=== PATIENT | female | born 1960 | race Caucasian/White ===

== ENCOUNTER 2020-10-20 11:16 | Inpatient (IN) | payer MEDICARE, MEDICAID ==
[~2020-10-20] VITALS: Ht 165.1 cm; Wt 61.2 kg
[2020-10-20 21:58] VITALS: BP 154/97
[2020-10-20 23:00] LABS: ALBUMIN 3.1 g/dL (3.4-5.0); ALBUMIN/GLOBULIN RATIO 0.9 (1.0-1.7); CALCIUM 8.8 mg/dL (8.5-10.1); CREATININE 0.7 mg/dL (0.6-1.0); GFR 85.6; POTASSIUM 3.6 mmol/L (3.5-5.1); TOTAL BILIRUBIN 0.2 mg/dL (0.2-1.0); TOTAL PROTEIN 6.4 g/dL (6.4-8.2)
[2020-10-20 23:03] LABS: BASO % 0 % (0-3); EOS # 0.1 x10^3/uL (0.0-0.7); EOS % 1 % (0-3); HEMATOCRIT 36.9 % (36.0-47.0); LYMPH # 1.3 x10^3/uL (1.0-4.8); LYMPH % 23 % (24-48); MEAN CORPUSCULAR HEMOGLOBIN 30 pg (25-35); MEAN CORPUSCULAR HGB CONC 33 g/dL (31-37); MEAN CORPUSCULAR VOLUME 91 fL (79-100); MONO # 0.4 x10^3/uL (0.0-1.1); MONO % 7 % (0-9); NEUT % 69 % (31-73); PLATELET COUNT 185 x10^3/uL (140-400); RED BLOOD COUNT 4.07 x10^6/uL (3.50-5.40); RED CELL DISTRIBUTION WIDTH 13.4 % (11.5-14.5); WHITE BLOOD COUNT 5.9 x10^3/uL (4.0-11.0)
[2020-10-20] MEDS ORDERED: BUDE180A IH (23:23)
[2020-10-20] MEDS ORDERED: PSYL1PAC7 PO (23:23)
[2020-10-20] MEDS ORDERED: LACT1CAP48 PO (23:23)
[2020-10-20] MEDS ORDERED: ZOLP5TAB PO (23:23)
[2020-10-20] MEDS ORDERED: BISA5TAB4 PO (23:23)
[2020-10-20] MEDS ORDERED: NORT25CA PO (23:23)
[2020-10-20] MEDS ORDERED: LEVO75TA5 PO (23:23)
[2020-10-20] MEDS ORDERED: TROL35.4 TP ×2 (23:23)
[2020-10-20] MEDS ORDERED: POLY17PO5 PO (23:23)
[2020-10-20] MEDS ORDERED: IBUP400T18 PO (23:23)
[2020-10-20] MEDS ORDERED: MULT-301 PO (23:23)
[2020-10-20] MEDS ORDERED: MIRT-37 PO (23:23)
[2020-10-20] MEDS ORDERED: GUAI-519 PO (23:23)
[2020-10-20] MEDS ORDERED: SIME80TA14 PO (23:23)
[2020-10-20] MEDS ORDERED: OMEP40CA45 PO (23:23)
[2020-10-20] MEDS ORDERED: DOXY100T PO (23:23)
[2020-10-20] MEDS ORDERED: FLUO20CA16 PO (23:23)
[2020-10-20] MEDS ORDERED: CLON0.5T4 PO (23:23)
[2020-10-20] MEDS ORDERED: ARIP5TAB13 PO (23:23)
[2020-10-20 23:37] VITALS: BP 126/80
[2020-10-21] MEDS ORDERED: ACET325T21 PO (00:13)
--- NOTE | 2020-10-21 02:33 | NUR ---
The patient, JENIFER BAKER, 59 y/o, F admitted by NEVA ROGERS MD, was given written information regarding hospital policies, unit procedures and contact persons. Valuables were checked and noted. PMH, medication review obtained from paperwork received. PT stated she was going to kill herself by hanging with a cord. PT states she was "just pretending" and currently denies SI/HI. PT currently on 1:1 for facility statement.
[2020-10-21 05:40] VITALS: BP 136/78
--- NOTE | 2020-10-21 06:32 | EKG ---
[address] [address] Test Date: 2020-10-21 Test Time: 05:21:12 Pat Name: JENIFER BAKER Department: Room: 105 A Gender: F Director Packaging: : 1960 Requested By: NEVA ROGERS Order Number: [id number] Reading MD: Measurements Intervals [place] Rate: 88 P: 60 CT: 162 QRS: 2 QRSD: 86 T: 43 QT: 374 QTc: 456 Interpretive Statements SINUS RHYTHM NORMAL ECG RI6.01 No previous ECG available for comparison
[2020-10-21 07:34] LABS: BILIRUBIN,URINE NEG (NEG); CLARITY,URINE CLOUDY; COLOR,URINE YELLOW; GLUCOSE,URINE NEG (NEG); NITRITE,URINE NEG (NEG); RBC,URINE 0 /HPF (0-2); UROBILINOGEN,URINE 0.2 mg/dL (0.2 mg/dL)
[2020-10-21 07:35] LABS: AMORPHOUS SEDIMENT,UR PRESENT /HPF; BACTERIA,URINE FEW /HPF (0-FEW); SQUAMOUS EPITHELIAL CELL,UR OCC /LPF; WBC,URINE OCC /HPF (0-4)
[2020-10-21] MEDS ORDERED: ACETAMINOPHEN 325 MG TABLET PO PRN (07:45)
[2020-10-21] MEDS ORDERED: PSYLLIUM SEED (WITH SUGAR) PACKET. PO PRN (07:45)
[2020-10-21] MEDS ORDERED: BISACODYL TAB 5 MG TABLET.DR. PO PRN (07:45)
[2020-10-21] MEDS ORDERED: guaiFENesin 300 MG/15 ML LIQUID PO PRN (07:45)
[2020-10-21] MEDS ORDERED: SIMETHICONE 80 MG TAB.CHEW PO PRN (07:45)
[2020-10-21] MEDS ORDERED: POLYETHYLENE GLYCOL 3350 17 GM PACKET. PO PRN (07:45)
[2020-10-21] MEDS ORDERED: LEVOTHYROXINE 75 MCG TABLET PO SCH (08:00)
[2020-10-21] MEDS ORDERED: PANTOPRAZOLE 40 MG TABLET. PO SCH (08:00)
[2020-10-21] MEDS ORDERED: ZOLPIDEM 5 MG TABLET. PO PRN (08:15)
[2020-10-21] MEDS ORDERED: TROLAMINE SALICYLATE 10% TOPICAL CREAM 85GM JAR. TP PRN (08:15)
[2020-10-21] MEDS ORDERED: FLUoxetine HCL 20 MG CAPSULE PO SCH (09:00)
[2020-10-21] MEDS ORDERED: DOXYCYCLINE HYCLATE 100 MG TABLET PO SCH (09:00)
[2020-10-21] MEDS ORDERED: MULTIVITAMIN with MINERAL TABLET. PO SCH (09:00)
[2020-10-21] MEDS ORDERED: ARIPiprazole 5 MG TABLET PO SCH (09:00)
[2020-10-21] MEDS: clonazePAM 0.5 MG TABLET PO SCH ×3 (09:30→20:45)
[2020-10-21] MEDS: LACTOBACILLUS RHAMNOSUS GG 1 CAPSULE. PO SCH ×3 (09:32→20:44)
[2020-10-21 10:41] VITALS: BP 120/77
[2020-10-21] MEDS: FLUTICASONE FUROATE 100mcg/INH ELLIPTA INHALER. INH SCH ×2 (13:45→20:46)
[2020-10-21 15:07] LABS: THYROID STIM HORMONE (TSH) 0.668 uIU/mL (0.358-3.740)
[2020-10-21 15:09] VITALS: BP 127/82
--- NOTE | 2020-10-21 16:36 | HP ---
ADMIT DATE: 10/20/2020 HISTORY OF PRESENT ILLNESS: The patient is a 59-year-old female patient, a resident at [facility] in [place], who was admitted to [facility] for screening for COVID-19 prior to transferring here upstairs to [facility] as she apparently has suicidal ideation with a plan to strangle herself with a cord. She has also had anorexia, not eating for the past week. She was seen by the tele-psych on 10/15/2020 without much improvement. She has had a UA and labs that are all within normal range and therefore, she will be eventually admitted to [facility] for inpatient psychiatric stabilization. PAST MEDICAL HISTORY: She apparently had tested positive for COVID about 21 days out as of 10/18/2020 and she is off quarantine. She has an extensive list of medical problems including anorexia nervosa, restricting type. She has bipolar disorder, somatoform disorder, Parkinson disease, overactive bladder, urge incontinence, hypomagnesemia, cachexia, muscle wasting and atrophy, difficulty walking, age-related physical debility, repeated falls, constipation. 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 PAST SURGICAL HISTORY: Significant for gastrostomy tube placement. FAMILY HISTORY: Noncontributory. SOCIAL HISTORY: She is single, has been living in [facility] over the last 3 years. 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 She does not smoke, drink alcohol or use any recreational drugs. ALLERGIES: SHE IS ALLERGIC TO PENICILLIN, AZITHROMYCIN, WELLBUTRIN, CEFDINIR, ERYTHROMYCIN AND SULFADIAZINE. MEDICATIONS: She is currently on following medications: She is on doxycycline 100 mg daily, ibuprofen 400 mg one and a half tablet every 8 hours, acetaminophen 650 mg every 4 hours, clonazepam 0.5 mg 3 times a day, fluoxetine for Prozac 20 mg daily, mirtazapine 15 mg take half a tablet at bedtime, nortriptyline 75 mg at bedtime, aripiprazole 5 mg daily, Ambien 2.5 mg at bedtime, Pulmicort 2 puffs twice a day. She is on ____ 10 mL every 4 hours, lactobacillus acidophilus 1 capsule 3 times a day, simethicone 80 mg chewable tablet twice a day, bisacodyl 5 mg daily, polyethylene glycol 17 g daily, psyllium for Metamucil packet ____ daily, omeprazole 40 mg once a day, levothyroxine 75 mcg once a day. She is on Aspercreme 10% cream applied topically daily. She is on multivitamin with mineral 1 tablet once a day. REVIEW OF SYSTEMS: As per history of present illness. PHYSICAL EXAMINATION: GENERAL: On arrival to the hospital, she looked well and was clearly in no apparent respiratory distress. No pallor, jaundice, cyanosis or thyromegaly. No jugular venous distention or limb edema. VITAL SIGNS: Her heart rate was 83, blood pressure was 126/80, temperature 97.4, respiratory rate was 18 and oxygen saturation was 98%. HEAD, EYES, EARS, NOSE AND THROAT: Normocephalic and atraumatic. NECK: Supple. HEART: Showed normal first and second heart sounds. No gallop, rub or murmur. CHEST: Clear to auscultation. No crepitation or rhonchi. ABDOMEN: Scaphoid, soft, nontender. NEUROLOGIC: She is awake, alert, responding appropriately. All cranial nerves intact. EXTREMITIES: She moves extremities without difficulty. She ambulates with a walker. LABORATORY DATA: Showed a white cell count 5900, hemoglobin 12, hematocrit 36, MCV 91, and platelet count 185,000 with normal manual differential. Serum sodium was 142, potassium 3.6, chloride 107, bicarbonate 29, anion gap of 6, BUN 22, creatinine 0.7, estimated GFR was 85 mL per minute. Her glucose 106, calcium was 8.8, magnesium 2. Total bilirubin, AST, ALT, alkaline phosphatase were normal. Total protein 6.4, albumin 3.1. Her serum triglycerides were 82, total cholesterol 173, LDL was 103, VLDL was 16, HDL was 64 and ratio was 3. Her vitamin B12 was 591 pg. Her 25-hydroxy vitamin D was normal at 33.6 ng/mL and her TSH was 0.668. Her D-dimer was low at 0.31. Urinalysis essentially unremarkable and her Treponema pallidum antibody was nonreactive. IMPRESSION: In summary, this is a 59-year-old female patient who was admitted to [facility] for screening for COVID-19. Once it is negative, she will be admitted to [facility] into account of suicidal ideation with a plan to strangulate herself with the cord. She has also a multitude of other psychiatric and medical problems including anorexia nervosa, Parkinson's disease, hypothyroidism. NEVA ROGERS MD DR: MADAN/wil JOB#: [id number] / [id number]
[2020-10-21 19:10] VITALS: BP 125/79
[2020-10-21] MEDS ORDERED: MIRTAZAPINE 7.5 MG TABLET. PO SCH (21:00)
[2020-10-21] MEDS ORDERED: NORTRIPTYLINE 25 MG CAPSULE PO SCH (21:00)
[2020-10-22 00:08] LABS: HEMOGLOBIN A1C 5.5 % (4.8-5.6)
--- NOTE | 2020-10-22 04:05 | NUR ---
COVID screen returned negative, report called and PT transferred to [facility].
--- NOTE | 2020-10-22 08:05 | PDOC ---
Exam Note: Avel Note: This is a late entry for 10/20/2020. Please also refer to the separate dictated note~for this date of service dictated separately. Discussed the patient with Nursing staff reviewed the chart.~Reviewed interim history and current functioning. Reviewed vital signs,~Labs/ Radiology~and current medications noted below. Continue current treatment with the changes noted in the dictated addendum note. Reviewed information with Genie Bragg, [employer], including referral information and criteria for admission. Reviewed the patients medication administration records, current and past history. Assessment: Vital Signs/I&O: Vital Signs Date Time Temp Pulse Resp B/P (MAP) Pulse Ox O2 Delivery O2 Flow Rate FiO2 10/21/20 23:44 71 16 94 Room Air 10/21/20 19:10 98.6 125/79 (94) I & O 10/21/20 10/21/20 10/22/20 15:00 23:00 07:00 Intake Total 960 ml 360 ml 0 ml Balance 960 ml 360 ml 0 ml Current Medications: Meds: Current Medications Medications (Trade) Dose Ordered Sig/Aline Route PRN Reason Start Time Stop Time Status Last Admin Dose Admin Aripiprazole (Abilify) 5 mg DAILY PO 10/21/20 09:00 10/22/20 04:09 DC 10/21/20 09:31 Clonazepam (KlonoPIN) 0.75 mg TID PO 10/21/20 09:00 10/22/20 04:09 DC 10/21/20 20:45 Doxycycline Hyclate (Vibra-Tab) 100 mg DAILY PO 10/21/20 09:00 10/22/20 04:09 DC 10/21/20 09:31 Fluoxetine HCl (PROzac) 20 mg DAILY PO 10/21/20 09:00 10/22/20 04:09 DC 10/21/20 09:31 Mirtazapine (Remeron) 7.5 mg QHS PO 10/21/20 21:00 10/22/20 04:09 DC 10/21/20 20:44 Multivitamins/ Calcium (Thera-M Plus) 1 tab DAILY PO 10/21/20 09:00 10/22/20 04:09 DC 10/21/20 09:31 Nortriptyline HCl (Pamelor) 75 mg QHS PO 10/21/20 21:00 10/22/20 04:09 DC 10/21/20 20:45 Fluticasone Furoate (ARNUITY 100mcg ELLIPTA) 2 puff BID INH 10/21/20 09:00 10/22/20 04:09 DC 10/21/20 13:45 Lactobacillus Rhamnosus (Culturelle) 1 cap TID PO 10/21/20 09:00 10/22/20 04:09 DC 10/21/20 20:44 I have reviewed the current psychotropics carefully including drug interactions. Risk benefit ratio favors no change other than as noted in my dictated progress note. Diagnosis: Problems: (1) Major depressive disorder, recurrent episode (2) Parkinson's disease DEL GO MD Oct 22, 2020 08:05
--- NOTE | 2020-10-22 19:10 | DS ---
DATE OF DISCHARGE: 10/22/2020 HOSPITAL COURSE: The patient is a 59-year-old female patient, who is residing at [facility] in [place], who was admitted to [address] [place] [address] to be screened for COVID-19 and in fact her coronavirus by PCR was not detectable and therefore, the patient was transferred to [facility] as she has suicidal ideation and had a plan to strangle herself with a cord. She apparently has also had anorexia, not eating for the past week. She was seen by telepsych on 10/15/2020 without much improvement. Had a UA and labs that are all within normal range and therefore, she was transferred to [facility] for inpatient psychiatric stabilization. PHYSICAL EXAMINATION: GENERAL: On examining her on the day of discharge, she looked well and was clearly in no apparent respiratory distress. No pallor, jaundice, cyanosis, or thyromegaly. No jugular venous distension. No lower limb edema. VITAL SIGNS: Her heart rate was 71, blood pressure was 125/79, temperature was 98.6, respiratory rate was 18 and oxygen saturation was 96%. HEAD, EYES, EARS, NOSE AND THROAT: Showed normocephalic, atraumatic. NECK: Supple. HEART: Showed normal first and second heart sounds. No gallop or murmur. CHEST: Clear to auscultation. No crepitation or rhonchi. ABDOMEN: Distended, soft, nontender. NEUROLOGIC: She has parkinsonian features which she is able to ambulate with a walker, although she claimed that she cannot eat, although she has eaten 75% of her meals and stated that she in unable to walk, but she was clearly able to walk with a walker when she was here in [address] [place] [address]. LABORATORY DATA: Her lab work showed a white cell count 5900, hemoglobin 12, hematocrit 36, MCV 91, and platelet count of 185,000. Her chemistry showed a serum sodium 142, potassium 3.6, chloride 107, bicarbonate 29, anion gap of 6, BUN 22, creatinine 0.7. Her vitamin B12 591 pg/mL and 25-hydroxy vitamin D was 33.6. Her TSH was normal at 0.668. Her hemoglobin A1c was 5.5. D-dimer was 0.31. Urinalysis was essentially unremarkable and her treponema pallidum antibodies were nonreactive and coronavirus-2 PCR was not detectable. FINAL DISCHARGE DIAGNOSES: Suicidal ideation with a plan to strangulate herself with a cord. The patient has multiple medical problems including anorexia nervosa. She has bipolar disorder, Parkinson disease, urinary incontinence, chronic constipation, hypothyroidism, hypertension, generalized anxiety, major depressive disorder. NEVA ROGERS MD DR: MADAN/wil JOB#: [id number] / [id number]
--- NOTE | 2020-10-24 07:48 | CONS ---
DATE OF CONSULTATION: ADDENDUM HISTORY OF PRESENT ILLNESS: The patient is a 59-year-old female patient who currently resides at [facility] in [place], who was originally admitted to [address] [place] [address] and was cleared for COVID-19, was transferred to [facility] as she apparently has suicidal ideation with a plan to strangle herself with a cord. She has also had anorexia, not eating for the past week. She was seen by the Tele psych on 10/15/2020 without much improvement. She did have a UA and labs that are all within normal range and therefore, she was eventually admitted to [facility] for inpatient psychiatric stabilization. The patient has multiple medical problems and her lab work was mostly unrevealing. Her vital signs are stable. Her lab works are all unremarkable. The medical problems include anorexia nervosa, bipolar disorder, Parkinson's disease, overactive bladder, urge incontinence, hypomagnesemia, cachexia, chronic constipation, hypothyroidism, hypertension, generalized anxiety, major depressive disorder. She is also known to have gastroesophageal reflux disease and peripheral vascular disease. All-in-all, the patient seems to be medically stable. Her vital signs are within normal range. Her lab works are all within acceptable range. My plan is to obviously continue with all her current medications and await evaluation by the psychiatrist. NEVA ROGERS MD DR: MADAN/wil JOB#: [id number] / [id number]
== END 2020-10-22 04:00 | DRG 57 ==
LOC: 1 SOUTH 20:30
PROVIDERS: ADMIT Internal Medicine; ATTEND Internal Medicine
DX: G20 Parkinson's disease (principal); R45.851 Suicidal ideations; F50.00 Anorexia nervosa, unspecified; E03.9 Hypothyroidism, unspecified; F31.9 Bipolar disorder, unspecified; F41.1 Generalized anxiety disorder; I10 Essential (primary) hypertension; K59.09 Other constipation; Z20.828 Contact with and (suspected) exposure to other viral communicable diseases; E83.42 Hypomagnesemia; G47.00 Insomnia, unspecified; K21.9 Gastro-esophageal reflux disease without esophagitis; I73.9 Peripheral vascular disease, unspecified; Z86.59 Personal history of other mental and behavioral disorders; Z88.1 Allergy status to other antibiotic agents; Z93.1 Gastrostomy status; Z88.0 Allergy status to penicillin; Z88.8 Allergy status to other drugs, medicaments and biological substances
CPT/HCPCS: 36415; 80053; 80061; 81001; 82306; 82607; 83036; 83735; 84443; 85025; 85379; 86592; 87086; 93005; U0003

== ENCOUNTER 2020-10-22 02:55 | Inpatient (IN) | payer MEDICARE, MEDICAID ==
[~2020-10-22] VITALS: Ht 165.1 cm; Wt 59.5 kg
[~2020-10-22 02:55] MED LIST: ACET325T21 PO; ARIP5TAB13 PO; BISA5TAB4 PO; BUDE180A IH; CLON0.5T4 PO; DOXY100T PO; FLUO20CA16 PO; GUAI-519 PO; IBUP400T18 PO; LACT1CAP48 PO; LEVO75TA5 PO; MIRT-37 PO; MULT-301 PO; NORT25CA PO; OMEP40CA45 PO; POLY17PO5 PO; PSYL1PAC7 PO; SIME80TA14 PO; TROL35.4 TP; ZOLP5TAB PO
[2020-10-22] MEDS ORDERED: ACETAMINOPHEN 325 MG TABLET PO PRN (04:00)
[2020-10-22] MEDS ORDERED: MAGNESIUM HYDROXIDE 2,400 MG/30 ML ORAL.SUSP. PO PRN (04:00)
[2020-10-22] MEDS ORDERED: MAG HYDROX/AL HYDROX/SIMETH 30 ML ORAL.SUSP PO PRN (04:00)
[2020-10-22 04:15] VITALS: BP 130/82
[2020-10-22] MEDS ORDERED: SIMETHICONE 80 MG TAB.CHEW PO PRN (04:30)
[2020-10-22] MEDS ORDERED: BISACODYL TAB 5 MG TABLET.DR. PO PRN (04:30)
[2020-10-22] MEDS ORDERED: guaiFENesin 300 MG/15 ML LIQUID PO PRN (04:30)
[2020-10-22] MEDS ORDERED: METHYL SALICYLATE/MENTHOL TOPICAL OINTMENT 57GM TUBE. TP PRN (04:45)
[2020-10-22 05:05] VITALS: BP 130/84
--- NOTE | 2020-10-22 05:50 | NUR ---
Admission Note with Justification for Admission to [facility] Patient admitted to [facility] for protective oversight for emergency stabilization of acute psychiatric crisis. Pt admitted from: SNF Mode of arrival: EMS Accompanied By: [facility] Staff Precipitating behaviors that initiated intake and admission: The patient made statements that she would attempt to strangle self. Patient had stopped eating prior to arrival to hospital Description of failure of out patient attempts at stabilization in previous setting list behavior and medication trials: Seen by telepsych Behaviors and assessment findings upon admission: Patient is alert and oriented to self, date, location and situation. The patient is withdrawn and hesitant to answer assessment questions. The patient appears to be anxious during interactions. The patient reports generalized pain throughout her body. The patient denies SI thoughts at this time but acknowledges that she made SI statements prior to arrival. The patients lungs are clear, bowel are active. The patient has 1+ edema bilaterally lower extremities. Some bruising located on right forearm but no wounds or rashes noted. Plan: Admit for protective oversight for adjustment and stabilization of medications, behaviors and mood. Intense treatment regimen including groups, medication adjustments, therapy, consistent regimen for ADL's, self care, and sleep hygiene. Daily monitoring by Inpatient staff, Psychiatry, and Medical Physician.
[2020-10-22] MEDS: LEVOTHYROXINE 75 MCG TABLET PO SCH (06:00)
[2020-10-22] MEDS ORDERED: BUDESONIDE 0.5 MG/2 ML NEBU NEB SCH (08:00)
[2020-10-22] MEDS: FLUoxetine HCL 20 MG CAPSULE PO SCH (08:59)
[2020-10-22] MEDS: MULTIVITAMIN with MINERAL TABLET. PO SCH (08:59)
[2020-10-22] MEDS: ARIPiprazole 5 MG TABLET PO SCH (08:59)
[2020-10-22] MEDS: LACTOBACILLUS RHAMNOSUS GG 1 CAPSULE. PO SCH ×3 (08:59→20:08)
[2020-10-22] MEDS: DOXYCYCLINE HYCLATE 100 MG TABLET PO SCH (08:59)
[2020-10-22] MEDS: clonazePAM 0.5 MG TABLET PO SCH ×3 (08:59→20:07)
[2020-10-22] MEDS: PANTOPRAZOLE 40 MG TABLET. PO SCH (08:59)
[2020-10-22] MEDS: PSYLLIUM SEED (WITH SUGAR) PACKET. PO SCH (09:00)
[2020-10-22] MEDS: METHYL SALICYLATE/MENTHOL TOPICAL OINTMENT 57GM TUBE. TP SCH (09:00)
[2020-10-22] MEDS ORDERED: NON FORMULARY ITEM (Budesonide (Pulmicort Flexhaler) 2 PUFF) IH SCH (09:00)
--- NOTE | 2020-10-22 14:22 | NUR ---
PSYCHOSOCIAL ASSESSMENT ADMISSION DATE: 10/22/20 CONTACT INFORMATION: DPOA/Guardian Contact Name: Julisa Bernal-sister/guardian Contact Phone #: [phone] ETHNIC ORIGIN: REASONS FOR ADMISSION: Anxiety/Panic Depressed Sig. Change Appetite Suicidal ideation ADDITIONAL ADMISSION COMMENTS: Per intake record, SI with plan to strangle self with cord, not eating for the past week with history of anorexia. REASON FOR ADMISSION IN PATIENT/FAMILY'S OWN WORDS: Per Kallie, "I'm not doing good, I'm not eating." PATIENT/FAMILY EXPECTATIONS FOR ADMISSION: Per Kallie, "I want to try and get better." when asked what would that look like, Kallie expressed the desire to stand and walk on her own again and to one day be able to live independently and work again. LIVING SITUATION: Patient lives with: [facility] Other living arrangements: [facility] Contact Name: Sadia Contact [address]: [address] [place] [address] Contact Phone #: [phone] Contact Fax #: [phone] FAMILY RELATIONS: Marital Status: Single # of Marriages: 0 # of Children: 0 SB Family Support: Cooperative Involved in DC Planning Additional Comments r/t Family: Kallie is single with no children. She reports having enjoyed dating and having social relationships. She denies being abused in any of her relationships. SIGNIFICANT PSYCHIATRIC/MEDICAL HISTORY: Psychiatric/Treatment History: Kallie believes she has had around seven in patient psychiatric treatment stays starting when she was in her 30's. She has also utilized the supports of out patient counselors and psychiatrists. The intake record notes that Kallie has had ECT treatments in the past for anorexia. Pertinent Family History: Kallie believes that her mother, father, and maternal grandmother all had some level of depression that went undiagnosed. Kallie's father was an alcoholic. HISTORICAL DATA: Childhood Environment: Stressful Childhood Environment Additional Comments: Kallie was born in [facility] to Zachary and Kierra Pitt. She was the oldest of two children and has one sister named Julisa. Kallie recalled her childhood as "bad" because her father was unfaithful leading her parents to divorce. She and her sister were raised by their mother who moved them back to [facility] to have support from family. Kallie recalled seeing her father rarely and that his wages were garnished for child support. Trauma History: None reported Kallie denies childhood abuse or neglect. Drug Abuse History last 12 months: No Comment: Kallie denies using alcohol, recreational drugs, or smoking. 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 service: None Rastafarian background: Kallie is of the Religion luís and is not currently practicing. Sexual orientation: Heterosexual Educational Level: Kallie graduated high school from [employer]. She went on to obtain her masters degree in business education from [employer]. Past/Present Interests/Hobbies: Kallie has enjoyed exercising, playing with dogs, and dating. Financial support/resources: Assisted/Pension SS Disability Monthly income: unknown, adequate Person handling finances: Julisa Bernal-sister Do you have a history of legal problems: Kallie got a DUI when she was 18. Cultural considerations: None reported SOCIAL RELATIONSHIPS-CURRENT/PAST: Psychiatrist: Telepsych visits at [facility] PCP: Dr. Cerna Counselor/Therapist: Not available now due to pandemic [facility] [facility]: n/a Support Group: n/a Desk Clerk/Product Demonstrator: Sadia LOWE Other relationships: Phone contact with sister STRENGTHS & WEAKNESSES: Patient's strengths: Stable living arrange Ambulatory Approachable Patient's weaknesses: Health problems Other patient weaknesses: limited support system, chronic mental illness PRELIMINARY PLAN OF TREATMENT: Preliminary plan: Dec. Anxiety/Panic Dec. Symp. Depression Decrease Isolation Promote Coping Skill No Suicidal/Liv. ideation Improved Social Skills Medication Stabilization Monitor Med Effects Prevent Deterioration Other preliminary treatment comments: Kallie will be encouraged to attend SW and recreational therapy groups while hospitalized. DISCHARGE PLANNING: Discharge planning/disposition: Group Home Additional discharge needs identified: F/U with PCP, psychiatrist, and counselor. Have [facility] recreational therapist follow up with Kallie to develop past time interests within the facility. ADDITIONAL INFORMATION: Other Pertinent Data: Met with Kallie to support related to recent admit and to complete psychosocial assessment. Kallie was curled up in her bed, awake and alert. She was slow to respond and quiet in nature, not offering information readily. Kallie appeared to recall most recent and remote events. She had a flat affect and expressed she was not well. izzy Egan, will be involved in team meeting via phone on 10/25/20.
[2020-10-22 15:57] VITALS: BP 132/79
--- NOTE | 2020-10-22 18:26 | NUR ---
Patient lying in bed at time of assessment. Patient is alert and oriented with no complaints. Patient is feeling helpless and like she can not do anything. She says she cant walk although she walks just fine with her walker. She stated to me that she is not eating and this makes her weak. She has no SI tenancies at this time. She denies any feelings of self harm. She is withdrawn and doesn't like to discuss why she is here. Will monitor patient closely to make sure she is adjusting to the environment okay. There are no further concerns at this time.
[2020-10-22] MEDS: MIRTAZAPINE 7.5 MG TABLET. PO SCH (20:07)
[2020-10-22] MEDS: ZOLPIDEM 5 MG TABLET. PO SCH (20:07)
[2020-10-22] MEDS: NORTRIPTYLINE 25 MG CAPSULE PO SCH (20:08)
[2020-10-22] MEDS: FLUTICASONE FUROATE 100mcg/INH ELLIPTA INHALER. INH SCH (20:54)
--- NOTE | 2020-10-23 00:21 | NUR ---
Nursing Note Pt has significant psychomotor slowing, very flat affect with monosyllabic speech. Has to be told to stand, sit, straighten up is very slow to respond to verbal stimuli. Answers with one word answers. Difficult to engage, minimal eye contact.
[2020-10-23] MEDS: LEVOTHYROXINE 75 MCG TABLET PO SCH (04:32)
[2020-10-23 06:20] VITALS: BP 152/90
[2020-10-23] MEDS: PSYLLIUM SEED (WITH SUGAR) PACKET. PO SCH (07:58)
[2020-10-23] MEDS: FLUoxetine HCL 20 MG CAPSULE PO SCH (07:58)
[2020-10-23] MEDS: LACTOBACILLUS RHAMNOSUS GG 1 CAPSULE. PO SCH ×3 (07:58→19:27)
[2020-10-23] MEDS: DOXYCYCLINE HYCLATE 100 MG TABLET PO SCH (07:59)
[2020-10-23] MEDS: ARIPiprazole 5 MG TABLET PO SCH (07:59)
[2020-10-23] MEDS: PANTOPRAZOLE 40 MG TABLET. PO SCH (07:59)
[2020-10-23] MEDS: MULTIVITAMIN with MINERAL TABLET. PO SCH (07:59)
[2020-10-23] MEDS: FLUTICASONE FUROATE 100mcg/INH ELLIPTA INHALER. INH SCH ×2 (08:08→19:26)
[2020-10-23] MEDS: METHYL SALICYLATE/MENTHOL TOPICAL OINTMENT 57GM TUBE. TP SCH (08:10)
[2020-10-23] MEDS: clonazePAM 0.5 MG TABLET PO SCH ×3 (08:10→19:28)
--- NOTE | 2020-10-23 14:02 | PSYEV ---
DATE OF SERVICE: 10/23/2020 REASON FOR ADMISSION: This 59-year-old single female who was seen today by telehealth, was transferred from medical floor where she kept for observation prior to transfer to the Psych Unit. The patient apparently a resident at [facility] and apparently she made a suicidal attempt, trying to strangle herself with a cord. The patient admits she has been depressed, not happy with living arrangement and feeling hopeless and helpless. HISTORY OF PRESENT ILLNESS: The patient has a long history of psychiatric problems. She had multiple hospitalizations in the past at least twice to [facility] and twice to [facility] in the past and at least attempted suicide before twice, once by overdosing on pills, the other time trying to strangle herself. The patient admits she has been depressed most of her life and her problems really started when she was 36 years that was the first time she had psychiatric treatment. The patient saw a psychiatrist for a period of time, then went to a different psychiatrist. She has been tried on almost every antidepressant, mood stabilizers and also ECT treatments up to 10. When she claims, she never responded to the treatments. She did show some improvement with the Abilify. The patient states she also having difficulty accepting her physical problems. 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 PAST MEDICAL HISTORY: The patient apparently had multiple physical problems, gait impairment, hypertension, anorexia, chronic insomnia, GERD, recurrent UTIs and Parkinson's. ALLERGIES: The patient also has multiple allergies to medications including AZITHROMYCIN, ERYTHROMYCIN, SULFADIAZINE, OMNICEF, PENICILLIN, AND WELLBUTRIN. PAST PSYCHIATRIC HISTORY: As stated above, she has been in psychiatric treatments since she was 36 years old, has seen different psychiatrists, multiple hospitalizations, at least 3 suicidal attempts in the past. The patient claims she did not respond to any treatment to most of the antidepressants and other psychotropic drugs. The patient was hospitalized twice to [facility] and twice to [facility]. The patient is currently taking nortriptyline 75 mg at night, Prozac 20 mg daily, Remeron 7.5 mg at night. She is also on Abilify 5 mg daily, clonazepam 0.75 mg 3 times a day and Ambien 2.5 mg at night. PSYCHOSOCIAL HISTORY: The patient grew up in a family with no major problems with addiction or depression, but mother's side of the family had depression and no suicide in the family. SOCIAL HISTORY: The patient stayed single. She has a master's in education. 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 Her main support system is her sister. The patient sees herself as a failure because of long term from her job because she could not stand very long period of time and also not able to change her lifestyle having lot of free time and try to find a job, could not succeed. The patient lived alone prior to moving to the residential facility. 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 The patient states she had a very active lifestyle. She enjoyed exercising, had friends and had several hobbies. The patient denies of any drug addiction. No legal problems, but she did get a DUI when she was 18. The patient denies of any history of physical, emotional, or sexual abuse and no drug addiction. MENTAL STATUS EXAMINATION: The patient appeared to be of her stated age, casually dressed, slow to respond to questions, probably secondary to her Parkinson's disease. Her speech was clear, monotone, hesitant, delayed response. The patient also had marked psychomotor retardation, but no evidence of any tremors. Her affect and mood showed she is depressed, withdrawn, feeling hopeless and helpless, admits to having suicidal thoughts with plan prior to coming here. The patient states she is not sleeping well. Her appetite decreased. The patient currently not exhibiting any psychotic symptoms. The patient does have significant problems with concentration and thinking, slow mentation. The patient denies of any psychotic symptoms. She is oriented to time, place and person. Her memory is intact for both past and present. Judgment intact. Insight Limited. STRENGTHS: Fairly in good health, supportive sister, has a master's degree, she was employed until she was 50 years old and retired. WEAKNESSES: The patient is chronically depressed, low self-esteem, poor self-concept, having difficulty adapting to her long term, chronically depressed and also nonresponder to most of the antidepressants. PSYCHIATRIC DIAGNOSES: AXIS I: 1. Major depression, recurrent. 2. History of bipolar disorder. 3. Generalized anxiety disorder. AXIS II: None. AXIS III: Hypertension, hypothyroidism, gastroesophageal reflux disease, Parkinson's disease, chronic insomnia, recurrent urinary tract infections. INITIAL TREATMENT AND PLAN: The patient will continue on her current medication listed above. She will be encouraged to attend all the activities including individual therapy, group therapy, activity therapy. The patient will be seen by the psychiatrist daily. DISCHARGE PLAN: The patient will be able to stay on her current medications. If no improvement, the changes will be made and she will be discharged back to the facility that she came from after she shows 3 consecutive days of improvement without any suicidal thoughts or plans. LORENA BETANCOURT MD DR: NATI/wil JOB#: [id number] / [id number]
[2020-10-23 15:49] VITALS: BP 114/72
--- NOTE | 2020-10-23 18:19 | NUR ---
Pt up in room. Withdrawn and quiet. Flat affect. Has trouble with starting thoughts. Pt spoke with Dr Huggins and was able to give a fair account of previous history. Has been compliant with meds and cares.
[2020-10-23] MEDS: ZOLPIDEM 5 MG TABLET. PO SCH (19:27)
[2020-10-23] MEDS: NORTRIPTYLINE 25 MG CAPSULE PO SCH (19:29)
[2020-10-23] MEDS: MIRTAZAPINE 7.5 MG TABLET. PO SCH (19:29)
--- NOTE | 2020-10-23 23:19 | NUR ---
Patient is in her room on assumption of care, sitting in her chair. Very slow to answer assessment questions. Compliant with medications whole. When this nurse offered patient a shower, she replied "But, I can't walk." Did ambulate using her walker to the shower after encouragement. She denies any SI feelings at present time. Denies any pain or discomfort. After showering, patient requested to go to bed. She appears to be sleeping comfortably at present time. Will continue to monitor.
[2020-10-24 05:30] VITALS: BP 127/77
[2020-10-24] MEDS: LEVOTHYROXINE 75 MCG TABLET PO SCH (05:32)
[2020-10-24] MEDS: PSYLLIUM SEED (WITH SUGAR) PACKET. PO SCH (08:26)
[2020-10-24] MEDS: PANTOPRAZOLE 40 MG TABLET. PO SCH (08:26)
[2020-10-24] MEDS: MULTIVITAMIN with MINERAL TABLET. PO SCH (08:26)
[2020-10-24] MEDS: FLUoxetine HCL 20 MG CAPSULE PO SCH (08:26)
[2020-10-24] MEDS: LACTOBACILLUS RHAMNOSUS GG 1 CAPSULE. PO SCH ×3 (08:26→19:43)
[2020-10-24] MEDS: DOXYCYCLINE HYCLATE 100 MG TABLET PO SCH (08:26)
[2020-10-24] MEDS: ARIPiprazole 5 MG TABLET PO SCH (08:27)
[2020-10-24] MEDS: FLUTICASONE FUROATE 100mcg/INH ELLIPTA INHALER. INH SCH (08:27)
[2020-10-24] MEDS: clonazePAM 0.5 MG TABLET PO SCH ×3 (08:29→19:46)
[2020-10-24] MEDS: METHYL SALICYLATE/MENTHOL TOPICAL OINTMENT 57GM TUBE. TP SCH (08:32)
[2020-10-24 14:23] VITALS: BP 126/85
[2020-10-24 15:00] VITALS: BP 126/85
--- NOTE | 2020-10-24 16:02 | PN ---
DATE: 10/24/2020 SUBJECTIVE: The patient was seen today by telehealth, met with the staff, chart reviewed. The patient continues to be anxious, having difficulty with her speech, slow to respond to questions, highly nervous, involuntary movements, rocking and also hand tremors. Staff reports that the patient is mostly calmer most of the time, but when she is interacting with someone, then she tend to get stressed, having high level of anxiety. OBSERVATION: VITAL SIGNS: Temperature 97.3, blood pressure 135/56, pulse 58, respirations 20, O2 sat 94%. GENERAL: Slept about 5 hours last night. The patient's appetite is fair. The patient's lab reviewed and also medications reviewed. Currently, not having any major side effects. The patient is currently taking Klonopin 1.5 mg 3 times a day. The patient apparently has been on Klonopin for several years, seems to be dependent on it. Her current mental status, she is alert, oriented, indifferent, takes time to respond to questions. The patient is highly anxious, periods of agitation, rocking movements, also involuntary movements. The patient is also having difficulty with speech, mostly monosyllabic and the patient also has difficulty with thinking and concentration. The patient is currently not exhibiting any psychotic symptoms. The patient is still depressed, anxious, feeling helpless. Also, resentment, patient is upset because she is not getting help from the medications. She is oriented to time, place and person. Her memory is intact for both past and present. The patient is currently not expressing any suicidal thoughts or plans. ASSESSMENT: 1. Major depression, recurrent, chronic. 2. Bipolar disorder, mixed. PLAN: Continue with the current treatment plan. LORENA BETANCOURT MD DR: NATI/wil JOB#: [id number] / [id number]
--- NOTE | 2020-10-24 17:13 | NUR ---
Pt up in room and meals with much encouragement. Pt display bouts of helplessness. Has been c/o med and cares. Appetite today was poor. Pt sternly encouraged to drink by staff. Pt noted to be on doxycycline and inhaler for COVID, verified by [facility]. Pt no longer needs. Order received from Dr Schneider to [place].
[2020-10-24] MEDS: NORTRIPTYLINE 25 MG CAPSULE PO SCH (19:44)
[2020-10-24] MEDS: MIRTAZAPINE 7.5 MG TABLET. PO SCH (19:45)
[2020-10-24] MEDS: ZOLPIDEM 5 MG TABLET. PO SCH (19:45)
[2020-10-24] MEDS: DOCUSATE SODIUM 100 MG CAPSULE PO SCH (19:48)
--- NOTE | 2020-10-24 23:59 | NUR ---
Patient is in her room on assumption of care, sitting in her chair. Very slow to answer assessment questions. Compliant with medications whole. She denies any SI feelings at present time. Denies any pain or discomfort. She appears to be sleeping comfortably at present time. Will continue to monitor.
[2020-10-25] MEDS: LEVOTHYROXINE 75 MCG TABLET PO SCH (05:28)
[2020-10-25 05:43] VITALS: BP 118/77
[2020-10-25] MEDS: MULTIVITAMIN with MINERAL TABLET. PO SCH (08:04)
[2020-10-25] MEDS: LACTOBACILLUS RHAMNOSUS GG 1 CAPSULE. PO SCH ×3 (08:04→20:20)
[2020-10-25] MEDS: DOCUSATE SODIUM 100 MG CAPSULE PO SCH ×2 (08:04→20:19)
[2020-10-25] MEDS: ARIPiprazole 5 MG TABLET PO SCH (08:04)
[2020-10-25] MEDS: PANTOPRAZOLE 40 MG TABLET. PO SCH (08:04)
[2020-10-25] MEDS: PSYLLIUM SEED (WITH SUGAR) PACKET. PO SCH (08:04)
[2020-10-25] MEDS: FLUoxetine HCL 20 MG CAPSULE PO SCH (08:04)
[2020-10-25] MEDS: METHYL SALICYLATE/MENTHOL TOPICAL OINTMENT 57GM TUBE. TP SCH (08:07)
[2020-10-25] MEDS: clonazePAM 0.5 MG TABLET PO SCH ×3 (08:07→20:22)
--- NOTE | 2020-10-25 09:15 | NUR ---
ACTIVITY THERAPY ASSESSMENT completed based on notes, observation and interview. Pt was sitting in her chair with her breakfast sitting in front of her. Pt was anxious throughout interview. Pt said that she was not doing well and that she was not eating. All the food on pt's tray remained untouched throughout interview. Pt said that she came from [facility] and they sent her here because she said that she would like to . Pt was aware of her location and reason for admission. Pt reports that she has never been and has no children. Pt reports that she gets to see her sister from time to time. Pt was able to list leisure interests. Pt likes to go to the movies, exercise, coloring and crosswords. When asked what she likes to do with her family pt said that she didn't have any family. AT asked about her sister and she said that they do crosswords together. Pt said that she likes to go shopping with friends. Pt reports stress and says that she has always dealt with anxiety. Pt was reserved and quiet throughout interview and required frequent prompting. Initial goal aimed to increase socialization and motivation skills. Pt will participate in at least three Activity Therapy group or individual sessions before discharge. Addendum: 11/01/20 at 1313 by BRANDEE BOWEN ACT Goal changed 11/01/20: Pt. will participate in at least three Activity Therapy groups or individual sessions per week Addendum: 11/23/20 at 1227 by BRANDEE BOWEN ACT Goal changed 11/22: Pt. will participate in at least one Activity Therapy group per day
--- NOTE | 2020-10-25 12:32 | TX PLAN ---
Interdisciplinary Tx Plan Admission Information Oct 22, 2020 at 02:55 Legal Status (on Admission): Voluntary, Court Appointed Guardian, Court Appointed Conservat DPOA/Guardian Name: Julisa Bernal-sister/guardian Contact Other Contact Name: Duane Other Contact Verified Code Status: Full Code Allergies: Coded Allergies: Penicillins (Verified Allergy, Intermediate, 10/20/20) azithromycin (Verified Allergy, Intermediate, 10/21/20) bupropion (Verified Allergy, Intermediate, 10/21/20) cefdinir (Verified Allergy, Intermediate, 10/21/20) erythromycin base (Verified Allergy, Intermediate, 10/21/20) sulfadiazine (Verified Allergy, Intermediate, 10/21/20) Estimated Length of Stay: 14 Diagnoses Primary Diagnosis: Bipolar depressed Reasons for Admission: Depressed, Sig. Change Appetite, Anxiety/Panic, Suicidal ideation Problem in Patient's Words: Per Kallie, "I'm not doing good, I'm not eating." Additional Admission Comments: Per intake record, SI with plan to strangle self with cord, not eating for the past week with history of anorexia. Problems Active Problems: Flat affect Slow to respond Anxious Depressed Poor intake of meals Increased incontinence Inactive Problems: Medication compliant Slept 7.5 hours night of 10/24/20 Pt Strengths/Limitations Ability for [place]: Fair Cognitive Functioning/Ability: Fair Communication Skills/Ability: Fair Financial Resources: Fair Insight/Judgement: Fair Intellectual Ability: Good Physical Health: Fair Social Skills: Fair Stability in Family: Good Verbal Skills: Fair Discharge Criteria Discharge Criteria: No need for close observ., Adequate arrangements @DC, Adequate self-care, Improved mood/thought Other Discharge Comments: Adequate meal intakes Preliminary Discharge Plan Preliminary DC Plan: Retirement Other Arrangements: [facility]- Level II facility Special Precautions Special Precautions: Suicide Risk Fall Risk: High Initial D/C Plan Return to [facility] once stable. Identified Discharge Needs: F/U with PCP, psychiatrist, and counselor. Have [facility] recreational therapist follow up with Kallie to develop past time intersts within the facility. Currently Utilized Resources Currently Utilized Resources/P: PCP Telepsychiatrist Referrals Community Resources: Counseling services if available Identified Problems/Hx/Goals Objectives/Short-Term Goals Short Term Goals: Anxiety/Panic, Decrease Isolation, Dec. Symp. Depression, Improved Social Skills, Medication Stabilization, Monitor Med Effects, No Suicidal/Liv. ideation, Prevent Deterioration, Promote Coping Skill Short Term Goals in Patient's: Kallie expressed the desire to walk again and to evntually be able to live independently and return to work. Interventions/Frequency Staff Interventions/Frequency&: Nursing to provide routine safety checks, medications, and adl support. Psychiatry visit threes times weekly. SW visits twice weekly. PT/OT as ordered. Recreational therapy and SW group involvement as Kallie is willing. 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 Social: Kallie enjoyed exercising, playing with dogs, and dating. Education: Kallie graduated high school from [employer]. She went on to obtain her masters degree in business education from [employer]. Community Follow-up PCP Psychiatry [place] if available F/U from [facility] director supply chain to identify activites of interest. Community Provider/Family Inpu: Kallie's sister/guardian, Julisa, participated in team meeting via phone. Dr. Bryon Ortiz, psychiatrist out of [facility], followed Kallie in the past. Nursing to obtain medical records from him. Treatment Plan Explained Patient/Front Line Supervisor had this treatment plan explained to him/her as indicated by the signature below and has been given the opportunity to ask questions and make suggestions: Date: Patient/Front Line Supervisor Signature: JUVE RAINES Oct 25, 2020 12:32
--- NOTE | 2020-10-25 12:35 | NUR ---
WEEKLY ACTIVITY THERAPY NOTE Date of Admission: 10/22 Date of AT Assessment: 10/25 Precipitating behaviors that initiated intake and admission: The patient made statements that she would attempt to strangle self. Patient had stopped eating prior to arrival to hospital Goal aimed: to increase socialization and motivation Initial Goal: Pt. will participate in at least three Activity Therapy groups or individual sessions before discharge. Weekly progress towards goal: goal evaluation begins next week, goal set this morning Group participation level: zero Weekly highlights: arrived to unit on Sunday, sat in groups before it began but left before it started Behaviors observed: poor eye contact, difficult to engage in conversations, able to list leisure interest/ hobbies in assessment, tends to isolate self, has some insight to her current behaviors Plan: no change to goal Beneficial adaptations: reported liking going to the movies, exercising, coloring and crosswords
[2020-10-25 16:05] VITALS: BP 138/90
--- NOTE | 2020-10-25 17:45 | NUR ---
Nursing note: Pt has remained withdrawn to her room this shift. Pt is slow to respond to questions, but answers them appropriately when asked. She is med compliant and cooperative. Pt has been very anxious this shift, especially regarding mealtimes and having to go to the bathroom. Concerns were discussed with pt and she felt more comfortable regarding her concerns afterward. Will continue to monitor and report to oncoming shift.
[2020-10-25] MEDS: MIRTAZAPINE 7.5 MG TABLET. PO SCH (20:19)
[2020-10-25] MEDS: NORTRIPTYLINE 25 MG CAPSULE PO SCH (20:20)
[2020-10-25] MEDS: ZOLPIDEM 5 MG TABLET. PO SCH (20:23)
--- NOTE | 2020-10-25 21:02 | PDOC ---
Exam Note: Avel Note: Please also refer to the separate dictated note~for this date of service dictated separately.~Patient seen individually. Discussed the patient with Nursing staff reviewed the chart.~Reviewed interim history and current functioning. Reviewed vital signs,~Labs/ Radiology~and current medications noted below. Continue current treatment with the changes noted in the dictated addendum note Assessment: Vital Signs/I&O: Vital Signs Date Time Temp Pulse Resp B/P (MAP) Pulse Ox O2 Delivery O2 Flow Rate FiO2 10/25/20 16:05 97.8 100 17 138/90 (106) 97 10/25/20 05:43 Room Air I & O 10/24/20 10/24/20 10/25/20 14:59 22:59 06:59 Intake Total 600 ml 120 ml Balance 600 ml 120 ml Current Medications: I have reviewed the current psychotropics carefully including drug interactions. Risk benefit ratio favors no change other than as noted in my dictated progress note. Diagnosis: Problems: (1) Major depressive disorder, recurrent episode (2) Parkinson's disease DEL GO MD Oct 25, 2020 21:02
[2020-10-25] MEDS ORDERED: OLANZapine 2.5 MG TABLET PO SCH (21:30)
--- NOTE | 2020-10-25 22:29 | NUR ---
Pt located in her room this shift. Pt extremely anxious; rocking back and forth, fidgeting with her hands. Pt slow to respond to questions and has poor eye contact. A/O x4, stated that she was not suicidal but was depressed. Compliant with whole medications. This RN approached pt later in the evening. Pt stated "I'm not on the internet. I can't save my work." Pt encouraged to elaborate but would not.
[2020-10-26] MEDS ORDERED: traZODone 50 MG TABLET. PO PRN ×2 (00:45)
[2020-10-26] MEDS: traZODone 100 MG TABLET. PO PRN ×2 (00:51→01:55)
--- NOTE | 2020-10-26 02:51 | NUR ---
Pt has been awake all night. Dr. Marsh paged earlier. Received new orders. PRN Trazodone administered at 0100 and 0200. Pt currently still lying awake in bed.
[2020-10-26] MEDS: LEVOTHYROXINE 75 MCG TABLET PO SCH (05:59)
[2020-10-26 06:00] VITALS: BP 119/74
[2020-10-26] MEDS: METHYL SALICYLATE/MENTHOL TOPICAL OINTMENT 57GM TUBE. TP SCH (09:00)
[2020-10-26] MEDS: PANTOPRAZOLE 40 MG TABLET. PO SCH (09:30)
[2020-10-26] MEDS: FLUoxetine HCL 20 MG CAPSULE PO SCH (09:30)
[2020-10-26] MEDS: DOCUSATE SODIUM 100 MG CAPSULE PO SCH ×2 (09:31→19:56)
[2020-10-26] MEDS: clonazePAM 0.5 MG TABLET PO SCH ×3 (09:31→19:57)
[2020-10-26] MEDS: MULTIVITAMIN with MINERAL TABLET. PO SCH (09:31)
[2020-10-26] MEDS: PSYLLIUM SEED (WITH SUGAR) PACKET. PO SCH (09:32)
[2020-10-26] MEDS: LACTOBACILLUS RHAMNOSUS GG 1 CAPSULE. PO SCH ×3 (09:33→19:56)
[2020-10-26 16:00] VITALS: BP 123/83
--- NOTE | 2020-10-26 16:20 | NUR ---
1:1 with Kallie this afternoon. Kallie was sitting up in a chair in her room. She ruminated over thinking she was unable to get up or to walk. She has a flat affect and does not initiate conversation. Offered Kallie reading material but she declined. Invited Kallie to be involved in some of the group programming. SW will continue to encourage this as a distraction. Nursing notes reflect Kallie to have not slept last night and continues with poor intake of meals.
[2020-10-26] MEDS: NORTRIPTYLINE 25 MG CAPSULE PO SCH (19:56)
[2020-10-26] MEDS: MIRTAZAPINE 15 MG TABLET PO SCH (19:56)
[2020-10-26] MEDS: ZOLPIDEM 5 MG TABLET. PO SCH (19:57)
--- NOTE | 2020-10-26 20:49 | PDOC ---
Exam Note: Avel Note: Please also refer to the separate dictated note~for this date of service dictated separately.~Patient seen individually. Discussed the patient with Nursing staff reviewed the chart.~Reviewed interim history and current functioning. Reviewed vital signs,~Labs/ Radiology~and current medications noted below. Continue current treatment with the changes noted in the dictated addendum note Assessment: Vital Signs/I&O: Vital Signs Date Time Temp Pulse Resp B/P (MAP) Pulse Ox O2 Delivery O2 Flow Rate FiO2 10/26/20 16:00 98.3 109 18 123/83 (96) 96 10/25/20 05:43 Room Air I & O 10/25/20 10/25/20 10/26/20 15:00 23:00 07:00 Intake Total 220 ml 0 ml Balance 220 ml 0 ml Current Medications: Meds: Current Medications Medications (Trade) Dose Ordered Sig/Aline Route PRN Reason Start Time Stop Time Status Last Admin Dose Admin Olanzapine (ZyPREXA) 5 mg QHS PO 10/25/20 21:30 10/26/20 18:43 DC 10/25/20 21:34 Trazodone HCl (Desyrel) 100 mg PRN QHS PRN PO INSOMNIA, MAY REPEAT X1 10/26/20 00:45 10/26/20 01:55 Olanzapine (ZyPREXA) 7.5 mg QHS PO 10/26/20 21:00 10/26/20 19:56 Mirtazapine (Remeron) 15 mg QHS PO 10/26/20 21:00 10/26/20 19:56 I have reviewed the current psychotropics carefully including drug interactions. Risk benefit ratio favors no change other than as noted in my dictated progress note. Diagnosis: Problems: (1) Major depressive disorder, recurrent episode (2) Parkinson's disease DEL GO MD Oct 26, 2020 20:49
[2020-10-26] MEDS ORDERED: OLANZapine 7.5 MG TABLET PO SCH (21:00)
--- NOTE | 2020-10-26 21:22 | NUR ---
Nursing Note: Pt withdrawn to room, sitting quietly at shift change. Pt with a flat affect, slow to respond to questions; she appears anxious AEB rocking back and forth, wringing her hands, and rubbing her fingers. Pt resistive with medications but unable to verbalize her hesitancy in taking her medications. Pt delusional- stating "I can't get on the internet", but unable to elaborate any further when asked. Pt complied with taking her medications after much encouragement and eduction. Pt currently sitting up in chair in her room.
[2020-10-27] MEDS: LEVOTHYROXINE 75 MCG TABLET PO SCH (05:25)
[2020-10-27 05:39] VITALS: BP 149/89
[2020-10-27 07:02] LABS: HEMATOCRIT 39.4 % (36.0-47.0); HEMOGLOBIN 12.9 g/dL (12.0-15.5); RED BLOOD COUNT 4.34 x10^6/uL (3.50-5.40); RED CELL DISTRIBUTION WIDTH 13.5 % (11.5-14.5); WHITE BLOOD COUNT 6.5 x10^3/uL (4.0-11.0)
[2020-10-27 07:16] LABS: ALBUMIN 3.3 g/dL (3.4-5.0); ALBUMIN/GLOBULIN RATIO 0.9 (1.0-1.7); CALCIUM 8.9 mg/dL (8.5-10.1); CREATININE 0.8 mg/dL (0.6-1.0); GFR 73.4; POTASSIUM 3.6 mmol/L (3.5-5.1); TOTAL BILIRUBIN 0.6 mg/dL (0.2-1.0); TOTAL PROTEIN 6.9 g/dL (6.4-8.2)
[2020-10-27] MEDS ORDERED: FLUoxetine HCL 20 MG CAPSULE PO SCH (09:00)
[2020-10-27] MEDS: PSYLLIUM SEED (WITH SUGAR) PACKET. PO SCH (09:03)
[2020-10-27] MEDS: LACTOBACILLUS RHAMNOSUS GG 1 CAPSULE. PO SCH ×3 (09:03→20:17)
[2020-10-27] MEDS: DOCUSATE SODIUM 100 MG CAPSULE PO SCH ×2 (09:03→20:17)
[2020-10-27] MEDS: MULTIVITAMIN with MINERAL TABLET. PO SCH (09:03)
[2020-10-27] MEDS: PANTOPRAZOLE 40 MG TABLET. PO SCH (09:03)
[2020-10-27] MEDS: METHYL SALICYLATE/MENTHOL TOPICAL OINTMENT 57GM TUBE. TP SCH (09:04)
[2020-10-27] MEDS: clonazePAM 0.5 MG TABLET PO SCH ×3 (09:05→20:18)
[2020-10-27] MEDS: FLUoxetine HCL 10 MG CAPSULE PO SCH (09:14)
--- NOTE | 2020-10-27 15:25 | NUR ---
Nursing note: Pt has been in the day room watching TV for most of the shift. She is med compliant and cooperative. Pt continues to be very anxious as she rocks back and forth and rubs her fingers. Pt is slow to respond, but answers questions appropriately. She is currently sitting in her room listening to music. Will continue to monitor.
[2020-10-27 15:40] VITALS: BP 126/84
[2020-10-27] MEDS: NORTRIPTYLINE 25 MG CAPSULE PO SCH (20:13)
[2020-10-27] MEDS: MIRTAZAPINE 15 MG TABLET PO SCH (20:13)
[2020-10-27] MEDS: lamoTRIgine 25 MG TABLET. PO SCH (20:17)
[2020-10-27] MEDS: risperiDONE 0.5 MG TABLET. PO SCH (20:17)
[2020-10-27] MEDS: ZOLPIDEM 5 MG TABLET. PO SCH (20:18)
--- NOTE | 2020-10-27 21:03 | NUR ---
Nursing Note: Pt withdrawn to room, sitting quietly at shift change. Pt anxious- shaking her leg and wringing her hands, slow to respond to questions. Pt obsessed with the fact that she has not had a bowel movement today, stating "I'm eating but it's not coming out". Pt reassured and education provided, she was also given possible interventions that could assist her but she declined at this time. I also encouraged her to stay hydrated as this would help with digestion. Pt cooperative with assessment and compliant with medications administered whole.
--- NOTE | 2020-10-27 21:30 | PDOC ---
Exam Note: Avel Note: This note is a late entry for 10/25/2020 covers elements not covered in my initial note. Subjective: The patient was reviewed on telehealth rounds in the morning of 10/25/2020 for a treatment team meeting with Genie Bragg and Stephanie (drug abuse social worker), Amanda, activity therapy and Jacinta BOYLE. Discussed with nursing staff, reviewed the chart. The patient slept for 7-1/2 hours previous night. Also was seen in the evening on telehealth rounds. Reviewed the patients history at length including long history of suicidal ideation when depressed and planned at different times with a cord around her neck. The patients sister Julisa attended the treatment team meeting and shared further information with us including Dr. Bryon Miner, Psychiatrist had done best with her in the past according to the sister. She has had ECT twice in the past, recently has had increased symptoms of depression and anorexia, refusing to eat, has been incontinent. 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 She has been withdrawn with poor appetite on the unit and is on disability for her psychiatric problems. Appetite is poor. Reviewed information from Dr. Huggins who covered for the past couple of days. Review of Systems: Impaired ambulation in wheelchair. No CV, , pulmonary, eye, ENT system symptoms on review. Mental Status Exam: The patient is oriented to herself. Speech has moderate latency. Often response is monosyllabic. Abstraction is fair. Computation is impaired. Attention span is short. Language function is intact. Mood and affect withdrawn. She remains anxious, clenching her first repeatedly. Laboratory Data: Reviewed. Impression: Bipolar disorder, depressed with possible psychotic features. Anor exia nervosa. Anxiety disorder unspecified. Rule out psychotic disorder unspecified. Plan: Continue Ambien 2.5 mg h.s., Abilify 5 mg a day. She remains on Klonopin 0.75 mg 3 times a day, nortriptyline 75 mg h.s., check nortriptyline level, Remeron 7.5 mg h.s., Prozac 20 mg a day. She is compliant with her medications. She is alert and oriented x4. We will change the Abilify 5 mg a day to Zyprexa 5 mg h.s. Hopefully this will help stimulate her appetite as well. Maintain Ambien, Klonopin, nortriptyline, Prozac and Remeron. Consider increasing Prozac or augmenting with Wellbutrin. We will make this decision after the next 2 to 3 days of assessment and observing response to prior psychotropic medication interventions. Assessment: Vital Signs/I&O: Vital Signs Date Time Temp Pulse Resp B/P (MAP) Pulse Ox O2 Delivery O2 Flow Rate FiO2 10/27/20 15:40 97.4 99 18 126/84 (98) 95 10/25/20 05:43 Room Air I & O 10/26/20 10/26/20 10/27/20 15:00 23:00 07:00 Intake Total 240 ml 0 ml Balance 240 ml 0 ml Labs: Laboratory Tests Test 10/27/20 06:27 White Blood Count 6.5 x10^3/uL (4.0-11.0) Red Blood Count 4.34 x10^6/uL (3.50-5.40) Hemoglobin 12.9 g/dL (12.0-15.5) Hematocrit 39.4 % (36.0-47.0) Mean Corpuscular Volume 91 fL (79-100) Mean Corpuscular Hemoglobin 30 pg (25-35) Mean Corpuscular Hemoglobin Concent 33 g/dL (31-37) Red Cell Distribution Width 13.5 % (11.5-14.5) Platelet Count 185 x10^3/uL (140-400) Sodium Level 140 mmol/L (136-145) Potassium Level 3.6 mmol/L (3.5-5.1) Chloride Level 102 mmol/L (98-107) Carbon Dioxide Level 28 mmol/L (21-32) Anion Gap 10 (6-14) Blood Urea Nitrogen 22 mg/dL (7-20) H Creatinine 0.8 mg/dL (0.6-1.0) Estimated GFR (Cockcroft-Gault) 73.4 BUN/Creatinine Ratio 28 (6-20) H Glucose Level 74 mg/dL (70-99) Calcium Level 8.9 mg/dL (8.5-10.1) Total Bilirubin 0.6 mg/dL (0.2-1.0) Aspartate Amino Transferase (AST) 26 U/L (15-37) Alanine Aminotransferase (ALT) 25 U/L (14-59) Alkaline Phosphatase 103 U/L (46-116) Total Protein 6.9 g/dL (6.4-8.2) Albumin 3.3 g/dL (3.4-5.0) L Albumin/Globulin Ratio 0.9 (1.0-1.7) L Current Medications: Meds: Current Medications Medications (Trade) Dose Ordered Sig/Aline Route PRN Reason Start Time Stop Time Status Last Admin Dose Admin Fluoxetine HCl (PROzac) 30 mg DAILY PO 10/27/20 09:15 10/27/20 09:14 Risperidone (RisperDAL) 0.5 mg QHS PO 10/27/20 21:00 10/27/20 20:17 Lamotrigine (LaMICtal) 25 mg QHS PO 10/27/20 21:00 10/29/20 23:00 10/27/20 20:17 I have reviewed the current psychotropics carefully including drug interactions. Risk benefit ratio favors no change other than as noted in my dictated progress note. Diagnosis: Problems: (1) Bipolar disorder, current episode mixed, severe, with psychotic features (2) Anxiety disorder, unspecified (3) Major depressive disorder, recurrent episode (4) Anorexia nervosa DEL GO MD Oct 27, 2020 21:30
--- NOTE | 2020-10-27 21:43 | PDOC ---
Exam Note: Avel Note: This note is a late entry for 10/26/2020 covers elements not covered in my initial note. Subjective: The patient was reviewed on telehealth rounds in the evening of 10/26/2020 with Mere BOYLE. Discussed with nursing staff, reviewed the chart. The patient slept for 1/2 hours previous night. Nursing staff had called me at midnight as the patient was not sleeping despite the Zyprexa 5 mg h.s., which was started in place of Abilify and we did add trazodone 100 mg h.s. p.r.n., we may repeat for insomnia. Despite this she sleeps very well. During the day today she remains withdrawn, refusing medications, refusing to eat. Review of Systems: Impaired ambulation in wheelchair. No CV, , pulmonary, eye, ENT system symptoms on review. Mental Status Exam: The patient is oriented to herself and situation. Speech has moderate latency and I probably got couple of words during my entire visit with her today. Abstraction is fair. Computation is impaired. Language function is intact. Mood and affect depressed. Laboratory Data: Reviewed. Impression: Bipolar 1 disorder, depressed with psychotic features. Anxiety disorder unspecified. Plan: Check nortriptyline level, but later nursing staff called me and we will have to get further clarification from [facility] before doing the lab. Increase Zyprexa from 5 mg h.s. to 7.5 mg h.s. Continue trazodone. Adjust p.r.n. along with Ambien 2.5 mg h.s. Increase Prozac to 30 mg a day. Consider lithium augmentation. Assessment: Vital Signs/I&O: Vital Signs Date Time Temp Pulse Resp B/P (MAP) Pulse Ox O2 Delivery O2 Flow Rate FiO2 10/27/20 15:40 97.4 99 18 126/84 (98) 95 10/25/20 05:43 Room Air I & O 10/26/20 10/26/20 10/27/20 15:00 23:00 07:00 Intake Total 240 ml 0 ml Balance 240 ml 0 ml Labs: Laboratory Tests Test 10/27/20 06:27 White Blood Count 6.5 x10^3/uL (4.0-11.0) Red Blood Count 4.34 x10^6/uL (3.50-5.40) Hemoglobin 12.9 g/dL (12.0-15.5) Hematocrit 39.4 % (36.0-47.0) Mean Corpuscular Volume 91 fL (79-100) Mean Corpuscular Hemoglobin 30 pg (25-35) Mean Corpuscular Hemoglobin Concent 33 g/dL (31-37) Red Cell Distribution Width 13.5 % (11.5-14.5) Platelet Count 185 x10^3/uL (140-400) Sodium Level 140 mmol/L (136-145) Potassium Level 3.6 mmol/L (3.5-5.1) Chloride Level 102 mmol/L (98-107) Carbon Dioxide Level 28 mmol/L (21-32) Anion Gap 10 (6-14) Blood Urea Nitrogen 22 mg/dL (7-20) H Creatinine 0.8 mg/dL (0.6-1.0) Estimated GFR (Cockcroft-Gault) 73.4 BUN/Creatinine Ratio 28 (6-20) H Glucose Level 74 mg/dL (70-99) Calcium Level 8.9 mg/dL (8.5-10.1) Total Bilirubin 0.6 mg/dL (0.2-1.0) Aspartate Amino Transferase (AST) 26 U/L (15-37) Alanine Aminotransferase (ALT) 25 U/L (14-59) Alkaline Phosphatase 103 U/L (46-116) Total Protein 6.9 g/dL (6.4-8.2) Albumin 3.3 g/dL (3.4-5.0) L Albumin/Globulin Ratio 0.9 (1.0-1.7) L Current Medications: Meds: Current Medications Medications (Trade) Dose Ordered Sig/Aline Route PRN Reason Start Time Stop Time Status Last Admin Dose Admin Fluoxetine HCl (PROzac) 30 mg DAILY PO 10/27/20 09:15 10/27/20 09:14 Risperidone (RisperDAL) 0.5 mg QHS PO 10/27/20 21:00 10/27/20 20:17 Lamotrigine (LaMICtal) 25 mg QHS PO 10/27/20 21:00 10/29/20 23:00 10/27/20 20:17 I have reviewed the current psychotropics carefully including drug interactions. Risk benefit ratio favors no change other than as noted in my dictated progress note. Diagnosis: Problems: (1) Major depressive disorder, recurrent episode (2) Anxiety disorder, unspecified (3) Bipolar disorder, current episode mixed, severe, with psychotic features (4) Anorexia nervosa DEL GO MD Oct 27, 2020 21:43
--- NOTE | 2020-10-27 21:52 | PDOC ---
Exam Note: Avel Note: Please also refer to the separate dictated note~for this date of service dictated separately.~Patient seen individually. Discussed the patient with Nursing staff reviewed the chart.~Reviewed interim history and current functioning. Reviewed vital signs,~Labs/ Radiology~and current medications noted below. Continue current treatment with the changes noted in the dictated addendum note Assessment: Vital Signs/I&O: Vital Signs Date Time Temp Pulse Resp B/P (MAP) Pulse Ox O2 Delivery O2 Flow Rate FiO2 10/27/20 15:40 97.4 99 18 126/84 (98) 95 10/25/20 05:43 Room Air I & O 10/26/20 10/26/20 10/27/20 15:00 23:00 07:00 Intake Total 240 ml 0 ml Balance 240 ml 0 ml Labs: Laboratory Tests Test 10/27/20 06:27 White Blood Count 6.5 x10^3/uL (4.0-11.0) Red Blood Count 4.34 x10^6/uL (3.50-5.40) Hemoglobin 12.9 g/dL (12.0-15.5) Hematocrit 39.4 % (36.0-47.0) Mean Corpuscular Volume 91 fL (79-100) Mean Corpuscular Hemoglobin 30 pg (25-35) Mean Corpuscular Hemoglobin Concent 33 g/dL (31-37) Red Cell Distribution Width 13.5 % (11.5-14.5) Platelet Count 185 x10^3/uL (140-400) Sodium Level 140 mmol/L (136-145) Potassium Level 3.6 mmol/L (3.5-5.1) Chloride Level 102 mmol/L (98-107) Carbon Dioxide Level 28 mmol/L (21-32) Anion Gap 10 (6-14) Blood Urea Nitrogen 22 mg/dL (7-20) H Creatinine 0.8 mg/dL (0.6-1.0) Estimated GFR (Cockcroft-Gault) 73.4 BUN/Creatinine Ratio 28 (6-20) H Glucose Level 74 mg/dL (70-99) Calcium Level 8.9 mg/dL (8.5-10.1) Total Bilirubin 0.6 mg/dL (0.2-1.0) Aspartate Amino Transferase (AST) 26 U/L (15-37) Alanine Aminotransferase (ALT) 25 U/L (14-59) Alkaline Phosphatase 103 U/L (46-116) Total Protein 6.9 g/dL (6.4-8.2) Albumin 3.3 g/dL (3.4-5.0) L Albumin/Globulin Ratio 0.9 (1.0-1.7) L Current Medications: Meds: Current Medications Medications (Trade) Dose Ordered Sig/Aline Route PRN Reason Start Time Stop Time Status Last Admin Dose Admin Fluoxetine HCl (PROzac) 30 mg DAILY PO 10/27/20 09:15 10/27/20 09:14 Risperidone (RisperDAL) 0.5 mg QHS PO 10/27/20 21:00 10/27/20 20:17 Lamotrigine (LaMICtal) 25 mg QHS PO 10/27/20 21:00 10/29/20 23:00 10/27/20 20:17 I have reviewed the current psychotropics carefully including drug interactions. Risk benefit ratio favors no change other than as noted in my dictated progress note. Diagnosis: Problems: (1) Major depressive disorder, recurrent episode (2) Anxiety disorder, unspecified (3) Bipolar disorder, current episode mixed, severe, with psychotic features (4) Anorexia nervosa DEL GO MD Oct 27, 2020 21:51
[2020-10-28] MEDS: LEVOTHYROXINE 75 MCG TABLET PO SCH (05:26)
[2020-10-28 06:03] VITALS: BP 114/72
[2020-10-28] MEDS: LACTOBACILLUS RHAMNOSUS GG 1 CAPSULE. PO SCH ×3 (07:51→20:22)
[2020-10-28] MEDS: MULTIVITAMIN with MINERAL TABLET. PO SCH (07:51)
[2020-10-28] MEDS: DOCUSATE SODIUM 100 MG CAPSULE PO SCH ×2 (07:51→20:22)
[2020-10-28] MEDS: PANTOPRAZOLE 40 MG TABLET. PO SCH (07:51)
[2020-10-28] MEDS: PSYLLIUM SEED (WITH SUGAR) PACKET. PO SCH (07:51)
[2020-10-28] MEDS: FLUoxetine HCL 10 MG CAPSULE PO SCH (07:51)
[2020-10-28] MEDS: clonazePAM 0.5 MG TABLET PO SCH ×3 (07:52→20:23)
[2020-10-28] MEDS: METHYL SALICYLATE/MENTHOL TOPICAL OINTMENT 57GM TUBE. TP SCH (09:00)
--- NOTE | 2020-10-28 15:32 | NUR ---
Patient in room eating breakfast in chair at time of assessment. Patient slow to respond to me and doesn't like to answer my questions. She is alert but hard to assess if she is oriented to the time or situation. She does state she knows that she is here because she was going to kill herself but no longer feels this way. She is not eating alot so our goals for today will be to increase the amount of food she is eating. Patient has no complaints. Cooperative and takes medications whole on her own. No further concerns at this time.
[2020-10-28 16:18] VITALS: BP 131/83
[2020-10-28] MEDS: MIRTAZAPINE 15 MG TABLET PO SCH (20:22)
[2020-10-28] MEDS: NORTRIPTYLINE 25 MG CAPSULE PO SCH (20:22)
[2020-10-28] MEDS: lamoTRIgine 25 MG TABLET. PO SCH (20:22)
[2020-10-28] MEDS: risperiDONE 0.5 MG TABLET. PO SCH (20:22)
[2020-10-28] MEDS: ZOLPIDEM 5 MG TABLET. PO SCH (20:23)
--- NOTE | 2020-10-28 20:59 | PDOC ---
Exam Note: Avel Note: Please also refer to the separate dictated note~for this date of service dictated separately.~Patient seen individually. Discussed the patient with Nursing staff reviewed the chart.~Reviewed interim history and current functioning. Reviewed vital signs,~Labs/ Radiology~and current medications noted below. Continue current treatment with the changes noted in the dictated addendum note Assessment: Vital Signs/I&O: Vital Signs Date Time Temp Pulse Resp B/P (MAP) Pulse Ox O2 Delivery O2 Flow Rate FiO2 10/28/20 16:18 98.0 66 18 131/83 (99) 97 10/28/20 06:03 Room Air I & O 10/27/20 10/27/20 10/28/20 15:00 23:00 07:00 Intake Total 240 ml 320 ml Balance 240 ml 320 ml Current Medications: Meds: Current Medications Medications (Trade) Dose Ordered Sig/Aline Route PRN Reason Start Time Stop Time Status Last Admin Dose Admin Risperidone (RisperDAL) 0.5 mg QHS PO 10/27/20 21:00 10/28/20 20:22 Lamotrigine (LaMICtal) 25 mg QHS PO 10/27/20 21:00 10/29/20 23:00 10/28/20 20:22 I have reviewed the current psychotropics carefully including drug interactions. Risk benefit ratio favors no change other than as noted in my dictated progress note. Diagnosis: Problems: (1) Major depressive disorder, recurrent episode (2) Parkinson's disease (3) Anxiety disorder, unspecified (4) Bipolar disorder, current episode mixed, severe, with psychotic features (5) Anorexia nervosa DEL GO MD Oct 28, 2020 20:59
--- NOTE | 2020-10-28 22:37 | NUR ---
Nursing Note: Pt withdrawn to room, sitting quietly at shift change. Pt anxious- shaking her leg and wringing her hands, slow to respond to questions. Pt continues to obsess over the fact that she has not had a bowel movement today. Pt delusional, stating "I can't get on the internet". When asked why she needed to use the internet, pt stares blankly at me and does not respond. Pt cooperative with assessment and compliant with medications administered whole.
[2020-10-29] MEDS: LEVOTHYROXINE 75 MCG TABLET PO SCH (05:24)
[2020-10-29 05:29] VITALS: BP 108/65
[2020-10-29] MEDS ORDERED: clonazePAM 0.5 MG TABLET PO PRN (07:15)
[2020-10-29] MEDS: METHYL SALICYLATE/MENTHOL TOPICAL OINTMENT 57GM TUBE. TP SCH (09:00)
[2020-10-29] MEDS: FLUoxetine HCL 10 MG CAPSULE PO SCH (09:33)
[2020-10-29] MEDS: MULTIVITAMIN with MINERAL TABLET. PO SCH (09:34)
[2020-10-29] MEDS: DOCUSATE SODIUM 100 MG CAPSULE PO SCH ×3 (09:34→21:25)
[2020-10-29] MEDS: PSYLLIUM SEED (WITH SUGAR) PACKET. PO SCH (09:34)
[2020-10-29] MEDS: PANTOPRAZOLE 40 MG TABLET. PO SCH (09:34)
[2020-10-29] MEDS: LACTOBACILLUS RHAMNOSUS GG 1 CAPSULE. PO SCH ×4 (09:34→21:25)
[2020-10-29] MEDS: clonazePAM 0.5 MG TABLET PO SCH ×3 (09:34→17:00)
--- NOTE | 2020-10-29 10:28 | NUR ---
Patient sitting in chair in hallway. Very quiet and does not answer any questions. Takes medications without hesitation and is cooperative. Patient does not want to participate in any group activities and decides to sit at end of [place] for most of the morning. Patient has some ocd tenancies. Will discuss with MD to see about some additional medications or what he may think. No further concerns at this time.
--- NOTE | 2020-10-29 12:46 | NUR ---
Went to give patient medications and she still had not eaten any lunch. She states to me several times she is not supposed to be here and that I need to help her get out of here. She just looks at the cup with her medication in it and does not take them. She just repeats over and over that she isn't supposed to be here. She tends to act somewhat OCD with her cups and where they are placed on her tray and as well as where I set her cup of meds. She always moves them to specific areas. No further issues at this time.
[2020-10-29 16:18] VITALS: BP 133/83
--- NOTE | 2020-10-29 19:00 | NUR ---
Day Nurse advised this nurse that patient refused her 1700 clonazepam stating "I am not anxious".
[2020-10-29] MEDS: lamoTRIgine 25 MG TABLET. PO SCH (19:47)
[2020-10-29] MEDS: risperiDONE 0.5 MG TABLET. PO SCH (19:47)
[2020-10-29] MEDS: MIRTAZAPINE 15 MG TABLET PO SCH (19:47)
--- NOTE | 2020-10-29 19:47 | NUR ---
Entered the room during report to find the patient sitting in her chair. The dinner tray appears untouched and an open bottle of ensure is still full sitting on the table. Informed by staff that the pt has not been eating today and has refused her medications. When asked why she hasn't eaten pt responds "I'm not here" pt does not elaborate on where she believes she is.
[2020-10-29] MEDS: ZOLPIDEM 5 MG TABLET. PO SCH (19:54)
--- NOTE | 2020-10-29 20:45 | PDOC ---
Exam Note: Avel Note: Please also refer to the separate dictated note~for this date of service dictated separately.~Patient seen individually. Discussed the patient with Nursing staff reviewed the chart.~Reviewed interim history and current functioning. Reviewed vital signs,~Labs/ Radiology~and current medications noted below. Continue current treatment with the changes noted in the dictated addendum note Assessment: Vital Signs/I&O: Vital Signs Date Time Temp Pulse Resp B/P (MAP) Pulse Ox O2 Delivery O2 Flow Rate FiO2 10/29/20 16:18 97.9 97 18 133/83 (100) 98 10/28/20 06:03 Room Air I & O 10/28/20 10/28/20 10/29/20 15:00 23:00 07:00 Intake Total 420 ml Balance 420 ml Current Medications: Meds: Current Medications Medications (Trade) Dose Ordered Sig/Aline Route PRN Reason Start Time Stop Time Status Last Admin Dose Admin Clonazepam (KlonoPIN) 0.25 mg DAILY@0900 PO 10/29/20 09:00 10/29/20 09:34 Clonazepam (KlonoPIN) 0.75 mg BID@1200,1700 PO 10/29/20 12:00 10/29/20 12:00 Fluvoxamine Maleate (Luvox) 25 mg QHS PO 10/29/20 21:00 11/01/20 21:00 10/29/20 19:54 I have reviewed the current psychotropics carefully including drug interactions. Risk benefit ratio favors no change other than as noted in my dictated progress note. Diagnosis: Problems: (1) Major depressive disorder, recurrent episode (2) Parkinson's disease (3) Anxiety disorder, unspecified (4) Bipolar disorder, current episode mixed, severe, with psychotic features DEL GO MD Oct 29, 2020 20:45
--- NOTE | 2020-10-29 21:11 | NUR ---
Patient refused her HS medications. When nurse arrived in room she was sitting in her chair staring straight ahead with her uneaten cold dinner food on the tray still. When asked, patient stated she would not be eating that food, so nurse took the food away. Patient stated she "is not here" and would not answer any orientation questions. Nurse unable to hide medications in food as patient is not eating anything. Will continue to monitor.
[2020-10-30] MEDS: ZOLPIDEM 5 MG TABLET. PO SCH ×2 (00:15→19:49)
[2020-10-30] MEDS: risperiDONE 0.5 MG TABLET. PO SCH ×2 (00:15→19:48)
[2020-10-30] MEDS: MIRTAZAPINE 15 MG TABLET PO SCH ×2 (00:15→19:48)
--- NOTE | 2020-10-30 00:16 | NUR ---
Nurse sat in patients room from [id number] encouraging patient to take her HS meds and encouraging her to get into bed and lay down. Pt continued to just sit in the chair and look at the medications sitting on the night stand. After awhile she said "I am not here" and then "it's a perspective". These statements did not have to do anything with the questions/conversation that nurse was haring with patient. Nurse provided blanket from blanket warmer and put around patients shoulders as she continued to just sit in the chair and stare straight ahead. HS medications non-administered and will pass on in report.
[2020-10-30] MEDS: LEVOTHYROXINE 75 MCG TABLET PO SCH ×2 (05:16→05:19)
--- NOTE | 2020-10-30 05:19 | NUR ---
Patient refused thyroid medication despite being provided education on the benefit of taking the medication.
[2020-10-30 06:29] VITALS: BP 128/83
[2020-10-30] MEDS: PANTOPRAZOLE 40 MG TABLET. PO SCH ×2 (07:30→08:46)
[2020-10-30] MEDS: MULTIVITAMIN with MINERAL TABLET. PO SCH ×2 (08:46→08:59)
[2020-10-30] MEDS: PSYLLIUM SEED (WITH SUGAR) PACKET. PO SCH ×2 (08:46→08:59)
[2020-10-30] MEDS: DOCUSATE SODIUM 100 MG CAPSULE PO SCH ×3 (08:46→20:31)
[2020-10-30] MEDS: LACTOBACILLUS RHAMNOSUS GG 1 CAPSULE. PO SCH ×2 (08:46→08:58)
[2020-10-30] MEDS: FLUoxetine HCL 10 MG CAPSULE PO SCH ×2 (08:48→08:59)
[2020-10-30] MEDS: METHYL SALICYLATE/MENTHOL TOPICAL OINTMENT 57GM TUBE. TP SCH (08:48)
[2020-10-30] MEDS: clonazePAM 0.5 MG TABLET PO SCH ×4 (08:48→17:00)
--- NOTE | 2020-10-30 15:08 | NUR ---
Pt has refused meds today thus far. Thinks she cant take meds because she is unable to pull up her pants and underware. Pt did take shower assisted by aide.
[2020-10-30 16:02] VITALS: BP 112/68
[2020-10-30] MEDS: lamoTRIgine 25 MG TABLET. PO SCH (19:49)
--- NOTE | 2020-10-30 21:00 | NUR ---
PRN Trazodone administered. Pt compliant with whole medication. Addendum: 10/31/20 at 0156 by MARY CALABRESE RN PRN Trazodone administered at 2300
--- NOTE | 2020-10-30 21:29 | PDOC ---
Exam Note: Avel Note: This note is a late entry for 10/27/2020 covers elements not covered in my initial note. Subjective: The patient was reviewed on telehealth rounds in the evening of 10/27/2020 with Jacinta BOYLE. Discussed with nursing staff, reviewed the chart. The patient slept for 6-1/2 hours previous night. Overall the patient has been quite obsessed about wanting to go to the restroom. She is ruminating on it. Her appetite has been poor and she has not had a bowel movement and I addressed this with her at some length individually. She agrees to make her concerted effort to improve her appetite. She has been quite anxious, paranoid, still has difficulty verbalizing her thoughts and seems to be ruminating in her thought processes, unable to speak in a coherent manner other than at certain points. As I questioned her she agrees that her thoughts still seemed disconnected. A careful review of her history is consistent with her diagnosis of bipolar disorder perhaps bipolar 1 depressed versus bipolar 2. In view of this we will start her on Lamictal 25 mg h.s. for 3 days, then 50 mg h.s. and increase further as clinically indicated. Review of Systems: No CV, , pulmonary, eye, ENT system symptoms on review. Oral intake is poor. Reliability varies. Mental Status Exam: The patient is reasonably oriented. Speech has moderate to marked latency. Often response is monosyllabic. At times she is able to verbalize a coherent sentences. I met with her on telehealth rounds. Attention span is short. Language function is intact. Mood and affect withdrawn. Laboratory Data: Reviewed. Impression: Bipolar 1 disorder, depressed versus bipolar 2 disorder. Anxiety disorder unspecified. OCD. History of anorexia nervosa. Rest unchanged. Plan: Continue current psychotropics. We may consider gradually reducing the Klonopin. We will change the Zyprexa 7.5 mg h.s. to Risperdal 0.5 mg h.s. as an antipsychotic and may need to increase this further in due course and initiate Lamictal as noted above increase gradually. We will get outpatient psychiatric records from Dr. Dr. Bryon Miner and if office records are not available we will obtain inpatient psychiatric records from [facility]. Assessment: Vital Signs/I&O: Vital Signs Date Time Temp Pulse Resp B/P (MAP) Pulse Ox O2 Delivery O2 Flow Rate FiO2 10/30/20 16:02 97.9 69 18 112/68 (83) 96 10/30/20 06:29 Room Air I & O 10/29/20 10/29/20 10/30/20 15:00 23:00 07:00 Intake Total 0 ml 0 ml Balance 0 ml 0 ml Current Medications: Meds: Current Medications Medications (Trade) Dose Ordered Sig/Aline Route PRN Reason Start Time Stop Time Status Last Admin Dose Admin Lamotrigine (LaMICtal) 50 mg QHS PO 10/30/20 21:00 10/30/20 19:49 I have reviewed the current psychotropics carefully including drug interactions. Risk benefit ratio favors no change other than as noted in my dictated progress note. Diagnosis: Problems: (1) Major depressive disorder, recurrent episode (2) Parkinson's disease (3) Anxiety disorder, unspecified (4) Bipolar disorder, current episode mixed, severe, with psychotic features (5) Anorexia nervosa DEL GO MD Oct 30, 2020 21:29
--- NOTE | 2020-10-30 21:41 | PDOC ---
Exam Note: Avel Note: This note is a late entry for 10/28/2020 covers elements not covered in my initial note. Subjective: The patient was reviewed on telehealth rounds in the evening of 10/28/2020 with Mere BOYLE. Discussed with nursing staff, reviewed the chart. The patient slept for 6-1/4 hours previous night. Overall the patient has been little more social. Appetite is fair. She is still depressed, anxious, paranoid. Review of Systems: Impaired ambulation in wheelchair. No CV, , pulmonary, eye, ENT system symptoms on review. Mental Status Exam: The patient is oriented to herself and situation. She was little more verbally interactive, appropriate. Speech has moderate latency. Abstraction is fair. Computation is impaired. Language function is intact. Mood and affect depressed. Attention span is short. She is obsessive, paranoid. No suicidal or homicidal ideation. Laboratory Data: Reviewed. Impression: Bipolar 1 disorder, depressed with psychotic features. Anxiety disorder unspecified. Plan: She is currently on Klonopin 0.75 mg t.i.d. We will reduce to 0.25 mg in the morning and 0.75 mg twice a day. Maintain Ambien, amitriptyline, Risperdal and Lamictal which has been gradually increased, Prozac, Remeron. Adjust further as clinically indicated. Assessment: Vital Signs/I&O: Vital Signs Date Time Temp Pulse Resp B/P (MAP) Pulse Ox O2 Delivery O2 Flow Rate FiO2 10/30/20 16:02 97.9 69 18 112/68 (83) 96 10/30/20 06:29 Room Air I & O 10/29/20 10/29/20 10/30/20 15:00 23:00 07:00 Intake Total 0 ml 0 ml Balance 0 ml 0 ml Current Medications: Meds: Current Medications Medications (Trade) Dose Ordered Sig/Aline Route PRN Reason Start Time Stop Time Status Last Admin Dose Admin Lamotrigine (LaMICtal) 50 mg QHS PO 10/30/20 21:00 10/30/20 19:49 I have reviewed the current psychotropics carefully including drug interactions. Risk benefit ratio favors no change other than as noted in my dictated progress note. Diagnosis: Problems: (1) Major depressive disorder, recurrent episode (2) Parkinson's disease (3) Anxiety disorder, unspecified (4) Bipolar disorder, current episode mixed, severe, with psychotic features (5) Anorexia nervosa DEL GO MD Oct 30, 2020 21:41
--- NOTE | 2020-10-30 21:57 | PDOC ---
Exam Note: Avel Note: This note is a late entry for 10/29/2020 covers elements not covered in my initial note. Subjective: The patient was reviewed on telehealth rounds in the evening of 10/29/2020 with Mere BOYLE. Discussed with nursing staff, reviewed the chart. The patient slept for 7-3/4 hours previous night. She took her meds in the morning, rather angry at staff and then after that she was resistive, taking the rest of her medications, refusing to interact with others. Nursing staff noted that she is quite obsessive. If they move things around on her meal tray she wants them back exactly the way it was previously. Her history of eating disorder, anorexia and anxiety are consistent with this as well. Review of Systems: No CV, , pulmonary, eye, ENT system symptoms on review. Mental Status Exam: The patient is oriented to herself and situation. Speech has some latency. Abstraction is fair. Computation is impaired. Attention span is short. Language function is intact. She continues to ruminate in her mind and often verbal response is consequently a monosyllabic. She subjectively stated she did not feel well, depressed and anxious. No active suicidal or homicidal ideation but staff are monitoring this very closely. Laboratory Data: Reviewed. Impression: Bipolar 1 disorder, depressed versus bipolar 2 disorder. Anxiety disorder unspecified. OCD. Plan: We are tapering the Klonopin but given the extent of her obsessiveness we will go ahead and change the nortriptyline and Prozac to Luvox 25 mg a day for 3 days, then 50 mg a day thereafter. Continue to gradually increase the Lamictal. Maintain Risperdal 0.5 mg h.s., Remeron 15 mg h.s., trazodone for insomnia. Assessment: Vital Signs/I&O: Vital Signs Date Time Temp Pulse Resp B/P (MAP) Pulse Ox O2 Delivery O2 Flow Rate FiO2 10/30/20 16:02 97.9 69 18 112/68 (83) 96 10/30/20 06:29 Room Air I & O 10/29/20 10/29/20 10/30/20 15:00 23:00 07:00 Intake Total 0 ml 0 ml Balance 0 ml 0 ml Current Medications: Meds: Current Medications Medications (Trade) Dose Ordered Sig/Aline Route PRN Reason Start Time Stop Time Status Last Admin Dose Admin Lamotrigine (LaMICtal) 50 mg QHS PO 10/30/20 21:00 10/30/20 19:49 I have reviewed the current psychotropics carefully including drug interactions. Risk benefit ratio favors no change other than as noted in my dictated progress note. Diagnosis: Problems: (1) Major depressive disorder, recurrent episode (2) Parkinson's disease (3) Anxiety disorder, unspecified (4) Bipolar disorder, current episode mixed, severe, with psychotic features (5) Anorexia nervosa (6) OCD (obsessive compulsive disorder) DEL GO MD Oct 30, 2020 21:57
--- NOTE | 2020-10-30 22:04 | PDOC ---
Exam Note: Avel Note: Please also refer to the separate dictated note~for this date of service dictated separately.~Patient seen individually. Discussed the patient with Nursing staff reviewed the chart.~Reviewed interim history and current functioning. Reviewed vital signs,~Labs/ Radiology~and current medications noted below. Continue current treatment with the changes noted in the dictated addendum note Assessment: Vital Signs/I&O: Vital Signs Date Time Temp Pulse Resp B/P (MAP) Pulse Ox O2 Delivery O2 Flow Rate FiO2 10/30/20 16:02 97.9 69 18 112/68 (83) 96 10/30/20 06:29 Room Air I & O 10/29/20 10/29/20 10/30/20 15:00 23:00 07:00 Intake Total 0 ml 0 ml Balance 0 ml 0 ml Current Medications: Meds: Current Medications Medications (Trade) Dose Ordered Sig/Aline Route PRN Reason Start Time Stop Time Status Last Admin Dose Admin Lamotrigine (LaMICtal) 50 mg QHS PO 10/30/20 21:00 10/30/20 19:49 I have reviewed the current psychotropics carefully including drug interactions. Risk benefit ratio favors no change other than as noted in my dictated progress note. Diagnosis: Problems: (1) Major depressive disorder, recurrent episode (2) Parkinson's disease (3) Anxiety disorder, unspecified (4) Bipolar disorder, current episode mixed, severe, with psychotic features (5) Anorexia nervosa (6) OCD (obsessive compulsive disorder) DEL GO MD Oct 30, 2020 22:03
--- NOTE | 2020-10-30 22:19 | NUR ---
Pt located in her room this evening sitting calmly in her chair. Pt very slow to respond, answering questions with just "yes" or "no." Pt refused HS medications. All psychiatric medications were crushed and hidden in a strawberry boost. Staff sat with pt for approximately 30 minutes encouraging pt to drink the boost, which she did eventually consume. Pt taken to bed with encouragement and is currently laying awake in bed.
[2020-10-30] MEDS: traZODone 100 MG TABLET. PO PRN (23:05)
--- NOTE | 2020-10-31 01:48 | NUR ---
Pt has been awake all night. At this time, pt highly anxious and delusional stating that she "needs to get out of here" and that she "needs to get back to the internet." Pt restless, rocking back in forth in bed and attempting to climb out of bed repeatedly setting off bed alarm. Staff currently 1:1 with pt for safety d/t pt's unsteadiness and high anxiety.
[2020-10-31] MEDS: LEVOTHYROXINE 75 MCG TABLET PO SCH (05:37)
[2020-10-31 06:09] VITALS: BP 127/79
[2020-10-31] MEDS: DOCUSATE SODIUM 100 MG CAPSULE PO SCH ×2 (08:00→19:49)
[2020-10-31] MEDS: PSYLLIUM SEED (WITH SUGAR) PACKET. PO SCH (08:00)
[2020-10-31] MEDS: FLUoxetine HCL 10 MG CAPSULE PO SCH (08:01)
[2020-10-31] MEDS: MULTIVITAMIN with MINERAL TABLET. PO SCH (08:01)
[2020-10-31] MEDS: PANTOPRAZOLE 40 MG TABLET. PO SCH (08:01)
[2020-10-31] MEDS: METHYL SALICYLATE/MENTHOL TOPICAL OINTMENT 57GM TUBE. TP SCH (08:02)
[2020-10-31] MEDS: clonazePAM 0.5 MG TABLET PO SCH ×3 (08:04→17:05)
--- NOTE | 2020-10-31 10:00 | NUR ---
Pt restless in room. Delusional. Keeps raising walking and attempting to use it as a walker or is trying to pick it up. Flipped the bedside table over twice and the walker once. Pt almost fell each time. Pt did take am meds with encouragement. Pt moved to [place]. Woul not stay on mats. Removed walker as pt was still picking it up. Pt has been door checking.
--- NOTE | 2020-10-31 11:15 | NUR ---
Pt has been non stop restless. Notified Dr Marsh. New orders recieved.
[2020-10-31] MEDS ORDERED: risperiDONE 0.5 MG TABLET. PO ONE (11:30)
[2020-10-31] MEDS: LORazepam 0.5 MG TABLET PO PRN ×2 (11:36→22:18)
--- NOTE | 2020-10-31 11:40 | NUR ---
Pt given risperadol and ativan po. Pt stated she wanted to urinate. Attempted to obtain a urine sample but pt was too restless to stay on toilet. Pt never did urinate.
[2020-10-31 12:24] LABS: BASO % 0 % (0-3); EOS % 0 % (0-3); HEMATOCRIT 40.7 % (36.0-47.0); HEMOGLOBIN 13.4 g/dL (12.0-15.5); LYMPH # 0.7 x10^3/uL (1.0-4.8); LYMPH % 7 % (24-48); MEAN CORPUSCULAR HEMOGLOBIN 30 pg (25-35); MEAN CORPUSCULAR HGB CONC 33 g/dL (31-37); MEAN CORPUSCULAR VOLUME 90 fL (79-100); MONO # 0.6 x10^3/uL (0.0-1.1); MONO % 6 % (0-9); NEUT # 7.9 x10^3uL (1.8-7.7); NEUT % 86 % (31-73); PLATELET COUNT 236 x10^3/uL (140-400); RED BLOOD COUNT 4.51 x10^6/uL (3.50-5.40); RED CELL DISTRIBUTION WIDTH 13.8 % (11.5-14.5); WHITE BLOOD COUNT 9.2 x10^3/uL (4.0-11.0)
[2020-10-31 12:30] LABS: ALBUMIN 3.8 g/dL (3.4-5.0); CALCIUM 9.9 mg/dL (8.5-10.1); CREATININE 0.8 mg/dL (0.6-1.0); GFR 73.4; POTASSIUM 3.9 mmol/L (3.5-5.1); TOTAL BILIRUBIN 0.3 mg/dL (0.2-1.0); TOTAL PROTEIN 7.8 g/dL (6.4-8.2)
--- NOTE | 2020-10-31 12:30 | NUR ---
Pt requested to lie down on mats.
--- NOTE | 2020-10-31 13:13 | NUR ---
Pt back up in [place] door checking. Will give second solorzano of Risperdal.
[2020-10-31] MEDS: risperiDONE 0.5 MG TABLET. PO PRN (13:19)
[2020-10-31 13:36] LABS: % LYMPHS 8 % (24-48); % MONOS 2 % (0-10); % SEGS 90 % (35-66); PLT ESTIMATE ADEQUATE (ADEQUATE)
[2020-10-31 16:05] LABS: BACTERIA,URINE MOD /HPF (0-FEW); BILIRUBIN,URINE NEG (NEG); CLARITY,URINE CLEAR; COLOR,URINE AMBER; GLUCOSE,URINE NEG (NEG); NITRITE,URINE NEG (NEG); SQUAMOUS EPITHELIAL CELL,UR MOD /LPF
[2020-10-31 16:22] VITALS: BP 151/84
--- NOTE | 2020-10-31 17:40 | NUR ---
Pt has been up and down rest of afternoon but does not appears as restless and anxious. Has been compliant with meds and cares. UA sent to lab.
[2020-10-31] MEDS: lamoTRIgine 25 MG TABLET. PO SCH (19:49)
[2020-10-31] MEDS: risperiDONE 0.5 MG TABLET. PO SCH (19:49)
[2020-10-31] MEDS: MIRTAZAPINE 15 MG TABLET PO SCH (19:49)
[2020-10-31] MEDS: ZOLPIDEM 5 MG TABLET. PO SCH (19:51)
[2020-10-31] MEDS: traZODone 100 MG TABLET. PO PRN ×2 (19:51→21:42)
--- NOTE | 2020-10-31 20:42 | PDOC ---
Exam Note: Avel Note: This note is a late entry for 10/30/2020 covers elements not covered in my initial note. Subjective: The patient was reviewed on telehealth rounds in the evening of 10/30/2020 with Laisha BOYLE. Discussed with nursing staff, reviewed the chart. The patient slept for 1-1/4 hours previous night. She refused h.s. medications last evening. She also refused her medications during the day today, refused the Luvox. She appeared confused, was talking about not taking her medications because she could not hold her pants up and per nursing staff unable to quite the two together. Review of Systems: Positive for some tiredness. No CV, , pulmonary, eye, ENT system symptoms on review. Oral intake remains quite poor. Mental Status Exam: The patient is oriented to herself and situation. Speech has moderate latency. Often response is monosyllabic. Abstraction is fair. Computation is impaired. Language function is intact. Attention span is short. Mood and affect is somewhat withdrawn. She seemed paranoid, obsessive. No suicidal or homicidal ideation. Laboratory Data: Reviewed. Impression: Bipolar 1 disorder, depressed versus bipolar 2 disorder. Anxiety disorder unspecified. OCD. Plan: I had a lengthy discussion with the patient about compliance with her psychotropics, increasing the oral intake and she was agreeable. She was unsure if she would implement this. Continue the patient on her current psychotropics. We have initiated Luvox. We will increase gradually. Adjust the Lamictal. Maintain Risperdal. Reduce the Klonopin. Continue Remeron, Ambien and trazodone. Adjust further as clinically indicated. Assessment: Vital Signs/I&O: Vital Signs Date Time Temp Pulse Resp B/P (MAP) Pulse Ox O2 Delivery O2 Flow Rate FiO2 10/31/20 16:22 98.1 100 16 151/84 (106) 92 10/31/20 06:09 Room Air I & O 10/30/20 10/30/20 10/31/20 15:00 23:00 07:00 Intake Total 0 ml 320 ml Balance 0 ml 320 ml Labs: Laboratory Tests Test 10/31/20 12:09 10/31/20 15:25 White Blood Count 9.2 x10^3/uL (4.0-11.0) Red Blood Count 4.51 x10^6/uL (3.50-5.40) Hemoglobin 13.4 g/dL (12.0-15.5) Hematocrit 40.7 % (36.0-47.0) Mean Corpuscular Volume 90 fL (79-100) Mean Corpuscular Hemoglobin 30 pg (25-35) Mean Corpuscular Hemoglobin Concent 33 g/dL (31-37) Red Cell Distribution Width 13.8 % (11.5-14.5) Platelet Count 236 x10^3/uL (140-400) Neutrophils (%) (Auto) 86 % (31-73) H Lymphocytes (%) (Auto) 7 % (24-48) L Monocytes (%) (Auto) 6 % (0-9) Eosinophils (%) (Auto) 0 % (0-3) Basophils (%) (Auto) 0 % (0-3) Neutrophils # (Auto) 7.9 x10^3uL (1.8-7.7) H Lymphocytes # (Auto) 0.7 x10^3/uL (1.0-4.8) L Monocytes # (Auto) 0.6 x10^3/uL (0.0-1.1) Eosinophils # (Auto) 0.0 x10^3/uL (0.0-0.7) Basophils # (Auto) 0.0 x10^3/uL (0.0-0.2) Segmented Neutrophils % 90 % (35-66) H Lymphocytes % 8 % (24-48) L Monocytes % 2 % (0-10) Platelet Estimate Adequate (ADEQUATE) Sodium Level 142 mmol/L (136-145) Potassium Level 3.9 mmol/L (3.5-5.1) Chloride Level 102 mmol/L (98-107) Carbon Dioxide Level 30 mmol/L (21-32) Anion Gap 10 (6-14) Blood Urea Nitrogen 25 mg/dL (7-20) H Creatinine 0.8 mg/dL (0.6-1.0) Estimated GFR (Cockcroft-Gault) 73.4 BUN/Creatinine Ratio 31 (6-20) H Glucose Level 118 mg/dL (70-99) H Calcium Level 9.9 mg/dL (8.5-10.1) Total Bilirubin 0.3 mg/dL (0.2-1.0) Aspartate Amino Transferase (AST) 28 U/L (15-37) Alanine Aminotransferase (ALT) 30 U/L (14-59) Alkaline Phosphatase 110 U/L (46-116) Total Protein 7.8 g/dL (6.4-8.2) Albumin 3.8 g/dL (3.4-5.0) Albumin/Globulin Ratio 1.0 (1.0-1.7) Urine Collection Type Unknown Urine Color Lolis Urine Clarity Clear Urine pH 7.0 Urine Specific [place] 1.025 Urine Protein 30 mg/dl (NEG-TRACE) Urine Glucose (UA) Neg mg/dL (NEG) Urine Ketones (Stick) 80 mg/dL (NEG) Urine Blood Neg (NEG) Urine Nitrite Neg (NEG) Urine Bilirubin Neg (NEG) Urine Urobilinogen Dipstick 1.0 mg/dL (0.2 mg/dL) Urine Leukocyte Esterase Trace (NEG) Urine RBC 3-5 /HPF (0-2) Urine WBC 5-10 /HPF (0-4) Urine Squamous Epithelial Cells Mod /LPF Urine Bacteria Mod /HPF (0-FEW) Current Medications: Meds: Current Medications Medications (Trade) Dose Ordered Sig/Aline Route PRN Reason Start Time Stop Time Status Last Admin Dose Admin Lamotrigine (LaMICtal) 50 mg QHS PO 10/30/20 21:00 10/31/20 19:49 Risperidone (RisperDAL) 0.5 mg 1X ONCE PO 10/31/20 11:30 10/31/20 11:31 DC 10/31/20 11:36 Risperidone (RisperDAL) 0.5 mg PRN 1X PRN PO AGITATION 10/31/20 11:30 10/31/20 13:19 Lorazepam (Ativan) 0.5 mg PRN Q2HR PRN PO ANXIETY / AGITATION 10/31/20 11:15 10/31/20 11:36 I have reviewed the current psychotropics carefully including drug interactions. Risk benefit ratio favors no change other than as noted in my dictated progress note. Diagnosis: Problems: (1) Major depressive disorder, recurrent episode (2) Parkinson's disease (3) Anxiety disorder, unspecified (4) Bipolar disorder, current episode mixed, severe, with psychotic features (5) Anorexia nervosa (6) OCD (obsessive compulsive disorder) DEL GO MD Oct 31, 2020 20:42
--- NOTE | 2020-10-31 20:49 | PDOC ---
Exam Note: Avel Note: Please also refer to the separate dictated note~for this date of service dictated separately.~Patient seen individually. Discussed the patient with Nursing staff reviewed the chart.~Reviewed interim history and current functioning. Reviewed vital signs,~Labs/ Radiology~and current medications noted below. Continue current treatment with the changes noted in the dictated addendum note Assessment: Vital Signs/I&O: Vital Signs Date Time Temp Pulse Resp B/P (MAP) Pulse Ox O2 Delivery O2 Flow Rate FiO2 10/31/20 16:22 98.1 100 16 151/84 (106) 92 10/31/20 06:09 Room Air I & O 10/30/20 10/30/20 10/31/20 14:59 22:59 06:59 Intake Total 0 ml 320 ml Balance 0 ml 320 ml Labs: Laboratory Tests Test 10/31/20 12:09 10/31/20 15:25 White Blood Count 9.2 x10^3/uL (4.0-11.0) Red Blood Count 4.51 x10^6/uL (3.50-5.40) Hemoglobin 13.4 g/dL (12.0-15.5) Hematocrit 40.7 % (36.0-47.0) Mean Corpuscular Volume 90 fL (79-100) Mean Corpuscular Hemoglobin 30 pg (25-35) Mean Corpuscular Hemoglobin Concent 33 g/dL (31-37) Red Cell Distribution Width 13.8 % (11.5-14.5) Platelet Count 236 x10^3/uL (140-400) Neutrophils (%) (Auto) 86 % (31-73) H Lymphocytes (%) (Auto) 7 % (24-48) L Monocytes (%) (Auto) 6 % (0-9) Eosinophils (%) (Auto) 0 % (0-3) Basophils (%) (Auto) 0 % (0-3) Neutrophils # (Auto) 7.9 x10^3uL (1.8-7.7) H Lymphocytes # (Auto) 0.7 x10^3/uL (1.0-4.8) L Monocytes # (Auto) 0.6 x10^3/uL (0.0-1.1) Eosinophils # (Auto) 0.0 x10^3/uL (0.0-0.7) Basophils # (Auto) 0.0 x10^3/uL (0.0-0.2) Segmented Neutrophils % 90 % (35-66) H Lymphocytes % 8 % (24-48) L Monocytes % 2 % (0-10) Platelet Estimate Adequate (ADEQUATE) Sodium Level 142 mmol/L (136-145) Potassium Level 3.9 mmol/L (3.5-5.1) Chloride Level 102 mmol/L (98-107) Carbon Dioxide Level 30 mmol/L (21-32) Anion Gap 10 (6-14) Blood Urea Nitrogen 25 mg/dL (7-20) H Creatinine 0.8 mg/dL (0.6-1.0) Estimated GFR (Cockcroft-Gault) 73.4 BUN/Creatinine Ratio 31 (6-20) H Glucose Level 118 mg/dL (70-99) H Calcium Level 9.9 mg/dL (8.5-10.1) Total Bilirubin 0.3 mg/dL (0.2-1.0) Aspartate Amino Transferase (AST) 28 U/L (15-37) Alanine Aminotransferase (ALT) 30 U/L (14-59) Alkaline Phosphatase 110 U/L (46-116) Total Protein 7.8 g/dL (6.4-8.2) Albumin 3.8 g/dL (3.4-5.0) Albumin/Globulin Ratio 1.0 (1.0-1.7) Urine Collection Type Unknown Urine Color Lolis Urine Clarity Clear Urine pH 7.0 Urine Specific [place] 1.025 Urine Protein 30 mg/dl (NEG-TRACE) Urine Glucose (UA) Neg mg/dL (NEG) Urine Ketones (Stick) 80 mg/dL (NEG) Urine Blood Neg (NEG) Urine Nitrite Neg (NEG) Urine Bilirubin Neg (NEG) Urine Urobilinogen Dipstick 1.0 mg/dL (0.2 mg/dL) Urine Leukocyte Esterase Trace (NEG) Urine RBC 3-5 /HPF (0-2) Urine WBC 5-10 /HPF (0-4) Urine Squamous Epithelial Cells Mod /LPF Urine Bacteria Mod /HPF (0-FEW) Current Medications: Meds: Current Medications Medications (Trade) Dose Ordered Sig/Aline Route PRN Reason Start Time Stop Time Status Last Admin Dose Admin Lamotrigine (LaMICtal) 50 mg QHS PO 10/30/20 21:00 10/31/20 19:49 Risperidone (RisperDAL) 0.5 mg 1X ONCE PO 10/31/20 11:30 10/31/20 11:31 DC 10/31/20 11:36 Risperidone (RisperDAL) 0.5 mg PRN 1X PRN PO AGITATION 10/31/20 11:30 10/31/20 13:19 Lorazepam (Ativan) 0.5 mg PRN Q2HR PRN PO ANXIETY / AGITATION 10/31/20 11:15 10/31/20 11:36 I have reviewed the current psychotropics carefully including drug interactions. Risk benefit ratio favors no change other than as noted in my dictated progress note. Diagnosis: Problems: (1) Major depressive disorder, recurrent episode (2) Parkinson's disease (3) Anxiety disorder, unspecified (4) Bipolar disorder, current episode mixed, severe, with psychotic features (5) Anorexia nervosa (6) OCD (obsessive compulsive disorder) DEL GO MD Oct 31, 2020 20:49
--- NOTE | 2020-11-01 01:03 | NUR ---
Nursing Note The patient was disorganized, resistive and repetitive. The patient was compliant with her assessment but was unable to answer most assessment questions. The patient was resistive with her medications and refused to take them whole but was cooperative with taking them when crushed. The patient wandered in the quiet hallway for the majority of the shift. The patient received PRN Trazodone@1950, 2141 and Ativan@2217.
[2020-11-01] MEDS: LEVOTHYROXINE 75 MCG TABLET PO SCH (06:30)
[2020-11-01 06:36] VITALS: BP 105/70
--- NOTE | 2020-11-01 08:10 | PDOC ---
Exam Note: Avel Note: This note is a late entry for 10/31/2020 covers elements not covered in my initial note. Subjective: The patient was reviewed on telehealth rounds in the evening of 10/31/2020 with Laisha BOYLE. Discussed with nursing staff, reviewed the chart. The patient slept for 0 hours previous night. Overall the patient has had a very difficult day. I have been paged as an emergency earlier in the day by nursing staff as she was quite paranoid, delusional, confused, and psychotic. She had refused her benzodiazepine and rest of her psychotropics yesterday and the question was whether she was having some benzodiazepine withdrawal. We did add Ativan p.r.n. Checked her CBC, CMP, which is unremarkable other than mild elevation consistent with dehydration. UA shows leukocyte esterase bacteria negative and it has reflex to culture. We will await this. Review of Systems: The patient has been in the [facility] to reduce stimuli. No CV, , pulmonary, eye, ENT system symptoms on review. Mental Status Exam: The patient is oriented to herself and situation. Speech has some latency, coherent. Often response is monosyllabic. Abstraction is fair. Computation is impaired. Attention span is short. Language function is intact. Attention span is short. She is still paranoid but less so than before. No suicidal or homicidal ideation. Laboratory Data: Reviewed. Impression: Bipolar 1 disorder, depressed versus bipolar 2 disorder. Anxiety disorder unspecified. OCD. Plan: Await UA C&S and treat as clinically indicated. Maintain Risperdal at current dosage, Ambien, Lamictal, Klonopin, Ativan p.r.n. Remeron, trazodone, and Luvox was initiated in place of Prozac and nortriptyline. Assessment: Vital Signs/I&O: Vital Signs Date Time Temp Pulse Resp B/P (MAP) Pulse Ox O2 Delivery O2 Flow Rate FiO2 11/01/20 06:36 98.7 96 18 105/70 (82) 100 10/31/20 06:09 Room Air I & O 10/31/20 10/31/20 11/01/20 15:00 23:00 07:00 Intake Total 600 ml 240 ml Balance 600 ml 240 ml Labs: Laboratory Tests Test 10/31/20 12:09 10/31/20 15:25 White Blood Count 9.2 x10^3/uL (4.0-11.0) Red Blood Count 4.51 x10^6/uL (3.50-5.40) Hemoglobin 13.4 g/dL (12.0-15.5) Hematocrit 40.7 % (36.0-47.0) Mean Corpuscular Volume 90 fL (79-100) Mean Corpuscular Hemoglobin 30 pg (25-35) Mean Corpuscular Hemoglobin Concent 33 g/dL (31-37) Red Cell Distribution Width 13.8 % (11.5-14.5) Platelet Count 236 x10^3/uL (140-400) Neutrophils (%) (Auto) 86 % (31-73) H Lymphocytes (%) (Auto) 7 % (24-48) L Monocytes (%) (Auto) 6 % (0-9) Eosinophils (%) (Auto) 0 % (0-3) Basophils (%) (Auto) 0 % (0-3) Neutrophils # (Auto) 7.9 x10^3uL (1.8-7.7) H Lymphocytes # (Auto) 0.7 x10^3/uL (1.0-4.8) L Monocytes # (Auto) 0.6 x10^3/uL (0.0-1.1) Eosinophils # (Auto) 0.0 x10^3/uL (0.0-0.7) Basophils # (Auto) 0.0 x10^3/uL (0.0-0.2) Segmented Neutrophils % 90 % (35-66) H Lymphocytes % 8 % (24-48) L Monocytes % 2 % (0-10) Platelet Estimate Adequate (ADEQUATE) Sodium Level 142 mmol/L (136-145) Potassium Level 3.9 mmol/L (3.5-5.1) Chloride Level 102 mmol/L (98-107) Carbon Dioxide Level 30 mmol/L (21-32) Anion Gap 10 (6-14) Blood Urea Nitrogen 25 mg/dL (7-20) H Creatinine 0.8 mg/dL (0.6-1.0) Estimated GFR (Cockcroft-Gault) 73.4 BUN/Creatinine Ratio 31 (6-20) H Glucose Level 118 mg/dL (70-99) H Calcium Level 9.9 mg/dL (8.5-10.1) Total Bilirubin 0.3 mg/dL (0.2-1.0) Aspartate Amino Transferase (AST) 28 U/L (15-37) Alanine Aminotransferase (ALT) 30 U/L (14-59) Alkaline Phosphatase 110 U/L (46-116) Total Protein 7.8 g/dL (6.4-8.2) Albumin 3.8 g/dL (3.4-5.0) Albumin/Globulin Ratio 1.0 (1.0-1.7) Urine Collection Type Unknown Urine Color Lolis Urine Clarity Clear Urine pH 7.0 Urine Specific [place] 1.025 Urine Protein 30 mg/dl (NEG-TRACE) Urine Glucose (UA) Neg mg/dL (NEG) Urine Ketones (Stick) 80 mg/dL (NEG) Urine Blood Neg (NEG) Urine Nitrite Neg (NEG) Urine Bilirubin Neg (NEG) Urine Urobilinogen Dipstick 1.0 mg/dL (0.2 mg/dL) Urine Leukocyte Esterase Trace (NEG) Urine RBC 3-5 /HPF (0-2) Urine WBC 5-10 /HPF (0-4) Urine Squamous Epithelial Cells Mod /LPF Urine Bacteria Mod /HPF (0-FEW) Current Medications: Meds: Current Medications Medications (Trade) Dose Ordered Sig/Aline Route PRN Reason Start Time Stop Time Status Last Admin Dose Admin Risperidone (RisperDAL) 0.5 mg 1X ONCE PO 10/31/20 11:30 10/31/20 11:31 DC 10/31/20 11:36 Risperidone (RisperDAL) 0.5 mg PRN 1X PRN PO AGITATION 10/31/20 11:30 10/31/20 13:19 Lorazepam (Ativan) 0.5 mg PRN Q2HR PRN PO ANXIETY / AGITATION 10/31/20 11:15 10/31/20 22:18 I have reviewed the current psychotropics carefully including drug interactions. Risk benefit ratio favors no change other than as noted in my dictated progress note. Diagnosis: Problems: (1) Major depressive disorder, recurrent episode (2) Parkinson's disease (3) Anxiety disorder, unspecified (4) Bipolar disorder, current episode mixed, severe, with psychotic features (5) OCD (obsessive compulsive disorder) DEL GO MD Nov 01, 2020 08:10
[2020-11-01] MEDS: PSYLLIUM SEED (WITH SUGAR) PACKET. PO SCH (08:39)
[2020-11-01] MEDS: DOCUSATE SODIUM 100 MG CAPSULE PO SCH ×2 (08:39→20:41)
[2020-11-01] MEDS: MULTIVITAMIN with MINERAL TABLET. PO SCH (08:39)
[2020-11-01] MEDS: PANTOPRAZOLE 40 MG TABLET. PO SCH (08:39)
[2020-11-01] MEDS: METHYL SALICYLATE/MENTHOL TOPICAL OINTMENT 57GM TUBE. TP SCH (08:40)
[2020-11-01] MEDS: FLUoxetine HCL 10 MG CAPSULE PO SCH (08:40)
[2020-11-01] MEDS: clonazePAM 0.5 MG TABLET PO SCH ×3 (08:41→17:08)
--- NOTE | 2020-11-01 13:04 | NUR ---
WEEKLY ACTIVITY THERAPY NOTE Date of Admission: 10/22 Date of AT Assessment: 10/25 Precipitating behaviors that initiated intake and admission: The patient made statements that she would attempt to strangle self. Patient had stopped eating prior to arrival to hospital Goal aimed: to increase socialization and motivation Initial Goal: Pt. will participate in at least three Activity Therapy groups or individual sessions before discharge. Weekly progress towards goal: achieved 3/3 Group participation level: 1 full group, 1 mod 1:1 and 1 min 1:1 Weekly highlights: Pt. engaged with and without direct prompting during grid categories and leisure/ emotions on Sunday-she was reserved but focused the entire time Behaviors observed: unresponsive to staff questions and difficult to redirect at times, anxious, resistive, appeared to have foot pain Sunday, incontinence concerns, identified music as one leisure activity she would try when she was feeling a negative way. Plan: change goal to Pt. will participate in at least three Activity Therapy groups or individual sessions per week Beneficial adaptations: reported liking going to the movies, exercising, coloring and crosswords
--- NOTE | 2020-11-01 14:19 | TX PLAN ---
Interdisciplinary Tx Plan Admission Information Oct 22, 2020 at 02:55 Legal Status (on Admission): Voluntary, Court Appointed Guardian, Court Appointed Conservat DPOA/Guardian Name: Julisa Bernal-sister/guardian Contact Other Contact Name: Duane Other Contact Verified Code Status: Full Code Allergies: Coded Allergies: Penicillins (Verified Allergy, Intermediate, 10/20/20) azithromycin (Verified Allergy, Intermediate, 10/21/20) bupropion (Verified Allergy, Intermediate, 10/21/20) cefdinir (Verified Allergy, Intermediate, 10/21/20) erythromycin base (Verified Allergy, Intermediate, 10/21/20) sulfadiazine (Verified Allergy, Intermediate, 10/21/20) Estimated Length of Stay: 14 Diagnoses Primary Diagnosis: Bipolar depressed Reasons for Admission: Depressed, Sig. Change Appetite, Anxiety/Panic, Suicidal ideation Problem in Patient's Words: Per Kallie, "I'm not doing good, I'm not eating." Additional Admission Comments: Per intake record, SI with plan to strangle self with cord, not eating for the past week with history of anorexia. Problems Active Problems: Flat affect Slow to respond Anxious Depressed Poor intake of meals Increased incontinence Inactive Problems: Medication compliant Slept 7.5 hours night of 10/24/20 Pt Strengths/Limitations Ability for [place]: Fair Cognitive Functioning/Ability: Fair Communication Skills/Ability: Fair Financial Resources: Fair Insight/Judgement: Fair Intellectual Ability: Good Physical Health: Fair Social Skills: Fair Stability in Family: Good Verbal Skills: Fair Discharge Criteria Discharge Criteria: No need for close observ., Adequate arrangements @DC, Adequate self-care, Improved mood/thought Other Discharge Comments: Adequate meal intakes Preliminary Discharge Plan Preliminary DC Plan: Detention Other Arrangements: [facility]- Level II facility Special Precautions Special Precautions: Suicide Risk Fall Risk: High Initial D/C Plan Return to [facility] once stable. Identified Discharge Needs: F/U with PCP, psychiatrist, and counselor. Have [facility] recreational therapist follow up with Kallie to develop past time intersts within the facility. Currently Utilized Resources Currently Utilized Resources/P: PCP Telepsychiatrist Referrals Community Resources: Counseling services if available Identified Problems/Hx/Goals Objectives/Short-Term Goals Short Term Goals: Anxiety/Panic, Decrease Isolation, Dec. Symp. Depression, Improved Social Skills, Medication Stabilization, Monitor Med Effects, No Suicidal/Liv. ideation, Prevent Deterioration, Promote Coping Skill Short Term Goals in Patient's: Kallie expressed the desire to walk again and to evntually be able to live independently and return to work. Interventions/Frequency Staff Interventions/Frequency&: Nursing to provide routine safety checks, medications, and adl support. Psychiatry visit threes times weekly. SW visits twice weekly. PT/OT as ordered. Recreational therapy and SW group involvement as Kallie is willing. 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 Social: Kallie enjoyed exercising, playing with dogs, and dating. Education: Kallie graduated high school from [employer]. She went on to obtain her masters degree in business education from [employer]. Community Follow-up PCP Psychiatry [place] if available F/U from [facility] director sales to identify activites of interest. Community Provider/Family Inpu: Kallie's sister/guardian, Julisa, participated in team meeting via phone. Dr. Bryon Ortiz, psychiatrist out of [facility], followed Kallie in the past. Nursing to obtain medical records from him. Treatment Plan Explained Patient/Quartz Miner had this treatment plan explained to him/her as indicated by the signature below and has been given the opportunity to ask questions and make suggestions: Date: Patient/Quartz Miner Signature: Status Update Update WEEKLY NOTE/UPDATE: Kallie is averaging 20% of meals and 4.5 hours of sleep. Intakes of meals are poor but she will drink some ensure when coaxed and encouraged. Kallie continues to be psychotic and obsessive. She has been more confused and out of touch with current situation since medication changes have been made. Prozac and Nortriptyline have been changed to Luvox. Kallie declined her meds last night but eventually accepted them syringed. She has a UA culture pending. Tentative d/c back to [facility] end of next week. JUVE RAINES Nov 01, 2020 14:19
--- NOTE | 2020-11-01 14:31 | NUR ---
Nursing note: Pt in [place] this morning r/t not sleeping well overnight at time of AM med pass and assessment. She is med compliant and cooperative. Pt continues to need a lot of encouragement to eat anything and appears to get worked up over having food in front of her when trying to take her meds. Pt is confused and often gets distracted while taking her meds and refers back to all the food she's been eating. Once the food tray is out of sight, pt has no difficulty in taking her meds whole. Pt has been very confused this shift stating "I lost all of the data". When asking for further information, pt continues on stating "I'm so confused. I just don't know what I'm doing here. What are all of you doing here. Why are you masking?" Pt continues to be reoriented each time she has these questions, but is unable to comprehend the responses and asks the same questions again. Pt is currently in the day room participating in group. Will continue to monitor.
--- NOTE | 2020-11-01 14:40 | NUR ---
1:1 with Kallie this afternoon. Kallie was sitting in her room, meal tray in front of her. She expressed feeling confused, uncertain about her current situation, and unable to eat the amount of food served to her. CHRISSY attempted to provide reassurance but Kallie continued to perseverate. After much encouragement, Kallie did accept invite to CHRISSY group activity and was able to follow along with some deep breathing exercises. Call placed to Julisa (sister/POA) and Kristan SOSA at [facility] and progress report provided. Faxed current notes, medication list, and labs for Kristan to review. Estimated d/c date mid-late next week.
[2020-11-01 16:03] VITALS: BP 120/71
[2020-11-01] MEDS: MIRTAZAPINE 15 MG TABLET PO SCH (20:41)
[2020-11-01] MEDS: lamoTRIgine 25 MG TABLET. PO SCH (20:43)
[2020-11-01] MEDS: ZOLPIDEM 5 MG TABLET. PO SCH (20:45)
[2020-11-01] MEDS: risperiDONE 0.5 MG TABLET. PO SCH (20:46)
--- NOTE | 2020-11-01 21:00 | PDOC ---
Exam Note: Avel Note: Please also refer to the separate dictated note~for this date of service dictated separately.~Patient seen individually. Discussed the patient with Nursing staff reviewed the chart.~Reviewed interim history and current functioning. Reviewed vital signs,~Labs/ Radiology~and current medications noted below. Continue current treatment with the changes noted in the dictated addendum note Assessment: Vital Signs/I&O: Vital Signs Date Time Temp Pulse Resp B/P (MAP) Pulse Ox O2 Delivery O2 Flow Rate FiO2 11/01/20 16:03 97.6 80 16 120/71 (87) 97 10/31/20 06:09 Room Air I & O 10/31/20 10/31/20 11/01/20 15:00 23:00 07:00 Intake Total 600 ml 240 ml Balance 600 ml 240 ml Current Medications: Meds: Current Medications Medications (Trade) Dose Ordered Sig/Aline Route PRN Reason Start Time Stop Time Status Last Admin Dose Admin Fluvoxamine Maleate (Luvox) 50 mg QHS PO 11/01/20 21:00 11/01/20 20:45 Risperidone (RisperDAL) 0.75 mg QHS PO 11/01/20 21:00 11/01/20 20:46 I have reviewed the current psychotropics carefully including drug interactions. Risk benefit ratio favors no change other than as noted in my dictated progress note. Diagnosis: Problems: (1) Major depressive disorder, recurrent episode (2) Parkinson's disease (3) Anxiety disorder, unspecified (4) Bipolar disorder, current episode mixed, severe, with psychotic features (5) Anorexia nervosa (6) OCD (obsessive compulsive disorder) DEL GO MD Nov 01, 2020 21:00
--- NOTE | 2020-11-02 03:55 | NUR ---
Nursing Note The patient was calm, withdrawn and compliant this shift. The patient took her medication whole. The patient was unable to answer her assessment questions. The patient displayed repetitive speech when interacting with this nurse.
[2020-11-02] MEDS: LEVOTHYROXINE 75 MCG TABLET PO SCH (05:51)
[2020-11-02 06:41] VITALS: BP 148/82
--- NOTE | 2020-11-02 07:41 | PDOC ---
Exam Note: Avel Note: This note is a late entry for 11/01/2020 covers elements not covered in my initial note. Subjective: The patient was reviewed on telehealth rounds in the morning of 11/01/2020 for a treatment team meeting with Genie Bragg and Stephanie (social sciences lecturer), Amanda, activity therapy and Jacinta BOYLE. Discussed with nursing staff, reviewed the chart. The patient slept for 4-1/2 hours previous night. Appetite is 20%. She refused her medications previous night but received trazodone x2 and then slept 4-1/2 hours. She has been given Ensure as a supplement due to her poor oral intake. She remains somewhat confused, preoccupied with her ruminative and obsessive thinking and paranoia. Review of Systems: Ambulation impaired with walker. No CV, , pulmonary, eye, ENT system symptoms on review. Mental Status Exam: The patient is oriented to herself and situation. Speech has some latency. Often response is monosyllabic. Abstraction is fair. Computation is impaired. Attention span is short. Language function is intact. Mood and affect quite withdrawn. She has been in the quiet room for some time but back in her room this evening. Laboratory Data: Reviewed. Impression: Bipolar 1 disorder, depressed versus bipolar 2 disorder. Anxiety disorder unspecified. OCD. Plan: The patient is currently on Lamictal 50 mg h.s. We will increase to 75 mg h.s. after 5 days on 50 mg. She did receive Ativan x1 last night for her sleep but we will continue trazodone p.r.n. and increase Risperdal from 0.5 mg h.s. to 0.75 mg p.o. h.s. We may continue to taper the Klonopin. Maintain Remeron. Increase the Luvox gradually and Ativan p.r.n., Ambien 2.5 mg h.s. I have carefully reviewed drug interactions, risk-benefit ratio of her psychotropics. Assessment: Vital Signs/I&O: Vital Signs Date Time Temp Pulse Resp B/P (MAP) Pulse Ox O2 Delivery O2 Flow Rate FiO2 11/02/20 06:41 98.0 90 18 148/82 (104) 95 10/31/20 06:09 Room Air I & O 11/01/20 11/01/20 11/02/20 15:00 23:00 07:00 Intake Total 420 ml Balance 420 ml Current Medications: Meds: Current Medications Medications (Trade) Dose Ordered Sig/Aline Route PRN Reason Start Time Stop Time Status Last Admin Dose Admin Fluvoxamine Maleate (Luvox) 50 mg QHS PO 11/01/20 21:00 11/01/20 20:45 Risperidone (RisperDAL) 0.75 mg QHS PO 11/01/20 21:00 11/01/20 20:46 I have reviewed the current psychotropics carefully including drug interactions. Risk benefit ratio favors no change other than as noted in my dictated progress note. Diagnosis: Problems: (1) Major depressive disorder, recurrent episode (2) Parkinson's disease (3) Anxiety disorder, unspecified (4) Bipolar disorder, current episode mixed, severe, with psychotic features (5) OCD (obsessive compulsive disorder) DEL GO MD Nov 02, 2020 07:41
[2020-11-02] MEDS: METHYL SALICYLATE/MENTHOL TOPICAL OINTMENT 57GM TUBE. TP SCH (09:00)
[2020-11-02] MEDS: DOCUSATE SODIUM 100 MG CAPSULE PO SCH ×2 (09:13→19:30)
[2020-11-02] MEDS: clonazePAM 0.5 MG TABLET PO SCH ×3 (09:13→16:43)
[2020-11-02] MEDS: MULTIVITAMIN with MINERAL TABLET. PO SCH (09:13)
[2020-11-02] MEDS: PANTOPRAZOLE 40 MG TABLET. PO SCH (09:13)
[2020-11-02] MEDS: FLUoxetine HCL 10 MG CAPSULE PO SCH (09:13)
[2020-11-02] MEDS: PSYLLIUM SEED (WITH SUGAR) PACKET. PO SCH (09:14)
[2020-11-02 15:18] VITALS: BP_SYST 119; BP_DIAS 70; BP_DIAS 79
--- NOTE | 2020-11-02 17:29 | NUR ---
Patient cooperative but anxious today. Much better behaviors and was much more talkative. Answers questions appropriately and was not resistive with medications today. Patient also ate some of each meal. Made good progress today. Patient has complaints that she has not had a BM so i told her we would give her milk of magnesium in the AM if she still has not gone. She was in agreement with that plan. Will pass on in report to night nurse. No further concerns or complaints at this time.
[2020-11-02] MEDS: risperiDONE 0.5 MG TABLET. PO SCH (19:30)
[2020-11-02] MEDS: lamoTRIgine 25 MG TABLET. PO SCH (19:30)
[2020-11-02] MEDS: MIRTAZAPINE 15 MG TABLET PO SCH (19:30)
[2020-11-02] MEDS: ZOLPIDEM 5 MG TABLET. PO SCH (19:30)
--- NOTE | 2020-11-02 21:07 | PDOC ---
Exam Note: Avel Note: Please also refer to the separate dictated note~for this date of service dictated separately.~Patient seen individually. Discussed the patient with Nursing staff reviewed the chart.~Reviewed interim history and current functioning. Reviewed vital signs,~Labs/ Radiology~and current medications noted below. Continue current treatment with the changes noted in the dictated addendum note Assessment: Vital Signs/I&O: Vital Signs Date Time Temp Pulse Resp B/P (MAP) Pulse Ox O2 Delivery O2 Flow Rate FiO2 11/02/20 15:18 97.3 94 16 119/79 (92) 98 10/31/20 06:09 Room Air I & O 11/01/20 11/01/20 11/02/20 15:00 23:00 07:00 Intake Total 420 ml Balance 420 ml Current Medications: I have reviewed the current psychotropics carefully including drug interactions. Risk benefit ratio favors no change other than as noted in my dictated progress note. Diagnosis: Problems: (1) Major depressive disorder, recurrent episode (2) Parkinson's disease (3) Anxiety disorder, unspecified (4) Bipolar disorder, current episode mixed, severe, with psychotic features (5) OCD (obsessive compulsive disorder) DEL GO MD Nov 02, 2020 21:07
--- NOTE | 2020-11-03 01:36 | NUR ---
Nursing Note The patient was calm and compliant this shift. The patient was withdrawn to her room this shift, mainly sitting in her chair. The patient was compliant with her medication and took them whole. The patient was able to answer her name, name of hospital and city. The patient often begins a sentence but is unable to complete it.
[2020-11-03] MEDS: LEVOTHYROXINE 75 MCG TABLET PO SCH (05:20)
[2020-11-03 05:52] VITALS: BP 124/81
[2020-11-03] MEDS: DOCUSATE SODIUM 100 MG CAPSULE PO SCH ×2 (08:08→20:12)
[2020-11-03] MEDS: clonazePAM 0.5 MG TABLET PO SCH ×3 (08:08→17:45)
[2020-11-03] MEDS: MULTIVITAMIN with MINERAL TABLET. PO SCH (08:08)
[2020-11-03] MEDS: FLUoxetine HCL 10 MG CAPSULE PO SCH (08:08)
[2020-11-03] MEDS: PANTOPRAZOLE 40 MG TABLET. PO SCH (08:08)
[2020-11-03] MEDS: METHYL SALICYLATE/MENTHOL TOPICAL OINTMENT 57GM TUBE. TP SCH (08:08)
[2020-11-03] MEDS: PSYLLIUM SEED (WITH SUGAR) PACKET. PO SCH (08:08)
--- NOTE | 2020-11-03 14:49 | NUR ---
Nursing note: Pt continues to appear anxious, but not quite as anxious as she has been recently. She was compliant with meds whole and cooperative with assessment. Pt continues to eat portions of each of her meals. Pt has had no further complaints this shift. She is currently resting quietly in bed. Will continue to monitor.
[2020-11-03 15:59] VITALS: BP 112/76
[2020-11-03] MEDS: ZOLPIDEM 5 MG TABLET. PO SCH (20:10)
[2020-11-03] MEDS: MIRTAZAPINE 15 MG TABLET PO SCH (20:11)
[2020-11-03] MEDS: risperiDONE 0.5 MG TABLET. PO SCH (20:11)
[2020-11-03] MEDS: lamoTRIgine 25 MG TABLET. PO SCH (20:13)
--- NOTE | 2020-11-03 20:52 | PDOC ---
Exam Note: Avel Note: This note is a late entry for 11/02/2020 covers elements not covered in my initial note. Subjective: The patient was reviewed on telehealth rounds in the evening of 11/02/2020 with Mere BOYLE. Discussed with nursing staff, reviewed the chart. He slept 6 hours previous night. The patient has done a little better today. She is extremely obsessed not having had a bowel movement, but she is more compliant with her medication, little more talkative and thought seemed more connected. She was able to relate to the nursing staff where she was and why she was admitted here. She still admits to hearing people talking to her telling her to do things. She ate reasonably for breakfast, somewhat less for lunch. The obsessiveness about her bowel movement is quite significant and I processed this with her on telehealth rounds. Review of Systems: Positive for constipation. No CV, , pulmonary, eye, ENT system symptoms on review. Mental Status Exam: The patient is oriented to herself and situation. Speech has some latency, coherent. Abstraction is fair. Computation is impaired. Attention span is short. Language function is intact. Mood and affect less withdrawn. She was more verbal, more forthcoming as I met with her individually. No suicidal or homicidal ideation. Laboratory Data: Reviewed. Impression: Bipolar 1 disorder, depressed versus bipolar 2 disorder. Anxiety disorder unspecified. OCD. Plan: No change from initial note but we may consider increasing Risperdal further in due course. Assessment: Vital Signs/I&O: Vital Signs Date Time Temp Pulse Resp B/P (MAP) Pulse Ox O2 Delivery O2 Flow Rate FiO2 11/03/20 15:59 97.2 84 16 112/76 (88) 97 10/31/20 06:09 Room Air I & O 11/02/20 11/02/20 11/03/20 15:00 23:00 07:00 Intake Total 320 ml 580 ml Balance 320 ml 580 ml Current Medications: I have reviewed the current psychotropics carefully including drug interactions. Risk benefit ratio favors no change other than as noted in my dictated progress note. Diagnosis: Problems: (1) Major depressive disorder, recurrent episode (2) Parkinson's disease (3) Anxiety disorder, unspecified (4) Bipolar disorder, current episode mixed, severe, with psychotic features (5) OCD (obsessive compulsive disorder) DEL GO MD Nov 03, 2020 20:52
--- NOTE | 2020-11-03 21:17 | PDOC ---
Exam Note: Avel Note: Please also refer to the separate dictated note~for this date of service dictated separately.~Patient seen individually. Discussed the patient with Nursing staff reviewed the chart.~Reviewed interim history and current functioning. Reviewed vital signs,~Labs/ Radiology~and current medications noted below. Continue current treatment with the changes noted in the dictated addendum note Assessment: Vital Signs/I&O: Vital Signs Date Time Temp Pulse Resp B/P (MAP) Pulse Ox O2 Delivery O2 Flow Rate FiO2 11/03/20 15:59 97.2 84 16 112/76 (88) 97 10/31/20 06:09 Room Air I & O 11/02/20 11/02/20 11/03/20 15:00 23:00 07:00 Intake Total 320 ml 580 ml Balance 320 ml 580 ml Current Medications: I have reviewed the current psychotropics carefully including drug interactions. Risk benefit ratio favors no change other than as noted in my dictated progress note. Diagnosis: Problems: (1) Major depressive disorder, recurrent episode (2) Parkinson's disease (3) Anxiety disorder, unspecified (4) Bipolar disorder, current episode mixed, severe, with psychotic features (5) OCD (obsessive compulsive disorder) DEL GO MD Nov 03, 2020 21:17
--- NOTE | 2020-11-03 21:54 | PDOC ---
Exam Note: Avel Note: Please also refer to the separate dictated note~for this date of service dictated separately.~Patient seen individually. Discussed the patient with Nursing staff reviewed the chart.~Reviewed interim history and current functioning. Reviewed vital signs,~Labs/ Radiology~and current medications noted below. Continue current treatment with the changes noted in the dictated addendum note Assessment: Vital Signs/I&O: Intake and Output 11/03/20 07:00 Intake Total 900 ml Balance 900 ml Intake Oral 900 ml VS - Last 72 Hours, by Label Date Time Temp Pulse Resp B/P (MAP) Pulse Ox O2 Delivery O2 Flow Rate FiO2 11/03/20 15:59 97.2 84 16 112/76 (88) 97 11/03/20 05:52 98.7 75 18 124/81 (95) 99 11/02/20 15:18 97.3 94 16 119/79 (92) 98 11/02/20 06:41 98.0 90 18 148/82 (104) 95 11/01/20 16:03 97.6 80 16 120/71 (87) 97 11/01/20 06:36 98.7 96 18 105/70 (82) 100 Current Medications Medications (Trade) Dose Ordered Sig/Aline Route PRN Reason Start Time Stop Time Status Last Admin Dose Admin Acetaminophen (Tylenol) 650 mg PRN Q6HRS PRN PO MILD PAIN / TEMP > 100.3'F 10/22/20 04:00 Al Hydroxide/Mg Hydroxide (Mylanta Plus Xs) 15 ml PRN AFTMEALHC PRN PO DYSPEPSIA 10/22/20 04:00 Magnesium Hydroxide (Milk Of Magnesia) 2,400 mg PRN QHS PRN PO CONSTIPATION, 2ND CHOICE 10/22/20 04:00 Aripiprazole (Abilify) 5 mg DAILY PO 10/22/20 09:00 10/25/20 21:23 DC 10/25/20 08:04 Bisacodyl (Dulcolax Tab) 5 mg PRN DAILY PRN PO CONSTIPATION, 3RD CHOICE 10/22/20 04:30 Clonazepam (KlonoPIN) 0.75 mg TID PO 10/22/20 09:00 10/29/20 07:15 DC 10/28/20 20:23 Doxycycline Hyclate (Vibra-Tab) 100 mg DAILY PO 10/22/20 09:00 10/24/20 12:31 DC 10/24/20 08:26 Fluoxetine HCl (PROzac) 20 mg DAILY PO 10/22/20 09:00 10/26/20 18:43 DC 10/26/20 09:30 Guaifenesin (Robitussin) 200 mg PRN Q4HRS PRN PO COUGH 10/22/20 04:30 Levothyroxine Sodium (Synthroid) 75 mcg DAILY06 PO 10/22/20 06:00 11/03/20 05:20 Mirtazapine (Remeron) 7.5 mg QHS PO 10/22/20 21:00 10/26/20 19:28 DC 10/25/20 20:19 Multivitamins/ Calcium (Thera-M Plus) 1 tab DAILY PO 10/22/20 09:00 11/03/20 08:08 Nortriptyline HCl (Pamelor) 75 mg QHS PO 10/22/20 21:00 10/29/20 19:51 DC 10/28/20 20:22 Polyethylene Glycol (miraLAX) 17 gm PRN DAILY PRN PO CONSTIPATION, 1ST CHOICE 10/22/20 04:30 Psyllium Hydrophilic Mucilloid (Metamucil) 1 pkt DAILY PO 10/22/20 09:00 11/03/20 08:08 Simethicone (Gas-X) 80 mg PRN BID PRN PO GAS / BLOATING 10/22/20 04:30 Zolpidem Tartrate (Ambien) 2.5 mg QHS PO 10/22/20 21:00 11/03/20 20:10 Non-Formulary Medication (Budesonide (Pulmicort Flexhaler)) 2 puff BID IH 10/22/20 09:00 UNV Lactobacillus Rhamnosus (Culturelle) 1 cap TID PO 10/22/20 09:00 10/30/20 11:59 DC 10/29/20 14:00 Pantoprazole Sodium (Protonix) 40 mg DAILYAC PO 10/22/20 07:30 11/03/20 08:08 Multi-Ingredient Ointment (Analgesic [place]) 1 sherice PRN QID PRN TP MUSCLE PAIN 10/22/20 04:45 Multi-Ingredient Ointment (Analgesic [place]) 1 sherice DAILY TP 10/22/20 09:00 12/30/20 08:08 Budesonide (Pulmicort) 0.5 mg RTBID NEB 10/22/20 08:00 10/22/20 20:14 DC 10/22/20 08:00 Fluticasone Furoate (ARNUITY 100mcg ELLIPTA) 2 puff BID INH 10/22/20 21:00 10/24/20 13:23 DC 10/24/20 08:27 Docusate Sodium (Colace) 100 mg BID PO 10/24/20 21:00 11/03/20 20:12 Olanzapine (ZyPREXA) 5 mg QHS PO 10/25/20 21:30 10/26/20 18:43 DC 10/25/20 21:34 Trazodone HCl (Desyrel) 100 mg PRN QHS PRN PO INSOMNIA, MAY REPEAT X1 10/26/20 00:45 10/26/20 00:44 DC Trazodone HCl (Desyrel) 100 mg PRN QHS PRN PO INSOMNIA, MAY REPEAT X1 10/26/20 00:45 UNV Trazodone HCl (Desyrel) 100 mg PRN QHS PRN PO INSOMNIA, MAY REPEAT X1 10/26/20 00:45 10/31/20 21:42 Fluoxetine HCl (PROzac) 30 mg DAILY PO 10/27/20 09:00 10/27/20 09:09 DC Olanzapine (ZyPREXA) 7.5 mg QHS PO 10/26/20 21:00 10/27/20 18:19 DC 10/26/20 19:56 Mirtazapine (Remeron) 15 mg QHS PO 10/26/20 21:00 11/03/20 20:11 Fluoxetine HCl (PROzac) 30 mg DAILY PO 10/27/20 09:15 11/03/20 08:08 Risperidone (RisperDAL) 0.5 mg QHS PO 10/27/20 21:00 11/01/20 14:14 DC 10/31/20 19:49 Lamotrigine (LaMICtal) 25 mg QHS PO 10/27/20 21:00 10/29/20 23:00 DC 10/29/20 19:47 Lamotrigine (LaMICtal) 50 mg QHS PO 10/30/20 21:00 11/04/20 08:00 11/03/20 20:13 Clonazepam (KlonoPIN) 0.25 mg DAILY@0900 PO 10/29/20 09:00 11/03/20 08:08 Clonazepam (KlonoPIN) 0.75 mg PRN BID PRN PO ANXIETY / AGITATION 10/29/20 07:15 10/29/20 10:02 DC Clonazepam (KlonoPIN) 0.75 mg BID@1200,1700 PO 10/29/20 12:00 11/03/20 18:10 DC 11/03/20 17:45 Fluvoxamine Maleate (Luvox) 25 mg QHS PO 10/29/20 21:00 11/01/20 21:00 DC 10/31/20 19:49 Fluvoxamine Maleate (Luvox) 50 mg QHS PO 11/01/20 21:00 11/03/20 20:12 Risperidone (RisperDAL) 0.5 mg 1X ONCE PO 10/31/20 11:30 10/31/20 11:31 DC 10/31/20 11:36 Risperidone (RisperDAL) 0.5 mg PRN 1X PRN PO AGITATION 10/31/20 11:30 10/31/20 13:19 Lorazepam (Ativan) 0.5 mg PRN Q2HR PRN PO ANXIETY / AGITATION 10/31/20 11:15 10/31/20 22:18 Risperidone (RisperDAL) 0.75 mg QHS PO 11/01/20 21:00 11/04/20 09:00 11/03/20 20:11 Lamotrigine (LaMICtal) 75 mg QHS PO 11/04/20 21:00 Clonazepam (KlonoPIN) 0.5 mg 1200 PO 11/04/20 12:00 Risperidone (RisperDAL) 1 mg QHS PO 11/04/20 21:00 Clonazepam (KlonoPIN) 0.75 mg 1700 PO 11/04/20 17:00 11/06/20 21:00 Clonazepam (KlonoPIN) 0.5 mg 1700 PO 11/07/20 17:00 Vital Signs Date Time Temp Pulse Resp B/P (MAP) Pulse Ox O2 Delivery O2 Flow Rate FiO2 11/03/20 15:59 97.2 84 16 112/76 (88) 97 10/31/20 06:09 Room Air I & O 11/02/20 11/02/20 11/03/20 15:00 23:00 07:00 Intake Total 320 ml 580 ml Balance 320 ml 580 ml Current Medications: I have reviewed the current psychotropics carefully including drug interactions. Risk benefit ratio favors no change other than as noted in my dictated progress note. Diagnosis: Problems: (1) Major depressive disorder, recurrent episode (2) Parkinson's disease (3) Anxiety disorder, unspecified (4) Bipolar disorder, current episode mixed, severe, with psychotic features (5) OCD (obsessive compulsive disorder) DEL GO MD Nov 03, 2020 21:54
--- NOTE | 2020-11-03 21:58 | PDOC ---
Exam Note: Avel Note: Please also refer to the separate dictated note~for this date of service dictated separately.~Patient seen individually. Discussed the patient with Nursing staff reviewed the chart.~Reviewed interim history and current functioning. Reviewed vital signs,~Labs/ Radiology~and current medications noted below. Continue current treatment with the changes noted in the dictated addendum note Assessment: Vital Signs/I&O: VS - Last 72 Hours, by Label Date Time Temp Pulse Resp B/P (MAP) Pulse Ox O2 Delivery O2 Flow Rate FiO2 11/03/20 15:59 97.2 84 16 112/76 (88) 97 11/03/20 05:52 98.7 75 18 124/81 (95) 99 11/02/20 15:18 97.3 94 16 119/79 (92) 98 11/02/20 06:41 98.0 90 18 148/82 (104) 95 11/01/20 16:03 97.6 80 16 120/71 (87) 97 11/01/20 06:36 98.7 96 18 105/70 (82) 100 Vital Signs Date Time Temp Pulse Resp B/P (MAP) Pulse Ox O2 Delivery O2 Flow Rate FiO2 11/03/20 15:59 97.2 84 16 112/76 (88) 97 10/31/20 06:09 Room Air I & O 11/02/20 11/02/20 11/03/20 15:00 23:00 07:00 Intake Total 320 ml 580 ml Balance 320 ml 580 ml Current Medications: I have reviewed the current psychotropics carefully including drug interactions. Risk benefit ratio favors no change other than as noted in my dictated progress note. Diagnosis: Problems: (1) Major depressive disorder, recurrent episode (2) Parkinson's disease (3) Anxiety disorder, unspecified (4) Bipolar disorder, current episode mixed, severe, with psychotic features (5) OCD (obsessive compulsive disorder) DEL GO MD Nov 03, 2020 21:58
--- NOTE | 2020-11-04 01:25 | NUR ---
Location of Patient during Assessment: Pt in chair in her room Behaviors Mood and Affect this shift: Flat affect and very slow to respond to questions. Medication Compliant: Took meds whole. Assessment Compliant: She has been cooperative with staff. Response After Interventions: Went to bed and has been sleeping
[2020-11-04] MEDS: LEVOTHYROXINE 75 MCG TABLET PO SCH (05:42)
[2020-11-04 06:36] VITALS: BP 147/84
[2020-11-04] MEDS: METHYL SALICYLATE/MENTHOL TOPICAL OINTMENT 57GM TUBE. TP SCH (09:00)
[2020-11-04] MEDS: MULTIVITAMIN with MINERAL TABLET. PO SCH (09:05)
[2020-11-04] MEDS: FLUoxetine HCL 10 MG CAPSULE PO SCH (09:05)
[2020-11-04] MEDS: PANTOPRAZOLE 40 MG TABLET. PO SCH (09:05)
[2020-11-04] MEDS: clonazePAM 0.5 MG TABLET PO SCH ×3 (09:06→17:00)
[2020-11-04] MEDS: DOCUSATE SODIUM 100 MG CAPSULE PO SCH ×2 (09:06→19:55)
[2020-11-04] MEDS: PSYLLIUM SEED (WITH SUGAR) PACKET. PO SCH (09:07)
--- NOTE | 2020-11-04 14:01 | NUR ---
Patient in chair at time of assessment in room. Patient very anxious and wringing hands. She is non verbal, not answering my questions but then did say she was "afraid because she was going to fall". Patient is not eating again and seems to become more anxious when she doesn't eat that things will happen to her because "she is weak and not eating". Patient refused to take medications and also would not let me put them in her mouth to help with anxiety. I was able to crush them and put them into syringes and patient took them. At noon meds patient did willingly take her Clonazepam. Patient watching movies on lavon and it is a good distraction. Did not eat lunch either. Patient did drink at least 1 water bottle (300ml) when I gave her noon medications. Patient has no explanation as to why she is feeling so anxious just keeps saying because she will fall. Patient was found to have 2 briefs on that were soaked with urine and then through her pants and onto her sweatshirt as well. Patient was able to get up to go to restroom and help with changing. Did need help to get started and to clean herself up. Clean brief and clothes were put on patient as well as wiped down with wipe to prevent any skin break down. Will continue to monitor patient throughout day to see how her anxiety continues. No further concerns at this time.
[2020-11-04 15:40] VITALS: BP 129/77
--- NOTE | 2020-11-04 18:09 | NUR ---
Patient took meds remainder of day whole with no resistance and refusal. Spoke to Dr Marsh regarding patient change and increase in anxiety and he would like to watch it for tonight and tomorrow AM to see if she eats and if she feels better and sleeps. If she continues to behave this way until tomorrow lunch time and does not eat then we may have to adjust back to previous doses of clonazepam. Will monitor patient and keep him informed.
[2020-11-04] MEDS: ZOLPIDEM 5 MG TABLET. PO SCH (19:54)
[2020-11-04] MEDS: MIRTAZAPINE 15 MG TABLET PO SCH (19:55)
[2020-11-04] MEDS: lamoTRIgine 25 MG TABLET. PO SCH (20:11)
--- NOTE | 2020-11-04 20:53 | PDOC ---
Exam Note: Avel Note: Please also refer to the separate dictated note~for this date of service dictated separately.~Patient seen individually. Discussed the patient with Nursing staff reviewed the chart.~Reviewed interim history and current functioning. Reviewed vital signs,~Labs/ Radiology~and current medications noted below. Continue current treatment with the changes noted in the dictated addendum note Assessment: Vital Signs/I&O: Vital Signs Date Time Temp Pulse Resp B/P (MAP) Pulse Ox O2 Delivery O2 Flow Rate FiO2 11/04/20 15:40 98.0 104 24 129/77 (94) 97 Room Air I & O 11/03/20 11/03/20 11/04/20 14:59 22:59 06:59 Intake Total 600 ml 220 ml Balance 600 ml 220 ml Current Medications: Meds: Current Medications Medications (Trade) Dose Ordered Sig/Aline Route PRN Reason Start Time Stop Time Status Last Admin Dose Admin Acetaminophen (Tylenol) 650 mg PRN Q6HRS PRN PO MILD PAIN / TEMP > 100.3'F 10/22/20 04:00 Al Hydroxide/Mg Hydroxide (Mylanta Plus Xs) 15 ml PRN AFTMEALHC PRN PO DYSPEPSIA 10/22/20 04:00 Magnesium Hydroxide (Milk Of Magnesia) 2,400 mg PRN QHS PRN PO CONSTIPATION, 2ND CHOICE 10/22/20 04:00 Aripiprazole (Abilify) 5 mg DAILY PO 10/22/20 09:00 10/25/20 21:23 DC 10/25/20 08:04 Bisacodyl (Dulcolax Tab) 5 mg PRN DAILY PRN PO CONSTIPATION, 3RD CHOICE 10/22/20 04:30 Clonazepam (KlonoPIN) 0.75 mg TID PO 10/22/20 09:00 10/29/20 07:15 DC 10/28/20 20:23 Doxycycline Hyclate (Vibra-Tab) 100 mg DAILY PO 10/22/20 09:00 10/24/20 12:31 DC 10/24/20 08:26 Fluoxetine HCl (PROzac) 20 mg DAILY PO 10/22/20 09:00 10/26/20 18:43 DC 10/26/20 09:30 Guaifenesin (Robitussin) 200 mg PRN Q4HRS PRN PO COUGH 10/22/20 04:30 Levothyroxine Sodium (Synthroid) 75 mcg DAILY06 PO 10/22/20 06:00 11/04/20 05:42 Mirtazapine (Remeron) 7.5 mg QHS PO 10/22/20 21:00 10/26/20 19:28 DC 10/25/20 20:19 Multivitamins/ Calcium (Thera-M Plus) 1 tab DAILY PO 10/22/20 09:00 11/04/20 09:05 Nortriptyline HCl (Pamelor) 75 mg QHS PO 10/22/20 21:00 10/29/20 19:51 DC 10/28/20 20:22 Polyethylene Glycol (miraLAX) 17 gm PRN DAILY PRN PO CONSTIPATION, 1ST CHOICE 10/22/20 04:30 Psyllium Hydrophilic Mucilloid (Metamucil) 1 pkt DAILY PO 10/22/20 09:00 11/04/20 09:07 Simethicone (Gas-X) 80 mg PRN BID PRN PO GAS / BLOATING 10/22/20 04:30 11/04/20 19:56 Zolpidem Tartrate (Ambien) 2.5 mg QHS PO 10/22/20 21:00 11/04/20 19:54 Non-Formulary Medication (Budesonide (Pulmicort Flexhaler)) 2 puff BID IH 10/22/20 09:00 UNV Lactobacillus Rhamnosus (Culturelle) 1 cap TID PO 10/22/20 09:00 10/30/20 11:59 DC 10/29/20 14:00 Pantoprazole Sodium (Protonix) 40 mg DAILYAC PO 10/22/20 07:30 11/04/20 09:05 Multi-Ingredient Ointment (Analgesic [place]) 1 sherice PRN QID PRN TP MUSCLE PAIN 10/22/20 04:45 Multi-Ingredient Ointment (Analgesic [place]) 1 sherice DAILY TP 10/22/20 09:00 11/03/20 08:08 Budesonide (Pulmicort) 0.5 mg RTBID NEB 10/22/20 08:00 10/22/20 20:14 DC 10/22/20 08:00 Fluticasone Furoate (ARNUITY 100mcg ELLIPTA) 2 puff BID INH 10/22/20 21:00 10/24/20 13:23 DC 10/24/20 08:27 Docusate Sodium (Colace) 100 mg BID PO 10/24/20 21:00 11/04/20 19:55 Olanzapine (ZyPREXA) 5 mg QHS PO 10/25/20 21:30 10/26/20 18:43 DC 10/25/20 21:34 Trazodone HCl (Desyrel) 100 mg PRN QHS PRN PO INSOMNIA, MAY REPEAT X1 10/26/20 00:45 10/26/20 00:44 DC Trazodone HCl (Desyrel) 100 mg PRN QHS PRN PO INSOMNIA, MAY REPEAT X1 10/26/20 00:45 UNV Trazodone HCl (Desyrel) 100 mg PRN QHS PRN PO INSOMNIA, MAY REPEAT X1 10/26/20 00:45 10/31/20 21:42 Fluoxetine HCl (PROzac) 30 mg DAILY PO 10/27/20 09:00 10/27/20 09:09 DC Olanzapine (ZyPREXA) 7.5 mg QHS PO 10/26/20 21:00 10/27/20 18:19 DC 10/26/20 19:56 Mirtazapine (Remeron) 15 mg QHS PO 10/26/20 21:00 11/04/20 19:55 Fluoxetine HCl (PROzac) 30 mg DAILY PO 10/27/20 09:15 11/04/20 09:05 Risperidone (RisperDAL) 0.5 mg QHS PO 10/27/20 21:00 11/01/20 14:14 DC 10/31/20 19:49 Lamotrigine (LaMICtal) 25 mg QHS PO 10/27/20 21:00 10/29/20 23:00 DC 10/29/20 19:47 Lamotrigine (LaMICtal) 50 mg QHS PO 10/30/20 21:00 11/04/20 08:00 DC 11/03/20 20:13 Clonazepam (KlonoPIN) 0.25 mg DAILY@0900 PO 10/29/20 09:00 11/04/20 09:06 Clonazepam (KlonoPIN) 0.75 mg PRN BID PRN PO ANXIETY / AGITATION 10/29/20 07:15 10/29/20 10:02 DC Clonazepam (KlonoPIN) 0.75 mg BID@1200,1700 PO 10/29/20 12:00 11/03/20 18:10 DC 11/03/20 17:45 Fluvoxamine Maleate (Luvox) 25 mg QHS PO 10/29/20 21:00 11/01/20 21:00 DC 10/31/20 19:49 Fluvoxamine Maleate (Luvox) 50 mg QHS PO 11/01/20 21:00 11/04/20 19:55 Risperidone (RisperDAL) 0.5 mg 1X ONCE PO 10/31/20 11:30 10/31/20 11:31 DC 10/31/20 11:36 Risperidone (RisperDAL) 0.5 mg PRN 1X PRN PO AGITATION 10/31/20 11:30 10/31/20 13:19 Lorazepam (Ativan) 0.5 mg PRN Q2HR PRN PO ANXIETY / AGITATION 10/31/20 11:15 10/31/20 22:18 Risperidone (RisperDAL) 0.75 mg QHS PO 11/01/20 21:00 11/04/20 09:00 DC 11/03/20 20:11 Lamotrigine (LaMICtal) 75 mg QHS PO 11/04/20 21:00 11/04/20 20:11 Clonazepam (KlonoPIN) 0.5 mg 1200 PO 11/04/20 12:00 11/04/20 12:44 Risperidone (RisperDAL) 1 mg QHS PO 11/04/20 21:00 11/04/20 20:11 Clonazepam (KlonoPIN) 0.75 mg 1700 PO 11/04/20 17:00 11/06/20 21:00 11/04/20 17:00 Clonazepam (KlonoPIN) 0.5 mg 1700 PO 11/07/20 17:00 Current Medications Medications (Trade) Dose Ordered Sig/Aline Route PRN Reason Start Time Stop Time Status Last Admin Dose Admin Lamotrigine (LaMICtal) 75 mg QHS PO 11/04/20 21:00 11/04/20 20:11 Clonazepam (KlonoPIN) 0.5 mg 1200 PO 11/04/20 12:00 11/04/20 12:44 Risperidone (RisperDAL) 1 mg QHS PO 11/04/20 21:00 11/04/20 20:11 Clonazepam (KlonoPIN) 0.75 mg 1700 PO 11/04/20 17:00 11/06/20 21:00 11/04/20 17:00 I have reviewed the current psychotropics carefully including drug interactions. Risk benefit ratio favors no change other than as noted in my dictated progress note. Diagnosis: Problems: (1) Major depressive disorder, recurrent episode (2) Parkinson's disease (3) Anxiety disorder, unspecified (4) Bipolar disorder, current episode mixed, severe, with psychotic features (5) OCD (obsessive compulsive disorder) DEL GO MD Nov 04, 2020 20:52
[2020-11-04] MEDS ORDERED: risperiDONE 1 MG TABLET. PO SCH (21:00)
--- NOTE | 2020-11-04 21:43 | NUR ---
Nursing Note PT sits in her chair staring at me. It takes her an excessively long time to speak to me and answers in 1 word responses. Will not elaborate about why her day was not good. Sits in her chair wringing her hands constantly. She looks around the room and back to me but won't really engage. I told her I could check on anxiety meds PRN, and she stated she had just taken it. She refused to take meds from me, but I held the cup to her mouth and she swallowed all of them and drained the glass of water.
[2020-11-05] MEDS: LEVOTHYROXINE 75 MCG TABLET PO SCH (06:17)
[2020-11-05 06:28] VITALS: BP 129/73
[2020-11-05] MEDS: METHYL SALICYLATE/MENTHOL TOPICAL OINTMENT 57GM TUBE. TP SCH (09:00)
[2020-11-05] MEDS: PSYLLIUM SEED (WITH SUGAR) PACKET. PO SCH (09:00)
[2020-11-05] MEDS: PANTOPRAZOLE 40 MG TABLET. PO SCH (09:03)
[2020-11-05] MEDS: FLUoxetine HCL 10 MG CAPSULE PO SCH (09:03)
[2020-11-05] MEDS: DOCUSATE SODIUM 100 MG CAPSULE PO SCH ×2 (09:03→19:47)
[2020-11-05] MEDS: MULTIVITAMIN with MINERAL TABLET. PO SCH (09:03)
[2020-11-05] MEDS: clonazePAM 0.5 MG TABLET PO SCH ×3 (09:04→17:00)
[2020-11-05 15:02] VITALS: BP 138/93
[2020-11-05] MEDS: risperiDONE 0.5 MG TABLET. PO PRN (17:14)
--- NOTE | 2020-11-05 17:18 | NUR ---
Patient sitting in chair at time of assessment. Patient continues to look terrified and to be scared of alling. states to me that we are to late and can't help her, she is afraid because she is not eating that she is weak and will fall and hurt herself. Spoke to Dr Marsh and we are going to stop her PRozac 30mg, give her a dose of Risperadal 0.5mg right now. Then Tomorrow we will in crease her morning Clonazepam to 0.5mg and Risperdal to 1.5mg. Orders placed and we will continue to monitor her.
[2020-11-05] MEDS: MIRTAZAPINE 15 MG TABLET PO SCH (19:47)
[2020-11-05] MEDS: lamoTRIgine 25 MG TABLET. PO SCH (19:48)
[2020-11-05] MEDS: ZOLPIDEM 5 MG TABLET. PO SCH (19:48)
--- NOTE | 2020-11-05 21:13 | PDOC ---
Exam Note: Avel Note: This note is a late entry for 11/03/2020 covers elements not covered in my initial note. Subjective: The patient was reviewed on telehealth rounds in the evening of 11/03/2020 with Jacinta BOYLE. Discussed with nursing staff, reviewed the chart. She slept 6 hours previous night. She has been anxious, somewhat less confused. She is at times resistive to medications. She eats 25% breakfast, 50% lunch. Review of Systems: Ambulation impaired with walker. No CV, , pulmonary, eye, ENT system symptoms on review. Mental Status Exam: The patient is oriented to herself and situation. Speech has some latency. Often response is monosyllabic, coherent. Abstraction is fair. Computation is impaired. Attention span is short. Language function is intact. Mood and affect less withdrawn. No suicidal or homicidal ideation. Laboratory Data: Reviewed. Impression: Bipolar 1 disorder, depressed versus bipolar 2 disorder. Anxiety disorder unspecified. OCD. Plan: We will continue to taper the Klonopin. Currently she is on 0.25 mg a.m. and 0.75 mg h.s. in the evening and is also on 0.25 mg in the a.m. We will reduce the 0.75 mg p.m. dosage down to 0.5 mg and in 3 days reduce the h.s. 0.75 mg dosage down to 0.5 mg and also increase Risperdal to 1 mg h.s. and after she has been on 0.75 mg h.s. for 3 days. Maintain Lamictal which is being gradually adjusted. Continue Remeron, trazodone, Luvox and Ativan p.r.n. Adjust further as clinically indicated. Assessment: Vital Signs/I&O: VS - Last 72 Hours, by Label Date Time Temp Pulse Resp B/P (MAP) Pulse Ox O2 Delivery O2 Flow Rate FiO2 11/05/20 15:02 97.4 117 19 138/93 (108) 98 11/05/20 06:28 97.4 115 20 129/73 (91) 97 Room Air 11/04/20 15:40 98.0 104 24 129/77 (94) 97 Room Air 11/04/20 06:36 97.2 73 20 147/84 (105) 93 Room Air 11/03/20 15:59 97.2 84 16 112/76 (88) 97 11/03/20 05:52 98.7 75 18 124/81 (95) 99 Vital Signs Date Time Temp Pulse Resp B/P (MAP) Pulse Ox O2 Delivery O2 Flow Rate FiO2 11/05/20 15:02 97.4 117 19 138/93 (108) 98 11/05/20 06:28 Room Air I & O 11/04/20 11/04/20 11/05/20 15:00 23:00 07:00 Intake Total 120 ml 600 ml Balance 120 ml 600 ml Current Medications: Meds: Current Medications Medications (Trade) Dose Ordered Sig/Aline Route PRN Reason Start Time Stop Time Status Last Admin Dose Admin Acetaminophen (Tylenol) 650 mg PRN Q6HRS PRN PO MILD PAIN / TEMP > 100.3'F 10/22/20 04:00 Al Hydroxide/Mg Hydroxide (Mylanta Plus Xs) 15 ml PRN AFTMEALHC PRN PO DYSPEPSIA 10/22/20 04:00 Magnesium Hydroxide (Milk Of Magnesia) 2,400 mg PRN QHS PRN PO CONSTIPATION, 2ND CHOICE 10/22/20 04:00 Aripiprazole (Abilify) 5 mg DAILY PO 10/22/20 09:00 10/25/20 21:23 DC 10/25/20 08:04 Bisacodyl (Dulcolax Tab) 5 mg PRN DAILY PRN PO CONSTIPATION, 3RD CHOICE 10/22/20 04:30 Clonazepam (KlonoPIN) 0.75 mg TID PO 10/22/20 09:00 10/29/20 07:15 DC 10/28/20 20:23 Doxycycline Hyclate (Vibra-Tab) 100 mg DAILY PO 10/22/20 09:00 10/24/20 12:31 DC 10/24/20 08:26 Fluoxetine HCl (PROzac) 20 mg DAILY PO 10/22/20 09:00 10/26/20 18:43 DC 10/26/20 09:30 Guaifenesin (Robitussin) 200 mg PRN Q4HRS PRN PO COUGH 10/22/20 04:30 Levothyroxine Sodium (Synthroid) 75 mcg DAILY06 PO 10/22/20 06:00 11/05/20 06:17 Mirtazapine (Remeron) 7.5 mg QHS PO 10/22/20 21:00 10/26/20 19:28 DC 10/25/20 20:19 Multivitamins/ Calcium (Thera-M Plus) 1 tab DAILY PO 10/22/20 09:00 11/05/20 09:03 Nortriptyline HCl (Pamelor) 75 mg QHS PO 10/22/20 21:00 10/29/20 19:51 DC 10/28/20 20:22 Polyethylene Glycol (miraLAX) 17 gm PRN DAILY PRN PO CONSTIPATION, 1ST CHOICE 10/22/20 04:30 Psyllium Hydrophilic Mucilloid (Metamucil) 1 pkt DAILY PO 10/22/20 09:00 11/05/20 09:00 Simethicone (Gas-X) 80 mg PRN BID PRN PO GAS / BLOATING 10/22/20 04:30 11/04/20 19:56 Zolpidem Tartrate (Ambien) 2.5 mg QHS PO 10/22/20 21:00 11/05/20 19:48 Non-Formulary Medication (Budesonide (Pulmicort Flexhaler)) 2 puff BID IH 10/22/20 09:00 UNV Lactobacillus Rhamnosus (Culturelle) 1 cap TID PO 10/22/20 09:00 10/30/20 11:59 DC 10/29/20 14:00 Pantoprazole Sodium (Protonix) 40 mg DAILYAC PO 10/22/20 07:30 11/05/20 09:03 Multi-Ingredient Ointment (Analgesic [place]) 1 sherice PRN QID PRN TP MUSCLE PAIN 10/22/20 04:45 Multi-Ingredient Ointment (Analgesic [place]) 1 sherice DAILY TP 10/22/20 09:00 11/05/20 09:00 Budesonide (Pulmicort) 0.5 mg RTBID NEB 10/22/20 08:00 10/22/20 20:14 DC 10/22/20 08:00 Fluticasone Furoate (ARNUITY 100mcg ELLIPTA) 2 puff BID INH 10/22/20 21:00 10/24/20 13:23 DC 10/24/20 08:27 Docusate Sodium (Colace) 100 mg BID PO 10/24/20 21:00 11/05/20 19:47 Olanzapine (ZyPREXA) 5 mg QHS PO 10/25/20 21:30 10/26/20 18:43 DC 10/25/20 21:34 Trazodone HCl (Desyrel) 100 mg PRN QHS PRN PO INSOMNIA, MAY REPEAT X1 10/26/20 00:45 10/26/20 00:44 DC Trazodone HCl (Desyrel) 100 mg PRN QHS PRN PO INSOMNIA, MAY REPEAT X1 10/26/20 00:45 UNV Trazodone HCl (Desyrel) 100 mg PRN QHS PRN PO INSOMNIA, MAY REPEAT X1 10/26/20 00:45 10/31/20 21:42 Fluoxetine HCl (PROzac) 30 mg DAILY PO 10/27/20 09:00 10/27/20 09:09 DC Olanzapine (ZyPREXA) 7.5 mg QHS PO 10/26/20 21:00 10/27/20 18:19 DC 10/26/20 19:56 Mirtazapine (Remeron) 15 mg QHS PO 10/26/20 21:00 11/05/20 19:47 Fluoxetine HCl (PROzac) 30 mg DAILY PO 10/27/20 09:15 11/05/20 18:17 DC 11/05/20 09:03 Risperidone (RisperDAL) 0.5 mg QHS PO 10/27/20 21:00 11/01/20 14:14 DC 10/31/20 19:49 Lamotrigine (LaMICtal) 25 mg QHS PO 10/27/20 21:00 10/29/20 23:00 DC 10/29/20 19:47 Lamotrigine (LaMICtal) 50 mg QHS PO 10/30/20 21:00 11/04/20 08:00 DC 11/03/20 20:13 Clonazepam (KlonoPIN) 0.25 mg DAILY@0900 PO 10/29/20 09:00 11/05/20 17:57 DC 11/05/20 09:04 Clonazepam (KlonoPIN) 0.75 mg PRN BID PRN PO ANXIETY / AGITATION 10/29/20 07:15 10/29/20 10:02 DC Clonazepam (KlonoPIN) 0.75 mg BID@1200,1700 PO 10/29/20 12:00 11/03/20 18:10 DC 11/03/20 17:45 Fluvoxamine Maleate (Luvox) 25 mg QHS PO 10/29/20 21:00 11/01/20 21:00 DC 10/31/20 19:49 Fluvoxamine Maleate (Luvox) 50 mg QHS PO 11/01/20 21:00 11/05/20 19:47 Risperidone (RisperDAL) 0.5 mg 1X ONCE PO 10/31/20 11:30 10/31/20 11:31 DC 10/31/20 11:36 Risperidone (RisperDAL) 0.5 mg PRN 1X PRN PO AGITATION 10/31/20 11:30 11/05/20 17:14 Lorazepam (Ativan) 0.5 mg PRN Q2HR PRN PO ANXIETY / AGITATION 10/31/20 11:15 10/31/20 22:18 Risperidone (RisperDAL) 0.75 mg QHS PO 11/01/20 21:00 11/04/20 09:00 DC 11/03/20 20:11 Lamotrigine (LaMICtal) 75 mg QHS PO 11/04/20 21:00 11/05/20 19:48 Clonazepam (KlonoPIN) 0.5 mg 1200 PO 11/04/20 12:00 11/05/20 17:57 DC 11/05/20 11:53 Risperidone (RisperDAL) 1 mg QHS PO 11/04/20 21:00 11/05/20 17:57 DC 11/04/20 20:11 Clonazepam (KlonoPIN) 0.75 mg 1700 PO 11/04/20 17:00 11/06/20 21:00 11/05/20 17:00 Clonazepam (KlonoPIN) 0.5 mg 1700 PO 11/07/20 17:00 Clonazepam (KlonoPIN) 0.5 mg BID PO 11/06/20 09:00 Risperidone (RisperDAL) 1.5 mg QHS PO 11/06/20 21:00 I have reviewed the current psychotropics carefully including drug interactions. Risk benefit ratio favors no change other than as noted in my dictated progress note. Diagnosis: Problems: (1) Major depressive disorder, recurrent episode (2) Anxiety disorder, unspecified (3) Bipolar disorder, current episode mixed, severe, with psychotic features (4) OCD (obsessive compulsive disorder) DEL GO MD Nov 05, 2020 21:13
--- NOTE | 2020-11-05 21:39 | PDOC ---
Exam Note: Avel Note: This note is a late entry for 11/04/2020 covers elements not covered in my initial note. Subjective: The patient was reviewed on telehealth rounds in the evening of 11/04/2020 with Mere BOYLE. Discussed with nursing staff, reviewed the chart. She slept 6-1/2 hours previous night. Overall the patient has been more anxious today. She has been rubbing her hands, repeatedly shaking her legs, has not eaten any breakfast or lunch and as I met with her on rounds in the evening, the dinner plate was in front of her untouched. She urinated in her brief in the morning. She seems afraid of the food in her tray per nursing report. Review of Systems: Positive for anxiety. No CV, , pulmonary, eye, ENT system symptoms on review. Mental Status Exam: The patient is oriented to herself and situation. Speech often response is monosyllabic if that today. Abstraction is fair. Computation is impaired. Language function is intact. Mood and affect withdrawn, quite anxious, paranoid. No suicidal or homicidal ideation. Laboratory Data: Reviewed. Impression: Bipolar 1 disorder, depressed versus bipolar 2 disorder. Anxiety disorder unspecified. OCD. Plan: No change from initial note. There is probably an increase in her anxiety since we have reduced the Klonopin. We will give it another day and decide. May need to increase Risperdal as she seems more paranoid. Continue rest of the psychotropics from initial note. Assessment: Vital Signs/I&O: Vital Signs Date Time Temp Pulse Resp B/P (MAP) Pulse Ox O2 Delivery O2 Flow Rate FiO2 11/05/20 15:02 97.4 117 19 138/93 (108) 98 11/05/20 06:28 Room Air I & O 11/04/20 11/04/20 11/05/20 15:00 23:00 07:00 Intake Total 120 ml 600 ml Balance 120 ml 600 ml Current Medications: Meds: Current Medications Medications (Trade) Dose Ordered Sig/Aline Route PRN Reason Start Time Stop Time Status Last Admin Dose Admin Acetaminophen (Tylenol) 650 mg PRN Q6HRS PRN PO MILD PAIN / TEMP > 100.3'F 10/22/20 04:00 Al Hydroxide/Mg Hydroxide (Mylanta Plus Xs) 15 ml PRN AFTMEALHC PRN PO DYSPEPSIA 10/22/20 04:00 Magnesium Hydroxide (Milk Of Magnesia) 2,400 mg PRN QHS PRN PO CONSTIPATION, 2ND CHOICE 10/22/20 04:00 Aripiprazole (Abilify) 5 mg DAILY PO 10/22/20 09:00 10/25/20 21:23 DC 10/25/20 08:04 Bisacodyl (Dulcolax Tab) 5 mg PRN DAILY PRN PO CONSTIPATION, 3RD CHOICE 10/22/20 04:30 Clonazepam (KlonoPIN) 0.75 mg TID PO 10/22/20 09:00 10/29/20 07:15 DC 10/28/20 20:23 Doxycycline Hyclate (Vibra-Tab) 100 mg DAILY PO 10/22/20 09:00 10/24/20 12:31 DC 10/24/20 08:26 Fluoxetine HCl (PROzac) 20 mg DAILY PO 10/22/20 09:00 10/26/20 18:43 DC 10/26/20 09:30 Guaifenesin (Robitussin) 200 mg PRN Q4HRS PRN PO COUGH 10/22/20 04:30 Levothyroxine Sodium (Synthroid) 75 mcg DAILY06 PO 10/22/20 06:00 11/05/20 06:17 Mirtazapine (Remeron) 7.5 mg QHS PO 10/22/20 21:00 10/26/20 19:28 DC 10/25/20 20:19 Multivitamins/ Calcium (Thera-M Plus) 1 tab DAILY PO 10/22/20 09:00 11/05/20 09:03 Nortriptyline HCl (Pamelor) 75 mg QHS PO 10/22/20 21:00 10/29/20 19:51 DC 10/28/20 20:22 Polyethylene Glycol (miraLAX) 17 gm PRN DAILY PRN PO CONSTIPATION, 1ST CHOICE 10/22/20 04:30 Psyllium Hydrophilic Mucilloid (Metamucil) 1 pkt DAILY PO 10/22/20 09:00 11/05/20 09:00 Simethicone (Gas-X) 80 mg PRN BID PRN PO GAS / BLOATING 10/22/20 04:30 11/04/20 19:56 Zolpidem Tartrate (Ambien) 2.5 mg QHS PO 10/22/20 21:00 11/05/20 19:48 Non-Formulary Medication (Budesonide (Pulmicort Flexhaler)) 2 puff BID IH 10/22/20 09:00 UNV Lactobacillus Rhamnosus (Culturelle) 1 cap TID PO 10/22/20 09:00 10/30/20 11:59 DC 10/29/20 14:00 Pantoprazole Sodium (Protonix) 40 mg DAILYAC PO 10/22/20 07:30 11/05/20 09:03 Multi-Ingredient Ointment (Analgesic [place]) 1 sherice PRN QID PRN TP MUSCLE PAIN 10/22/20 04:45 Multi-Ingredient Ointment (Analgesic [place]) 1 sherice DAILY TP 10/22/20 09:00 11/05/20 09:00 Budesonide (Pulmicort) 0.5 mg RTBID NEB 10/22/20 08:00 10/22/20 20:14 DC 10/22/20 08:00 Fluticasone Furoate (ARNUITY 100mcg ELLIPTA) 2 puff BID INH 10/22/20 21:00 10/24/20 13:23 DC 10/24/20 08:27 Docusate Sodium (Colace) 100 mg BID PO 10/24/20 21:00 11/05/20 19:47 Olanzapine (ZyPREXA) 5 mg QHS PO 10/25/20 21:30 10/26/20 18:43 DC 10/25/20 21:34 Trazodone HCl (Desyrel) 100 mg PRN QHS PRN PO INSOMNIA, MAY REPEAT X1 10/26/20 00:45 10/26/20 00:44 DC Trazodone HCl (Desyrel) 100 mg PRN QHS PRN PO INSOMNIA, MAY REPEAT X1 10/26/20 00:45 UNV Trazodone HCl (Desyrel) 100 mg PRN QHS PRN PO INSOMNIA, MAY REPEAT X1 10/26/20 00:45 10/31/20 21:42 Fluoxetine HCl (PROzac) 30 mg DAILY PO 10/27/20 09:00 10/27/20 09:09 DC Olanzapine (ZyPREXA) 7.5 mg QHS PO 10/26/20 21:00 10/27/20 18:19 DC 10/26/20 19:56 Mirtazapine (Remeron) 15 mg QHS PO 10/26/20 21:00 11/05/20 19:47 Fluoxetine HCl (PROzac) 30 mg DAILY PO 10/27/20 09:15 11/05/20 18:17 DC 11/05/20 09:03 Risperidone (RisperDAL) 0.5 mg QHS PO 10/27/20 21:00 11/01/20 14:14 DC 10/31/20 19:49 Lamotrigine (LaMICtal) 25 mg QHS PO 10/27/20 21:00 10/29/20 23:00 DC 10/29/20 19:47 Lamotrigine (LaMICtal) 50 mg QHS PO 10/30/20 21:00 11/04/20 08:00 DC 11/03/20 20:13 Clonazepam (KlonoPIN) 0.25 mg DAILY@0900 PO 10/29/20 09:00 11/05/20 17:57 DC 11/05/20 09:04 Clonazepam (KlonoPIN) 0.75 mg PRN BID PRN PO ANXIETY / AGITATION 10/29/20 07:15 10/29/20 10:02 DC Clonazepam (KlonoPIN) 0.75 mg BID@1200,1700 PO 10/29/20 12:00 11/03/20 18:10 DC 11/03/20 17:45 Fluvoxamine Maleate (Luvox) 25 mg QHS PO 10/29/20 21:00 11/01/20 21:00 DC 10/31/20 19:49 Fluvoxamine Maleate (Luvox) 50 mg QHS PO 11/01/20 21:00 11/05/20 19:47 Risperidone (RisperDAL) 0.5 mg 1X ONCE PO 10/31/20 11:30 10/31/20 11:31 DC 10/31/20 11:36 Risperidone (RisperDAL) 0.5 mg PRN 1X PRN PO AGITATION 10/31/20 11:30 11/05/20 17:14 Lorazepam (Ativan) 0.5 mg PRN Q2HR PRN PO ANXIETY / AGITATION 10/31/20 11:15 10/31/20 22:18 Risperidone (RisperDAL) 0.75 mg QHS PO 11/01/20 21:00 11/04/20 09:00 DC 11/03/20 20:11 Lamotrigine (LaMICtal) 75 mg QHS PO 11/04/20 21:00 11/05/20 19:48 Clonazepam (KlonoPIN) 0.5 mg 1200 PO 11/04/20 12:00 11/05/20 17:57 DC 11/05/20 11:53 Risperidone (RisperDAL) 1 mg QHS PO 11/04/20 21:00 11/05/20 17:57 DC 11/04/20 20:11 Clonazepam (KlonoPIN) 0.75 mg 1700 PO 11/04/20 17:00 11/06/20 21:00 11/05/20 17:00 Clonazepam (KlonoPIN) 0.5 mg 1700 PO 11/07/20 17:00 Clonazepam (KlonoPIN) 0.5 mg BID PO 11/06/20 09:00 Risperidone (RisperDAL) 1.5 mg QHS PO 11/06/20 21:00 I have reviewed the current psychotropics carefully including drug interactions. Risk benefit ratio favors no change other than as noted in my dictated progress note. Diagnosis: Problems: (1) Major depressive disorder, recurrent episode (2) Anxiety disorder, unspecified (3) Bipolar disorder, current episode mixed, severe, with psychotic features (4) Anorexia nervosa (5) OCD (obsessive compulsive disorder) DEL GO MD Nov 05, 2020 21:39
--- NOTE | 2020-11-05 21:57 | PDOC ---
Exam Note: Avel Note: Please also refer to the separate dictated note~for this date of service dictated separately.~Patient seen individually. Discussed the patient with Nursing staff reviewed the chart.~Reviewed interim history and current functioning. Reviewed vital signs,~Labs/ Radiology~and current medications noted below. Continue current treatment with the changes noted in the dictated addendum note Assessment: Vital Signs/I&O: Vital Signs Date Time Temp Pulse Resp B/P (MAP) Pulse Ox O2 Delivery O2 Flow Rate FiO2 11/05/20 15:02 97.4 117 19 138/93 (108) 98 11/05/20 06:28 Room Air I & O 11/04/20 11/04/20 11/05/20 15:00 23:00 07:00 Intake Total 120 ml 600 ml Balance 120 ml 600 ml Current Medications: Meds: Current Medications Medications (Trade) Dose Ordered Sig/Aline Route PRN Reason Start Time Stop Time Status Last Admin Dose Admin Acetaminophen (Tylenol) 650 mg PRN Q6HRS PRN PO MILD PAIN / TEMP > 100.3'F 10/22/20 04:00 Al Hydroxide/Mg Hydroxide (Mylanta Plus Xs) 15 ml PRN AFTMEALHC PRN PO DYSPEPSIA 10/22/20 04:00 Magnesium Hydroxide (Milk Of Magnesia) 2,400 mg PRN QHS PRN PO CONSTIPATION, 2ND CHOICE 10/22/20 04:00 Aripiprazole (Abilify) 5 mg DAILY PO 10/22/20 09:00 10/25/20 21:23 DC 10/25/20 08:04 Bisacodyl (Dulcolax Tab) 5 mg PRN DAILY PRN PO CONSTIPATION, 3RD CHOICE 10/22/20 04:30 Clonazepam (KlonoPIN) 0.75 mg TID PO 10/22/20 09:00 10/29/20 07:15 DC 10/28/20 20:23 Doxycycline Hyclate (Vibra-Tab) 100 mg DAILY PO 10/22/20 09:00 10/24/20 12:31 DC 10/24/20 08:26 Fluoxetine HCl (PROzac) 20 mg DAILY PO 10/22/20 09:00 10/26/20 18:43 DC 10/26/20 09:30 Guaifenesin (Robitussin) 200 mg PRN Q4HRS PRN PO COUGH 10/22/20 04:30 Levothyroxine Sodium (Synthroid) 75 mcg DAILY06 PO 10/22/20 06:00 11/05/20 06:17 Mirtazapine (Remeron) 7.5 mg QHS PO 10/22/20 21:00 10/26/20 19:28 DC 10/25/20 20:19 Multivitamins/ Calcium (Thera-M Plus) 1 tab DAILY PO 10/22/20 09:00 11/05/20 09:03 Nortriptyline HCl (Pamelor) 75 mg QHS PO 10/22/20 21:00 10/29/20 19:51 DC 10/28/20 20:22 Polyethylene Glycol (miraLAX) 17 gm PRN DAILY PRN PO CONSTIPATION, 1ST CHOICE 10/22/20 04:30 Psyllium Hydrophilic Mucilloid (Metamucil) 1 pkt DAILY PO 10/22/20 09:00 11/05/20 09:00 Simethicone (Gas-X) 80 mg PRN BID PRN PO GAS / BLOATING 10/22/20 04:30 11/04/20 19:56 Zolpidem Tartrate (Ambien) 2.5 mg QHS PO 10/22/20 21:00 11/05/20 19:48 Non-Formulary Medication (Budesonide (Pulmicort Flexhaler)) 2 puff BID IH 10/22/20 09:00 UNV Lactobacillus Rhamnosus (Culturelle) 1 cap TID PO 10/22/20 09:00 10/30/20 11:59 DC 10/29/20 14:00 Pantoprazole Sodium (Protonix) 40 mg DAILYAC PO 10/22/20 07:30 11/05/20 09:03 Multi-Ingredient Ointment (Analgesic [place]) 1 sherice PRN QID PRN TP MUSCLE PAIN 10/22/20 04:45 Multi-Ingredient Ointment (Analgesic [place]) 1 sherice DAILY TP 10/22/20 09:00 11/05/20 09:00 Budesonide (Pulmicort) 0.5 mg RTBID NEB 10/22/20 08:00 10/22/20 20:14 DC 10/22/20 08:00 Fluticasone Furoate (ARNUITY 100mcg ELLIPTA) 2 puff BID INH 10/22/20 21:00 10/24/20 13:23 DC 10/24/20 08:27 Docusate Sodium (Colace) 100 mg BID PO 10/24/20 21:00 11/05/20 19:47 Olanzapine (ZyPREXA) 5 mg QHS PO 10/25/20 21:30 10/26/20 18:43 DC 10/25/20 21:34 Trazodone HCl (Desyrel) 100 mg PRN QHS PRN PO INSOMNIA, MAY REPEAT X1 10/26/20 00:45 10/26/20 00:44 DC Trazodone HCl (Desyrel) 100 mg PRN QHS PRN PO INSOMNIA, MAY REPEAT X1 10/26/20 00:45 UNV Trazodone HCl (Desyrel) 100 mg PRN QHS PRN PO INSOMNIA, MAY REPEAT X1 10/26/20 00:45 10/31/20 21:42 Fluoxetine HCl (PROzac) 30 mg DAILY PO 10/27/20 09:00 10/27/20 09:09 DC Olanzapine (ZyPREXA) 7.5 mg QHS PO 10/26/20 21:00 10/27/20 18:19 DC 10/26/20 19:56 Mirtazapine (Remeron) 15 mg QHS PO 10/26/20 21:00 11/05/20 19:47 Fluoxetine HCl (PROzac) 30 mg DAILY PO 10/27/20 09:15 11/05/20 18:17 DC 11/05/20 09:03 Risperidone (RisperDAL) 0.5 mg QHS PO 10/27/20 21:00 11/01/20 14:14 DC 10/31/20 19:49 Lamotrigine (LaMICtal) 25 mg QHS PO 10/27/20 21:00 10/29/20 23:00 DC 10/29/20 19:47 Lamotrigine (LaMICtal) 50 mg QHS PO 10/30/20 21:00 11/04/20 08:00 DC 11/03/20 20:13 Clonazepam (KlonoPIN) 0.25 mg DAILY@0900 PO 10/29/20 09:00 11/05/20 17:57 DC 11/05/20 09:04 Clonazepam (KlonoPIN) 0.75 mg PRN BID PRN PO ANXIETY / AGITATION 10/29/20 07:15 10/29/20 10:02 DC Clonazepam (KlonoPIN) 0.75 mg BID@1200,1700 PO 10/29/20 12:00 11/03/20 18:10 DC 11/03/20 17:45 Fluvoxamine Maleate (Luvox) 25 mg QHS PO 10/29/20 21:00 11/01/20 21:00 DC 10/31/20 19:49 Fluvoxamine Maleate (Luvox) 50 mg QHS PO 11/01/20 21:00 11/05/20 19:47 Risperidone (RisperDAL) 0.5 mg 1X ONCE PO 10/31/20 11:30 10/31/20 11:31 DC 10/31/20 11:36 Risperidone (RisperDAL) 0.5 mg PRN 1X PRN PO AGITATION 10/31/20 11:30 11/05/20 17:14 Lorazepam (Ativan) 0.5 mg PRN Q2HR PRN PO ANXIETY / AGITATION 10/31/20 11:15 10/31/20 22:18 Risperidone (RisperDAL) 0.75 mg QHS PO 11/01/20 21:00 11/04/20 09:00 DC 11/03/20 20:11 Lamotrigine (LaMICtal) 75 mg QHS PO 11/04/20 21:00 11/05/20 19:48 Clonazepam (KlonoPIN) 0.5 mg 1200 PO 11/04/20 12:00 11/05/20 17:57 DC 11/05/20 11:53 Risperidone (RisperDAL) 1 mg QHS PO 11/04/20 21:00 11/05/20 17:57 DC 11/04/20 20:11 Clonazepam (KlonoPIN) 0.75 mg 1700 PO 11/04/20 17:00 11/06/20 21:00 11/05/20 17:00 Clonazepam (KlonoPIN) 0.5 mg 1700 PO 11/07/20 17:00 Clonazepam (KlonoPIN) 0.5 mg BID PO 11/06/20 09:00 Risperidone (RisperDAL) 1.5 mg QHS PO 11/06/20 21:00 I have reviewed the current psychotropics carefully including drug interactions. Risk benefit ratio favors no change other than as noted in my dictated progress note. Diagnosis: Problems: (1) Major depressive disorder, recurrent episode (2) Parkinson's disease (3) Anxiety disorder, unspecified (4) Bipolar disorder, current episode mixed, severe, with psychotic features (5) OCD (obsessive compulsive disorder) DEL GO MD Nov 05, 2020 21:57
--- NOTE | 2020-11-06 03:19 | NUR ---
Last evening pt sat a chair in her room she was rocking, repetitively squeezing fingers and staring blankly. At times she would respond to questions after a long pause and no response at other times. At HS she required a lot of prompting and encouragement to stand and toilet self. Meds were taken whole after prompting. She said her mind was racing, denied hearing voices. Since going to bed she has been sleeping.
[2020-11-06] MEDS: LEVOTHYROXINE 75 MCG TABLET PO SCH (05:24)
[2020-11-06 05:57] VITALS: BP 110/70
[2020-11-06] MEDS: MULTIVITAMIN with MINERAL TABLET. PO SCH (08:30)
[2020-11-06] MEDS: METHYL SALICYLATE/MENTHOL TOPICAL OINTMENT 57GM TUBE. TP SCH (08:30)
[2020-11-06] MEDS: DOCUSATE SODIUM 100 MG CAPSULE PO SCH ×2 (08:30→20:14)
[2020-11-06] MEDS: PSYLLIUM SEED (WITH SUGAR) PACKET. PO SCH (08:30)
[2020-11-06] MEDS: PANTOPRAZOLE 40 MG TABLET. PO SCH (08:30)
[2020-11-06] MEDS: clonazePAM 0.5 MG TABLET PO SCH ×3 (08:31→20:14)
[2020-11-06 09:02] LABS: ALBUMIN 3.3 g/dL (3.4-5.0); ALBUMIN/GLOBULIN RATIO 0.9 (1.0-1.7); CALCIUM 8.9 mg/dL (8.5-10.1); CREATININE 0.7 mg/dL (0.6-1.0); GFR 85.6; POTASSIUM 3.6 mmol/L (3.5-5.1); TOTAL BILIRUBIN 0.3 mg/dL (0.2-1.0); TOTAL PROTEIN 7.1 g/dL (6.4-8.2)
[2020-11-06 09:49] LABS: BASO # 0.1 x10^3/uL (0.0-0.2); BASO % 1 % (0-3); EOS % 1 % (0-3); HEMATOCRIT 39.3 % (36.0-47.0); HEMOGLOBIN 13.2 g/dL (12.0-15.5); LYMPH # 1.2 x10^3/uL (1.0-4.8); LYMPH % 19 % (24-48); MEAN CORPUSCULAR HEMOGLOBIN 30 pg (25-35); MEAN CORPUSCULAR HGB CONC 34 g/dL (31-37); MEAN CORPUSCULAR VOLUME 90 fL (79-100); MONO # 0.4 x10^3/uL (0.0-1.1); MONO % 6 % (0-9); NEUT # 4.7 x10^3uL (1.8-7.7); NEUT % 73 % (31-73); PLATELET COUNT 226 x10^3/uL (140-400); RED BLOOD COUNT 4.36 x10^6/uL (3.50-5.40); RED CELL DISTRIBUTION WIDTH 13.5 % (11.5-14.5); WHITE BLOOD COUNT 6.5 x10^3/uL (4.0-11.0)
[2020-11-06 15:00] VITALS: BP 134/82
--- NOTE | 2020-11-06 17:08 | NUR ---
Pt up in room. Quiet and withdrawn. Was incontinent in am. Pt ate 50% am meal with staff encouragement. Has been compliant with meds.
[2020-11-06] MEDS: MIRTAZAPINE 15 MG TABLET PO SCH (20:14)
[2020-11-06] MEDS: lamoTRIgine 25 MG TABLET. PO SCH (20:14)
[2020-11-06] MEDS: ZOLPIDEM 5 MG TABLET. PO SCH (20:16)
[2020-11-06] MEDS: risperiDONE 1 MG TABLET. PO SCH (20:16)
--- NOTE | 2020-11-06 21:09 | PDOC ---
Exam Note: Avel Note: Please also refer to the separate dictated note~for this date of service dictated separately.~Patient seen individually. Discussed the patient with Nursing staff reviewed the chart.~Reviewed interim history and current functioning. Reviewed vital signs,~Labs/ Radiology~and current medications noted below. Continue current treatment with the changes noted in the dictated addendum note Assessment: Vital Signs/I&O: Vital Signs Date Time Temp Pulse Resp B/P (MAP) Pulse Ox O2 Delivery O2 Flow Rate FiO2 11/06/20 15:00 98.0 104 17 134/82 (99) 98 Room Air I & O 11/05/20 11/05/20 11/06/20 15:00 23:00 07:00 Intake Total 410 ml 280 ml Balance 410 ml 280 ml Labs: Laboratory Tests Test 11/06/20 08:05 White Blood Count 6.5 x10^3/uL (4.0-11.0) Red Blood Count 4.36 x10^6/uL (3.50-5.40) Hemoglobin 13.2 g/dL (12.0-15.5) Hematocrit 39.3 % (36.0-47.0) Mean Corpuscular Volume 90 fL (79-100) Mean Corpuscular Hemoglobin 30 pg (25-35) Mean Corpuscular Hemoglobin Concent 34 g/dL (31-37) Red Cell Distribution Width 13.5 % (11.5-14.5) Platelet Count 226 x10^3/uL (140-400) Neutrophils (%) (Auto) 73 % (31-73) Lymphocytes (%) (Auto) 19 % (24-48) L Monocytes (%) (Auto) 6 % (0-9) Eosinophils (%) (Auto) 1 % (0-3) Basophils (%) (Auto) 1 % (0-3) Neutrophils # (Auto) 4.7 x10^3uL (1.8-7.7) Lymphocytes # (Auto) 1.2 x10^3/uL (1.0-4.8) Monocytes # (Auto) 0.4 x10^3/uL (0.0-1.1) Eosinophils # (Auto) 0.0 x10^3/uL (0.0-0.7) Basophils # (Auto) 0.1 x10^3/uL (0.0-0.2) Sodium Level 141 mmol/L (136-145) Potassium Level 3.6 mmol/L (3.5-5.1) Chloride Level 104 mmol/L (98-107) Carbon Dioxide Level 28 mmol/L (21-32) Anion Gap 9 (6-14) Blood Urea Nitrogen 12 mg/dL (7-20) Creatinine 0.7 mg/dL (0.6-1.0) Estimated GFR (Cockcroft-Gault) 85.6 BUN/Creatinine Ratio 17 (6-20) Glucose Level 120 mg/dL (70-99) H Calcium Level 8.9 mg/dL (8.5-10.1) Total Bilirubin 0.3 mg/dL (0.2-1.0) Aspartate Amino Transferase (AST) 26 U/L (15-37) Alanine Aminotransferase (ALT) 26 U/L (14-59) Alkaline Phosphatase 99 U/L (46-116) Total Protein 7.1 g/dL (6.4-8.2) Albumin 3.3 g/dL (3.4-5.0) L Albumin/Globulin Ratio 0.9 (1.0-1.7) L Current Medications: Meds: Laboratory Tests Test 11/06/20 08:05 White Blood Count 6.5 x10^3/uL Red Blood Count 4.36 x10^6/uL Hemoglobin 13.2 g/dL Hematocrit 39.3 % Mean Corpuscular Volume 90 fL Mean Corpuscular Hemoglobin 30 pg Mean Corpuscular Hemoglobin Concent 34 g/dL Red Cell Distribution Width 13.5 % Platelet Count 226 x10^3/uL Neutrophils (%) (Auto) 73 % Lymphocytes (%) (Auto) 19 % Monocytes (%) (Auto) 6 % Eosinophils (%) (Auto) 1 % Basophils (%) (Auto) 1 % Neutrophils # (Auto) 4.7 x10^3uL Lymphocytes # (Auto) 1.2 x10^3/uL Monocytes # (Auto) 0.4 x10^3/uL Eosinophils # (Auto) 0.0 x10^3/uL Basophils # (Auto) 0.1 x10^3/uL Sodium Level 141 mmol/L Potassium Level 3.6 mmol/L Chloride Level 104 mmol/L Carbon Dioxide Level 28 mmol/L Anion Gap 9 Blood Urea Nitrogen 12 mg/dL Creatinine 0.7 mg/dL Estimated GFR (Cockcroft-Gault) 85.6 BUN/Creatinine Ratio 17 Glucose Level 120 mg/dL Calcium Level 8.9 mg/dL Total Bilirubin 0.3 mg/dL Aspartate Amino Transf (AST/SGOT) 26 U/L Alanine Aminotransferase (ALT/SGPT) 26 U/L Alkaline Phosphatase 99 U/L Total Protein 7.1 g/dL Albumin 3.3 g/dL Albumin/Globulin Ratio 0.9 Current Medications Medications (Trade) Dose Ordered Sig/Aline Route PRN Reason Start Time Stop Time Status Last Admin Dose Admin Acetaminophen (Tylenol) 650 mg PRN Q6HRS PRN PO MILD PAIN / TEMP > 100.3'F 10/22/20 04:00 Al Hydroxide/Mg Hydroxide (Mylanta Plus Xs) 15 ml PRN AFTMEALHC PRN PO DYSPEPSIA 10/22/20 04:00 Magnesium Hydroxide (Milk Of Magnesia) 2,400 mg PRN QHS PRN PO CONSTIPATION, 2ND CHOICE 10/22/20 04:00 Aripiprazole (Abilify) 5 mg DAILY PO 10/22/20 09:00 10/25/20 21:23 DC 10/25/20 08:04 Bisacodyl (Dulcolax Tab) 5 mg PRN DAILY PRN PO CONSTIPATION, 3RD CHOICE 10/22/20 04:30 Clonazepam (KlonoPIN) 0.75 mg TID PO 10/22/20 09:00 10/29/20 07:15 DC 10/28/20 20:23 Doxycycline Hyclate (Vibra-Tab) 100 mg DAILY PO 10/22/20 09:00 10/24/20 12:31 DC 10/24/20 08:26 Fluoxetine HCl (PROzac) 20 mg DAILY PO 10/22/20 09:00 10/26/20 18:43 DC 10/26/20 09:30 Guaifenesin (Robitussin) 200 mg PRN Q4HRS PRN PO COUGH 10/22/20 04:30 Levothyroxine Sodium (Synthroid) 75 mcg DAILY06 PO 10/22/20 06:00 11/06/20 05:24 Mirtazapine (Remeron) 7.5 mg QHS PO 10/22/20 21:00 10/26/20 19:28 DC 10/25/20 20:19 Multivitamins/ Calcium (Thera-M Plus) 1 tab DAILY PO 10/22/20 09:00 11/06/20 08:30 Nortriptyline HCl (Pamelor) 75 mg QHS PO 10/22/20 21:00 10/29/20 19:51 DC 10/28/20 20:22 Polyethylene Glycol (miraLAX) 17 gm PRN DAILY PRN PO CONSTIPATION, 1ST CHOICE 10/22/20 04:30 Psyllium Hydrophilic Mucilloid (Metamucil) 1 pkt DAILY PO 10/22/20 09:00 11/06/20 08:30 Simethicone (Gas-X) 80 mg PRN BID PRN PO GAS / BLOATING 10/22/20 04:30 11/04/20 19:56 Zolpidem Tartrate (Ambien) 2.5 mg QHS PO 10/22/20 21:00 11/06/20 20:16 Non-Formulary Medication (Budesonide (Pulmicort Flexhaler)) 2 puff BID IH 10/22/20 09:00 UNV Lactobacillus Rhamnosus (Culturelle) 1 cap TID PO 10/22/20 09:00 10/30/20 11:59 DC 10/29/20 14:00 Pantoprazole Sodium (Protonix) 40 mg DAILYAC PO 10/22/20 07:30 11/06/20 08:30 Multi-Ingredient Ointment (Analgesic [place]) 1 sherice PRN QID PRN TP MUSCLE PAIN 10/22/20 04:45 Multi-Ingredient Ointment (Analgesic [place]) 1 sherice DAILY TP 10/22/20 09:00 11/06/20 08:30 Budesonide (Pulmicort) 0.5 mg RTBID NEB 10/22/20 08:00 10/22/20 20:14 DC 10/22/20 08:00 Fluticasone Furoate (ARNUITY 100mcg ELLIPTA) 2 puff BID INH 10/22/20 21:00 10/24/20 13:23 DC 10/24/20 08:27 Docusate Sodium (Colace) 100 mg BID PO 10/24/20 21:00 11/06/20 20:14 Olanzapine (ZyPREXA) 5 mg QHS PO 10/25/20 21:30 10/26/20 18:43 DC 10/25/20 21:34 Trazodone HCl (Desyrel) 100 mg PRN QHS PRN PO INSOMNIA, MAY REPEAT X1 10/26/20 00:45 10/26/20 00:44 DC Trazodone HCl (Desyrel) 100 mg PRN QHS PRN PO INSOMNIA, MAY REPEAT X1 10/26/20 00:45 UNV Trazodone HCl (Desyrel) 100 mg PRN QHS PRN PO INSOMNIA, MAY REPEAT X1 10/26/20 00:45 10/31/20 21:42 Fluoxetine HCl (PROzac) 30 mg DAILY PO 10/27/20 09:00 10/27/20 09:09 DC Olanzapine (ZyPREXA) 7.5 mg QHS PO 10/26/20 21:00 10/27/20 18:19 DC 10/26/20 19:56 Mirtazapine (Remeron) 15 mg QHS PO 10/26/20 21:00 11/06/20 20:14 Fluoxetine HCl (PROzac) 30 mg DAILY PO 10/27/20 09:15 11/05/20 18:17 DC 11/05/20 09:03 Risperidone (RisperDAL) 0.5 mg QHS PO 10/27/20 21:00 11/01/20 14:14 DC 10/31/20 19:49 Lamotrigine (LaMICtal) 25 mg QHS PO 10/27/20 21:00 10/29/20 23:00 DC 10/29/20 19:47 Lamotrigine (LaMICtal) 50 mg QHS PO 10/30/20 21:00 11/04/20 08:00 DC 11/03/20 20:13 Clonazepam (KlonoPIN) 0.25 mg DAILY@0900 PO 10/29/20 09:00 11/05/20 17:57 DC 11/05/20 09:04 Clonazepam (KlonoPIN) 0.75 mg PRN BID PRN PO ANXIETY / AGITATION 10/29/20 07:15 10/29/20 10:02 DC Clonazepam (KlonoPIN) 0.75 mg BID@1200,1700 PO 10/29/20 12:00 11/03/20 18:10 DC 11/03/20 17:45 Fluvoxamine Maleate (Luvox) 25 mg QHS PO 10/29/20 21:00 11/01/20 21:00 DC 10/31/20 19:49 Fluvoxamine Maleate (Luvox) 50 mg QHS PO 11/01/20 21:00 11/06/20 20:14 Risperidone (RisperDAL) 0.5 mg 1X ONCE PO 10/31/20 11:30 10/31/20 11:31 DC 10/31/20 11:36 Risperidone (RisperDAL) 0.5 mg PRN 1X PRN PO AGITATION 10/31/20 11:30 11/05/20 17:14 Lorazepam (Ativan) 0.5 mg PRN Q2HR PRN PO ANXIETY / AGITATION 10/31/20 11:15 10/31/20 22:18 Risperidone (RisperDAL) 0.75 mg QHS PO 11/01/20 21:00 11/04/20 09:00 DC 11/03/20 20:11 Lamotrigine (LaMICtal) 75 mg QHS PO 11/04/20 21:00 11/06/20 20:14 Clonazepam (KlonoPIN) 0.5 mg 1200 PO 11/04/20 12:00 11/05/20 17:57 DC 11/05/20 11:53 Risperidone (RisperDAL) 1 mg QHS PO 11/04/20 21:00 11/05/20 17:57 DC 11/04/20 20:11 Clonazepam (KlonoPIN) 0.75 mg 1700 PO 11/04/20 17:00 11/06/20 21:00 DC 11/06/20 17:37 Clonazepam (KlonoPIN) 0.5 mg 1700 PO 11/07/20 17:00 Clonazepam (KlonoPIN) 0.5 mg BID PO 11/06/20 09:00 11/06/20 20:14 Risperidone (RisperDAL) 1.5 mg QHS PO 11/06/20 21:00 11/06/20 20:16 Current Medications Medications (Trade) Dose Ordered Sig/Aline Route PRN Reason Start Time Stop Time Status Last Admin Dose Admin Clonazepam (KlonoPIN) 0.5 mg BID PO 11/06/20 09:00 11/06/20 20:14 Risperidone (RisperDAL) 1.5 mg QHS PO 11/06/20 21:00 11/06/20 20:16 I have reviewed the current psychotropics carefully including drug interactions. Risk benefit ratio favors no change other than as noted in my dictated progress note. Diagnosis: Problems: (1) Major depressive disorder, recurrent episode (2) Parkinson's disease (3) Anxiety disorder, unspecified (4) Bipolar disorder, current episode mixed, severe, with psychotic features (5) OCD (obsessive compulsive disorder) DEL GO MD Nov 06, 2020 21:09
--- NOTE | 2020-11-06 22:58 | NUR ---
Pt located in her room this evening, sitting in a chair rocking back and forth. Pt repeatedly wringing her hands and does not make eye contact. Pt refuses to verbally answer any questions, only shaking her head yes or no. Pt refused to take the medication cup in her hands but was compliant when RN put medications in her mouth. Pt given Ensure/ice cream shake as a snack tonight and consumed approximately 75% after much encouragement.
--- NOTE | 2020-11-06 23:41 | PN ---
DATE: 11/06/2020 PSYCHIATRIC PROGRESS NOTE This note covers elements not covered in my initial note. SUBJECTIVE: I met with the patient evening of 1:1, discussed with [place] [employer]. The patient was seen on telehealth rounds. The patient slept 5-1/2 hours previous night. Previous night, she was locking herself on the chair, anxious, twisting of fingers and hands repeatedly rubbing her hands, incontinent. She ate 50% of her breakfast, but very little after that. BUN 12, creatinine 0.7. REVIEW OF SYSTEMS: Positive for tiredness, withdrawal, feeling depressed, paranoid. No CV, , pulmonary, eye, ENT system symptoms on review. MENTAL STATUS EXAM: Oriented to herself and situation. Speech is coherent, abstraction fair, computation impaired, language function intact, attention span short. Mood and affect withdrawn. No active suicidal ideation. LABORATORY DATA: Reviewed. IMPRESSION: Bipolar disorder, depressed with psychotic features; anxiety disorder, unspecified. PLAN: Continue psychotropics from initial note. We have increased the Klonopin. I was called earlier in the day by nursing staff. We will increase the Risperdal up to a total of 1.5 mg a day with an added dosage 0.5 mg this afternoon. Maintain 1 mg tonight and starting tomorrow night 1.5 mg at bedtime scheduled. We will continue to make further adjustments as clinically indicated. Rest of psychotropics will remain unchanged. MAN Charlie GO MD DR: JOSHUA/wil JOB#: [id number] / [id number]
[2020-11-07] MEDS: LEVOTHYROXINE 75 MCG TABLET PO SCH (05:01)
[2020-11-07 05:47] VITALS: BP 126/74
[2020-11-07] MEDS: PSYLLIUM SEED (WITH SUGAR) PACKET. PO SCH (07:37)
[2020-11-07] MEDS: DOCUSATE SODIUM 100 MG CAPSULE PO SCH ×2 (07:37→20:29)
[2020-11-07] MEDS: MULTIVITAMIN with MINERAL TABLET. PO SCH (07:37)
[2020-11-07] MEDS: PANTOPRAZOLE 40 MG TABLET. PO SCH (07:37)
[2020-11-07] MEDS: clonazePAM 0.5 MG TABLET PO SCH ×3 (07:38→20:29)
[2020-11-07] MEDS: METHYL SALICYLATE/MENTHOL TOPICAL OINTMENT 57GM TUBE. TP SCH (07:39)
[2020-11-07 15:02] VITALS: BP 139/85
--- NOTE | 2020-11-07 16:22 | NUR ---
Pt up in room for meals. Appetite poor. Eating only with much encouragement. Has been compliant with meds. Pt comb was taken away in afternoon as she was using to pull out her hair. Large amount of hair noted in comb. Pt did come out for group in day room with encouragement.
--- NOTE | 2020-11-07 18:03 | PN ---
DATE: 11/05/2020 PSYCHIATRIC PROGRESS NOTE This late entry 11/05/2020 covers elements not covered in my initial note. SUBJECTIVE: I met with the patient evening of 11/05/2020 on telehealth rounds. Discussed the patient with [place]. The patient slept three-quarter hours previous night. Overall, the patient has had a very difficult day. She has had extremely poor appetite, hardly eating anything at all, all day. She has been making statements "it is too late to save me." She has taken Ensure, but minimally. We will check her comprehensive metabolic profile 11/06/2020 to make sure she is not getting dehydrated. She certainly remains psychotic. REVIEW OF SYSTEMS: Positive for anxiety. She is constantly rubbing her hands and fingers, staring at me, oblivious, psychotic, paranoid, delusional, anxious and obsessive. REVIEW OF SYSTEMS: No CV, , pulmonary, eye system symptoms on review. MENTAL STATUS EXAM: Oriented to herself and situation. Speech is moderate latency, often responses monosyllabic. Abstraction fair, computation impaired, language function intact, attention span short. Mood and affect withdrawn, quite paranoid, psychotic. No suicidal ideation. LABORATORY DATA: Reviewed. IMPRESSION: Bipolar 1 disorder, depressed with psychotic features; anxiety disorder, unspecified. PLAN: The patient's symptoms seem to have worsened since we reduced the Klonopin. We will increase the morning dosage of Klonopin from 0.25 mg back to 0.5 mg. Continue 0.5 mg at noon and 0.75 mg in the evening. She remains on Luvox 50 mg a day, on Prozac 30 mg a day, but we will stop the Prozac since we started the Luvox. Lamictal is 75 mg at bedtime and we will continue to increase this gradually. She also remains on Remeron 15 mg at bedtime, Risperdal has been adjusted/increased to 1 mg at bedtime, may need to increase further in due course. I discussed this with the patient, but she is not fully comprehending due to her psychotic symptoms. We will adjust further as clinically indicated. DEL GO MD DR: JOSHUA/wil JOB#: [id number] / [id number]
[2020-11-07] MEDS: lamoTRIgine 25 MG TABLET. PO SCH (20:29)
[2020-11-07] MEDS: MIRTAZAPINE 15 MG TABLET PO SCH (20:29)
[2020-11-07] MEDS: risperiDONE 1 MG TABLET. PO SCH (20:29)
[2020-11-07] MEDS: ZOLPIDEM 5 MG TABLET. PO SCH (20:31)
--- NOTE | 2020-11-07 21:14 | PDOC ---
Exam Note: Avel Note: Please also refer to the separate dictated note~for this date of service dictated separately.~Patient seen individually. Discussed the patient with Nursing staff reviewed the chart.~Reviewed interim history and current functioning. Reviewed vital signs,~Labs/ Radiology~and current medications noted below. Continue current treatment with the changes noted in the dictated addendum note Assessment: Vital Signs/I&O: Vital Signs Date Time Temp Pulse Resp B/P (MAP) Pulse Ox O2 Delivery O2 Flow Rate FiO2 11/07/20 15:02 97.7 106 18 139/85 (103) 97 11/06/20 15:00 Room Air I & O 11/06/20 11/06/20 11/07/20 15:00 23:00 07:00 Intake Total 480 ml 50 ml 100 ml Balance 480 ml 50 ml 100 ml Current Medications: Meds: Current Medications Medications (Trade) Dose Ordered Sig/Aline Route PRN Reason Start Time Stop Time Status Last Admin Dose Admin Clonazepam (KlonoPIN) 0.5 mg 1700 PO 11/07/20 17:00 11/07/20 17:02 Olanzapine (ZyPREXA ZYDIS) 5 mg QHS PO 11/07/20 21:00 11/07/20 20:31 I have reviewed the current psychotropics carefully including drug interactions. Risk benefit ratio favors no change other than as noted in my dictated progress note. Diagnosis: Problems: (1) Major depressive disorder, recurrent episode (2) Anxiety disorder, unspecified (3) Bipolar disorder, current episode mixed, severe, with psychotic features (4) OCD (obsessive compulsive disorder) DEL GO MD Nov 07, 2020 21:14
--- NOTE | 2020-11-07 22:29 | NUR ---
Pt located in her room this evening. Anxious and restless in her chair. Refuses to speak; only answers in yes/no head shake. Resistive to HS medications however compliant with much coaxing from RN. Pt consumed 100% of ensure/ ice cream shake with much encouragement from RN.
[2020-11-08] MEDS: LEVOTHYROXINE 75 MCG TABLET PO SCH (05:19)
[2020-11-08 05:52] VITALS: BP 127/72
[2020-11-08 07:04] LABS: BASO % 1 % (0-3); EOS # 0.1 x10^3/uL (0.0-0.7); EOS % 1 % (0-3); HEMATOCRIT 38.5 % (36.0-47.0); HEMOGLOBIN 12.9 g/dL (12.0-15.5); LYMPH % 17 % (24-48); MEAN CORPUSCULAR HEMOGLOBIN 30 pg (25-35); MEAN CORPUSCULAR HGB CONC 33 g/dL (31-37); MEAN CORPUSCULAR VOLUME 90 fL (79-100); MONO # 0.4 x10^3/uL (0.0-1.1); MONO % 7 % (0-9); NEUT # 4.4 x10^3uL (1.8-7.7); NEUT % 74 % (31-73); PLATELET COUNT 230 x10^3/uL (140-400); RED BLOOD COUNT 4.28 x10^6/uL (3.50-5.40); RED CELL DISTRIBUTION WIDTH 13.3 % (11.5-14.5); WHITE BLOOD COUNT 5.9 x10^3/uL (4.0-11.0)
[2020-11-08 07:14] LABS: ALBUMIN 3.2 g/dL (3.4-5.0); ALBUMIN/GLOBULIN RATIO 0.8 (1.0-1.7); CALCIUM 8.9 mg/dL (8.5-10.1); CREATININE 0.7 mg/dL (0.6-1.0); GFR 85.6; POTASSIUM 3.7 mmol/L (3.5-5.1); TOTAL BILIRUBIN 0.3 mg/dL (0.2-1.0)
[2020-11-08] MEDS: PANTOPRAZOLE 40 MG TABLET. PO SCH ×2 (07:30→09:03)
[2020-11-08] MEDS: DOCUSATE SODIUM 100 MG CAPSULE PO SCH ×3 (09:00→19:58)
[2020-11-08] MEDS: MULTIVITAMIN with MINERAL TABLET. PO SCH ×2 (09:00→09:03)
[2020-11-08] MEDS: PSYLLIUM SEED (WITH SUGAR) PACKET. PO SCH ×2 (09:00→09:03)
[2020-11-08] MEDS: POLYETHYLENE GLYCOL 3350 17 GM PACKET. PO PRN ×2 (09:04→20:00)
[2020-11-08] MEDS: clonazePAM 0.5 MG TABLET PO SCH ×3 (09:05→19:59)
[2020-11-08] MEDS: METHYL SALICYLATE/MENTHOL TOPICAL OINTMENT 57GM TUBE. TP SCH (09:05)
--- NOTE | 2020-11-08 11:23 | NUR ---
Nursing note: Pt anxious this AM, rocking back and forth and wringing her hands. Pt very resistive with meds, she closes her lips up tight and will not allow me to even put the cup to her mouth. Pt only occasionally responds with yes/no head movements. Pt's only statement to me was that she couldn't have a BM. Pt was encouraged to take her medicine since she also receives multiple stool softeners, but pt continued to refuse her meds. Klonopin was crushed and put in a syringe. She continued to be resistive, but did eventually take it. All other meds were not administered. Pt did make it out to the day room for a short time to watch TV during the fire drill the hospital was having, but went back to her room shortly after. Pt has not eaten anything this morning, even with lots of encouragement. Ice cream and ensure shake made and provided lots of encouragement, even putting the straw up to her mouth. Pt continues to refuse, keeping her lips pressed tightly shut. She is currently sitting in her room listening to calming music on the [employer]. Will continue to monitor.
--- NOTE | 2020-11-08 12:06 | NUR ---
WEEKLY ACTIVITY THERAPY NOTE Date of Admission: 10/22 Date of AT Assessment: 10/25 Precipitating behaviors that initiated intake and admission: The patient made statements that she would attempt to strangle self. Patient had stopped eating prior to arrival to hospital Goal aimed: to increase socialization and motivation Initial Goal: Pt. will participate in at least three Activity Therapy groups or individual sessions before discharge. Goal changed 11/01/20: Pt. will participate in at least three Activity Therapy groups or individual sessions per week Weekly progress towards goal: 2/3 Group participation level: 1 mod and 1 full group Weekly highlights: Behaviors observed: decreased group participation as the week has progressed, slow to finish eating which tends to flow into groups, moments of unresponsiveness when staff address and invite her to group, Sunday- Pt. often started to ask questions but had difficulty finishing her thoughts/ sentences, reading on Sunday and watching movie on Michael on instead of group, confused often but did not elaborate, journal and felt tipped pen provided and was encouraged her to write questions down they can work thought and clarify. Sunday in group- Pt was able to list ideas for her bucket list and was able to answer never have I ever questions and shared some activities/scenarios that she has experienced. Pt needed frequent prompting to engage in activity. Pt was able to relax and watch tv the remainder of group. Plan: no change to goal Beneficial adaptations: reported liking going to the movies, exercising, coloring and crosswords
[2020-11-08] MEDS: risperiDONE 1 MG TABLET. PO SCH ×2 (12:52→19:58)
--- NOTE | 2020-11-08 15:13 | TX PLAN ---
Interdisciplinary Tx Plan Admission Information Oct 22, 2020 at 02:55 Legal Status (on Admission): Voluntary, Court Appointed Guardian, Court Appointed Conservat DPOA/Guardian Name: Julisa Bernal-sister/guardian Contact Other Contact Name: Duane Other Contact Verified Code Status: Full Code Allergies: Coded Allergies: Penicillins (Verified Allergy, Intermediate, 10/20/20) azithromycin (Verified Allergy, Intermediate, 10/21/20) bupropion (Verified Allergy, Intermediate, 10/21/20) cefdinir (Verified Allergy, Intermediate, 10/21/20) erythromycin base (Verified Allergy, Intermediate, 10/21/20) sulfadiazine (Verified Allergy, Intermediate, 10/21/20) Estimated Length of Stay: 14 Diagnoses Primary Diagnosis: Bipolar depressed Reasons for Admission: Depressed, Sig. Change Appetite, Anxiety/Panic, Suicidal ideation Problem in Patient's Words: Per Kallie, "I'm not doing good, I'm not eating." Additional Admission Comments: Per intake record, SI with plan to strangle self with cord, not eating for the past week with history of anorexia. Problems Active Problems: Flat affect Slow to respond Anxious Depressed Poor intake of meals Increased incontinence Inactive Problems: Medication compliant Slept 7.5 hours night of 10/24/20 Pt Strengths/Limitations Ability for [place]: Fair Cognitive Functioning/Ability: Fair Communication Skills/Ability: Fair Financial Resources: Fair Insight/Judgement: Fair Intellectual Ability: Good Physical Health: Fair Social Skills: Fair Stability in Family: Good Verbal Skills: Fair Discharge Criteria Discharge Criteria: No need for close observ., Adequate arrangements @DC, Adequate self-care, Improved mood/thought Other Discharge Comments: Adequate meal intakes Preliminary Discharge Plan Preliminary DC Plan: Assisted Other Arrangements: [facility]- Level II facility Special Precautions Special Precautions: Suicide Risk Fall Risk: High Initial D/C Plan Return to [facility] once stable. Identified Discharge Needs: F/U with PCP, psychiatrist, and counselor. Have [facility] recreational therapist follow up with Kallie to develop past time intersts within the facility. Currently Utilized Resources Currently Utilized Resources/P: PCP Telepsychiatrist Referrals Community Resources: Counseling services if available Identified Problems/Hx/Goals Objectives/Short-Term Goals Short Term Goals: Anxiety/Panic, Decrease Isolation, Dec. Symp. Depression, Improved Social Skills, Medication Stabilization, Monitor Med Effects, No Suicidal/Liv. ideation, Prevent Deterioration, Promote Coping Skill Short Term Goals in Patient's: Kallie expressed the desire to walk again and to evntually be able to live independently and return to work. Interventions/Frequency Staff Interventions/Frequency&: Nursing to provide routine safety checks, medications, and adl support. Psychiatry visit threes times weekly. SW visits twice weekly. PT/OT as ordered. Recreational therapy and SW group involvement as Kallie is willing. 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 Social: Kallie enjoyed exercising, playing with dogs, and dating. Education: Kallie graduated high school from [employer]. She went on to obtain her masters degree in business education from [employer]. Community Follow-up PCP Psychiatry [place] if available F/U from [facility] director medicaid to identify activites of interest. Community Provider/Family Inpu: Kallie's sister/guardian, Julisa, participated in team meeting via phone. Dr. Bryon Ortiz, psychiatrist out of [facility], followed Kallie in the past. Nursing to obtain medical records from him. 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 She needs much encouragement to eat and take her medications and is not easily persuaded. Nursing staff have provided ensure supplements with poor intake of these as well. Kallie appears anxious and is not responding to questions asked of her. Risperadol and Lamictal will be increased per Dr. Marsh. SW will contact [facility] about ECT treatments should Kallie not respond positively to most recent medication changes. JUVE RAINES Nov 08, 2020 15:13
[2020-11-08 16:32] VITALS: BP 91/55
[2020-11-08 19:35] VITALS: BP 124/79
[2020-11-08] MEDS: MIRTAZAPINE 15 MG TABLET PO SCH (19:58)
[2020-11-08] MEDS: lamoTRIgine 25 MG TABLET. PO SCH (19:58)
[2020-11-08] MEDS: ZOLPIDEM 5 MG TABLET. PO SCH (20:00)
--- NOTE | 2020-11-08 20:49 | PDOC ---
Exam Note: Avel Note: Please also refer to the separate dictated note~for this date of service dictated separately.~Patient seen individually. Discussed the patient with Nursing staff reviewed the chart.~Reviewed interim history and current functioning. Reviewed vital signs,~Labs/ Radiology~and current medications noted below. Continue current treatment with the changes noted in the dictated addendum note Assessment: Vital Signs/I&O: Vital Signs Date Time Temp Pulse Resp B/P (MAP) Pulse Ox O2 Delivery O2 Flow Rate FiO2 11/08/20 19:35 99 16 124/79 (94) 97 11/08/20 16:32 96.1 11/08/20 05:52 Room Air I & O 11/07/20 11/07/20 11/08/20 15:00 23:00 07:00 Intake Total 360 ml 200 ml Balance 360 ml 200 ml Labs: Laboratory Tests Test 11/08/20 06:36 White Blood Count 5.9 x10^3/uL (4.0-11.0) Red Blood Count 4.28 x10^6/uL (3.50-5.40) Hemoglobin 12.9 g/dL (12.0-15.5) Hematocrit 38.5 % (36.0-47.0) Mean Corpuscular Volume 90 fL (79-100) Mean Corpuscular Hemoglobin 30 pg (25-35) Mean Corpuscular Hemoglobin Concent 33 g/dL (31-37) Red Cell Distribution Width 13.3 % (11.5-14.5) Platelet Count 230 x10^3/uL (140-400) Neutrophils (%) (Auto) 74 % (31-73) H Lymphocytes (%) (Auto) 17 % (24-48) L Monocytes (%) (Auto) 7 % (0-9) Eosinophils (%) (Auto) 1 % (0-3) Basophils (%) (Auto) 1 % (0-3) Neutrophils # (Auto) 4.4 x10^3uL (1.8-7.7) Lymphocytes # (Auto) 1.0 x10^3/uL (1.0-4.8) Monocytes # (Auto) 0.4 x10^3/uL (0.0-1.1) Eosinophils # (Auto) 0.1 x10^3/uL (0.0-0.7) Basophils # (Auto) 0.0 x10^3/uL (0.0-0.2) Sodium Level 139 mmol/L (136-145) Potassium Level 3.7 mmol/L (3.5-5.1) Chloride Level 104 mmol/L (98-107) Carbon Dioxide Level 28 mmol/L (21-32) Anion Gap 7 (6-14) Blood Urea Nitrogen 15 mg/dL (7-20) Creatinine 0.7 mg/dL (0.6-1.0) Estimated GFR (Cockcroft-Gault) 85.6 BUN/Creatinine Ratio 21 (6-20) H Glucose Level 101 mg/dL (70-99) H Calcium Level 8.9 mg/dL (8.5-10.1) Total Bilirubin 0.3 mg/dL (0.2-1.0) Aspartate Amino Transferase (AST) 18 U/L (15-37) Alanine Aminotransferase (ALT) 26 U/L (14-59) Alkaline Phosphatase 100 U/L (46-116) Total Protein 7.0 g/dL (6.4-8.2) Albumin 3.2 g/dL (3.4-5.0) L Albumin/Globulin Ratio 0.8 (1.0-1.7) L Current Medications: Meds: Current Medications Medications (Trade) Dose Ordered Sig/Aline Route PRN Reason Start Time Stop Time Status Last Admin Dose Admin Olanzapine (ZyPREXA ZYDIS) 5 mg QHS PO 11/07/20 21:00 11/08/20 19:58 Risperidone (RisperDAL) 1 mg BID PO 11/08/20 12:30 11/08/20 22:30 11/08/20 19:58 I have reviewed the current psychotropics carefully including drug interactions. Risk benefit ratio favors no change other than as noted in my dictated progress note. Diagnosis: Problems: (1) Major depressive disorder, recurrent episode (2) Anxiety disorder, unspecified (3) Bipolar disorder, current episode mixed, severe, with psychotic features (4) OCD (obsessive compulsive disorder) DEL GO MD Nov 08, 2020 20:49
--- NOTE | 2020-11-08 22:51 | NUR ---
Pt located in her room this evening sitting in her chair rocking back and forth. Pt continues to not speak; only answering with shaking her head yes/no. Pt highly resistive to HS medications; however eventually compliant with much coaxing from nurse. Pt refused HS snack tonight.
[2020-11-09] MEDS: LEVOTHYROXINE 75 MCG TABLET PO SCH (05:15)
[2020-11-09 05:40] VITALS: BP 120/61
[2020-11-09 06:27] LABS: BASO # 0.1 x10^3/uL (0.0-0.2); BASO % 1 % (0-3); EOS # 0.1 x10^3/uL (0.0-0.7); EOS % 2 % (0-3); HEMATOCRIT 38.8 % (36.0-47.0); LYMPH % 29 % (24-48); MEAN CORPUSCULAR HEMOGLOBIN 30 pg (25-35); MEAN CORPUSCULAR HGB CONC 33 g/dL (31-37); MEAN CORPUSCULAR VOLUME 90 fL (79-100); MONO # 0.5 x10^3/uL (0.0-1.1); MONO % 7 % (0-9); NEUT # 4.2 x10^3uL (1.8-7.7); NEUT % 62 % (31-73); PLATELET COUNT 249 x10^3/uL (140-400); RED BLOOD COUNT 4.32 x10^6/uL (3.50-5.40); RED CELL DISTRIBUTION WIDTH 13.5 % (11.5-14.5); WHITE BLOOD COUNT 6.9 x10^3/uL (4.0-11.0)
[2020-11-09 06:41] LABS: ALBUMIN 3.2 g/dL (3.4-5.0); ALBUMIN/GLOBULIN RATIO 0.8 (1.0-1.7); CALCIUM 9.2 mg/dL (8.5-10.1); CREATININE 0.8 mg/dL (0.6-1.0); GFR 73.4; TOTAL BILIRUBIN 0.3 mg/dL (0.2-1.0)
--- NOTE | 2020-11-09 07:56 | PDOC ---
Exam Note: Avel Note: This note is a late entry for 11/07/2020 covers elements not covered in my initial note. Subjective: The patient was reviewed on telehealth rounds in the evening of 11/07/2020 with Darline BOYLE. Discussed with nursing staff, reviewed the chart. She slept 7-3/4 hours previous night. The patient remains quite paranoid, psychotic, and resistive with medications previous night. She has been quite fidgety, anxious fiddling her fingers repeatedly. Appetite is poor and she is paranoid about the food and paranoid that she would choke on the food. She did eat a little with reward of getting a shower. She has been obsessively combing her hair, ate nothing for breakfast, few bites for lunch, nothing for dinner. We will check a CBC, CMP in the morning. Review of Systems: Poor appetite, anxiety, and restlessness. No CV, , pulmonary, eye, ENT system symptoms on review. Mental Status Exam: The patient is oriented to herself and situation. Speech has some [id number] latency. Often response is monosyllabic. Abstraction is fair. Computation is impaired. Language function is intact. Mood and affect withdrawn, paranoid. No active suicidal or homicidal ideation. Laboratory Data: Reviewed. Impression: Bipolar 1 disorder, depressed versus depressed with psychotic features. Anxiety disorder unspecified. Plan: Continue current psychotropics from initial note. Check CBC, CMP in the morning. Start Zyprexa 5 mg p.o. h.s. This involves using two atypical antipsychotics but given the extent of her psychosis, markedly poor appetite this seems to be justified. We will make further changes as clinically indicated. Assessment: Vital Signs/I&O: Vital Signs Date Time Temp Pulse Resp B/P (MAP) Pulse Ox O2 Delivery O2 Flow Rate FiO2 11/09/20 05:40 97.4 69 16 120/61 (80) 99 11/08/20 05:52 Room Air I & O 11/08/20 11/08/20 11/09/20 15:00 23:00 07:00 Intake Total 60 ml Balance 60 ml Labs: Laboratory Tests Test 11/09/20 06:00 White Blood Count 6.9 x10^3/uL (4.0-11.0) Red Blood Count 4.32 x10^6/uL (3.50-5.40) Hemoglobin 13.0 g/dL (12.0-15.5) Hematocrit 38.8 % (36.0-47.0) Mean Corpuscular Volume 90 fL (79-100) Mean Corpuscular Hemoglobin 30 pg (25-35) Mean Corpuscular Hemoglobin Concent 33 g/dL (31-37) Red Cell Distribution Width 13.5 % (11.5-14.5) Platelet Count 249 x10^3/uL (140-400) Neutrophils (%) (Auto) 62 % (31-73) Lymphocytes (%) (Auto) 29 % (24-48) Monocytes (%) (Auto) 7 % (0-9) Eosinophils (%) (Auto) 2 % (0-3) Basophils (%) (Auto) 1 % (0-3) Neutrophils # (Auto) 4.2 x10^3uL (1.8-7.7) Lymphocytes # (Auto) 2.0 x10^3/uL (1.0-4.8) Monocytes # (Auto) 0.5 x10^3/uL (0.0-1.1) Eosinophils # (Auto) 0.1 x10^3/uL (0.0-0.7) Basophils # (Auto) 0.1 x10^3/uL (0.0-0.2) Sodium Level 139 mmol/L (136-145) Potassium Level 4.0 mmol/L (3.5-5.1) Chloride Level 104 mmol/L (98-107) Carbon Dioxide Level 29 mmol/L (21-32) Anion Gap 6 (6-14) Blood Urea Nitrogen 18 mg/dL (7-20) Creatinine 0.8 mg/dL (0.6-1.0) Estimated GFR (Cockcroft-Gault) 73.4 BUN/Creatinine Ratio 23 (6-20) H Glucose Level 98 mg/dL (70-99) Calcium Level 9.2 mg/dL (8.5-10.1) Total Bilirubin 0.3 mg/dL (0.2-1.0) Aspartate Amino Transferase (AST) 18 U/L (15-37) Alanine Aminotransferase (ALT) 24 U/L (14-59) Alkaline Phosphatase 97 U/L (46-116) Total Protein 7.0 g/dL (6.4-8.2) Albumin 3.2 g/dL (3.4-5.0) L Albumin/Globulin Ratio 0.8 (1.0-1.7) L Current Medications: Meds: Laboratory Tests Test 11/09/20 06:00 White Blood Count 6.9 x10^3/uL Red Blood Count 4.32 x10^6/uL Hemoglobin 13.0 g/dL Hematocrit 38.8 % Mean Corpuscular Volume 90 fL Mean Corpuscular Hemoglobin 30 pg Mean Corpuscular Hemoglobin Concent 33 g/dL Red Cell Distribution Width 13.5 % Platelet Count 249 x10^3/uL Neutrophils (%) (Auto) 62 % Lymphocytes (%) (Auto) 29 % Monocytes (%) (Auto) 7 % Eosinophils (%) (Auto) 2 % Basophils (%) (Auto) 1 % Neutrophils # (Auto) 4.2 x10^3uL Lymphocytes # (Auto) 2.0 x10^3/uL Monocytes # (Auto) 0.5 x10^3/uL Eosinophils # (Auto) 0.1 x10^3/uL Basophils # (Auto) 0.1 x10^3/uL Sodium Level 139 mmol/L Potassium Level 4.0 mmol/L Chloride Level 104 mmol/L Carbon Dioxide Level 29 mmol/L Anion Gap 6 Blood Urea Nitrogen 18 mg/dL Creatinine 0.8 mg/dL Estimated GFR (Cockcroft-Gault) 73.4 BUN/Creatinine Ratio 23 Glucose Level 98 mg/dL Calcium Level 9.2 mg/dL Total Bilirubin 0.3 mg/dL Aspartate Amino Transf (AST/SGOT) 18 U/L Alanine Aminotransferase (ALT/SGPT) 24 U/L Alkaline Phosphatase 97 U/L Total Protein 7.0 g/dL Albumin 3.2 g/dL Albumin/Globulin Ratio 0.8 Current Medications Medications (Trade) Dose Ordered Sig/Aline Route PRN Reason Start Time Stop Time Status Last Admin Dose Admin Acetaminophen (Tylenol) 650 mg PRN Q6HRS PRN PO MILD PAIN / TEMP > 100.3'F 10/22/20 04:00 Al Hydroxide/Mg Hydroxide (Mylanta Plus Xs) 15 ml PRN AFTMEALHC PRN PO DYSPEPSIA 10/22/20 04:00 Magnesium Hydroxide (Milk Of Magnesia) 2,400 mg PRN QHS PRN PO CONSTIPATION, 2ND CHOICE 10/22/20 04:00 Aripiprazole (Abilify) 5 mg DAILY PO 10/22/20 09:00 10/25/20 21:23 DC 10/25/20 08:04 Bisacodyl (Dulcolax Tab) 5 mg PRN DAILY PRN PO CONSTIPATION, 3RD CHOICE 10/22/20 04:30 Clonazepam (KlonoPIN) 0.75 mg TID PO 10/22/20 09:00 10/29/20 07:15 DC 10/28/20 20:23 Doxycycline Hyclate (Vibra-Tab) 100 mg DAILY PO 10/22/20 09:00 10/24/20 12:31 DC 10/24/20 08:26 Fluoxetine HCl (PROzac) 20 mg DAILY PO 10/22/20 09:00 10/26/20 18:43 DC 10/26/20 09:30 Guaifenesin (Robitussin) 200 mg PRN Q4HRS PRN PO COUGH 10/22/20 04:30 Levothyroxine Sodium (Synthroid) 75 mcg DAILY06 PO 10/22/20 06:00 11/09/20 05:15 Mirtazapine (Remeron) 7.5 mg QHS PO 10/22/20 21:00 10/26/20 19:28 DC 10/25/20 20:19 Multivitamins/ Calcium (Thera-M Plus) 1 tab DAILY PO 10/22/20 09:00 11/07/20 07:37 Nortriptyline HCl (Pamelor) 75 mg QHS PO 10/22/20 21:00 10/29/20 19:51 DC 10/28/20 20:22 Polyethylene Glycol (miraLAX) 17 gm PRN DAILY PRN PO CONSTIPATION, 1ST CHOICE 10/22/20 04:30 11/08/20 20:00 Psyllium Hydrophilic Mucilloid (Metamucil) 1 pkt DAILY PO 10/22/20 09:00 11/07/20 07:37 Simethicone (Gas-X) 80 mg PRN BID PRN PO GAS / BLOATING 10/22/20 04:30 11/04/20 19:56 Zolpidem Tartrate (Ambien) 2.5 mg QHS PO 10/22/20 21:00 11/08/20 20:00 Non-Formulary Medication (Budesonide (Pulmicort Flexhaler)) 2 puff BID IH 10/22/20 09:00 UNV Lactobacillus Rhamnosus (Culturelle) 1 cap TID PO 10/22/20 09:00 10/30/20 11:59 DC 10/29/20 14:00 Pantoprazole Sodium (Protonix) 40 mg DAILYAC PO 10/22/20 07:30 11/07/20 07:37 Multi-Ingredient Ointment (Analgesic [place]) 1 sherice PRN QID PRN TP MUSCLE PAIN 10/22/20 04:45 Multi-Ingredient Ointment (Analgesic [place]) 1 sherice DAILY TP 10/22/20 09:00 11/08/20 09:05 Budesonide (Pulmicort) 0.5 mg RTBID NEB 10/22/20 08:00 10/22/20 20:14 DC 10/22/20 08:00 Fluticasone Furoate (ARNUITY 100mcg ELLIPTA) 2 puff BID INH 10/22/20 21:00 10/24/20 13:23 DC 10/24/20 08:27 Docusate Sodium (Colace) 100 mg BID PO 10/24/20 21:00 11/08/20 19:58 Olanzapine (ZyPREXA) 5 mg QHS PO 10/25/20 21:30 10/26/20 18:43 DC 10/25/20 21:34 Trazodone HCl (Desyrel) 100 mg PRN QHS PRN PO INSOMNIA, MAY REPEAT X1 10/26/20 00:45 10/26/20 00:44 DC Trazodone HCl (Desyrel) 100 mg PRN QHS PRN PO INSOMNIA, MAY REPEAT X1 10/26/20 00:45 UNV Trazodone HCl (Desyrel) 100 mg PRN QHS PRN PO INSOMNIA, MAY REPEAT X1 10/26/20 00:45 10/31/20 21:42 Fluoxetine HCl (PROzac) 30 mg DAILY PO 10/27/20 09:00 10/27/20 09:09 DC Olanzapine (ZyPREXA) 7.5 mg QHS PO 10/26/20 21:00 10/27/20 18:19 DC 10/26/20 19:56 Mirtazapine (Remeron) 15 mg QHS PO 10/26/20 21:00 11/08/20 19:58 Fluoxetine HCl (PROzac) 30 mg DAILY PO 10/27/20 09:15 11/05/20 18:17 DC 11/05/20 09:03 Risperidone (RisperDAL) 0.5 mg QHS PO 10/27/20 21:00 11/01/20 14:14 DC 10/31/20 19:49 Lamotrigine (LaMICtal) 25 mg QHS PO 10/27/20 21:00 10/29/20 23:00 DC 10/29/20 19:47 Lamotrigine (LaMICtal) 50 mg QHS PO 10/30/20 21:00 11/04/20 08:00 DC 11/03/20 20:13 Clonazepam (KlonoPIN) 0.25 mg DAILY@0900 PO 10/29/20 09:00 11/05/20 17:57 DC 11/05/20 09:04 Clonazepam (KlonoPIN) 0.75 mg PRN BID PRN PO ANXIETY / AGITATION 10/29/20 07:15 10/29/20 10:02 DC Clonazepam (KlonoPIN) 0.75 mg BID@1200,1700 PO 10/29/20 12:00 11/03/20 18:10 DC 11/03/20 17:45 Fluvoxamine Maleate (Luvox) 25 mg QHS PO 10/29/20 21:00 11/01/20 21:00 DC 10/31/20 19:49 Fluvoxamine Maleate (Luvox) 50 mg QHS PO 11/01/20 21:00 11/08/20 19:58 Risperidone (RisperDAL) 0.5 mg 1X ONCE PO 10/31/20 11:30 10/31/20 11:31 DC 10/31/20 11:36 Risperidone (RisperDAL) 0.5 mg PRN 1X PRN PO AGITATION 10/31/20 11:30 11/05/20 17:14 Lorazepam (Ativan) 0.5 mg PRN Q2HR PRN PO ANXIETY / AGITATION 10/31/20 11:15 10/31/20 22:18 Risperidone (RisperDAL) 0.75 mg QHS PO 11/01/20 21:00 11/04/20 09:00 DC 11/03/20 20:11 Lamotrigine (LaMICtal) 75 mg QHS PO 11/04/20 21:00 11/09/20 05:00 DC 11/08/20 19:58 Clonazepam (KlonoPIN) 0.5 mg 1200 PO 11/04/20 12:00 11/05/20 17:57 DC 11/05/20 11:53 Risperidone (RisperDAL) 1 mg QHS PO 11/04/20 21:00 11/05/20 17:57 DC 11/04/20 20:11 Clonazepam (KlonoPIN) 0.75 mg 1700 PO 11/04/20 17:00 11/06/20 21:00 DC 11/06/20 17:37 Clonazepam (KlonoPIN) 0.5 mg 1700 PO 11/07/20 17:00 11/08/20 16:49 Clonazepam (KlonoPIN) 0.5 mg BID PO 11/06/20 09:00 11/08/20 19:59 Risperidone (RisperDAL) 1.5 mg QHS PO 11/06/20 21:00 11/08/20 12:30 DC 11/07/20 20:29 Olanzapine (ZyPREXA ZYDIS) 5 mg QHS PO 11/07/20 21:00 11/08/20 19:58 Risperidone (RisperDAL) 2 mg QHS PO 11/09/20 21:00 Risperidone (RisperDAL) 1 mg BID PO 11/08/20 12:30 11/08/20 22:30 DC 11/08/20 19:58 Lamotrigine (LaMICtal) 100 mg QHS PO 11/09/20 21:00 Current Medications Medications (Trade) Dose Ordered Sig/Aline Route PRN Reason Start Time Stop Time Status Last Admin Dose Admin Risperidone (RisperDAL) 1 mg BID PO 11/08/20 12:30 11/08/20 22:30 DC 11/08/20 19:58 I have reviewed the current psychotropics carefully including drug interactions. Risk benefit ratio favors no change other than as noted in my dictated progress note. Diagnosis: Problems: (1) Major depressive disorder, recurrent episode (2) Anxiety disorder, unspecified (3) Bipolar disorder, current episode mixed, severe, with psychotic features DEL GO MD Nov 09, 2020 07:56
[2020-11-09] MEDS: MULTIVITAMIN with MINERAL TABLET. PO SCH (08:01)
[2020-11-09] MEDS: PSYLLIUM SEED (WITH SUGAR) PACKET. PO SCH (08:01)
[2020-11-09] MEDS: DOCUSATE SODIUM 100 MG CAPSULE PO SCH ×2 (08:01→19:50)
[2020-11-09] MEDS: PANTOPRAZOLE 40 MG TABLET. PO SCH (08:01)
[2020-11-09] MEDS: clonazePAM 0.5 MG TABLET PO SCH ×3 (08:04→19:50)
[2020-11-09] MEDS: METHYL SALICYLATE/MENTHOL TOPICAL OINTMENT 57GM TUBE. TP SCH (08:05)
--- NOTE | 2020-11-09 08:15 | PDOC ---
Exam Note: Avel Note: This note is a late entry for 11/08/2020 covers elements not covered in my initial note. Subjective: The patient was reviewed on telehealth rounds in the morning of 11/08/2020 for a treatment team meeting with Genie Bragg and Stephanie (social media campaign manager), Amanda, activity therapy and Jacinta BOYLE. Discussed with nursing staff, reviewed the chart. She slept 6 hours previous night. Discussed the patients progress, diagnoses at some length. Appetite is just about 10%. She is quite non-verbal, anxious, and paranoid. The chemistry department chair spent the extended period of time with her in the afternoon and finally after several days she did drink a couple of Ensure and ate half a hamburger amongst other things but then again for supper despite great efforts by the nursing staff she ate nothing. At treatment team meeting we had lengthy discussion about treatment options including increasing the Risperdal from 1.5 mg a day to 2 mg a day. We will check labs to monitor for any impending dehydration. We may consider transition to [facility] for ECT since she has had this twice in the past. Also we will be increasing Lamictal from 75 mg a day to 100 mg a day after she has been on 75 mg for 5 days. I met with her on telehealth rounds in the evening. Review of Systems: No CV, , pulmonary, eye, ENT system symptoms on review. She does admit to anxiety, poor appetite, and fearfulness. Mental Status Exam: The patient is oriented to herself and situation. She is extremely quiet, withdrawn, marked latency of responses. Attention span is short. Abstraction is fair. Computation is impaired. Language function is intact. Mood and affect depressed, paranoid. No active suicidal ideation. Laboratory Data: Reviewed. Impression: Bipolar 1 disorder, depressed versus depressed with psychotic features. Anxiety disorder unspecified. Plan: No change from initial note. We will check labs to monitor for any impending dehydration. We may consider transition to [facility] for ECT since she has had this twice in the past. Also we will be increasing Lamictal from 75 mg a day to 100 mg a day after she has been on 75 mg for 5 days. I met with her on telehealth rounds in the evening. Assessment: Vital Signs/I&O: Vital Signs Date Time Temp Pulse Resp B/P (MAP) Pulse Ox O2 Delivery O2 Flow Rate FiO2 11/09/20 05:40 97.4 69 16 120/61 (80) 99 11/08/20 05:52 Room Air I & O 11/08/20 11/08/20 11/09/20 15:00 23:00 07:00 Intake Total 60 ml Balance 60 ml Labs: Laboratory Tests Test 11/09/20 06:00 White Blood Count 6.9 x10^3/uL (4.0-11.0) Red Blood Count 4.32 x10^6/uL (3.50-5.40) Hemoglobin 13.0 g/dL (12.0-15.5) Hematocrit 38.8 % (36.0-47.0) Mean Corpuscular Volume 90 fL (79-100) Mean Corpuscular Hemoglobin 30 pg (25-35) Mean Corpuscular Hemoglobin Concent 33 g/dL (31-37) Red Cell Distribution Width 13.5 % (11.5-14.5) Platelet Count 249 x10^3/uL (140-400) Neutrophils (%) (Auto) 62 % (31-73) Lymphocytes (%) (Auto) 29 % (24-48) Monocytes (%) (Auto) 7 % (0-9) Eosinophils (%) (Auto) 2 % (0-3) Basophils (%) (Auto) 1 % (0-3) Neutrophils # (Auto) 4.2 x10^3uL (1.8-7.7) Lymphocytes # (Auto) 2.0 x10^3/uL (1.0-4.8) Monocytes # (Auto) 0.5 x10^3/uL (0.0-1.1) Eosinophils # (Auto) 0.1 x10^3/uL (0.0-0.7) Basophils # (Auto) 0.1 x10^3/uL (0.0-0.2) Sodium Level 139 mmol/L (136-145) Potassium Level 4.0 mmol/L (3.5-5.1) Chloride Level 104 mmol/L (98-107) Carbon Dioxide Level 29 mmol/L (21-32) Anion Gap 6 (6-14) Blood Urea Nitrogen 18 mg/dL (7-20) Creatinine 0.8 mg/dL (0.6-1.0) Estimated GFR (Cockcroft-Gault) 73.4 BUN/Creatinine Ratio 23 (6-20) H Glucose Level 98 mg/dL (70-99) Calcium Level 9.2 mg/dL (8.5-10.1) Total Bilirubin 0.3 mg/dL (0.2-1.0) Aspartate Amino Transferase (AST) 18 U/L (15-37) Alanine Aminotransferase (ALT) 24 U/L (14-59) Alkaline Phosphatase 97 U/L (46-116) Total Protein 7.0 g/dL (6.4-8.2) Albumin 3.2 g/dL (3.4-5.0) L Albumin/Globulin Ratio 0.8 (1.0-1.7) L Current Medications: Meds: Laboratory Tests Test 11/09/20 06:00 White Blood Count 6.9 x10^3/uL Red Blood Count 4.32 x10^6/uL Hemoglobin 13.0 g/dL Hematocrit 38.8 % Mean Corpuscular Volume 90 fL Mean Corpuscular Hemoglobin 30 pg Mean Corpuscular Hemoglobin Concent 33 g/dL Red Cell Distribution Width 13.5 % Platelet Count 249 x10^3/uL Neutrophils (%) (Auto) 62 % Lymphocytes (%) (Auto) 29 % Monocytes (%) (Auto) 7 % Eosinophils (%) (Auto) 2 % Basophils (%) (Auto) 1 % Neutrophils # (Auto) 4.2 x10^3uL Lymphocytes # (Auto) 2.0 x10^3/uL Monocytes # (Auto) 0.5 x10^3/uL Eosinophils # (Auto) 0.1 x10^3/uL Basophils # (Auto) 0.1 x10^3/uL Sodium Level 139 mmol/L Potassium Level 4.0 mmol/L Chloride Level 104 mmol/L Carbon Dioxide Level 29 mmol/L Anion Gap 6 Blood Urea Nitrogen 18 mg/dL Creatinine 0.8 mg/dL Estimated GFR (Cockcroft-Gault) 73.4 BUN/Creatinine Ratio 23 Glucose Level 98 mg/dL Calcium Level 9.2 mg/dL Total Bilirubin 0.3 mg/dL Aspartate Amino Transf (AST/SGOT) 18 U/L Alanine Aminotransferase (ALT/SGPT) 24 U/L Alkaline Phosphatase 97 U/L Total Protein 7.0 g/dL Albumin 3.2 g/dL Albumin/Globulin Ratio 0.8 Current Medications Medications (Trade) Dose Ordered Sig/Aline Route PRN Reason Start Time Stop Time Status Last Admin Dose Admin Acetaminophen (Tylenol) 650 mg PRN Q6HRS PRN PO MILD PAIN / TEMP > 100.3'F 10/22/20 04:00 Al Hydroxide/Mg Hydroxide (Mylanta Plus Xs) 15 ml PRN AFTMEALHC PRN PO DYSPEPSIA 10/22/20 04:00 Magnesium Hydroxide (Milk Of Magnesia) 2,400 mg PRN QHS PRN PO CONSTIPATION, 2ND CHOICE 10/22/20 04:00 Aripiprazole (Abilify) 5 mg DAILY PO 10/22/20 09:00 10/25/20 21:23 DC 10/25/20 08:04 Bisacodyl (Dulcolax Tab) 5 mg PRN DAILY PRN PO CONSTIPATION, 3RD CHOICE 10/22/20 04:30 Clonazepam (KlonoPIN) 0.75 mg TID PO 10/22/20 09:00 10/29/20 07:15 DC 10/28/20 20:23 Doxycycline Hyclate (Vibra-Tab) 100 mg DAILY PO 10/22/20 09:00 10/24/20 12:31 DC 10/24/20 08:26 Fluoxetine HCl (PROzac) 20 mg DAILY PO 10/22/20 09:00 10/26/20 18:43 DC 10/26/20 09:30 Guaifenesin (Robitussin) 200 mg PRN Q4HRS PRN PO COUGH 10/22/20 04:30 Levothyroxine Sodium (Synthroid) 75 mcg DAILY06 PO 10/22/20 06:00 11/09/20 05:15 Mirtazapine (Remeron) 7.5 mg QHS PO 10/22/20 21:00 10/26/20 19:28 DC 10/25/20 20:19 Multivitamins/ Calcium (Thera-M Plus) 1 tab DAILY PO 10/22/20 09:00 11/09/20 08:01 Nortriptyline HCl (Pamelor) 75 mg QHS PO 10/22/20 21:00 10/29/20 19:51 DC 10/28/20 20:22 Polyethylene Glycol (miraLAX) 17 gm PRN DAILY PRN PO CONSTIPATION, 1ST CHOICE 10/22/20 04:30 11/08/20 20:00 Psyllium Hydrophilic Mucilloid (Metamucil) 1 pkt DAILY PO 10/22/20 09:00 11/09/20 08:01 Simethicone (Gas-X) 80 mg PRN BID PRN PO GAS / BLOATING 10/22/20 04:30 11/04/20 19:56 Zolpidem Tartrate (Ambien) 2.5 mg QHS PO 10/22/20 21:00 11/08/20 20:00 Non-Formulary Medication (Budesonide (Pulmicort Flexhaler)) 2 puff BID IH 10/22/20 09:00 UNV Lactobacillus Rhamnosus (Culturelle) 1 cap TID PO 10/22/20 09:00 10/30/20 11:59 DC 10/29/20 14:00 Pantoprazole Sodium (Protonix) 40 mg DAILYAC PO 10/22/20 07:30 11/09/20 08:01 Multi-Ingredient Ointment (Analgesic [place]) 1 sherice PRN QID PRN TP MUSCLE PAIN 10/22/20 04:45 Multi-Ingredient Ointment (Analgesic [place]) 1 sherice DAILY TP 10/22/20 09:00 11/09/20 08:05 Budesonide (Pulmicort) 0.5 mg RTBID NEB 10/22/20 08:00 10/22/20 20:14 DC 10/22/20 08:00 Fluticasone Furoate (ARNUITY 100mcg ELLIPTA) 2 puff BID INH 10/22/20 21:00 10/24/20 13:23 DC 10/24/20 08:27 Docusate Sodium (Colace) 100 mg BID PO 10/24/20 21:00 11/09/20 08:01 Olanzapine (ZyPREXA) 5 mg QHS PO 10/25/20 21:30 10/26/20 18:43 DC 10/25/20 21:34 Trazodone HCl (Desyrel) 100 mg PRN QHS PRN PO INSOMNIA, MAY REPEAT X1 10/26/20 00:45 10/26/20 00:44 DC Trazodone HCl (Desyrel) 100 mg PRN QHS PRN PO INSOMNIA, MAY REPEAT X1 10/26/20 00:45 UNV Trazodone HCl (Desyrel) 100 mg PRN QHS PRN PO INSOMNIA, MAY REPEAT X1 10/26/20 00:45 10/31/20 21:42 Fluoxetine HCl (PROzac) 30 mg DAILY PO 10/27/20 09:00 10/27/20 09:09 DC Olanzapine (ZyPREXA) 7.5 mg QHS PO 10/26/20 21:00 10/27/20 18:19 DC 10/26/20 19:56 Mirtazapine (Remeron) 15 mg QHS PO 10/26/20 21:00 11/08/20 19:58 Fluoxetine HCl (PROzac) 30 mg DAILY PO 10/27/20 09:15 11/05/20 18:17 DC 11/05/20 09:03 Risperidone (RisperDAL) 0.5 mg QHS PO 10/27/20 21:00 11/01/20 14:14 DC 10/31/20 19:49 Lamotrigine (LaMICtal) 25 mg QHS PO 10/27/20 21:00 10/29/20 23:00 DC 10/29/20 19:47 Lamotrigine (LaMICtal) 50 mg QHS PO 10/30/20 21:00 11/04/20 08:00 DC 11/03/20 20:13 Clonazepam (KlonoPIN) 0.25 mg DAILY@0900 PO 10/29/20 09:00 11/05/20 17:57 DC 11/05/20 09:04 Clonazepam (KlonoPIN) 0.75 mg PRN BID PRN PO ANXIETY / AGITATION 10/29/20 07:15 10/29/20 10:02 DC Clonazepam (KlonoPIN) 0.75 mg BID@1200,1700 PO 10/29/20 12:00 11/03/20 18:10 DC 11/03/20 17:45 Fluvoxamine Maleate (Luvox) 25 mg QHS PO 10/29/20 21:00 11/01/20 21:00 DC 10/31/20 19:49 Fluvoxamine Maleate (Luvox) 50 mg QHS PO 11/01/20 21:00 11/08/20 19:58 Risperidone (RisperDAL) 0.5 mg 1X ONCE PO 10/31/20 11:30 10/31/20 11:31 DC 10/31/20 11:36 Risperidone (RisperDAL) 0.5 mg PRN 1X PRN PO AGITATION 10/31/20 11:30 11/05/20 17:14 Lorazepam (Ativan) 0.5 mg PRN Q2HR PRN PO ANXIETY / AGITATION 10/31/20 11:15 10/31/20 22:18 Risperidone (RisperDAL) 0.75 mg QHS PO 11/01/20 21:00 11/04/20 09:00 DC 11/03/20 20:11 Lamotrigine (LaMICtal) 75 mg QHS PO 11/04/20 21:00 11/09/20 05:00 DC 11/08/20 19:58 Clonazepam (KlonoPIN) 0.5 mg 1200 PO 11/04/20 12:00 11/05/20 17:57 DC 11/05/20 11:53 Risperidone (RisperDAL) 1 mg QHS PO 11/04/20 21:00 11/05/20 17:57 DC 11/04/20 20:11 Clonazepam (KlonoPIN) 0.75 mg 1700 PO 11/04/20 17:00 11/06/20 21:00 DC 11/06/20 17:37 Clonazepam (KlonoPIN) 0.5 mg 1700 PO 11/07/20 17:00 11/08/20 16:49 Clonazepam (KlonoPIN) 0.5 mg BID PO 11/06/20 09:00 11/09/20 08:04 Risperidone (RisperDAL) 1.5 mg QHS PO 11/06/20 21:00 11/08/20 12:30 DC 11/07/20 20:29 Olanzapine (ZyPREXA ZYDIS) 5 mg QHS PO 11/07/20 21:00 11/08/20 19:58 Risperidone (RisperDAL) 2 mg QHS PO 11/09/20 21:00 Risperidone (RisperDAL) 1 mg BID PO 11/08/20 12:30 11/08/20 22:30 DC 11/08/20 19:58 Lamotrigine (LaMICtal) 100 mg QHS PO 11/09/20 21:00 Current Medications Medications (Trade) Dose Ordered Sig/Aline Route PRN Reason Start Time Stop Time Status Last Admin Dose Admin Risperidone (RisperDAL) 1 mg BID PO 11/08/20 12:30 11/08/20 22:30 DC 11/08/20 19:58 I have reviewed the current psychotropics carefully including drug interactions. Risk benefit ratio favors no change other than as noted in my dictated progress note. Diagnosis: Problems: (1) Major depressive disorder, recurrent episode (2) Anxiety disorder, unspecified (3) Bipolar disorder, current episode mixed, severe, with psychotic features DEL GO MD Nov 09, 2020 08:15
--- NOTE | 2020-11-09 13:46 | NUR ---
Nursing note: Pt continues to be withdrawn to her room and very anxious. She has been more cooperative today than she was yesterday, and required much less encouragement to take her meds. Pt ate all of her breakfast this morning, but has not touched her lunch. She is currently sitting quietly in her room. Will continue to monitor.
[2020-11-09 16:16] VITALS: BP 127/73
[2020-11-09] MEDS: CIPROFLOXACIN 0.3% OPHTH SOLUTION 2.5ML BOTTLE. OS SCH ×2 (17:53→19:50)
[2020-11-09] MEDS: MIRTAZAPINE 15 MG TABLET PO SCH (19:50)
[2020-11-09] MEDS: lamoTRIgine 100 MG TABLET. PO SCH (19:50)
[2020-11-09] MEDS: ZOLPIDEM 5 MG TABLET. PO SCH (19:51)
--- NOTE | 2020-11-09 20:47 | PDOC ---
Exam Note: Avel Note: Please also refer to the separate dictated note~for this date of service dictated separately.~Patient seen individually. Discussed the patient with Nursing staff reviewed the chart.~Reviewed interim history and current functioning. Reviewed vital signs,~Labs/ Radiology~and current medications noted below. Continue current treatment with the changes noted in the dictated addendum note Assessment: Vital Signs/I&O: Vital Signs Date Time Temp Pulse Resp B/P (MAP) Pulse Ox O2 Delivery O2 Flow Rate FiO2 11/09/20 16:16 98.0 111 16 127/73 (91) 95 11/08/20 05:52 Room Air I & O 11/08/20 11/08/20 11/09/20 15:00 23:00 07:00 Intake Total 60 ml Balance 60 ml Labs: Laboratory Tests Test 11/09/20 06:00 White Blood Count 6.9 x10^3/uL (4.0-11.0) Red Blood Count 4.32 x10^6/uL (3.50-5.40) Hemoglobin 13.0 g/dL (12.0-15.5) Hematocrit 38.8 % (36.0-47.0) Mean Corpuscular Volume 90 fL (79-100) Mean Corpuscular Hemoglobin 30 pg (25-35) Mean Corpuscular Hemoglobin Concent 33 g/dL (31-37) Red Cell Distribution Width 13.5 % (11.5-14.5) Platelet Count 249 x10^3/uL (140-400) Neutrophils (%) (Auto) 62 % (31-73) Lymphocytes (%) (Auto) 29 % (24-48) Monocytes (%) (Auto) 7 % (0-9) Eosinophils (%) (Auto) 2 % (0-3) Basophils (%) (Auto) 1 % (0-3) Neutrophils # (Auto) 4.2 x10^3uL (1.8-7.7) Lymphocytes # (Auto) 2.0 x10^3/uL (1.0-4.8) Monocytes # (Auto) 0.5 x10^3/uL (0.0-1.1) Eosinophils # (Auto) 0.1 x10^3/uL (0.0-0.7) Basophils # (Auto) 0.1 x10^3/uL (0.0-0.2) Sodium Level 139 mmol/L (136-145) Potassium Level 4.0 mmol/L (3.5-5.1) Chloride Level 104 mmol/L (98-107) Carbon Dioxide Level 29 mmol/L (21-32) Anion Gap 6 (6-14) Blood Urea Nitrogen 18 mg/dL (7-20) Creatinine 0.8 mg/dL (0.6-1.0) Estimated GFR (Cockcroft-Gault) 73.4 BUN/Creatinine Ratio 23 (6-20) H Glucose Level 98 mg/dL (70-99) Calcium Level 9.2 mg/dL (8.5-10.1) Total Bilirubin 0.3 mg/dL (0.2-1.0) Aspartate Amino Transferase (AST) 18 U/L (15-37) Alanine Aminotransferase (ALT) 24 U/L (14-59) Alkaline Phosphatase 97 U/L (46-116) Total Protein 7.0 g/dL (6.4-8.2) Albumin 3.2 g/dL (3.4-5.0) L Albumin/Globulin Ratio 0.8 (1.0-1.7) L Current Medications: Meds: Laboratory Tests Test 11/09/20 06:00 White Blood Count 6.9 x10^3/uL Red Blood Count 4.32 x10^6/uL Hemoglobin 13.0 g/dL Hematocrit 38.8 % Mean Corpuscular Volume 90 fL Mean Corpuscular Hemoglobin 30 pg Mean Corpuscular Hemoglobin Concent 33 g/dL Red Cell Distribution Width 13.5 % Platelet Count 249 x10^3/uL Neutrophils (%) (Auto) 62 % Lymphocytes (%) (Auto) 29 % Monocytes (%) (Auto) 7 % Eosinophils (%) (Auto) 2 % Basophils (%) (Auto) 1 % Neutrophils # (Auto) 4.2 x10^3uL Lymphocytes # (Auto) 2.0 x10^3/uL Monocytes # (Auto) 0.5 x10^3/uL Eosinophils # (Auto) 0.1 x10^3/uL Basophils # (Auto) 0.1 x10^3/uL Sodium Level 139 mmol/L Potassium Level 4.0 mmol/L Chloride Level 104 mmol/L Carbon Dioxide Level 29 mmol/L Anion Gap 6 Blood Urea Nitrogen 18 mg/dL Creatinine 0.8 mg/dL Estimated GFR (Cockcroft-Gault) 73.4 BUN/Creatinine Ratio 23 Glucose Level 98 mg/dL Calcium Level 9.2 mg/dL Total Bilirubin 0.3 mg/dL Aspartate Amino Transf (AST/SGOT) 18 U/L Alanine Aminotransferase (ALT/SGPT) 24 U/L Alkaline Phosphatase 97 U/L Total Protein 7.0 g/dL Albumin 3.2 g/dL Albumin/Globulin Ratio 0.8 Current Medications Medications (Trade) Dose Ordered Sig/Aline Route PRN Reason Start Time Stop Time Status Last Admin Dose Admin Acetaminophen (Tylenol) 650 mg PRN Q6HRS PRN PO MILD PAIN / TEMP > 100.3'F 10/22/20 04:00 Al Hydroxide/Mg Hydroxide (Mylanta Plus Xs) 15 ml PRN AFTMEALHC PRN PO DYSPEPSIA 10/22/20 04:00 Magnesium Hydroxide (Milk Of Magnesia) 2,400 mg PRN QHS PRN PO CONSTIPATION, 2ND CHOICE 10/22/20 04:00 11/09/20 19:52 Aripiprazole (Abilify) 5 mg DAILY PO 10/22/20 09:00 10/25/20 21:23 DC 10/25/20 08:04 Bisacodyl (Dulcolax Tab) 5 mg PRN DAILY PRN PO CONSTIPATION, 3RD CHOICE 10/22/20 04:30 Clonazepam (KlonoPIN) 0.75 mg TID PO 10/22/20 09:00 10/29/20 07:15 DC 10/28/20 20:23 Doxycycline Hyclate (Vibra-Tab) 100 mg DAILY PO 10/22/20 09:00 10/24/20 12:31 DC 10/24/20 08:26 Fluoxetine HCl (PROzac) 20 mg DAILY PO 10/22/20 09:00 10/26/20 18:43 DC 10/26/20 09:30 Guaifenesin (Robitussin) 200 mg PRN Q4HRS PRN PO COUGH 10/22/20 04:30 Levothyroxine Sodium (Synthroid) 75 mcg DAILY06 PO 10/22/20 06:00 11/09/20 05:15 Mirtazapine (Remeron) 7.5 mg QHS PO 10/22/20 21:00 10/26/20 19:28 DC 10/25/20 20:19 Multivitamins/ Calcium (Thera-M Plus) 1 tab DAILY PO 10/22/20 09:00 11/09/20 08:01 Nortriptyline HCl (Pamelor) 75 mg QHS PO 10/22/20 21:00 10/29/20 19:51 DC 10/28/20 20:22 Polyethylene Glycol (miraLAX) 17 gm PRN DAILY PRN PO CONSTIPATION, 1ST CHOICE 10/22/20 04:30 11/08/20 20:00 Psyllium Hydrophilic Mucilloid (Metamucil) 1 pkt DAILY PO 10/22/20 09:00 11/09/20 08:01 Simethicone (Gas-X) 80 mg PRN BID PRN PO GAS / BLOATING 10/22/20 04:30 11/04/20 19:56 Zolpidem Tartrate (Ambien) 2.5 mg QHS PO 10/22/20 21:00 11/09/20 19:51 Non-Formulary Medication (Budesonide (Pulmicort Flexhaler)) 2 puff BID IH 10/22/20 09:00 UNV Lactobacillus Rhamnosus (Culturelle) 1 cap TID PO 10/22/20 09:00 10/30/20 11:59 DC 10/29/20 14:00 Pantoprazole Sodium (Protonix) 40 mg DAILYAC PO 10/22/20 07:30 11/09/20 08:01 Multi-Ingredient Ointment (Analgesic [place]) 1 sherice PRN QID PRN TP MUSCLE PAIN 10/22/20 04:45 Multi-Ingredient Ointment (Analgesic [place]) 1 sherice DAILY TP 10/22/20 09:00 11/09/20 08:05 Budesonide (Pulmicort) 0.5 mg RTBID NEB 10/22/20 08:00 10/22/20 20:14 DC 10/22/20 08:00 Fluticasone Furoate (ARNUITY 100mcg ELLIPTA) 2 puff BID INH 10/22/20 21:00 10/24/20 13:23 DC 10/24/20 08:27 Docusate Sodium (Colace) 100 mg BID PO 10/24/20 21:00 11/09/20 19:50 Olanzapine (ZyPREXA) 5 mg QHS PO 10/25/20 21:30 10/26/20 18:43 DC 10/25/20 21:34 Trazodone HCl (Desyrel) 100 mg PRN QHS PRN PO INSOMNIA, MAY REPEAT X1 10/26/20 00:45 10/26/20 00:44 DC Trazodone HCl (Desyrel) 100 mg PRN QHS PRN PO INSOMNIA, MAY REPEAT X1 10/26/20 00:45 UNV Trazodone HCl (Desyrel) 100 mg PRN QHS PRN PO INSOMNIA, MAY REPEAT X1 10/26/20 00:45 10/31/20 21:42 Fluoxetine HCl (PROzac) 30 mg DAILY PO 10/27/20 09:00 10/27/20 09:09 DC Olanzapine (ZyPREXA) 7.5 mg QHS PO 10/26/20 21:00 10/27/20 18:19 DC 10/26/20 19:56 Mirtazapine (Remeron) 15 mg QHS PO 10/26/20 21:00 11/09/20 19:50 Fluoxetine HCl (PROzac) 30 mg DAILY PO 10/27/20 09:15 11/05/20 18:17 DC 11/05/20 09:03 Risperidone (RisperDAL) 0.5 mg QHS PO 10/27/20 21:00 11/01/20 14:14 DC 10/31/20 19:49 Lamotrigine (LaMICtal) 25 mg QHS PO 10/27/20 21:00 10/29/20 23:00 DC 10/29/20 19:47 Lamotrigine (LaMICtal) 50 mg QHS PO 10/30/20 21:00 11/04/20 08:00 DC 11/03/20 20:13 Clonazepam (KlonoPIN) 0.25 mg DAILY@0900 PO 10/29/20 09:00 11/05/20 17:57 DC 11/05/20 09:04 Clonazepam (KlonoPIN) 0.75 mg PRN BID PRN PO ANXIETY / AGITATION 10/29/20 07:15 10/29/20 10:02 DC Clonazepam (KlonoPIN) 0.75 mg BID@1200,1700 PO 10/29/20 12:00 11/03/20 18:10 DC 11/03/20 17:45 Fluvoxamine Maleate (Luvox) 25 mg QHS PO 10/29/20 21:00 11/01/20 21:00 DC 10/31/20 19:49 Fluvoxamine Maleate (Luvox) 50 mg QHS PO 11/01/20 21:00 11/09/20 19:50 Risperidone (RisperDAL) 0.5 mg 1X ONCE PO 10/31/20 11:30 10/31/20 11:31 DC 10/31/20 11:36 Risperidone (RisperDAL) 0.5 mg PRN 1X PRN PO AGITATION 10/31/20 11:30 11/05/20 17:14 Lorazepam (Ativan) 0.5 mg PRN Q2HR PRN PO ANXIETY / AGITATION 10/31/20 11:15 10/31/20 22:18 Risperidone (RisperDAL) 0.75 mg QHS PO 11/01/20 21:00 11/04/20 09:00 DC 11/03/20 20:11 Lamotrigine (LaMICtal) 75 mg QHS PO 11/04/20 21:00 11/09/20 05:00 DC 11/08/20 19:58 Clonazepam (KlonoPIN) 0.5 mg 1200 PO 11/04/20 12:00 11/05/20 17:57 DC 11/05/20 11:53 Risperidone (RisperDAL) 1 mg QHS PO 11/04/20 21:00 11/05/20 17:57 DC 11/04/20 20:11 Clonazepam (KlonoPIN) 0.75 mg 1700 PO 11/04/20 17:00 11/06/20 21:00 DC 11/06/20 17:37 Clonazepam (KlonoPIN) 0.5 mg 1700 PO 11/07/20 17:00 11/09/20 17:52 Clonazepam (KlonoPIN) 0.5 mg BID PO 11/06/20 09:00 11/09/20 19:50 Risperidone (RisperDAL) 1.5 mg QHS PO 11/06/20 21:00 11/08/20 12:30 DC 11/07/20 20:29 Olanzapine (ZyPREXA ZYDIS) 5 mg QHS PO 11/07/20 21:00 11/09/20 19:50 Risperidone (RisperDAL) 2 mg QHS PO 11/09/20 21:00 11/10/20 09:00 11/09/20 19:50 Risperidone (RisperDAL) 1 mg BID PO 11/08/20 12:30 11/08/20 22:30 DC 11/08/20 19:58 Lamotrigine (LaMICtal) 100 mg QHS PO 11/09/20 21:00 11/09/20 19:50 Ciprofloxacin 2 drop Q4H OS 11/09/20 17:00 11/16/20 21:00 11/09/20 19:50 Risperidone (RisperDAL) 2.5 mg QHS PO 11/10/20 21:00 Current Medications Medications (Trade) Dose Ordered Sig/Aline Route PRN Reason Start Time Stop Time Status Last Admin Dose Admin Risperidone (RisperDAL) 2 mg QHS PO 11/09/20 21:00 11/10/20 09:00 11/09/20 19:50 Lamotrigine (LaMICtal) 100 mg QHS PO 11/09/20 21:00 11/09/20 19:50 Ciprofloxacin 2 drop Q4H OS 11/09/20 17:00 11/16/20 21:00 11/09/20 19:50 I have reviewed the current psychotropics carefully including drug interactions. Risk benefit ratio favors no change other than as noted in my dictated progress note. Diagnosis: Problems: (1) Major depressive disorder, recurrent episode (2) Anxiety disorder, unspecified (3) Bipolar disorder, current episode mixed, severe, with psychotic features DEL GO MD Nov 09, 2020 20:47
[2020-11-09] MEDS ORDERED: risperiDONE 2 MG TABLET. PO SCH (21:00)
--- NOTE | 2020-11-09 21:55 | NUR ---
Nursing Note: Pt withdrawn to room, sitting quietly in her chair. Pt refuses to speak to staff this evening, only responding to yes/no questions at times but was very interactive and vocal with Dr. Marsh during Zoom call this shift. Pt drank most of her HS ensure and was compliant with HS medications with encouragement.
[2020-11-10] MEDS: CIPROFLOXACIN 0.3% OPHTH SOLUTION 2.5ML BOTTLE. OS SCH ×6 (01:00→19:51)
[2020-11-10] MEDS: LEVOTHYROXINE 75 MCG TABLET PO SCH (05:24)
[2020-11-10 05:38] VITALS: BP 126/78
[2020-11-10 05:49] LABS: BACTERIA,URINE MANY /HPF (0-FEW); BILIRUBIN,URINE NEG (NEG); CLARITY,URINE CLOUDY; COLOR,URINE YELLOW; GLUCOSE,URINE NEG (NEG); NITRITE,URINE NEG (NEG); SQUAMOUS EPITHELIAL CELL,UR OCC /LPF; UROBILINOGEN,URINE 0.2 mg/dL (0.2 mg/dL); WBC,URINE >40 /HPF (0-4)
[2020-11-10] MEDS: PANTOPRAZOLE 40 MG TABLET. PO SCH ×2 (07:30→09:04)
[2020-11-10] MEDS: MULTIVITAMIN with MINERAL TABLET. PO SCH ×2 (09:00→09:04)
[2020-11-10] MEDS: DOCUSATE SODIUM 100 MG CAPSULE PO SCH ×3 (09:00→19:51)
[2020-11-10] MEDS: PSYLLIUM SEED (WITH SUGAR) PACKET. PO SCH (09:04)
[2020-11-10] MEDS: clonazePAM 0.5 MG TABLET PO SCH ×3 (09:05→19:52)
[2020-11-10] MEDS: METHYL SALICYLATE/MENTHOL TOPICAL OINTMENT 57GM TUBE. TP SCH (09:05)
--- NOTE | 2020-11-10 13:33 | NUR ---
Nursing note: Pt was laying in her bed at time of AM med pass and assessment. Pt refused her meds stating "just leave me alone and let me lay here to in peace". Angela was put in a syringe and pt willingly took it. Pt's feelings were discussed with the pt, who does not currently have thoughts to harm herself, but states "if I move from this position I'll ." Pt continued to talk about all the medications she has been on throughout her life and the ECT that she has done and how she feels that nothing is working for her "I just need to leave the earth." Pt also believes that because she is "incontinent" that means her time is up, but pt is unable to understand the true meaning of incontinence, but instead thinks incontinence is not being able to go to the bathroom. Pt has been assisted to the bathroom today and was able to urinate. Pt was informed that her UA went to culture and will be put on ABX when the C&S results come back. Pt also stated that she has been other times at her facility, but was unable to elaborate on this thought. She has been refusing to eat this shift, turning her head away from bites of food attempted to be fed to her, but she was able to drink an entire cup of water. She is currently sitting quietly in her room. Will continue to monitor.
--- NOTE | 2020-11-10 14:22 | NUR ---
CHRISSY returned call to Julisa, shannanan, and provided update on Kallie. Kallie continues to have poor intakes of meals and expressions of wanting to . Risperdone and lamictal are being increased. UA has been sent to culture. Discussion held with Julisa about the possible need to transition Kallie to [facility] for ECT treatments should her mod not improve. Initially Julisa expressed uncertainty as to whether ECT would help Kallie or not but then expressed if Dr. Marsh felt it would be beneficial, she would be in agreement. CHRISSY will reach out to [facility] prn. Addendum: 11/10/20 at 1433 by JUVE LOWE Call placed to behavioral health unit at [facility] ([phone]). CHRISSY spoke to Twila who stated that should Kallie need to [facility], a call would have to made to their assessment center at [phone] as they screen for admissions.
[2020-11-10 15:25] VITALS: BP 142/48
[2020-11-10] MEDS: MIRTAZAPINE 15 MG TABLET PO SCH (19:51)
[2020-11-10] MEDS: risperiDONE 1 MG TABLET. PO SCH (19:52)
[2020-11-10] MEDS: lamoTRIgine 100 MG TABLET. PO SCH (19:52)
[2020-11-10] MEDS: ZOLPIDEM 5 MG TABLET. PO SCH (19:53)
--- NOTE | 2020-11-10 21:40 | PDOC ---
Exam Note: Avel Note: Please also refer to the separate dictated note~for this date of service dictated separately.~Patient seen individually. Discussed the patient with Nursing staff reviewed the chart.~Reviewed interim history and current functioning. Reviewed vital signs,~Labs/ Radiology~and current medications noted below. Continue current treatment with the changes noted in the dictated addendum note Assessment: Vital Signs/I&O: Vital Signs Date Time Temp Pulse Resp B/P (MAP) Pulse Ox O2 Delivery O2 Flow Rate FiO2 11/10/20 15:25 97.5 115 18 142/48 (79) 92 11/10/20 05:38 Room Air I & O 11/09/20 11/09/20 11/10/20 15:00 23:00 07:00 Intake Total 360 ml 180 ml Balance 360 ml 180 ml Labs: Laboratory Tests Test 11/10/20 05:33 Urine Collection Type Unknown Urine Color Yellow Urine Clarity Cloudy Urine pH 7.5 Urine Specific [place] 1.020 Urine Protein Neg (NEG-TRACE) Urine Glucose (UA) Neg mg/dL (NEG) Urine Ketones (Stick) Neg mg/dL (NEG) Urine Blood Trace (NEG) Urine Nitrite Neg (NEG) Urine Bilirubin Neg (NEG) Urine Urobilinogen Dipstick 0.2 mg/dL (0.2 mg/dL) Urine Leukocyte Esterase Mod (NEG) Urine RBC 3-5 /HPF (0-2) Urine WBC >40 /HPF (0-4) Urine Squamous Epithelial Cells Occ /LPF Urine Bacteria Many /HPF (0-FEW) Current Medications: Meds: Laboratory Tests Test 11/10/20 05:33 Urine Collection Type Unknown Urine Color Yellow Urine Clarity Cloudy Urine pH 7.5 Urine Specific [place] 1.020 Urine Protein Neg Urine Glucose (UA) Neg mg/dL Urine Ketones (Stick) Neg mg/dL Urine Blood Trace Urine Nitrite Neg Urine Bilirubin Neg Urine Urobilinogen Dipstick 0.2 mg/dL Urine Leukocyte Esterase Mod Urine RBC 3-5 /HPF Urine WBC >40 /HPF Urine Squamous Epithelial Cells Occ /LPF Urine Bacteria Many /HPF Current Medications Medications (Trade) Dose Ordered Sig/Aline Route PRN Reason Start Time Stop Time Status Last Admin Dose Admin Acetaminophen (Tylenol) 650 mg PRN Q6HRS PRN PO MILD PAIN / TEMP > 100.3'F 10/22/20 04:00 Al Hydroxide/Mg Hydroxide (Mylanta Plus Xs) 15 ml PRN AFTMEALHC PRN PO DYSPEPSIA 10/22/20 04:00 Magnesium Hydroxide (Milk Of Magnesia) 2,400 mg PRN QHS PRN PO CONSTIPATION, 2ND CHOICE 10/22/20 04:00 11/09/20 19:52 Aripiprazole (Abilify) 5 mg DAILY PO 10/22/20 09:00 10/25/20 21:23 DC 10/25/20 08:04 Bisacodyl (Dulcolax Tab) 5 mg PRN DAILY PRN PO CONSTIPATION, 3RD CHOICE 10/22/20 04:30 Clonazepam (KlonoPIN) 0.75 mg TID PO 10/22/20 09:00 10/29/20 07:15 DC 10/28/20 20:23 Doxycycline Hyclate (Vibra-Tab) 100 mg DAILY PO 10/22/20 09:00 10/24/20 12:31 DC 10/24/20 08:26 Fluoxetine HCl (PROzac) 20 mg DAILY PO 10/22/20 09:00 10/26/20 18:43 DC 10/26/20 09:30 Guaifenesin (Robitussin) 200 mg PRN Q4HRS PRN PO COUGH 10/22/20 04:30 Levothyroxine Sodium (Synthroid) 75 mcg DAILY06 PO 10/22/20 06:00 11/10/20 05:24 Mirtazapine (Remeron) 7.5 mg QHS PO 10/22/20 21:00 10/26/20 19:28 DC 10/25/20 20:19 Multivitamins/ Calcium (Thera-M Plus) 1 tab DAILY PO 10/22/20 09:00 11/09/20 08:01 Nortriptyline HCl (Pamelor) 75 mg QHS PO 10/22/20 21:00 10/29/20 19:51 DC 10/28/20 20:22 Polyethylene Glycol (miraLAX) 17 gm PRN DAILY PRN PO CONSTIPATION, 1ST CHOICE 10/22/20 04:30 11/08/20 20:00 Psyllium Hydrophilic Mucilloid (Metamucil) 1 pkt DAILY PO 10/22/20 09:00 11/10/20 09:04 Simethicone (Gas-X) 80 mg PRN BID PRN PO GAS / BLOATING 10/22/20 04:30 11/04/20 19:56 Zolpidem Tartrate (Ambien) 2.5 mg QHS PO 10/22/20 21:00 11/10/20 19:53 Non-Formulary Medication (Budesonide (Pulmicort Flexhaler)) 2 puff BID IH 10/22/20 09:00 UNV Lactobacillus Rhamnosus (Culturelle) 1 cap TID PO 10/22/20 09:00 10/30/20 11:59 DC 10/29/20 14:00 Pantoprazole Sodium (Protonix) 40 mg DAILYAC PO 10/22/20 07:30 11/09/20 08:01 Multi-Ingredient Ointment (Analgesic [place]) 1 sherice PRN QID PRN TP MUSCLE PAIN 10/22/20 04:45 Multi-Ingredient Ointment (Analgesic [place]) 1 sherice DAILY TP 10/22/20 09:00 11/10/20 09:05 Budesonide (Pulmicort) 0.5 mg RTBID NEB 10/22/20 08:00 10/22/20 20:14 DC 10/22/20 08:00 Fluticasone Furoate (ARNUITY 100mcg ELLIPTA) 2 puff BID INH 10/22/20 21:00 10/24/20 13:23 DC 10/24/20 08:27 Docusate Sodium (Colace) 100 mg BID PO 10/24/20 21:00 11/10/20 19:51 Olanzapine (ZyPREXA) 5 mg QHS PO 10/25/20 21:30 10/26/20 18:43 DC 10/25/20 21:34 Trazodone HCl (Desyrel) 100 mg PRN QHS PRN PO INSOMNIA, MAY REPEAT X1 10/26/20 00:45 10/26/20 00:44 DC Trazodone HCl (Desyrel) 100 mg PRN QHS PRN PO INSOMNIA, MAY REPEAT X1 10/26/20 00:45 UNV Trazodone HCl (Desyrel) 100 mg PRN QHS PRN PO INSOMNIA, MAY REPEAT X1 10/26/20 00:45 10/31/20 21:42 Fluoxetine HCl (PROzac) 30 mg DAILY PO 10/27/20 09:00 10/27/20 09:09 DC Olanzapine (ZyPREXA) 7.5 mg QHS PO 10/26/20 21:00 10/27/20 18:19 DC 10/26/20 19:56 Mirtazapine (Remeron) 15 mg QHS PO 10/26/20 21:00 11/10/20 19:51 Fluoxetine HCl (PROzac) 30 mg DAILY PO 10/27/20 09:15 11/05/20 18:17 DC 11/05/20 09:03 Risperidone (RisperDAL) 0.5 mg QHS PO 10/27/20 21:00 11/01/20 14:14 DC 10/31/20 19:49 Lamotrigine (LaMICtal) 25 mg QHS PO 10/27/20 21:00 10/29/20 23:00 DC 10/29/20 19:47 Lamotrigine (LaMICtal) 50 mg QHS PO 10/30/20 21:00 11/04/20 08:00 DC 11/03/20 20:13 Clonazepam (KlonoPIN) 0.25 mg DAILY@0900 PO 10/29/20 09:00 11/05/20 17:57 DC 11/05/20 09:04 Clonazepam (KlonoPIN) 0.75 mg PRN BID PRN PO ANXIETY / AGITATION 10/29/20 07:15 10/29/20 10:02 DC Clonazepam (KlonoPIN) 0.75 mg BID@1200,1700 PO 10/29/20 12:00 11/03/20 18:10 DC 11/03/20 17:45 Fluvoxamine Maleate (Luvox) 25 mg QHS PO 10/29/20 21:00 11/01/20 21:00 DC 10/31/20 19:49 Fluvoxamine Maleate (Luvox) 50 mg QHS PO 11/01/20 21:00 11/10/20 18:04 DC 11/09/20 19:50 Risperidone (RisperDAL) 0.5 mg 1X ONCE PO 10/31/20 11:30 10/31/20 11:31 DC 10/31/20 11:36 Risperidone (RisperDAL) 0.5 mg PRN 1X PRN PO AGITATION 10/31/20 11:30 11/05/20 17:14 Lorazepam (Ativan) 0.5 mg PRN Q2HR PRN PO ANXIETY / AGITATION 10/31/20 11:15 10/31/20 22:18 Risperidone (RisperDAL) 0.75 mg QHS PO 11/01/20 21:00 11/04/20 09:00 DC 11/03/20 20:11 Lamotrigine (LaMICtal) 75 mg QHS PO 11/04/20 21:00 11/09/20 05:00 DC 11/08/20 19:58 Clonazepam (KlonoPIN) 0.5 mg 1200 PO 11/04/20 12:00 11/05/20 17:57 DC 11/05/20 11:53 Risperidone (RisperDAL) 1 mg QHS PO 11/04/20 21:00 11/05/20 17:57 DC 11/04/20 20:11 Clonazepam (KlonoPIN) 0.75 mg 1700 PO 11/04/20 17:00 11/06/20 21:00 DC 11/06/20 17:37 Clonazepam (KlonoPIN) 0.5 mg 1700 PO 11/07/20 17:00 11/10/20 17:04 Clonazepam (KlonoPIN) 0.5 mg BID PO 11/06/20 09:00 11/10/20 19:52 Risperidone (RisperDAL) 1.5 mg QHS PO 11/06/20 21:00 11/08/20 12:30 DC 11/07/20 20:29 Olanzapine (ZyPREXA ZYDIS) 5 mg QHS PO 11/07/20 21:00 11/10/20 19:51 Risperidone (RisperDAL) 2 mg QHS PO 11/09/20 21:00 11/10/20 09:00 DC 11/09/20 19:50 Risperidone (RisperDAL) 1 mg BID PO 11/08/20 12:30 11/08/20 22:30 DC 11/08/20 19:58 Lamotrigine (LaMICtal) 100 mg QHS PO 11/09/20 21:00 11/10/20 19:52 Ciprofloxacin 2 drop Q4H OS 11/09/20 17:00 11/16/20 21:00 11/10/20 19:51 Risperidone (RisperDAL) 2.5 mg QHS PO 11/10/20 21:00 11/10/20 19:52 Fluvoxamine Maleate (Luvox) 75 mg QHS PO 11/10/20 21:00 11/12/20 23:00 11/10/20 19:51 Fluvoxamine Maleate (Luvox) 100 mg QHS PO 11/13/20 21:00 Current Medications Medications (Trade) Dose Ordered Sig/Aline Route PRN Reason Start Time Stop Time Status Last Admin Dose Admin Risperidone (RisperDAL) 2.5 mg QHS PO 11/10/20 21:00 11/10/20 19:52 Fluvoxamine Maleate (Luvox) 75 mg QHS PO 11/10/20 21:00 11/12/20 23:00 11/10/20 19:51 I have reviewed the current psychotropics carefully including drug interactions. Risk benefit ratio favors no change other than as noted in my dictated progress note. Diagnosis: Problems: (1) Major depressive disorder, recurrent episode (2) Anxiety disorder, unspecified (3) Bipolar disorder, current episode mixed, severe, with psychotic features DEL GO MD Nov 10, 2020 21:40
--- NOTE | 2020-11-10 21:53 | NUR ---
Nursing Note: Pt withdrawn to room, sitting quietly at shift change. Pt with a flat, depressed affect, minimal interaction when approached this evening, answering simple yes/no questions. Pt appears less anxious this evening than previously noted AEB not wringing her hands or shaking her legs. Pt cooperative with assessment and compliant with medications administered whole. When asked if she was having SI thoughts, pt stared blankly at me and refused to answer. Pt room checked for contraband or anything that could be used to harm herself after pt made statements about wanting to on previous shift. Pt remains within line of sight to the nurse's station.
[2020-11-11] MEDS: CIPROFLOXACIN 0.3% OPHTH SOLUTION 2.5ML BOTTLE. OS SCH ×6 (01:00→19:59)
[2020-11-11] MEDS: LEVOTHYROXINE 75 MCG TABLET PO SCH (05:16)
[2020-11-11 06:21] VITALS: BP 114/71
--- NOTE | 2020-11-11 07:56 | PDOC ---
Exam Note: Avel Note: This note is a late entry for 11/09/2020 covers elements not covered in my initial note. Subjective: The patient was reviewed on telehealth rounds in the evening of 11/09/2020 with Jacinta BOYLE. Discussed the patient with nursing staff. Reviewed the chart. She slept 6-1/4 hours previous night. Previous night she has been anxious, confused, did have some breakfast, little bit of supper but had to be fed. Review of Systems: No CV, , pulmonary, eye, ENT system symptoms on review. Positive for anxiety, tremulousness, poor appetite. Mental Status Exam: The patient is reasonably oriented. Speech is coherent. Abstraction is fair. Computation is impaired. Language function is intact. Mood and affect depressed, anxious, somewhat obsessive. No active suicidal ideation. Laboratory Data: Reviewed. Impression: Bipolar 1 disorder, depressed with psychotic features. Anxiety disorder unspecified. OCD. Plan: Continue psychotropics from initial note. Increase Risperdal from 2 mg a day to 2.5 mg a day since she remains psychotic though improved. We may need to increase Luvox as well for her mood and OCD symptoms. Adjust further as clinically indicated. Assessment: Vital Signs/I&O: Vital Signs Date Time Temp Pulse Resp B/P (MAP) Pulse Ox O2 Delivery O2 Flow Rate FiO2 11/11/20 06:21 97.3 74 16 114/71 (85) 97 Room Air I & O 11/10/20 11/10/20 11/11/20 15:00 23:00 07:00 Intake Total 50 ml 600 ml Balance 50 ml 600 ml Current Medications: Meds: Current Medications Medications (Trade) Dose Ordered Sig/Aline Route PRN Reason Start Time Stop Time Status Last Admin Dose Admin Acetaminophen (Tylenol) 650 mg PRN Q6HRS PRN PO MILD PAIN / TEMP > 100.3'F 10/22/20 04:00 Al Hydroxide/Mg Hydroxide (Mylanta Plus Xs) 15 ml PRN AFTMEALHC PRN PO DYSPEPSIA 10/22/20 04:00 Magnesium Hydroxide (Milk Of Magnesia) 2,400 mg PRN QHS PRN PO CONSTIPATION, 2ND CHOICE 10/22/20 04:00 11/09/20 19:52 Aripiprazole (Abilify) 5 mg DAILY PO 10/22/20 09:00 10/25/20 21:23 DC 10/25/20 08:04 Bisacodyl (Dulcolax Tab) 5 mg PRN DAILY PRN PO CONSTIPATION, 3RD CHOICE 10/22/20 04:30 Clonazepam (KlonoPIN) 0.75 mg TID PO 10/22/20 09:00 10/29/20 07:15 DC 10/28/20 20:23 Doxycycline Hyclate (Vibra-Tab) 100 mg DAILY PO 10/22/20 09:00 10/24/20 12:31 DC 10/24/20 08:26 Fluoxetine HCl (PROzac) 20 mg DAILY PO 10/22/20 09:00 10/26/20 18:43 DC 10/26/20 09:30 Guaifenesin (Robitussin) 200 mg PRN Q4HRS PRN PO COUGH 10/22/20 04:30 Levothyroxine Sodium (Synthroid) 75 mcg DAILY06 PO 10/22/20 06:00 11/11/20 05:16 Mirtazapine (Remeron) 7.5 mg QHS PO 10/22/20 21:00 10/26/20 19:28 DC 10/25/20 20:19 Multivitamins/ Calcium (Thera-M Plus) 1 tab DAILY PO 10/22/20 09:00 11/09/20 08:01 Nortriptyline HCl (Pamelor) 75 mg QHS PO 10/22/20 21:00 10/29/20 19:51 DC 10/28/20 20:22 Polyethylene Glycol (miraLAX) 17 gm PRN DAILY PRN PO CONSTIPATION, 1ST CHOICE 10/22/20 04:30 11/08/20 20:00 Psyllium Hydrophilic Mucilloid (Metamucil) 1 pkt DAILY PO 10/22/20 09:00 11/10/20 09:04 Simethicone (Gas-X) 80 mg PRN BID PRN PO GAS / BLOATING 10/22/20 04:30 11/04/20 19:56 Zolpidem Tartrate (Ambien) 2.5 mg QHS PO 10/22/20 21:00 11/10/20 19:53 Non-Formulary Medication (Budesonide (Pulmicort Flexhaler)) 2 puff BID IH 10/22/20 09:00 UNV Lactobacillus Rhamnosus (Culturelle) 1 cap TID PO 10/22/20 09:00 10/30/20 11:59 DC 10/29/20 14:00 Pantoprazole Sodium (Protonix) 40 mg DAILYAC PO 10/22/20 07:30 11/09/20 08:01 Multi-Ingredient Ointment (Analgesic [place]) 1 sherice PRN QID PRN TP MUSCLE PAIN 10/22/20 04:45 Multi-Ingredient Ointment (Analgesic [place]) 1 sherice DAILY TP 10/22/20 09:00 11/10/20 09:05 Budesonide (Pulmicort) 0.5 mg RTBID NEB 10/22/20 08:00 10/22/20 20:14 DC 10/22/20 08:00 Fluticasone Furoate (ARNUITY 100mcg ELLIPTA) 2 puff BID INH 10/22/20 21:00 10/24/20 13:23 DC 10/24/20 08:27 Docusate Sodium (Colace) 100 mg BID PO 10/24/20 21:00 11/10/20 19:51 Olanzapine (ZyPREXA) 5 mg QHS PO 10/25/20 21:30 10/26/20 18:43 DC 10/25/20 21:34 Trazodone HCl (Desyrel) 100 mg PRN QHS PRN PO INSOMNIA, MAY REPEAT X1 10/26/20 00:45 10/26/20 00:44 DC Trazodone HCl (Desyrel) 100 mg PRN QHS PRN PO INSOMNIA, MAY REPEAT X1 10/26/20 00:45 UNV Trazodone HCl (Desyrel) 100 mg PRN QHS PRN PO INSOMNIA, MAY REPEAT X1 10/26/20 00:45 10/31/20 21:42 Fluoxetine HCl (PROzac) 30 mg DAILY PO 10/27/20 09:00 10/27/20 09:09 DC Olanzapine (ZyPREXA) 7.5 mg QHS PO 10/26/20 21:00 10/27/20 18:19 DC 10/26/20 19:56 Mirtazapine (Remeron) 15 mg QHS PO 10/26/20 21:00 11/10/20 19:51 Fluoxetine HCl (PROzac) 30 mg DAILY PO 10/27/20 09:15 11/05/20 18:17 DC 11/05/20 09:03 Risperidone (RisperDAL) 0.5 mg QHS PO 10/27/20 21:00 11/01/20 14:14 DC 10/31/20 19:49 Lamotrigine (LaMICtal) 25 mg QHS PO 10/27/20 21:00 10/29/20 23:00 DC 10/29/20 19:47 Lamotrigine (LaMICtal) 50 mg QHS PO 10/30/20 21:00 11/04/20 08:00 DC 11/03/20 20:13 Clonazepam (KlonoPIN) 0.25 mg DAILY@0900 PO 10/29/20 09:00 11/05/20 17:57 DC 11/05/20 09:04 Clonazepam (KlonoPIN) 0.75 mg PRN BID PRN PO ANXIETY / AGITATION 10/29/20 07:15 10/29/20 10:02 DC Clonazepam (KlonoPIN) 0.75 mg BID@1200,1700 PO 10/29/20 12:00 11/03/20 18:10 DC 11/03/20 17:45 Fluvoxamine Maleate (Luvox) 25 mg QHS PO 10/29/20 21:00 11/01/20 21:00 DC 10/31/20 19:49 Fluvoxamine Maleate (Luvox) 50 mg QHS PO 11/01/20 21:00 11/10/20 18:04 DC 11/09/20 19:50 Risperidone (RisperDAL) 0.5 mg 1X ONCE PO 10/31/20 11:30 10/31/20 11:31 DC 10/31/20 11:36 Risperidone (RisperDAL) 0.5 mg PRN 1X PRN PO AGITATION 10/31/20 11:30 11/05/20 17:14 Lorazepam (Ativan) 0.5 mg PRN Q2HR PRN PO ANXIETY / AGITATION 10/31/20 11:15 10/31/20 22:18 Risperidone (RisperDAL) 0.75 mg QHS PO 11/01/20 21:00 11/04/20 09:00 DC 11/03/20 20:11 Lamotrigine (LaMICtal) 75 mg QHS PO 11/04/20 21:00 11/09/20 05:00 DC 11/08/20 19:58 Clonazepam (KlonoPIN) 0.5 mg 1200 PO 11/04/20 12:00 11/05/20 17:57 DC 11/05/20 11:53 Risperidone (RisperDAL) 1 mg QHS PO 11/04/20 21:00 11/05/20 17:57 DC 11/04/20 20:11 Clonazepam (KlonoPIN) 0.75 mg 1700 PO 11/04/20 17:00 11/06/20 21:00 DC 11/06/20 17:37 Clonazepam (KlonoPIN) 0.5 mg 1700 PO 11/07/20 17:00 11/10/20 17:04 Clonazepam (KlonoPIN) 0.5 mg BID PO 11/06/20 09:00 11/10/20 19:52 Risperidone (RisperDAL) 1.5 mg QHS PO 11/06/20 21:00 11/08/20 12:30 DC 11/07/20 20:29 Olanzapine (ZyPREXA ZYDIS) 5 mg QHS PO 11/07/20 21:00 11/10/20 19:51 Risperidone (RisperDAL) 2 mg QHS PO 11/09/20 21:00 11/10/20 09:00 DC 11/09/20 19:50 Risperidone (RisperDAL) 1 mg BID PO 11/08/20 12:30 11/08/20 22:30 DC 11/08/20 19:58 Lamotrigine (LaMICtal) 100 mg QHS PO 11/09/20 21:00 11/10/20 19:52 Ciprofloxacin 2 drop Q4H OS 11/09/20 17:00 11/16/20 21:00 11/11/20 05:16 Risperidone (RisperDAL) 2.5 mg QHS PO 11/10/20 21:00 11/10/20 19:52 Fluvoxamine Maleate (Luvox) 75 mg QHS PO 11/10/20 21:00 11/12/20 23:00 11/10/20 19:51 Fluvoxamine Maleate (Luvox) 100 mg QHS PO 11/13/20 21:00 Current Medications Medications (Trade) Dose Ordered Sig/Aline Route PRN Reason Start Time Stop Time Status Last Admin Dose Admin Risperidone (RisperDAL) 2.5 mg QHS PO 11/10/20 21:00 11/10/20 19:52 Fluvoxamine Maleate (Luvox) 75 mg QHS PO 11/10/20 21:00 11/12/20 23:00 11/10/20 19:51 I have reviewed the current psychotropics carefully including drug interactions. Risk benefit ratio favors no change other than as noted in my dictated progress note. Diagnosis: Problems: (1) OCD (obsessive compulsive disorder) (2) Anxiety disorder, unspecified (3) Major depressive disorder, recurrent episode (4) Bipolar disorder, current episode depressed, severe, with psychotic features DEL GO MD Nov 11, 2020 07:56
[2020-11-11] MEDS: DOCUSATE SODIUM 100 MG CAPSULE PO SCH ×2 (08:07→19:56)
[2020-11-11] MEDS: PSYLLIUM SEED (WITH SUGAR) PACKET. PO SCH (08:07)
[2020-11-11] MEDS: MULTIVITAMIN with MINERAL TABLET. PO SCH (08:08)
[2020-11-11] MEDS: PANTOPRAZOLE 40 MG TABLET. PO SCH (08:08)
[2020-11-11] MEDS: clonazePAM 0.5 MG TABLET PO SCH ×3 (08:09→19:56)
[2020-11-11] MEDS: METHYL SALICYLATE/MENTHOL TOPICAL OINTMENT 57GM TUBE. TP SCH (08:09)
--- NOTE | 2020-11-11 08:21 | PDOC ---
Exam Note: Avel Note: This note is a late entry for 11/10/2020 covers elements not covered in my initial note. Subjective: The patient was reviewed on telehealth rounds in the evening of 11/10/2020 with Jacinta BOYLE. Discussed with nursing staff, reviewed the chart. The patient slept 6-3/4 hours previous night. Overall she is less anxious, less rocking herself in the chair back and forth, somewhat calmer. She is still extremely depressed, voiced hopelessness but denies active suicidal ideation as I met with her on telehealth rounds in the evening. UA has reflex to culture. Review of Systems: No CV, , pulmonary, eye, ENT system symptoms on review. She has poor appetite. Mental Status Exam: The patient is reasonably oriented. She is a little more verbal, interactive, still admits to being very depressed. Speech is coherent. Abstraction is fair. Computation is impaired. Language function is intact. Mood and affect depressed, anxious, somewhat obsessive. No active suicidal ideation. Laboratory Data: Reviewed. Impression: Bipolar 1 disorder, depressed versus depressed with psychotic features. Anxiety disorder unspecified. OCD. Plan: After she has been on Luvox 50 mg h.s. for 3 days we will increase to 75 mg h.s. and 3 days later to 100 mg h.s. Maintain rest of the psychotropics unchanged. Assessment: Vital Signs/I&O: Vital Signs Date Time Temp Pulse Resp B/P (MAP) Pulse Ox O2 Delivery O2 Flow Rate FiO2 11/11/20 06:21 97.3 74 16 114/71 (85) 97 Room Air I & O 11/10/20 11/10/20 11/11/20 15:00 23:00 07:00 Intake Total 50 ml 600 ml Balance 50 ml 600 ml Current Medications: Meds: Current Medications Medications (Trade) Dose Ordered Sig/Aline Route PRN Reason Start Time Stop Time Status Last Admin Dose Admin Acetaminophen (Tylenol) 650 mg PRN Q6HRS PRN PO MILD PAIN / TEMP > 100.3'F 10/22/20 04:00 Al Hydroxide/Mg Hydroxide (Mylanta Plus Xs) 15 ml PRN AFTMEALHC PRN PO DYSPEPSIA 10/22/20 04:00 Magnesium Hydroxide (Milk Of Magnesia) 2,400 mg PRN QHS PRN PO CONSTIPATION, 2ND CHOICE 10/22/20 04:00 11/09/20 19:52 Aripiprazole (Abilify) 5 mg DAILY PO 10/22/20 09:00 10/25/20 21:23 DC 10/25/20 08:04 Bisacodyl (Dulcolax Tab) 5 mg PRN DAILY PRN PO CONSTIPATION, 3RD CHOICE 10/22/20 04:30 Clonazepam (KlonoPIN) 0.75 mg TID PO 10/22/20 09:00 10/29/20 07:15 DC 10/28/20 20:23 Doxycycline Hyclate (Vibra-Tab) 100 mg DAILY PO 10/22/20 09:00 10/24/20 12:31 DC 10/24/20 08:26 Fluoxetine HCl (PROzac) 20 mg DAILY PO 10/22/20 09:00 10/26/20 18:43 DC 10/26/20 09:30 Guaifenesin (Robitussin) 200 mg PRN Q4HRS PRN PO COUGH 10/22/20 04:30 Levothyroxine Sodium (Synthroid) 75 mcg DAILY06 PO 10/22/20 06:00 11/11/20 05:16 Mirtazapine (Remeron) 7.5 mg QHS PO 10/22/20 21:00 10/26/20 19:28 DC 10/25/20 20:19 Multivitamins/ Calcium (Thera-M Plus) 1 tab DAILY PO 10/22/20 09:00 11/11/20 08:08 Nortriptyline HCl (Pamelor) 75 mg QHS PO 10/22/20 21:00 10/29/20 19:51 DC 10/28/20 20:22 Polyethylene Glycol (miraLAX) 17 gm PRN DAILY PRN PO CONSTIPATION, 1ST CHOICE 10/22/20 04:30 11/08/20 20:00 Psyllium Hydrophilic Mucilloid (Metamucil) 1 pkt DAILY PO 10/22/20 09:00 11/11/20 08:07 Simethicone (Gas-X) 80 mg PRN BID PRN PO GAS / BLOATING 10/22/20 04:30 11/04/20 19:56 Zolpidem Tartrate (Ambien) 2.5 mg QHS PO 10/22/20 21:00 11/10/20 19:53 Non-Formulary Medication (Budesonide (Pulmicort Flexhaler)) 2 puff BID IH 10/22/20 09:00 UNV Lactobacillus Rhamnosus (Culturelle) 1 cap TID PO 10/22/20 09:00 10/30/20 11:59 DC 10/29/20 14:00 Pantoprazole Sodium (Protonix) 40 mg DAILYAC PO 10/22/20 07:30 11/11/20 08:08 Multi-Ingredient Ointment (Analgesic [place]) 1 sherice PRN QID PRN TP MUSCLE PAIN 10/22/20 04:45 Multi-Ingredient Ointment (Analgesic [place]) 1 sherice DAILY TP 10/22/20 09:00 11/11/20 08:09 Budesonide (Pulmicort) 0.5 mg RTBID NEB 10/22/20 08:00 10/22/20 20:14 DC 10/22/20 08:00 Fluticasone Furoate (ARNUITY 100mcg ELLIPTA) 2 puff BID INH 10/22/20 21:00 10/24/20 13:23 DC 10/24/20 08:27 Docusate Sodium (Colace) 100 mg BID PO 10/24/20 21:00 11/11/20 08:07 Olanzapine (ZyPREXA) 5 mg QHS PO 10/25/20 21:30 10/26/20 18:43 DC 10/25/20 21:34 Trazodone HCl (Desyrel) 100 mg PRN QHS PRN PO INSOMNIA, MAY REPEAT X1 10/26/20 00:45 10/26/20 00:44 DC Trazodone HCl (Desyrel) 100 mg PRN QHS PRN PO INSOMNIA, MAY REPEAT X1 10/26/20 00:45 UNV Trazodone HCl (Desyrel) 100 mg PRN QHS PRN PO INSOMNIA, MAY REPEAT X1 10/26/20 00:45 10/31/20 21:42 Fluoxetine HCl (PROzac) 30 mg DAILY PO 10/27/20 09:00 10/27/20 09:09 DC Olanzapine (ZyPREXA) 7.5 mg QHS PO 10/26/20 21:00 10/27/20 18:19 DC 10/26/20 19:56 Mirtazapine (Remeron) 15 mg QHS PO 10/26/20 21:00 11/10/20 19:51 Fluoxetine HCl (PROzac) 30 mg DAILY PO 10/27/20 09:15 11/05/20 18:17 DC 11/05/20 09:03 Risperidone (RisperDAL) 0.5 mg QHS PO 10/27/20 21:00 11/01/20 14:14 DC 10/31/20 19:49 Lamotrigine (LaMICtal) 25 mg QHS PO 10/27/20 21:00 10/29/20 23:00 DC 10/29/20 19:47 Lamotrigine (LaMICtal) 50 mg QHS PO 10/30/20 21:00 11/04/20 08:00 DC 11/03/20 20:13 Clonazepam (KlonoPIN) 0.25 mg DAILY@0900 PO 10/29/20 09:00 11/05/20 17:57 DC 11/05/20 09:04 Clonazepam (KlonoPIN) 0.75 mg PRN BID PRN PO ANXIETY / AGITATION 10/29/20 07:15 10/29/20 10:02 DC Clonazepam (KlonoPIN) 0.75 mg BID@1200,1700 PO 10/29/20 12:00 11/03/20 18:10 DC 11/03/20 17:45 Fluvoxamine Maleate (Luvox) 25 mg QHS PO 10/29/20 21:00 11/01/20 21:00 DC 10/31/20 19:49 Fluvoxamine Maleate (Luvox) 50 mg QHS PO 11/01/20 21:00 11/10/20 18:04 DC 11/09/20 19:50 Risperidone (RisperDAL) 0.5 mg 1X ONCE PO 10/31/20 11:30 10/31/20 11:31 DC 10/31/20 11:36 Risperidone (RisperDAL) 0.5 mg PRN 1X PRN PO AGITATION 10/31/20 11:30 11/05/20 17:14 Lorazepam (Ativan) 0.5 mg PRN Q2HR PRN PO ANXIETY / AGITATION 10/31/20 11:15 10/31/20 22:18 Risperidone (RisperDAL) 0.75 mg QHS PO 11/01/20 21:00 11/04/20 09:00 DC 11/03/20 20:11 Lamotrigine (LaMICtal) 75 mg QHS PO 11/04/20 21:00 11/09/20 05:00 DC 11/08/20 19:58 Clonazepam (KlonoPIN) 0.5 mg 1200 PO 11/04/20 12:00 11/05/20 17:57 DC 11/05/20 11:53 Risperidone (RisperDAL) 1 mg QHS PO 11/04/20 21:00 11/05/20 17:57 DC 11/04/20 20:11 Clonazepam (KlonoPIN) 0.75 mg 1700 PO 11/04/20 17:00 11/06/20 21:00 DC 11/06/20 17:37 Clonazepam (KlonoPIN) 0.5 mg 1700 PO 11/07/20 17:00 11/10/20 17:04 Clonazepam (KlonoPIN) 0.5 mg BID PO 11/06/20 09:00 11/11/20 08:09 Risperidone (RisperDAL) 1.5 mg QHS PO 11/06/20 21:00 11/08/20 12:30 DC 11/07/20 20:29 Olanzapine (ZyPREXA ZYDIS) 5 mg QHS PO 11/07/20 21:00 11/10/20 19:51 Risperidone (RisperDAL) 2 mg QHS PO 11/09/20 21:00 11/10/20 09:00 DC 11/09/20 19:50 Risperidone (RisperDAL) 1 mg BID PO 11/08/20 12:30 11/08/20 22:30 DC 11/08/20 19:58 Lamotrigine (LaMICtal) 100 mg QHS PO 11/09/20 21:00 11/10/20 19:52 Ciprofloxacin 2 drop Q4H OS 11/09/20 17:00 11/16/20 21:00 11/11/20 08:08 Risperidone (RisperDAL) 2.5 mg QHS PO 11/10/20 21:00 11/10/20 19:52 Fluvoxamine Maleate (Luvox) 75 mg QHS PO 11/10/20 21:00 11/12/20 23:00 11/10/20 19:51 Fluvoxamine Maleate (Luvox) 100 mg QHS PO 11/13/20 21:00 Current Medications Medications (Trade) Dose Ordered Sig/Aline Route PRN Reason Start Time Stop Time Status Last Admin Dose Admin Risperidone (RisperDAL) 2.5 mg QHS PO 11/10/20 21:00 11/10/20 19:52 Fluvoxamine Maleate (Luvox) 75 mg QHS PO 11/10/20 21:00 11/12/20 23:00 11/10/20 19:51 I have reviewed the current psychotropics carefully including drug interactions. Risk benefit ratio favors no change other than as noted in my dictated progress note. Diagnosis: Problems: (1) Bipolar disorder, current episode depressed, severe, with psychotic features (2) OCD (obsessive compulsive disorder) (3) Anxiety disorder, unspecified (4) Major depressive disorder, recurrent episode DEL GO MD Nov 11, 2020 08:21
--- NOTE | 2020-11-11 11:34 | NUR ---
Nursing Note Pt tearful, states she wet her pants, but actually was dry. Took meds via me putting them in her mouth, if she is offered the pill cup will just stare at staff and not take them willingly. She seems generally sad withdrawn and depressed. Unwilling to engage just looks through you as opposed to at you. Left eye is red and inflamed, drops administered.
[2020-11-11 15:34] VITALS: BP 130/78
[2020-11-11] MEDS: MIRTAZAPINE 15 MG TABLET PO SCH (19:56)
[2020-11-11] MEDS: lamoTRIgine 100 MG TABLET. PO SCH (19:56)
[2020-11-11] MEDS: risperiDONE 1 MG TABLET. PO SCH (19:57)
[2020-11-11] MEDS: ZOLPIDEM 5 MG TABLET. PO SCH (19:58)
--- NOTE | 2020-11-11 20:59 | PDOC ---
Exam Note: Avel Note: Please also refer to the separate dictated note~for this date of service dictated separately.~Patient seen individually. Discussed the patient with Nursing staff reviewed the chart.~Reviewed interim history and current functioning. Reviewed vital signs,~Labs/ Radiology~and current medications noted below. Continue current treatment with the changes noted in the dictated addendum note Assessment: Vital Signs/I&O: Vital Signs Date Time Temp Pulse Resp B/P (MAP) Pulse Ox O2 Delivery O2 Flow Rate FiO2 11/11/20 15:34 97.9 110 18 130/78 (95) 93 11/11/20 06:21 Room Air I & O 11/10/20 11/10/20 11/11/20 15:00 23:00 07:00 Intake Total 50 ml 600 ml Balance 50 ml 600 ml Current Medications: Meds: Current Medications Medications (Trade) Dose Ordered Sig/Aline Route PRN Reason Start Time Stop Time Status Last Admin Dose Admin Acetaminophen (Tylenol) 650 mg PRN Q6HRS PRN PO MILD PAIN / TEMP > 100.3'F 10/22/20 04:00 Al Hydroxide/Mg Hydroxide (Mylanta Plus Xs) 15 ml PRN AFTMEALHC PRN PO DYSPEPSIA 10/22/20 04:00 Magnesium Hydroxide (Milk Of Magnesia) 2,400 mg PRN QHS PRN PO CONSTIPATION, 2ND CHOICE 10/22/20 04:00 11/09/20 19:52 Aripiprazole (Abilify) 5 mg DAILY PO 10/22/20 09:00 10/25/20 21:23 DC 10/25/20 08:04 Bisacodyl (Dulcolax Tab) 5 mg PRN DAILY PRN PO CONSTIPATION, 3RD CHOICE 10/22/20 04:30 Clonazepam (KlonoPIN) 0.75 mg TID PO 10/22/20 09:00 10/29/20 07:15 DC 10/28/20 20:23 Doxycycline Hyclate (Vibra-Tab) 100 mg DAILY PO 10/22/20 09:00 10/24/20 12:31 DC 10/24/20 08:26 Fluoxetine HCl (PROzac) 20 mg DAILY PO 10/22/20 09:00 10/26/20 18:43 DC 10/26/20 09:30 Guaifenesin (Robitussin) 200 mg PRN Q4HRS PRN PO COUGH 10/22/20 04:30 Levothyroxine Sodium (Synthroid) 75 mcg DAILY06 PO 10/22/20 06:00 11/11/20 05:16 Mirtazapine (Remeron) 7.5 mg QHS PO 10/22/20 21:00 10/26/20 19:28 DC 10/25/20 20:19 Multivitamins/ Calcium (Thera-M Plus) 1 tab DAILY PO 10/22/20 09:00 11/11/20 08:08 Nortriptyline HCl (Pamelor) 75 mg QHS PO 10/22/20 21:00 10/29/20 19:51 DC 10/28/20 20:22 Polyethylene Glycol (miraLAX) 17 gm PRN DAILY PRN PO CONSTIPATION, 1ST CHOICE 10/22/20 04:30 11/08/20 20:00 Psyllium Hydrophilic Mucilloid (Metamucil) 1 pkt DAILY PO 10/22/20 09:00 11/11/20 08:07 Simethicone (Gas-X) 80 mg PRN BID PRN PO GAS / BLOATING 10/22/20 04:30 11/04/20 19:56 Zolpidem Tartrate (Ambien) 2.5 mg QHS PO 10/22/20 21:00 11/11/20 19:58 Non-Formulary Medication (Budesonide (Pulmicort Flexhaler)) 2 puff BID IH 10/22/20 09:00 UNV Lactobacillus Rhamnosus (Culturelle) 1 cap TID PO 10/22/20 09:00 10/30/20 11:59 DC 10/29/20 14:00 Pantoprazole Sodium (Protonix) 40 mg DAILYAC PO 10/22/20 07:30 11/11/20 08:08 Multi-Ingredient Ointment (Analgesic [place]) 1 sherice PRN QID PRN TP MUSCLE PAIN 10/22/20 04:45 Multi-Ingredient Ointment (Analgesic [place]) 1 sherice DAILY TP 10/22/20 09:00 11/11/20 08:09 Budesonide (Pulmicort) 0.5 mg RTBID NEB 10/22/20 08:00 10/22/20 20:14 DC 10/22/20 08:00 Fluticasone Furoate (ARNUITY 100mcg ELLIPTA) 2 puff BID INH 10/22/20 21:00 10/24/20 13:23 DC 10/24/20 08:27 Docusate Sodium (Colace) 100 mg BID PO 10/24/20 21:00 11/11/20 19:56 Olanzapine (ZyPREXA) 5 mg QHS PO 10/25/20 21:30 10/26/20 18:43 DC 10/25/20 21:34 Trazodone HCl (Desyrel) 100 mg PRN QHS PRN PO INSOMNIA, MAY REPEAT X1 10/26/20 00:45 10/26/20 00:44 DC Trazodone HCl (Desyrel) 100 mg PRN QHS PRN PO INSOMNIA, MAY REPEAT X1 10/26/20 00:45 UNV Trazodone HCl (Desyrel) 100 mg PRN QHS PRN PO INSOMNIA, MAY REPEAT X1 10/26/20 00:45 10/31/20 21:42 Fluoxetine HCl (PROzac) 30 mg DAILY PO 10/27/20 09:00 10/27/20 09:09 DC Olanzapine (ZyPREXA) 7.5 mg QHS PO 10/26/20 21:00 10/27/20 18:19 DC 10/26/20 19:56 Mirtazapine (Remeron) 15 mg QHS PO 10/26/20 21:00 11/11/20 19:56 Fluoxetine HCl (PROzac) 30 mg DAILY PO 10/27/20 09:15 11/05/20 18:17 DC 11/05/20 09:03 Risperidone (RisperDAL) 0.5 mg QHS PO 10/27/20 21:00 11/01/20 14:14 DC 10/31/20 19:49 Lamotrigine (LaMICtal) 25 mg QHS PO 10/27/20 21:00 10/29/20 23:00 DC 10/29/20 19:47 Lamotrigine (LaMICtal) 50 mg QHS PO 10/30/20 21:00 11/04/20 08:00 DC 11/03/20 20:13 Clonazepam (KlonoPIN) 0.25 mg DAILY@0900 PO 10/29/20 09:00 11/05/20 17:57 DC 11/05/20 09:04 Clonazepam (KlonoPIN) 0.75 mg PRN BID PRN PO ANXIETY / AGITATION 10/29/20 07:15 10/29/20 10:02 DC Clonazepam (KlonoPIN) 0.75 mg BID@1200,1700 PO 10/29/20 12:00 11/03/20 18:10 DC 11/03/20 17:45 Fluvoxamine Maleate (Luvox) 25 mg QHS PO 10/29/20 21:00 11/01/20 21:00 DC 10/31/20 19:49 Fluvoxamine Maleate (Luvox) 50 mg QHS PO 11/01/20 21:00 11/10/20 18:04 DC 11/09/20 19:50 Risperidone (RisperDAL) 0.5 mg 1X ONCE PO 10/31/20 11:30 10/31/20 11:31 DC 10/31/20 11:36 Risperidone (RisperDAL) 0.5 mg PRN 1X PRN PO AGITATION 10/31/20 11:30 11/05/20 17:14 Lorazepam (Ativan) 0.5 mg PRN Q2HR PRN PO ANXIETY / AGITATION 10/31/20 11:15 10/31/20 22:18 Risperidone (RisperDAL) 0.75 mg QHS PO 11/01/20 21:00 11/04/20 09:00 DC 11/03/20 20:11 Lamotrigine (LaMICtal) 75 mg QHS PO 11/04/20 21:00 11/09/20 05:00 DC 11/08/20 19:58 Clonazepam (KlonoPIN) 0.5 mg 1200 PO 11/04/20 12:00 11/05/20 17:57 DC 11/05/20 11:53 Risperidone (RisperDAL) 1 mg QHS PO 11/04/20 21:00 11/05/20 17:57 DC 11/04/20 20:11 Clonazepam (KlonoPIN) 0.75 mg 1700 PO 11/04/20 17:00 11/06/20 21:00 DC 11/06/20 17:37 Clonazepam (KlonoPIN) 0.5 mg 1700 PO 11/07/20 17:00 11/11/20 17:00 Clonazepam (KlonoPIN) 0.5 mg BID PO 11/06/20 09:00 11/11/20 19:56 Risperidone (RisperDAL) 1.5 mg QHS PO 11/06/20 21:00 11/08/20 12:30 DC 11/07/20 20:29 Olanzapine (ZyPREXA ZYDIS) 5 mg QHS PO 11/07/20 21:00 11/11/20 19:56 Risperidone (RisperDAL) 2 mg QHS PO 11/09/20 21:00 11/10/20 09:00 DC 11/09/20 19:50 Risperidone (RisperDAL) 1 mg BID PO 11/08/20 12:30 11/08/20 22:30 DC 11/08/20 19:58 Lamotrigine (LaMICtal) 100 mg QHS PO 11/09/20 21:00 11/11/20 19:56 Ciprofloxacin 2 drop Q4H OS 11/09/20 17:00 11/16/20 21:00 11/11/20 19:59 Risperidone (RisperDAL) 2.5 mg QHS PO 11/10/20 21:00 11/12/20 08:00 11/11/20 19:57 Fluvoxamine Maleate (Luvox) 75 mg QHS PO 11/10/20 21:00 11/12/20 23:00 11/11/20 19:56 Fluvoxamine Maleate (Luvox) 100 mg QHS PO 11/13/20 21:00 Risperidone (RisperDAL) 1 mg DAILY PO 11/12/20 09:00 Risperidone (RisperDAL) 2 mg QHS PO 11/11/20 21:00 11/11/20 19:21 DC Risperidone (RisperDAL) 2 mg QHS PO 11/12/20 21:00 Current Medications Medications (Trade) Dose Ordered Sig/Aline Route PRN Reason Start Time Stop Time Status Last Admin Dose Admin Risperidone (RisperDAL) 2.5 mg QHS PO 11/10/20 21:00 11/12/20 08:00 11/11/20 19:57 Fluvoxamine Maleate (Luvox) 75 mg QHS PO 11/10/20 21:00 11/12/20 23:00 11/11/20 19:56 I have reviewed the current psychotropics carefully including drug interactions. Risk benefit ratio favors no change other than as noted in my dictated progress note. Diagnosis: Problems: (1) OCD (obsessive compulsive disorder) (2) Bipolar disorder, current episode depressed, severe, with psychotic features (3) Anxiety disorder, unspecified DEL GO MD Nov 11, 2020 20:59
[2020-11-11] MEDS ORDERED: risperiDONE 2 MG TABLET. PO SCH (21:00)
--- NOTE | 2020-11-11 21:10 | NUR ---
Nursing Note: Pt withdrawn to room, sitting quietly at shift change. Pt with a flat, depressed affect, minimal interaction when approached this evening, answering simple yes/no questions but mainly staring blankly at staff instead of answering. Pt appears slightly more anxious this evening AEB wringing her hands and shaking her legs. Pt cooperative with assessment and compliant with medications administered whole.
[2020-11-12] MEDS: CIPROFLOXACIN 0.3% OPHTH SOLUTION 2.5ML BOTTLE. OS SCH ×6 (01:00→20:13)
[2020-11-12] MEDS: LEVOTHYROXINE 75 MCG TABLET PO SCH (05:30)
[2020-11-12 06:28] VITALS: BP 134/87
[2020-11-12] MEDS: risperiDONE 1 MG TABLET. PO SCH (10:07)
[2020-11-12] MEDS: DOCUSATE SODIUM 100 MG CAPSULE PO SCH ×2 (10:07→20:12)
[2020-11-12] MEDS: MULTIVITAMIN with MINERAL TABLET. PO SCH (10:07)
[2020-11-12] MEDS: PSYLLIUM SEED (WITH SUGAR) PACKET. PO SCH (10:07)
[2020-11-12] MEDS: clonazePAM 0.5 MG TABLET PO SCH ×3 (10:07→20:12)
[2020-11-12] MEDS: PANTOPRAZOLE 40 MG TABLET. PO SCH (10:07)
[2020-11-12] MEDS: METHYL SALICYLATE/MENTHOL TOPICAL OINTMENT 57GM TUBE. TP SCH (10:08)
[2020-11-12 15:00] VITALS: BP 112/67
--- NOTE | 2020-11-12 18:15 | NUR ---
Pt was anxious during the day; she was visibly shaking, not answering staff questions, and displaying rhythmic foot tapping. She did not attend any group sessions. Pt has been compliant with medications and staff requests. Her appetite also appears to be improved. Will continue to monitor and report to following shift.
[2020-11-12] MEDS: MIRTAZAPINE 15 MG TABLET PO SCH (20:12)
[2020-11-12] MEDS: lamoTRIgine 100 MG TABLET. PO SCH (20:13)
[2020-11-12] MEDS: risperiDONE 2 MG TABLET. PO SCH (20:16)
[2020-11-12] MEDS: ZOLPIDEM 5 MG TABLET. PO SCH (20:16)
--- NOTE | 2020-11-12 21:06 | PDOC ---
Exam Note: Avel Note: Please also refer to the separate dictated note~for this date of service dictated separately.~Patient seen individually. Discussed the patient with Nursing staff reviewed the chart.~Reviewed interim history and current functioning. Reviewed vital signs,~Labs/ Radiology~and current medications noted below. Continue current treatment with the changes noted in the dictated addendum note Assessment: Vital Signs/I&O: Vital Signs Date Time Temp Pulse Resp B/P (MAP) Pulse Ox O2 Delivery O2 Flow Rate FiO2 11/12/20 15:00 97.4 101 20 112/67 (82) 98 Room Air I & O 11/11/20 11/11/20 11/12/20 15:00 23:00 07:00 Intake Total 200 ml 240 ml Balance 200 ml 240 ml Current Medications: Meds: Current Medications Medications (Trade) Dose Ordered Sig/Aline Route PRN Reason Start Time Stop Time Status Last Admin Dose Admin Acetaminophen (Tylenol) 650 mg PRN Q6HRS PRN PO MILD PAIN / TEMP > 100.3'F 10/22/20 04:00 Al Hydroxide/Mg Hydroxide (Mylanta Plus Xs) 15 ml PRN AFTMEALHC PRN PO DYSPEPSIA 10/22/20 04:00 Magnesium Hydroxide (Milk Of Magnesia) 2,400 mg PRN QHS PRN PO CONSTIPATION, 2ND CHOICE 10/22/20 04:00 11/09/20 19:52 Aripiprazole (Abilify) 5 mg DAILY PO 10/22/20 09:00 10/25/20 21:23 DC 10/25/20 08:04 Bisacodyl (Dulcolax Tab) 5 mg PRN DAILY PRN PO CONSTIPATION, 3RD CHOICE 10/22/20 04:30 Clonazepam (KlonoPIN) 0.75 mg TID PO 10/22/20 09:00 10/29/20 07:15 DC 10/28/20 20:23 Doxycycline Hyclate (Vibra-Tab) 100 mg DAILY PO 10/22/20 09:00 10/24/20 12:31 DC 10/24/20 08:26 Fluoxetine HCl (PROzac) 20 mg DAILY PO 10/22/20 09:00 10/26/20 18:43 DC 10/26/20 09:30 Guaifenesin (Robitussin) 200 mg PRN Q4HRS PRN PO COUGH 10/22/20 04:30 Levothyroxine Sodium (Synthroid) 75 mcg DAILY06 PO 10/22/20 06:00 11/12/20 05:30 Mirtazapine (Remeron) 7.5 mg QHS PO 10/22/20 21:00 10/26/20 19:28 DC 10/25/20 20:19 Multivitamins/ Calcium (Thera-M Plus) 1 tab DAILY PO 10/22/20 09:00 11/12/20 10:07 Nortriptyline HCl (Pamelor) 75 mg QHS PO 10/22/20 21:00 10/29/20 19:51 DC 10/28/20 20:22 Polyethylene Glycol (miraLAX) 17 gm PRN DAILY PRN PO CONSTIPATION, 1ST CHOICE 10/22/20 04:30 11/08/20 20:00 Psyllium Hydrophilic Mucilloid (Metamucil) 1 pkt DAILY PO 10/22/20 09:00 11/12/20 10:07 Simethicone (Gas-X) 80 mg PRN BID PRN PO GAS / BLOATING 10/22/20 04:30 11/04/20 19:56 Zolpidem Tartrate (Ambien) 2.5 mg QHS PO 10/22/20 21:00 11/12/20 20:16 Non-Formulary Medication (Budesonide (Pulmicort Flexhaler)) 2 puff BID IH 10/22/20 09:00 UNV Lactobacillus Rhamnosus (Culturelle) 1 cap TID PO 10/22/20 09:00 10/30/20 11:59 DC 10/29/20 14:00 Pantoprazole Sodium (Protonix) 40 mg DAILYAC PO 10/22/20 07:30 11/12/20 10:07 Multi-Ingredient Ointment (Analgesic [place]) 1 sherice PRN QID PRN TP MUSCLE PAIN 10/22/20 04:45 Multi-Ingredient Ointment (Analgesic [place]) 1 sherice DAILY TP 10/22/20 09:00 11/12/20 10:08 Budesonide (Pulmicort) 0.5 mg RTBID NEB 10/22/20 08:00 10/22/20 20:14 DC 10/22/20 08:00 Fluticasone Furoate (ARNUITY 100mcg ELLIPTA) 2 puff BID INH 10/22/20 21:00 10/24/20 13:23 DC 10/24/20 08:27 Docusate Sodium (Colace) 100 mg BID PO 10/24/20 21:00 11/12/20 20:12 Olanzapine (ZyPREXA) 5 mg QHS PO 10/25/20 21:30 10/26/20 18:43 DC 10/25/20 21:34 Trazodone HCl (Desyrel) 100 mg PRN QHS PRN PO INSOMNIA, MAY REPEAT X1 10/26/20 00:45 10/26/20 00:44 DC Trazodone HCl (Desyrel) 100 mg PRN QHS PRN PO INSOMNIA, MAY REPEAT X1 10/26/20 00:45 UNV Trazodone HCl (Desyrel) 100 mg PRN QHS PRN PO INSOMNIA, MAY REPEAT X1 10/26/20 00:45 10/31/20 21:42 Fluoxetine HCl (PROzac) 30 mg DAILY PO 10/27/20 09:00 10/27/20 09:09 DC Olanzapine (ZyPREXA) 7.5 mg QHS PO 10/26/20 21:00 10/27/20 18:19 DC 10/26/20 19:56 Mirtazapine (Remeron) 15 mg QHS PO 10/26/20 21:00 11/12/20 20:12 Fluoxetine HCl (PROzac) 30 mg DAILY PO 10/27/20 09:15 11/05/20 18:17 DC 11/05/20 09:03 Risperidone (RisperDAL) 0.5 mg QHS PO 10/27/20 21:00 11/01/20 14:14 DC 10/31/20 19:49 Lamotrigine (LaMICtal) 25 mg QHS PO 10/27/20 21:00 10/29/20 23:00 DC 10/29/20 19:47 Lamotrigine (LaMICtal) 50 mg QHS PO 10/30/20 21:00 11/04/20 08:00 DC 11/03/20 20:13 Clonazepam (KlonoPIN) 0.25 mg DAILY@0900 PO 10/29/20 09:00 11/05/20 17:57 DC 11/05/20 09:04 Clonazepam (KlonoPIN) 0.75 mg PRN BID PRN PO ANXIETY / AGITATION 10/29/20 07:15 10/29/20 10:02 DC Clonazepam (KlonoPIN) 0.75 mg BID@1200,1700 PO 10/29/20 12:00 11/03/20 18:10 DC 11/03/20 17:45 Fluvoxamine Maleate (Luvox) 25 mg QHS PO 10/29/20 21:00 11/01/20 21:00 DC 10/31/20 19:49 Fluvoxamine Maleate (Luvox) 50 mg QHS PO 11/01/20 21:00 11/10/20 18:04 DC 11/09/20 19:50 Risperidone (RisperDAL) 0.5 mg 1X ONCE PO 10/31/20 11:30 10/31/20 11:31 DC 10/31/20 11:36 Risperidone (RisperDAL) 0.5 mg PRN 1X PRN PO AGITATION 10/31/20 11:30 11/05/20 17:14 Lorazepam (Ativan) 0.5 mg PRN Q2HR PRN PO ANXIETY / AGITATION 10/31/20 11:15 10/31/20 22:18 Risperidone (RisperDAL) 0.75 mg QHS PO 11/01/20 21:00 11/04/20 09:00 DC 11/03/20 20:11 Lamotrigine (LaMICtal) 75 mg QHS PO 11/04/20 21:00 11/09/20 05:00 DC 11/08/20 19:58 Clonazepam (KlonoPIN) 0.5 mg 1200 PO 11/04/20 12:00 11/05/20 17:57 DC 11/05/20 11:53 Risperidone (RisperDAL) 1 mg QHS PO 11/04/20 21:00 11/05/20 17:57 DC 11/04/20 20:11 Clonazepam (KlonoPIN) 0.75 mg 1700 PO 11/04/20 17:00 11/06/20 21:00 DC 11/06/20 17:37 Clonazepam (KlonoPIN) 0.5 mg 1700 PO 11/07/20 17:00 11/12/20 17:22 Clonazepam (KlonoPIN) 0.5 mg BID PO 11/06/20 09:00 11/12/20 20:12 Risperidone (RisperDAL) 1.5 mg QHS PO 11/06/20 21:00 11/08/20 12:30 DC 11/07/20 20:29 Olanzapine (ZyPREXA ZYDIS) 5 mg QHS PO 11/07/20 21:00 11/12/20 20:13 Risperidone (RisperDAL) 2 mg QHS PO 11/09/20 21:00 11/10/20 09:00 DC 11/09/20 19:50 Risperidone (RisperDAL) 1 mg BID PO 11/08/20 12:30 11/08/20 22:30 DC 11/08/20 19:58 Lamotrigine (LaMICtal) 100 mg QHS PO 11/09/20 21:00 11/12/20 20:13 Ciprofloxacin 2 drop Q4H OS 11/09/20 17:00 11/16/20 21:00 11/12/20 20:13 Risperidone (RisperDAL) 2.5 mg QHS PO 11/10/20 21:00 11/12/20 08:00 DC 11/11/20 19:57 Fluvoxamine Maleate (Luvox) 75 mg QHS PO 11/10/20 21:00 11/12/20 23:00 11/12/20 20:13 Fluvoxamine Maleate (Luvox) 100 mg QHS PO 11/13/20 21:00 Risperidone (RisperDAL) 1 mg DAILY PO 11/12/20 09:00 11/12/20 10:07 Risperidone (RisperDAL) 2 mg QHS PO 11/11/20 21:00 11/11/20 19:21 DC Risperidone (RisperDAL) 2 mg QHS PO 11/12/20 21:00 11/12/20 20:16 Current Medications Medications (Trade) Dose Ordered Sig/Aline Route PRN Reason Start Time Stop Time Status Last Admin Dose Admin Risperidone (RisperDAL) 1 mg DAILY PO 11/12/20 09:00 11/12/20 10:07 Risperidone (RisperDAL) 2 mg QHS PO 11/12/20 21:00 11/12/20 20:16 I have reviewed the current psychotropics carefully including drug interactions. Risk benefit ratio favors no change other than as noted in my dictated progress note. Diagnosis: Problems: (1) OCD (obsessive compulsive disorder) (2) Major depressive disorder, recurrent episode (3) Anxiety disorder, unspecified (4) Bipolar disorder, current episode depressed, severe, with psychotic features DEL GO MD Nov 12, 2020 21:06
--- NOTE | 2020-11-12 23:50 | NUR ---
Nursing Note Pt in room acts helpless, flat to sad affect, refuses to put meds in her own mouth, or hold the cup. Looks as though she didn't eat dinner, only maybe 1 bite of food. Responds in 1 word answers, is withdrawn and depressed.
[2020-11-13] MEDS: CIPROFLOXACIN 0.3% OPHTH SOLUTION 2.5ML BOTTLE. OS SCH ×6 (01:00→19:50)
[2020-11-13] MEDS: LEVOTHYROXINE 75 MCG TABLET PO SCH (05:02)
[2020-11-13 06:25] VITALS: BP 125/81
[2020-11-13] MEDS: risperiDONE 1 MG TABLET. PO SCH (08:24)
[2020-11-13] MEDS: PSYLLIUM SEED (WITH SUGAR) PACKET. PO SCH (08:24)
[2020-11-13] MEDS: PANTOPRAZOLE 40 MG TABLET. PO SCH (08:24)
[2020-11-13] MEDS: DOCUSATE SODIUM 100 MG CAPSULE PO SCH ×2 (08:24→19:47)
[2020-11-13] MEDS: MULTIVITAMIN with MINERAL TABLET. PO SCH (08:24)
[2020-11-13] MEDS: clonazePAM 0.5 MG TABLET PO SCH ×3 (08:24→19:50)
--- NOTE | 2020-11-13 08:24 | PDOC ---
Exam Note: Avel Note: This note is a late entry for 11/11/2020 covers elements not covered in my initial note. Subjective: The patient was reviewed on telehealth rounds in the evening of 11/11/2020 with Lindsey BOYLE. Discussed with nursing staff, reviewed the chart. The patient slept 7-1/2 hours previous night. Overall she has been flat, somewhat withdrawn. She takes medications in her mouth, needs much encouragement, tearful at times. Appetite is 25%. UA is greater than 100,000 E. coli. Sensitivity is awaited. Review of Systems: Ambulation impaired with walker. No CV, , pulmonary, eye, ENT system symptoms on review. Mental Status Exam: The patient is reasonably oriented. She is quite pleasant, withdrawn. Verbal response is monosyllabic. She is somewhat obsessive, paranoid. She is easily distractible. Speech is coherent. Abstraction is fair. Computation is impaired. Language function is intact. Mood and affect depressed, anxious. No active suicidal or homicidal ideation. Laboratory Data: Reviewed. Impression: Bipolar 1 disorder, depressed versus depressed with psychotic features. Anxiety disorder unspecified. OCD. Plan: Treat the UTI once sensitivity returns, especially given her mental status changes, psychotic symptoms, even though she does not have any physical symptoms. This is a distinct exacerbation of her psychosis, which I attribute partly to the UTI. Assessment: Vital Signs/I&O: Vital Signs Date Time Temp Pulse Resp B/P (MAP) Pulse Ox O2 Delivery O2 Flow Rate FiO2 11/13/20 06:25 97.2 114 18 125/81 (96) 97 11/12/20 15:00 Room Air I & O 11/12/20 11/12/20 11/13/20 15:00 23:00 07:00 Intake Total 0 ml 480 ml Balance 0 ml 480 ml Current Medications: Meds: Current Medications Medications (Trade) Dose Ordered Sig/Aline Route PRN Reason Start Time Stop Time Status Last Admin Dose Admin Acetaminophen (Tylenol) 650 mg PRN Q6HRS PRN PO MILD PAIN / TEMP > 100.3'F 10/22/20 04:00 Al Hydroxide/Mg Hydroxide (Mylanta Plus Xs) 15 ml PRN AFTMEALHC PRN PO DYSPEPSIA 10/22/20 04:00 Magnesium Hydroxide (Milk Of Magnesia) 2,400 mg PRN QHS PRN PO CONSTIPATION, 2ND CHOICE 10/22/20 04:00 11/09/20 19:52 Aripiprazole (Abilify) 5 mg DAILY PO 10/22/20 09:00 10/25/20 21:23 DC 10/25/20 08:04 Bisacodyl (Dulcolax Tab) 5 mg PRN DAILY PRN PO CONSTIPATION, 3RD CHOICE 10/22/20 04:30 Clonazepam (KlonoPIN) 0.75 mg TID PO 10/22/20 09:00 10/29/20 07:15 DC 10/28/20 20:23 Doxycycline Hyclate (Vibra-Tab) 100 mg DAILY PO 10/22/20 09:00 10/24/20 12:31 DC 10/24/20 08:26 Fluoxetine HCl (PROzac) 20 mg DAILY PO 10/22/20 09:00 10/26/20 18:43 DC 10/26/20 09:30 Guaifenesin (Robitussin) 200 mg PRN Q4HRS PRN PO COUGH 10/22/20 04:30 Levothyroxine Sodium (Synthroid) 75 mcg DAILY06 PO 10/22/20 06:00 11/13/20 05:02 Mirtazapine (Remeron) 7.5 mg QHS PO 10/22/20 21:00 10/26/20 19:28 DC 10/25/20 20:19 Multivitamins/ Calcium (Thera-M Plus) 1 tab DAILY PO 10/22/20 09:00 11/12/20 10:07 Nortriptyline HCl (Pamelor) 75 mg QHS PO 10/22/20 21:00 10/29/20 19:51 DC 10/28/20 20:22 Polyethylene Glycol (miraLAX) 17 gm PRN DAILY PRN PO CONSTIPATION, 1ST CHOICE 10/22/20 04:30 11/08/20 20:00 Psyllium Hydrophilic Mucilloid (Metamucil) 1 pkt DAILY PO 10/22/20 09:00 11/12/20 10:07 Simethicone (Gas-X) 80 mg PRN BID PRN PO GAS / BLOATING 10/22/20 04:30 11/04/20 19:56 Zolpidem Tartrate (Ambien) 2.5 mg QHS PO 10/22/20 21:00 11/12/20 20:16 Non-Formulary Medication (Budesonide (Pulmicort Flexhaler)) 2 puff BID IH 10/22/20 09:00 UNV Lactobacillus Rhamnosus (Culturelle) 1 cap TID PO 10/22/20 09:00 10/30/20 11:59 DC 10/29/20 14:00 Pantoprazole Sodium (Protonix) 40 mg DAILYAC PO 10/22/20 07:30 11/12/20 10:07 Multi-Ingredient Ointment (Analgesic [place]) 1 sherice PRN QID PRN TP MUSCLE PAIN 10/22/20 04:45 Multi-Ingredient Ointment (Analgesic [place]) 1 sherice DAILY TP 10/22/20 09:00 11/12/20 10:08 Budesonide (Pulmicort) 0.5 mg RTBID NEB 10/22/20 08:00 10/22/20 20:14 DC 10/22/20 08:00 Fluticasone Furoate (ARNUITY 100mcg ELLIPTA) 2 puff BID INH 10/22/20 21:00 10/24/20 13:23 DC 10/24/20 08:27 Docusate Sodium (Colace) 100 mg BID PO 10/24/20 21:00 11/12/20 20:12 Olanzapine (ZyPREXA) 5 mg QHS PO 10/25/20 21:30 10/26/20 18:43 DC 10/25/20 21:34 Trazodone HCl (Desyrel) 100 mg PRN QHS PRN PO INSOMNIA, MAY REPEAT X1 10/26/20 00:45 10/26/20 00:44 DC Trazodone HCl (Desyrel) 100 mg PRN QHS PRN PO INSOMNIA, MAY REPEAT X1 10/26/20 00:45 UNV Trazodone HCl (Desyrel) 100 mg PRN QHS PRN PO INSOMNIA, MAY REPEAT X1 10/26/20 00:45 10/31/20 21:42 Fluoxetine HCl (PROzac) 30 mg DAILY PO 10/27/20 09:00 10/27/20 09:09 DC Olanzapine (ZyPREXA) 7.5 mg QHS PO 10/26/20 21:00 10/27/20 18:19 DC 10/26/20 19:56 Mirtazapine (Remeron) 15 mg QHS PO 10/26/20 21:00 11/12/20 20:12 Fluoxetine HCl (PROzac) 30 mg DAILY PO 10/27/20 09:15 11/05/20 18:17 DC 11/05/20 09:03 Risperidone (RisperDAL) 0.5 mg QHS PO 10/27/20 21:00 11/01/20 14:14 DC 10/31/20 19:49 Lamotrigine (LaMICtal) 25 mg QHS PO 10/27/20 21:00 10/29/20 23:00 DC 10/29/20 19:47 Lamotrigine (LaMICtal) 50 mg QHS PO 10/30/20 21:00 11/04/20 08:00 DC 11/03/20 20:13 Clonazepam (KlonoPIN) 0.25 mg DAILY@0900 PO 10/29/20 09:00 11/05/20 17:57 DC 11/05/20 09:04 Clonazepam (KlonoPIN) 0.75 mg PRN BID PRN PO ANXIETY / AGITATION 10/29/20 07:15 10/29/20 10:02 DC Clonazepam (KlonoPIN) 0.75 mg BID@1200,1700 PO 10/29/20 12:00 11/03/20 18:10 DC 11/03/20 17:45 Fluvoxamine Maleate (Luvox) 25 mg QHS PO 10/29/20 21:00 11/01/20 21:00 DC 10/31/20 19:49 Fluvoxamine Maleate (Luvox) 50 mg QHS PO 11/01/20 21:00 11/10/20 18:04 DC 11/09/20 19:50 Risperidone (RisperDAL) 0.5 mg 1X ONCE PO 10/31/20 11:30 10/31/20 11:31 DC 10/31/20 11:36 Risperidone (RisperDAL) 0.5 mg PRN 1X PRN PO AGITATION 10/31/20 11:30 11/05/20 17:14 Lorazepam (Ativan) 0.5 mg PRN Q2HR PRN PO ANXIETY / AGITATION 10/31/20 11:15 10/31/20 22:18 Risperidone (RisperDAL) 0.75 mg QHS PO 11/01/20 21:00 11/04/20 09:00 DC 11/03/20 20:11 Lamotrigine (LaMICtal) 75 mg QHS PO 11/04/20 21:00 11/09/20 05:00 DC 11/08/20 19:58 Clonazepam (KlonoPIN) 0.5 mg 1200 PO 11/04/20 12:00 11/05/20 17:57 DC 11/05/20 11:53 Risperidone (RisperDAL) 1 mg QHS PO 11/04/20 21:00 11/05/20 17:57 DC 11/04/20 20:11 Clonazepam (KlonoPIN) 0.75 mg 1700 PO 11/04/20 17:00 11/06/20 21:00 DC 11/06/20 17:37 Clonazepam (KlonoPIN) 0.5 mg 1700 PO 11/07/20 17:00 11/12/20 17:22 Clonazepam (KlonoPIN) 0.5 mg BID PO 11/06/20 09:00 11/12/20 20:12 Risperidone (RisperDAL) 1.5 mg QHS PO 11/06/20 21:00 11/08/20 12:30 DC 11/07/20 20:29 Olanzapine (ZyPREXA ZYDIS) 5 mg QHS PO 11/07/20 21:00 11/12/20 20:13 Risperidone (RisperDAL) 2 mg QHS PO 11/09/20 21:00 11/10/20 09:00 DC 11/09/20 19:50 Risperidone (RisperDAL) 1 mg BID PO 11/08/20 12:30 11/08/20 22:30 DC 11/08/20 19:58 Lamotrigine (LaMICtal) 100 mg QHS PO 11/09/20 21:00 11/12/20 20:13 Ciprofloxacin 2 drop Q4H OS 11/09/20 17:00 11/16/20 21:00 11/13/20 05:00 Risperidone (RisperDAL) 2.5 mg QHS PO 11/10/20 21:00 11/12/20 08:00 DC 11/11/20 19:57 Fluvoxamine Maleate (Luvox) 75 mg QHS PO 11/10/20 21:00 11/12/20 23:01 DC 11/12/20 20:13 Fluvoxamine Maleate (Luvox) 100 mg QHS PO 11/13/20 21:00 Risperidone (RisperDAL) 1 mg DAILY PO 11/12/20 09:00 11/12/20 10:07 Risperidone (RisperDAL) 2 mg QHS PO 11/11/20 21:00 11/11/20 19:21 DC Risperidone (RisperDAL) 2 mg QHS PO 11/12/20 21:00 11/12/20 20:16 Current Medications Medications (Trade) Dose Ordered Sig/Aline Route PRN Reason Start Time Stop Time Status Last Admin Dose Admin Risperidone (RisperDAL) 1 mg DAILY PO 11/12/20 09:00 11/12/20 10:07 Risperidone (RisperDAL) 2 mg QHS PO 11/12/20 21:00 11/12/20 20:16 I have reviewed the current psychotropics carefully including drug interactions. Risk benefit ratio favors no change other than as noted in my dictated progress note. Diagnosis: Problems: (1) UTI (urinary tract infection) (2) OCD (obsessive compulsive disorder) (3) Major depressive disorder, recurrent episode (4) Bipolar disorder, current episode depressed, severe, with psychotic features (5) Anxiety disorder, unspecified DEL GO MD Nov 13, 2020 08:24
[2020-11-13] MEDS: METHYL SALICYLATE/MENTHOL TOPICAL OINTMENT 57GM TUBE. TP SCH (08:25)
--- NOTE | 2020-11-13 08:39 | PDOC ---
Exam Note: Avel Note: This note is a late entry for 11/12/2020 covers elements not covered in my initial note. Subjective: The patient was reviewed on telehealth rounds in the evening of 11/12/2020 with Wallace BOYLE. Discussed with nursing staff, reviewed the chart. The patient slept 8 hours previous night. Urine C&S is returned. Dr. Zaldivar opted not to treat her on antibiotics. Appetite is better but she withdraws to her room, anxious. Review of Systems: No CV, , pulmonary, eye, ENT system symptoms on review. She has poor appetite. She has poor energy, depressed. Mental Status Exam: The patient is reasonably oriented. She is quite withdrawn. Often response is monosyllabic but appears less psychotic. Abstraction is fair. Computation is impaired. Language function is intact. Mood and affect depressed, anxious. No active suicidal ideation. We are monitoring this closely. Laboratory Data: Reviewed. Impression: Bipolar 1 disorder, depressed versus depressed with psychotic features. Anxiety disorder unspecified. OCD. Plan: No change from initial note. We will continue to increase Risperdal and Lamictal as clinically indicated. Maintain Klonopin at current dosage. Assessment: Vital Signs/I&O: Vital Signs Date Time Temp Pulse Resp B/P (MAP) Pulse Ox O2 Delivery O2 Flow Rate FiO2 11/13/20 06:25 97.2 114 18 125/81 (96) 97 11/12/20 15:00 Room Air I & O 11/12/20 11/12/20 11/13/20 15:00 23:00 07:00 Intake Total 0 ml 480 ml Balance 0 ml 480 ml Current Medications: Meds: Current Medications Medications (Trade) Dose Ordered Sig/Aline Route PRN Reason Start Time Stop Time Status Last Admin Dose Admin Acetaminophen (Tylenol) 650 mg PRN Q6HRS PRN PO MILD PAIN / TEMP > 100.3'F 10/22/20 04:00 Al Hydroxide/Mg Hydroxide (Mylanta Plus Xs) 15 ml PRN AFTMEALHC PRN PO DYSPEPSIA 10/22/20 04:00 Magnesium Hydroxide (Milk Of Magnesia) 2,400 mg PRN QHS PRN PO CONSTIPATION, 2ND CHOICE 10/22/20 04:00 11/09/20 19:52 Aripiprazole (Abilify) 5 mg DAILY PO 10/22/20 09:00 10/25/20 21:23 DC 10/25/20 08:04 Bisacodyl (Dulcolax Tab) 5 mg PRN DAILY PRN PO CONSTIPATION, 3RD CHOICE 10/22/20 04:30 Clonazepam (KlonoPIN) 0.75 mg TID PO 10/22/20 09:00 10/29/20 07:15 DC 10/28/20 20:23 Doxycycline Hyclate (Vibra-Tab) 100 mg DAILY PO 10/22/20 09:00 10/24/20 12:31 DC 10/24/20 08:26 Fluoxetine HCl (PROzac) 20 mg DAILY PO 10/22/20 09:00 10/26/20 18:43 DC 10/26/20 09:30 Guaifenesin (Robitussin) 200 mg PRN Q4HRS PRN PO COUGH 10/22/20 04:30 Levothyroxine Sodium (Synthroid) 75 mcg DAILY06 PO 10/22/20 06:00 11/13/20 05:02 Mirtazapine (Remeron) 7.5 mg QHS PO 10/22/20 21:00 10/26/20 19:28 DC 10/25/20 20:19 Multivitamins/ Calcium (Thera-M Plus) 1 tab DAILY PO 10/22/20 09:00 11/13/20 08:24 Nortriptyline HCl (Pamelor) 75 mg QHS PO 10/22/20 21:00 10/29/20 19:51 DC 10/28/20 20:22 Polyethylene Glycol (miraLAX) 17 gm PRN DAILY PRN PO CONSTIPATION, 1ST CHOICE 10/22/20 04:30 11/08/20 20:00 Psyllium Hydrophilic Mucilloid (Metamucil) 1 pkt DAILY PO 10/22/20 09:00 11/13/20 08:24 Simethicone (Gas-X) 80 mg PRN BID PRN PO GAS / BLOATING 10/22/20 04:30 11/04/20 19:56 Zolpidem Tartrate (Ambien) 2.5 mg QHS PO 10/22/20 21:00 11/12/20 20:16 Non-Formulary Medication (Budesonide (Pulmicort Flexhaler)) 2 puff BID IH 10/22/20 09:00 UNV Lactobacillus Rhamnosus (Culturelle) 1 cap TID PO 10/22/20 09:00 10/30/20 11:59 DC 10/29/20 14:00 Pantoprazole Sodium (Protonix) 40 mg DAILYAC PO 10/22/20 07:30 11/13/20 08:24 Multi-Ingredient Ointment (Analgesic [place]) 1 sherice PRN QID PRN TP MUSCLE PAIN 10/22/20 04:45 Multi-Ingredient Ointment (Analgesic [place]) 1 sherice DAILY TP 10/22/20 09:00 11/13/20 08:25 Budesonide (Pulmicort) 0.5 mg RTBID NEB 10/22/20 08:00 10/22/20 20:14 DC 10/22/20 08:00 Fluticasone Furoate (ARNUITY 100mcg ELLIPTA) 2 puff BID INH 10/22/20 21:00 10/24/20 13:23 DC 10/24/20 08:27 Docusate Sodium (Colace) 100 mg BID PO 10/24/20 21:00 11/13/20 08:24 Olanzapine (ZyPREXA) 5 mg QHS PO 10/25/20 21:30 10/26/20 18:43 DC 10/25/20 21:34 Trazodone HCl (Desyrel) 100 mg PRN QHS PRN PO INSOMNIA, MAY REPEAT X1 10/26/20 00:45 10/26/20 00:44 DC Trazodone HCl (Desyrel) 100 mg PRN QHS PRN PO INSOMNIA, MAY REPEAT X1 10/26/20 00:45 UNV Trazodone HCl (Desyrel) 100 mg PRN QHS PRN PO INSOMNIA, MAY REPEAT X1 10/26/20 00:45 10/31/20 21:42 Fluoxetine HCl (PROzac) 30 mg DAILY PO 10/27/20 09:00 10/27/20 09:09 DC Olanzapine (ZyPREXA) 7.5 mg QHS PO 10/26/20 21:00 10/27/20 18:19 DC 10/26/20 19:56 Mirtazapine (Remeron) 15 mg QHS PO 10/26/20 21:00 11/12/20 20:12 Fluoxetine HCl (PROzac) 30 mg DAILY PO 10/27/20 09:15 11/05/20 18:17 DC 11/05/20 09:03 Risperidone (RisperDAL) 0.5 mg QHS PO 10/27/20 21:00 11/01/20 14:14 DC 10/31/20 19:49 Lamotrigine (LaMICtal) 25 mg QHS PO 10/27/20 21:00 10/29/20 23:00 DC 10/29/20 19:47 Lamotrigine (LaMICtal) 50 mg QHS PO 10/30/20 21:00 11/04/20 08:00 DC 11/03/20 20:13 Clonazepam (KlonoPIN) 0.25 mg DAILY@0900 PO 10/29/20 09:00 11/05/20 17:57 DC 11/05/20 09:04 Clonazepam (KlonoPIN) 0.75 mg PRN BID PRN PO ANXIETY / AGITATION 10/29/20 07:15 10/29/20 10:02 DC Clonazepam (KlonoPIN) 0.75 mg BID@1200,1700 PO 10/29/20 12:00 11/03/20 18:10 DC 11/03/20 17:45 Fluvoxamine Maleate (Luvox) 25 mg QHS PO 10/29/20 21:00 11/01/20 21:00 DC 10/31/20 19:49 Fluvoxamine Maleate (Luvox) 50 mg QHS PO 11/01/20 21:00 11/10/20 18:04 DC 11/09/20 19:50 Risperidone (RisperDAL) 0.5 mg 1X ONCE PO 10/31/20 11:30 10/31/20 11:31 DC 10/31/20 11:36 Risperidone (RisperDAL) 0.5 mg PRN 1X PRN PO AGITATION 10/31/20 11:30 11/05/20 17:14 Lorazepam (Ativan) 0.5 mg PRN Q2HR PRN PO ANXIETY / AGITATION 10/31/20 11:15 10/31/20 22:18 Risperidone (RisperDAL) 0.75 mg QHS PO 11/01/20 21:00 11/04/20 09:00 DC 11/03/20 20:11 Lamotrigine (LaMICtal) 75 mg QHS PO 11/04/20 21:00 11/09/20 05:00 DC 11/08/20 19:58 Clonazepam (KlonoPIN) 0.5 mg 1200 PO 11/04/20 12:00 11/05/20 17:57 DC 11/05/20 11:53 Risperidone (RisperDAL) 1 mg QHS PO 11/04/20 21:00 11/05/20 17:57 DC 11/04/20 20:11 Clonazepam (KlonoPIN) 0.75 mg 1700 PO 11/04/20 17:00 11/06/20 21:00 DC 11/06/20 17:37 Clonazepam (KlonoPIN) 0.5 mg 1700 PO 11/07/20 17:00 11/12/20 17:22 Clonazepam (KlonoPIN) 0.5 mg BID PO 11/06/20 09:00 11/13/20 08:24 Risperidone (RisperDAL) 1.5 mg QHS PO 11/06/20 21:00 11/08/20 12:30 DC 11/07/20 20:29 Olanzapine (ZyPREXA ZYDIS) 5 mg QHS PO 11/07/20 21:00 11/12/20 20:13 Risperidone (RisperDAL) 2 mg QHS PO 11/09/20 21:00 11/10/20 09:00 DC 11/09/20 19:50 Risperidone (RisperDAL) 1 mg BID PO 11/08/20 12:30 11/08/20 22:30 DC 11/08/20 19:58 Lamotrigine (LaMICtal) 100 mg QHS PO 11/09/20 21:00 11/12/20 20:13 Ciprofloxacin 2 drop Q4H OS 11/09/20 17:00 11/16/20 21:00 11/13/20 08:25 Risperidone (RisperDAL) 2.5 mg QHS PO 11/10/20 21:00 11/12/20 08:00 DC 11/11/20 19:57 Fluvoxamine Maleate (Luvox) 75 mg QHS PO 11/10/20 21:00 11/12/20 23:01 DC 1/8/21 20:13 Fluvoxamine Maleate (Luvox) 100 mg QHS PO 11/13/20 21:00 Risperidone (RisperDAL) 1 mg DAILY PO 11/12/20 09:00 11/13/20 08:24 Risperidone (RisperDAL) 2 mg QHS PO 11/11/20 21:00 11/11/20 19:21 DC Risperidone (RisperDAL) 2 mg QHS PO 11/12/20 21:00 11/12/20 20:16 Current Medications Medications (Trade) Dose Ordered Sig/Aline Route PRN Reason Start Time Stop Time Status Last Admin Dose Admin Risperidone (RisperDAL) 1 mg DAILY PO 11/12/20 09:00 11/13/20 08:24 Risperidone (RisperDAL) 2 mg QHS PO 11/12/20 21:00 11/12/20 20:16 I have reviewed the current psychotropics carefully including drug interactions. Risk benefit ratio favors no change other than as noted in my dictated progress note. Diagnosis: Problems: (1) OCD (obsessive compulsive disorder) (2) Anxiety disorder, unspecified (3) Major depressive disorder, recurrent episode (4) Bipolar disorder, current episode depressed, severe, with psychotic features DEL OG MD Nov 13, 2020 08:39
--- NOTE | 2020-11-13 09:59 | NUR ---
Patient unwilling to speak with this staff member this morning. Patient encouraged to express her needs. Patient encouraged not to lay on ground. Patient will be given a mat to help comfort her on the ground.
[2020-11-13 16:27] VITALS: BP 122/84
[2020-11-13] MEDS: lamoTRIgine 100 MG TABLET. PO SCH (19:47)
[2020-11-13] MEDS: risperiDONE 2 MG TABLET. PO SCH (19:47)
[2020-11-13] MEDS: MIRTAZAPINE 15 MG TABLET PO SCH (19:47)
[2020-11-13] MEDS: ZOLPIDEM 5 MG TABLET. PO SCH (19:49)
--- NOTE | 2020-11-13 21:03 | PDOC ---
Exam Note: Avel Note: Please also refer to the separate dictated note~for this date of service dictated separately.~Patient seen individually. Discussed the patient with Nursing staff reviewed the chart.~Reviewed interim history and current functioning. Reviewed vital signs,~Labs/ Radiology~and current medications noted below. Continue current treatment with the changes noted in the dictated addendum note Assessment: Vital Signs/I&O: Vital Signs Date Time Temp Pulse Resp B/P (MAP) Pulse Ox O2 Delivery O2 Flow Rate FiO2 11/13/20 16:27 97.3 84 16 122/84 (97) 98 11/12/20 15:00 Room Air I & O 11/12/20 11/12/20 11/13/20 15:00 23:00 07:00 Intake Total 0 ml 480 ml Balance 0 ml 480 ml Current Medications: Meds: Current Medications Medications (Trade) Dose Ordered Sig/Aline Route PRN Reason Start Time Stop Time Status Last Admin Dose Admin Acetaminophen (Tylenol) 650 mg PRN Q6HRS PRN PO MILD PAIN / TEMP > 100.3'F 10/22/20 04:00 Al Hydroxide/Mg Hydroxide (Mylanta Plus Xs) 15 ml PRN AFTMEALHC PRN PO DYSPEPSIA 10/22/20 04:00 Magnesium Hydroxide (Milk Of Magnesia) 2,400 mg PRN QHS PRN PO CONSTIPATION, 2ND CHOICE 10/22/20 04:00 11/09/20 19:52 Aripiprazole (Abilify) 5 mg DAILY PO 10/22/20 09:00 10/25/20 21:23 DC 10/25/20 08:04 Bisacodyl (Dulcolax Tab) 5 mg PRN DAILY PRN PO CONSTIPATION, 3RD CHOICE 10/22/20 04:30 Clonazepam (KlonoPIN) 0.75 mg TID PO 10/22/20 09:00 10/29/20 07:15 DC 10/28/20 20:23 Doxycycline Hyclate (Vibra-Tab) 100 mg DAILY PO 10/22/20 09:00 10/24/20 12:31 DC 10/24/20 08:26 Fluoxetine HCl (PROzac) 20 mg DAILY PO 10/22/20 09:00 10/26/20 18:43 DC 10/26/20 09:30 Guaifenesin (Robitussin) 200 mg PRN Q4HRS PRN PO COUGH 10/22/20 04:30 Levothyroxine Sodium (Synthroid) 75 mcg DAILY06 PO 10/22/20 06:00 11/13/20 05:02 Mirtazapine (Remeron) 7.5 mg QHS PO 10/22/20 21:00 10/26/20 19:28 DC 10/25/20 20:19 Multivitamins/ Calcium (Thera-M Plus) 1 tab DAILY PO 10/22/20 09:00 11/13/20 08:24 Nortriptyline HCl (Pamelor) 75 mg QHS PO 10/22/20 21:00 10/29/20 19:51 DC 10/28/20 20:22 Polyethylene Glycol (miraLAX) 17 gm PRN DAILY PRN PO CONSTIPATION, 1ST CHOICE 10/22/20 04:30 11/08/20 20:00 Psyllium Hydrophilic Mucilloid (Metamucil) 1 pkt DAILY PO 10/22/20 09:00 11/13/20 08:24 Simethicone (Gas-X) 80 mg PRN BID PRN PO GAS / BLOATING 10/22/20 04:30 11/04/20 19:56 Zolpidem Tartrate (Ambien) 2.5 mg QHS PO 10/22/20 21:00 11/13/20 19:49 Non-Formulary Medication (Budesonide (Pulmicort Flexhaler)) 2 puff BID IH 10/22/20 09:00 UNV Lactobacillus Rhamnosus (Culturelle) 1 cap TID PO 10/22/20 09:00 10/30/20 11:59 DC 10/29/20 14:00 Pantoprazole Sodium (Protonix) 40 mg DAILYAC PO 10/22/20 07:30 11/13/20 08:24 Multi-Ingredient Ointment (Analgesic [place]) 1 sherice PRN QID PRN TP MUSCLE PAIN 10/22/20 04:45 Multi-Ingredient Ointment (Analgesic [place]) 1 sherice DAILY TP 10/22/20 09:00 11/13/20 08:25 Budesonide (Pulmicort) 0.5 mg RTBID NEB 10/22/20 08:00 10/22/20 20:14 DC 10/22/20 08:00 Fluticasone Furoate (ARNUITY 100mcg ELLIPTA) 2 puff BID INH 10/22/20 21:00 10/24/20 13:23 DC 10/24/20 08:27 Docusate Sodium (Colace) 100 mg BID PO 10/24/20 21:00 11/13/20 19:47 Olanzapine (ZyPREXA) 5 mg QHS PO 10/25/20 21:30 10/26/20 18:43 DC 10/25/20 21:34 Trazodone HCl (Desyrel) 100 mg PRN QHS PRN PO INSOMNIA, MAY REPEAT X1 10/26/20 00:45 10/26/20 00:44 DC Trazodone HCl (Desyrel) 100 mg PRN QHS PRN PO INSOMNIA, MAY REPEAT X1 10/26/20 00:45 UNV Trazodone HCl (Desyrel) 100 mg PRN QHS PRN PO INSOMNIA, MAY REPEAT X1 10/26/20 00:45 10/31/20 21:42 Fluoxetine HCl (PROzac) 30 mg DAILY PO 10/27/20 09:00 10/27/20 09:09 DC Olanzapine (ZyPREXA) 7.5 mg QHS PO 10/26/20 21:00 10/27/20 18:19 DC 10/26/20 19:56 Mirtazapine (Remeron) 15 mg QHS PO 10/26/20 21:00 11/13/20 19:47 Fluoxetine HCl (PROzac) 30 mg DAILY PO 10/27/20 09:15 11/05/20 18:17 DC 11/05/20 09:03 Risperidone (RisperDAL) 0.5 mg QHS PO 10/27/20 21:00 11/01/20 14:14 DC 10/31/20 19:49 Lamotrigine (LaMICtal) 25 mg QHS PO 10/27/20 21:00 10/29/20 23:00 DC 10/29/20 19:47 Lamotrigine (LaMICtal) 50 mg QHS PO 10/30/20 21:00 11/04/20 08:00 DC 11/03/20 20:13 Clonazepam (KlonoPIN) 0.25 mg DAILY@0900 PO 10/29/20 09:00 11/05/20 17:57 DC 11/05/20 09:04 Clonazepam (KlonoPIN) 0.75 mg PRN BID PRN PO ANXIETY / AGITATION 10/29/20 07:15 10/29/20 10:02 DC Clonazepam (KlonoPIN) 0.75 mg BID@1200,1700 PO 10/29/20 12:00 11/03/20 18:10 DC 11/03/20 17:45 Fluvoxamine Maleate (Luvox) 25 mg QHS PO 10/29/20 21:00 11/01/20 21:00 DC 10/31/20 19:49 Fluvoxamine Maleate (Luvox) 50 mg QHS PO 11/01/20 21:00 11/10/20 18:04 DC 11/09/20 19:50 Risperidone (RisperDAL) 0.5 mg 1X ONCE PO 10/31/20 11:30 10/31/20 11:31 DC 10/31/20 11:36 Risperidone (RisperDAL) 0.5 mg PRN 1X PRN PO AGITATION 10/31/20 11:30 11/05/20 17:14 Lorazepam (Ativan) 0.5 mg PRN Q2HR PRN PO ANXIETY / AGITATION 10/31/20 11:15 10/31/20 22:18 Risperidone (RisperDAL) 0.75 mg QHS PO 11/01/20 21:00 11/04/20 09:00 DC 11/03/20 20:11 Lamotrigine (LaMICtal) 75 mg QHS PO 11/04/20 21:00 11/09/20 05:00 DC 11/08/20 19:58 Clonazepam (KlonoPIN) 0.5 mg 1200 PO 11/04/20 12:00 11/05/20 17:57 DC 11/05/20 11:53 Risperidone (RisperDAL) 1 mg QHS PO 11/04/20 21:00 11/05/20 17:57 DC 11/04/20 20:11 Clonazepam (KlonoPIN) 0.75 mg 1700 PO 11/04/20 17:00 11/06/20 21:00 DC 11/06/20 17:37 Clonazepam (KlonoPIN) 0.5 mg 1700 PO 11/07/20 17:00 11/13/20 17:31 Clonazepam (KlonoPIN) 0.5 mg BID PO 11/06/20 09:00 11/13/20 19:50 Risperidone (RisperDAL) 1.5 mg QHS PO 11/06/20 21:00 11/08/20 12:30 DC 11/07/20 20:29 Olanzapine (ZyPREXA ZYDIS) 5 mg QHS PO 11/07/20 21:00 11/13/20 19:47 Risperidone (RisperDAL) 2 mg QHS PO 11/09/20 21:00 11/10/20 09:00 DC 11/09/20 19:50 Risperidone (RisperDAL) 1 mg BID PO 11/08/20 12:30 11/08/20 22:30 DC 11/08/20 19:58 Lamotrigine (LaMICtal) 100 mg QHS PO 11/09/20 21:00 11/13/20 19:47 Ciprofloxacin 2 drop Q4H OS 11/09/20 17:00 11/16/20 21:00 11/13/20 19:50 Risperidone (RisperDAL) 2.5 mg QHS PO 11/10/20 21:00 11/12/20 08:00 DC 11/11/20 19:57 Fluvoxamine Maleate (Luvox) 75 mg QHS PO 11/10/20 21:00 11/12/20 23:01 DC 11/12/20 20:13 Fluvoxamine Maleate (Luvox) 100 mg QHS PO 11/13/20 21:00 11/13/20 19:49 Risperidone (RisperDAL) 1 mg DAILY PO 11/12/20 09:00 11/13/20 08:24 Risperidone (RisperDAL) 2 mg QHS PO 11/11/20 21:00 11/11/20 19:21 DC Risperidone (RisperDAL) 2 mg QHS PO 11/12/20 21:00 11/13/20 19:47 Current Medications Medications (Trade) Dose Ordered Sig/Aline Route PRN Reason Start Time Stop Time Status Last Admin Dose Admin Fluvoxamine Maleate (Luvox) 100 mg QHS PO 11/13/20 21:00 11/13/20 19:49 I have reviewed the current psychotropics carefully including drug interactions. Risk benefit ratio favors no change other than as noted in my dictated progress note. Diagnosis: Problems: (1) Bipolar disorder, current episode mixed, severe, with psychotic features (2) Major depressive disorder, recurrent episode (3) OCD (obsessive compulsive disorder) (4) Anxiety disorder, unspecified DEL GO MD Nov 13, 2020 21:03
--- NOTE | 2020-11-13 23:51 | NUR ---
Pt withdrawn to her room all evening lying awake in bed. Pt continues to refuse to speak, answering only by shaking her head yes/no. Pt appears less anxious AEB not rocking back and forth or wringing her hands together. Pt has flat, depressed affect. Compliant with whole medications and shower after much coaxing from staff.
[2020-11-14] MEDS: CIPROFLOXACIN 0.3% OPHTH SOLUTION 2.5ML BOTTLE. OS SCH ×6 (01:00→20:18)
[2020-11-14] MEDS: LEVOTHYROXINE 75 MCG TABLET PO SCH (05:29)
[2020-11-14 06:09] VITALS: BP 151/81
[2020-11-14 08:00] LABS: ALBUMIN 3.2 g/dL (3.4-5.0); ALBUMIN/GLOBULIN RATIO 0.9 (1.0-1.7); CALCIUM 8.9 mg/dL (8.5-10.1); CREATININE 0.8 mg/dL (0.6-1.0); GFR 73.4; POTASSIUM 3.6 mmol/L (3.5-5.1); TOTAL BILIRUBIN 0.2 mg/dL (0.2-1.0); TOTAL PROTEIN 6.8 g/dL (6.4-8.2)
--- NOTE | 2020-11-14 08:24 | PDOC ---
Exam Note: Avel Note: This note is a late entry for 11/13/2020 covers elements not covered in my initial note. Subjective: The patient was reviewed on telehealth rounds in the evening of 11/13/2020 with Martinez BOYLE. Discussed with nursing staff, reviewed the chart. The patient slept 5-1/2 hours previous night. Oral intake remains poor but a little more talkative, interactive with staff. We will check a chemistry profile in the morning to assess for dehydration and she gets a can of Ensure with each meal. Review of Systems: Ambulation impaired with walker. No CV, , pulmonary, eye, ENT system symptoms on review. Mental Status Exam: The patient is oriented to herself and situation. Speech moderate latency. Often response is monosyllabic. Abstraction is fair. Computation is impaired. Language function is intact. Attention span is short. Mood and affect still depressed, paranoid. No active suicidal ideation. Laboratory Data: Reviewed. Impression: Bipolar 1 disorder, depressed versus depressed with psychotic features. Anxiety disorder unspecified. OCD. Plan: No change from initial note. We will check labs in the morning. Increase Risperdal depending on her progress. Assessment: Vital Signs/I&O: Vital Signs Date Time Temp Pulse Resp B/P (MAP) Pulse Ox O2 Delivery O2 Flow Rate FiO2 11/14/20 06:09 97.1 100 16 151/81 (104) 100 Room Air I & O 11/13/20 11/13/20 11/14/20 15:00 23:00 07:00 Intake Total 120 ml 240 ml Balance 120 ml 240 ml Labs: Laboratory Tests Test 11/14/20 07:21 Sodium Level 141 mmol/L (136-145) Potassium Level 3.6 mmol/L (3.5-5.1) Chloride Level 104 mmol/L (98-107) Carbon Dioxide Level 27 mmol/L (21-32) Anion Gap 10 (6-14) Blood Urea Nitrogen 15 mg/dL (7-20) Creatinine 0.8 mg/dL (0.6-1.0) Estimated GFR (Cockcroft-Gault) 73.4 BUN/Creatinine Ratio 19 (6-20) Glucose Level 107 mg/dL (70-99) H Calcium Level 8.9 mg/dL (8.5-10.1) Total Bilirubin 0.2 mg/dL (0.2-1.0) Aspartate Amino Transferase (AST) 17 U/L (15-37) Alanine Aminotransferase (ALT) 20 U/L (14-59) Alkaline Phosphatase 94 U/L (46-116) Total Protein 6.8 g/dL (6.4-8.2) Albumin 3.2 g/dL (3.4-5.0) L Albumin/Globulin Ratio 0.9 (1.0-1.7) L Current Medications: Meds: Laboratory Tests Test 11/14/20 07:21 Sodium Level 141 mmol/L Potassium Level 3.6 mmol/L Chloride Level 104 mmol/L Carbon Dioxide Level 27 mmol/L Anion Gap 10 Blood Urea Nitrogen 15 mg/dL Creatinine 0.8 mg/dL Estimated GFR (Cockcroft-Gault) 73.4 BUN/Creatinine Ratio 19 Glucose Level 107 mg/dL Calcium Level 8.9 mg/dL Total Bilirubin 0.2 mg/dL Aspartate Amino Transf (AST/SGOT) 17 U/L Alanine Aminotransferase (ALT/SGPT) 20 U/L Alkaline Phosphatase 94 U/L Total Protein 6.8 g/dL Albumin 3.2 g/dL Albumin/Globulin Ratio 0.9 Current Medications Medications (Trade) Dose Ordered Sig/Aline Route PRN Reason Start Time Stop Time Status Last Admin Dose Admin Acetaminophen (Tylenol) 650 mg PRN Q6HRS PRN PO MILD PAIN / TEMP > 100.3'F 10/22/20 04:00 Al Hydroxide/Mg Hydroxide (Mylanta Plus Xs) 15 ml PRN AFTMEALHC PRN PO DYSPEPSIA 10/22/20 04:00 Magnesium Hydroxide (Milk Of Magnesia) 2,400 mg PRN QHS PRN PO CONSTIPATION, 2ND CHOICE 10/22/20 04:00 11/09/20 19:52 Aripiprazole (Abilify) 5 mg DAILY PO 10/22/20 09:00 10/25/20 21:23 DC 10/25/20 08:04 Bisacodyl (Dulcolax Tab) 5 mg PRN DAILY PRN PO CONSTIPATION, 3RD CHOICE 10/22/20 04:30 Clonazepam (KlonoPIN) 0.75 mg TID PO 10/22/20 09:00 10/29/20 07:15 DC 10/28/20 20:23 Doxycycline Hyclate (Vibra-Tab) 100 mg DAILY PO 10/22/20 09:00 10/24/20 12:31 DC 10/24/20 08:26 Fluoxetine HCl (PROzac) 20 mg DAILY PO 10/22/20 09:00 10/26/20 18:43 DC 10/26/20 09:30 Guaifenesin (Robitussin) 200 mg PRN Q4HRS PRN PO COUGH 10/22/20 04:30 Levothyroxine Sodium (Synthroid) 75 mcg DAILY06 PO 10/22/20 06:00 11/14/20 05:29 Mirtazapine (Remeron) 7.5 mg QHS PO 10/22/20 21:00 10/26/20 19:28 DC 10/25/20 20:19 Multivitamins/ Calcium (Thera-M Plus) 1 tab DAILY PO 10/22/20 09:00 11/13/20 08:24 Nortriptyline HCl (Pamelor) 75 mg QHS PO 10/22/20 21:00 10/29/20 19:51 DC 10/28/20 20:22 Polyethylene Glycol (miraLAX) 17 gm PRN DAILY PRN PO CONSTIPATION, 1ST CHOICE 10/22/20 04:30 11/08/20 20:00 Psyllium Hydrophilic Mucilloid (Metamucil) 1 pkt DAILY PO 10/22/20 09:00 11/13/20 08:24 Simethicone (Gas-X) 80 mg PRN BID PRN PO GAS / BLOATING 10/22/20 04:30 11/04/20 19:56 Zolpidem Tartrate (Ambien) 2.5 mg QHS PO 10/22/20 21:00 11/13/20 19:49 Non-Formulary Medication (Budesonide (Pulmicort Flexhaler)) 2 puff BID IH 10/22/20 09:00 UNV Lactobacillus Rhamnosus (Culturelle) 1 cap TID PO 10/22/20 09:00 10/30/20 11:59 DC 10/29/20 14:00 Pantoprazole Sodium (Protonix) 40 mg DAILYAC PO 10/22/20 07:30 11/13/20 08:24 Multi-Ingredient Ointment (Analgesic [place]) 1 sherice PRN QID PRN TP MUSCLE PAIN 10/22/20 04:45 Multi-Ingredient Ointment (Analgesic [place]) 1 sherice DAILY TP 10/22/20 09:00 11/13/20 08:25 Budesonide (Pulmicort) 0.5 mg RTBID NEB 10/22/20 08:00 10/22/20 20:14 DC 10/22/20 08:00 Fluticasone Furoate (ARNUITY 100mcg ELLIPTA) 2 puff BID INH 10/22/20 21:00 10/24/20 13:23 DC 10/24/20 08:27 Docusate Sodium (Colace) 100 mg BID PO 10/24/20 21:00 11/13/20 19:47 Olanzapine (ZyPREXA) 5 mg QHS PO 10/25/20 21:30 10/26/20 18:43 DC 10/25/20 21:34 Trazodone HCl (Desyrel) 100 mg PRN QHS PRN PO INSOMNIA, MAY REPEAT X1 10/26/20 00:45 10/26/20 00:44 DC Trazodone HCl (Desyrel) 100 mg PRN QHS PRN PO INSOMNIA, MAY REPEAT X1 10/26/20 00:45 UNV Trazodone HCl (Desyrel) 100 mg PRN QHS PRN PO INSOMNIA, MAY REPEAT X1 10/26/20 00:45 10/31/20 21:42 Fluoxetine HCl (PROzac) 30 mg DAILY PO 10/27/20 09:00 10/27/20 09:09 DC Olanzapine (ZyPREXA) 7.5 mg QHS PO 10/26/20 21:00 10/27/20 18:19 DC 10/26/20 19:56 Mirtazapine (Remeron) 15 mg QHS PO 10/26/20 21:00 11/13/20 19:47 Fluoxetine HCl (PROzac) 30 mg DAILY PO 10/27/20 09:15 11/05/20 18:17 DC 11/05/20 09:03 Risperidone (RisperDAL) 0.5 mg QHS PO 10/27/20 21:00 11/01/20 14:14 DC 10/31/20 19:49 Lamotrigine (LaMICtal) 25 mg QHS PO 10/27/20 21:00 10/29/20 23:00 DC 10/29/20 19:47 Lamotrigine (LaMICtal) 50 mg QHS PO 10/30/20 21:00 11/04/20 08:00 DC 11/03/20 20:13 Clonazepam (KlonoPIN) 0.25 mg DAILY@0900 PO 10/29/20 09:00 11/05/20 17:57 DC 11/05/20 09:04 Clonazepam (KlonoPIN) 0.75 mg PRN BID PRN PO ANXIETY / AGITATION 10/29/20 07:15 10/29/20 10:02 DC Clonazepam (KlonoPIN) 0.75 mg BID@1200,1700 PO 10/29/20 12:00 11/03/20 18:10 DC 11/03/20 17:45 Fluvoxamine Maleate (Luvox) 25 mg QHS PO 10/29/20 21:00 11/01/20 21:00 DC 10/31/20 19:49 Fluvoxamine Maleate (Luvox) 50 mg QHS PO 11/01/20 21:00 11/10/20 18:04 DC 11/09/20 19:50 Risperidone (RisperDAL) 0.5 mg 1X ONCE PO 10/31/20 11:30 10/31/20 11:31 DC 10/31/20 11:36 Risperidone (RisperDAL) 0.5 mg PRN 1X PRN PO AGITATION 10/31/20 11:30 11/05/20 17:14 Lorazepam (Ativan) 0.5 mg PRN Q2HR PRN PO ANXIETY / AGITATION 10/31/20 11:15 10/31/20 22:18 Risperidone (RisperDAL) 0.75 mg QHS PO 11/01/20 21:00 11/04/20 09:00 DC 11/03/20 20:11 Lamotrigine (LaMICtal) 75 mg QHS PO 11/04/20 21:00 11/09/20 05:00 DC 11/08/20 19:58 Clonazepam (KlonoPIN) 0.5 mg 1200 PO 11/04/20 12:00 11/05/20 17:57 DC 11/05/20 11:53 Risperidone (RisperDAL) 1 mg QHS PO 11/04/20 21:00 11/05/20 17:57 DC 11/04/20 20:11 Clonazepam (KlonoPIN) 0.75 mg 1700 PO 11/04/20 17:00 11/06/20 21:00 DC 11/06/20 17:37 Clonazepam (KlonoPIN) 0.5 mg 1700 PO 11/07/20 17:00 11/13/20 17:31 Clonazepam (KlonoPIN) 0.5 mg BID PO 11/06/20 09:00 11/13/20 19:50 Risperidone (RisperDAL) 1.5 mg QHS PO 11/06/20 21:00 11/08/20 12:30 DC 11/07/20 20:29 Olanzapine (ZyPREXA ZYDIS) 5 mg QHS PO 11/07/20 21:00 11/13/20 19:47 Risperidone (RisperDAL) 2 mg QHS PO 11/09/20 21:00 11/10/20 09:00 DC 11/09/20 19:50 Risperidone (RisperDAL) 1 mg BID PO 11/08/20 12:30 11/08/20 22:30 DC 11/08/20 19:58 Lamotrigine (LaMICtal) 100 mg QHS PO 11/09/20 21:00 11/13/20 19:47 Ciprofloxacin 2 drop Q4H OS 11/09/20 17:00 11/16/20 21:00 11/14/20 05:28 Risperidone (RisperDAL) 2.5 mg QHS PO 11/10/20 21:00 11/12/20 08:00 DC 11/11/20 19:57 Fluvoxamine Maleate (Luvox) 75 mg QHS PO 11/10/20 21:00 11/12/20 23:01 DC 11/12/20 20:13 Fluvoxamine Maleate (Luvox) 100 mg QHS PO 11/13/20 21:00 11/13/20 19:49 Risperidone (RisperDAL) 1 mg DAILY PO 11/12/20 09:00 11/13/20 08:24 Risperidone (RisperDAL) 2 mg QHS PO 11/11/20 21:00 11/11/20 19:21 DC Risperidone (RisperDAL) 2 mg QHS PO 11/12/20 21:00 11/13/20 19:47 Current Medications Medications (Trade) Dose Ordered Sig/Aline Route PRN Reason Start Time Stop Time Status Last Admin Dose Admin Fluvoxamine Maleate (Luvox) 100 mg QHS PO 11/13/20 21:00 11/13/20 19:49 I have reviewed the current psychotropics carefully including drug interactions. Risk benefit ratio favors no change other than as noted in my dictated progress note. Diagnosis: Problems: (1) OCD (obsessive compulsive disorder) (2) Major depressive disorder, recurrent episode (3) Anxiety disorder, unspecified DEL GO MD Nov 14, 2020 08:24
[2020-11-14] MEDS: PANTOPRAZOLE 40 MG TABLET. PO SCH (08:32)
[2020-11-14] MEDS: METHYL SALICYLATE/MENTHOL TOPICAL OINTMENT 57GM TUBE. TP SCH (08:33)
[2020-11-14] MEDS: clonazePAM 0.5 MG TABLET PO SCH ×3 (08:33→20:17)
[2020-11-14] MEDS: DOCUSATE SODIUM 100 MG CAPSULE PO SCH ×2 (08:33→20:15)
[2020-11-14] MEDS: MULTIVITAMIN with MINERAL TABLET. PO SCH (08:33)
[2020-11-14] MEDS: risperiDONE 1 MG TABLET. PO SCH (08:33)
[2020-11-14] MEDS: PSYLLIUM SEED (WITH SUGAR) PACKET. PO SCH (08:33)
--- NOTE | 2020-11-14 09:35 | NUR ---
Patient unwilling to speak with this staff member this morning. Patient encouraged to express her needs. Patient encouraged to walk with staff member at lunch
[2020-11-14 11:07] LABS: BASO % 1 % (0-3); EOS # 0.1 x10^3/uL (0.0-0.7); EOS % 1 % (0-3); HEMATOCRIT 39.1 % (36.0-47.0); HEMOGLOBIN 12.5 g/dL (12.0-15.5); LYMPH # 1.2 x10^3/uL (1.0-4.8); LYMPH % 26 % (24-48); MEAN CORPUSCULAR HEMOGLOBIN 29 pg (25-35); MEAN CORPUSCULAR HGB CONC 32 g/dL (31-37); MEAN CORPUSCULAR VOLUME 92 fL (79-100); MONO # 0.3 x10^3/uL (0.0-1.1); MONO % 7 % (0-9); NEUT # 2.8 x10^3uL (1.8-7.7); NEUT % 64 % (31-73); PLATELET COUNT 225 x10^3/uL (140-400); RED BLOOD COUNT 4.26 x10^6/uL (3.50-5.40); RED CELL DISTRIBUTION WIDTH 13.8 % (11.5-14.5); WHITE BLOOD COUNT 4.4 x10^3/uL (4.0-11.0)
[2020-11-14 16:05] VITALS: BP 118/74
[2020-11-14] MEDS: risperiDONE 2 MG TABLET. PO SCH (20:16)
[2020-11-14] MEDS: MIRTAZAPINE 15 MG TABLET PO SCH (20:16)
[2020-11-14] MEDS: lamoTRIgine 100 MG TABLET. PO SCH (20:16)
[2020-11-14] MEDS: ZOLPIDEM 5 MG TABLET. PO SCH (20:18)
--- NOTE | 2020-11-14 21:03 | PDOC ---
Exam Note: Avel Note: Please also refer to the separate dictated note~for this date of service dictated separately.~Patient seen individually. Discussed the patient with Nursing staff reviewed the chart.~Reviewed interim history and current functioning. Reviewed vital signs,~Labs/ Radiology~and current medications noted below. Continue current treatment with the changes noted in the dictated addendum note Assessment: Vital Signs/I&O: Vital Signs Date Time Temp Pulse Resp B/P (MAP) Pulse Ox O2 Delivery O2 Flow Rate FiO2 11/14/20 16:05 97.7 92 16 118/74 (89) 98 11/14/20 06:09 Room Air I & O 11/13/20 11/13/20 11/14/20 15:00 23:00 07:00 Intake Total 120 ml 240 ml Balance 120 ml 240 ml Labs: Laboratory Tests Test 11/14/20 07:21 White Blood Count 4.4 x10^3/uL (4.0-11.0) Red Blood Count 4.26 x10^6/uL (3.50-5.40) Hemoglobin 12.5 g/dL (12.0-15.5) Hematocrit 39.1 % (36.0-47.0) Mean Corpuscular Volume 92 fL (79-100) Mean Corpuscular Hemoglobin 29 pg (25-35) Mean Corpuscular Hemoglobin Concent 32 g/dL (31-37) Red Cell Distribution Width 13.8 % (11.5-14.5) Platelet Count 225 x10^3/uL (140-400) Neutrophils (%) (Auto) 64 % (31-73) Lymphocytes (%) (Auto) 26 % (24-48) Monocytes (%) (Auto) 7 % (0-9) Eosinophils (%) (Auto) 1 % (0-3) Basophils (%) (Auto) 1 % (0-3) Neutrophils # (Auto) 2.8 x10^3uL (1.8-7.7) Lymphocytes # (Auto) 1.2 x10^3/uL (1.0-4.8) Monocytes # (Auto) 0.3 x10^3/uL (0.0-1.1) Eosinophils # (Auto) 0.1 x10^3/uL (0.0-0.7) Basophils # (Auto) 0.0 x10^3/uL (0.0-0.2) Sodium Level 141 mmol/L (136-145) Potassium Level 3.6 mmol/L (3.5-5.1) Chloride Level 104 mmol/L (98-107) Carbon Dioxide Level 27 mmol/L (21-32) Anion Gap 10 (6-14) Blood Urea Nitrogen 15 mg/dL (7-20) Creatinine 0.8 mg/dL (0.6-1.0) Estimated GFR (Cockcroft-Gault) 73.4 BUN/Creatinine Ratio 19 (6-20) Glucose Level 107 mg/dL (70-99) H Calcium Level 8.9 mg/dL (8.5-10.1) Total Bilirubin 0.2 mg/dL (0.2-1.0) Aspartate Amino Transferase (AST) 17 U/L (15-37) Alanine Aminotransferase (ALT) 20 U/L (14-59) Alkaline Phosphatase 94 U/L (46-116) Total Protein 6.8 g/dL (6.4-8.2) Albumin 3.2 g/dL (3.4-5.0) L Albumin/Globulin Ratio 0.9 (1.0-1.7) L Current Medications: Meds: Laboratory Tests Test 11/14/20 07:21 White Blood Count 4.4 x10^3/uL Red Blood Count 4.26 x10^6/uL Hemoglobin 12.5 g/dL Hematocrit 39.1 % Mean Corpuscular Volume 92 fL Mean Corpuscular Hemoglobin 29 pg Mean Corpuscular Hemoglobin Concent 32 g/dL Red Cell Distribution Width 13.8 % Platelet Count 225 x10^3/uL Neutrophils (%) (Auto) 64 % Lymphocytes (%) (Auto) 26 % Monocytes (%) (Auto) 7 % Eosinophils (%) (Auto) 1 % Basophils (%) (Auto) 1 % Neutrophils # (Auto) 2.8 x10^3uL Lymphocytes # (Auto) 1.2 x10^3/uL Monocytes # (Auto) 0.3 x10^3/uL Eosinophils # (Auto) 0.1 x10^3/uL Basophils # (Auto) 0.0 x10^3/uL Sodium Level 141 mmol/L Potassium Level 3.6 mmol/L Chloride Level 104 mmol/L Carbon Dioxide Level 27 mmol/L Anion Gap 10 Blood Urea Nitrogen 15 mg/dL Creatinine 0.8 mg/dL Estimated GFR (Cockcroft-Gault) 73.4 BUN/Creatinine Ratio 19 Glucose Level 107 mg/dL Calcium Level 8.9 mg/dL Total Bilirubin 0.2 mg/dL Aspartate Amino Transf (AST/SGOT) 17 U/L Alanine Aminotransferase (ALT/SGPT) 20 U/L Alkaline Phosphatase 94 U/L Total Protein 6.8 g/dL Albumin 3.2 g/dL Albumin/Globulin Ratio 0.9 Current Medications Medications (Trade) Dose Ordered Sig/Aline Route PRN Reason Start Time Stop Time Status Last Admin Dose Admin Acetaminophen (Tylenol) 650 mg PRN Q6HRS PRN PO MILD PAIN / TEMP > 100.3'F 10/22/20 04:00 Al Hydroxide/Mg Hydroxide (Mylanta Plus Xs) 15 ml PRN AFTMEALHC PRN PO DYSPEPSIA 10/22/20 04:00 Magnesium Hydroxide (Milk Of Magnesia) 2,400 mg PRN QHS PRN PO CONSTIPATION, 2ND CHOICE 10/22/20 04:00 11/09/20 19:52 Aripiprazole (Abilify) 5 mg DAILY PO 10/22/20 09:00 10/25/20 21:23 DC 10/25/20 08:04 Bisacodyl (Dulcolax Tab) 5 mg PRN DAILY PRN PO CONSTIPATION, 3RD CHOICE 10/22/20 04:30 Clonazepam (KlonoPIN) 0.75 mg TID PO 10/22/20 09:00 10/29/20 07:15 DC 10/28/20 20:23 Doxycycline Hyclate (Vibra-Tab) 100 mg DAILY PO 10/22/20 09:00 10/24/20 12:31 DC 10/24/20 08:26 Fluoxetine HCl (PROzac) 20 mg DAILY PO 10/22/20 09:00 10/26/20 18:43 DC 10/26/20 09:30 Guaifenesin (Robitussin) 200 mg PRN Q4HRS PRN PO COUGH 10/22/20 04:30 Levothyroxine Sodium (Synthroid) 75 mcg DAILY06 PO 10/22/20 06:00 11/14/20 05:29 Mirtazapine (Remeron) 7.5 mg QHS PO 10/22/20 21:00 10/26/20 19:28 DC 10/25/20 20:19 Multivitamins/ Calcium (Thera-M Plus) 1 tab DAILY PO 10/22/20 09:00 11/14/20 08:33 Nortriptyline HCl (Pamelor) 75 mg QHS PO 10/22/20 21:00 10/29/20 19:51 DC 10/28/20 20:22 Polyethylene Glycol (miraLAX) 17 gm PRN DAILY PRN PO CONSTIPATION, 1ST CHOICE 10/22/20 04:30 11/08/20 20:00 Psyllium Hydrophilic Mucilloid (Metamucil) 1 pkt DAILY PO 10/22/20 09:00 11/14/20 08:33 Simethicone (Gas-X) 80 mg PRN BID PRN PO GAS / BLOATING 10/22/20 04:30 11/04/20 19:56 Zolpidem Tartrate (Ambien) 2.5 mg QHS PO 10/22/20 21:00 11/14/20 20:18 Non-Formulary Medication (Budesonide (Pulmicort Flexhaler)) 2 puff BID IH 10/22/20 09:00 UNV Lactobacillus Rhamnosus (Culturelle) 1 cap TID PO 10/22/20 09:00 10/30/20 11:59 DC 10/29/20 14:00 Pantoprazole Sodium (Protonix) 40 mg DAILYAC PO 10/22/20 07:30 11/14/20 08:32 Multi-Ingredient Ointment (Analgesic [place]) 1 sherice PRN QID PRN TP MUSCLE PAIN 10/22/20 04:45 Multi-Ingredient Ointment (Analgesic [place]) 1 sherice DAILY TP 10/22/20 09:00 11/14/20 08:33 Budesonide (Pulmicort) 0.5 mg RTBID NEB 10/22/20 08:00 10/22/20 20:14 DC 10/22/20 08:00 Fluticasone Furoate (ARNUITY 100mcg ELLIPTA) 2 puff BID INH 10/22/20 21:00 10/24/20 13:23 DC 10/24/20 08:27 Docusate Sodium (Colace) 100 mg BID PO 10/24/20 21:00 11/14/20 20:15 Olanzapine (ZyPREXA) 5 mg QHS PO 10/25/20 21:30 10/26/20 18:43 DC 10/25/20 21:34 Trazodone HCl (Desyrel) 100 mg PRN QHS PRN PO INSOMNIA, MAY REPEAT X1 10/26/20 00:45 10/26/20 00:44 DC Trazodone HCl (Desyrel) 100 mg PRN QHS PRN PO INSOMNIA, MAY REPEAT X1 10/26/20 00:45 UNV Trazodone HCl (Desyrel) 100 mg PRN QHS PRN PO INSOMNIA, MAY REPEAT X1 10/26/20 00:45 10/31/20 21:42 Fluoxetine HCl (PROzac) 30 mg DAILY PO 10/27/20 09:00 10/27/20 09:09 DC Olanzapine (ZyPREXA) 7.5 mg QHS PO 10/26/20 21:00 10/27/20 18:19 DC 10/26/20 19:56 Mirtazapine (Remeron) 15 mg QHS PO 10/26/20 21:00 11/14/20 20:16 Fluoxetine HCl (PROzac) 30 mg DAILY PO 10/27/20 09:15 11/05/20 18:17 DC 11/05/20 09:03 Risperidone (RisperDAL) 0.5 mg QHS PO 10/27/20 21:00 11/01/20 14:14 DC 10/31/20 19:49 Lamotrigine (LaMICtal) 25 mg QHS PO 10/27/20 21:00 10/29/20 23:00 DC 10/29/20 19:47 Lamotrigine (LaMICtal) 50 mg QHS PO 10/30/20 21:00 11/04/20 08:00 DC 11/03/20 20:13 Clonazepam (KlonoPIN) 0.25 mg DAILY@0900 PO 10/29/20 09:00 11/05/20 17:57 DC 11/05/20 09:04 Clonazepam (KlonoPIN) 0.75 mg PRN BID PRN PO ANXIETY / AGITATION 10/29/20 07:15 10/29/20 10:02 DC Clonazepam (KlonoPIN) 0.75 mg BID@1200,1700 PO 10/29/20 12:00 11/03/20 18:10 DC 11/03/20 17:45 Fluvoxamine Maleate (Luvox) 25 mg QHS PO 10/29/20 21:00 11/01/20 21:00 DC 10/31/20 19:49 Fluvoxamine Maleate (Luvox) 50 mg QHS PO 11/01/20 21:00 11/10/20 18:04 DC 11/09/20 19:50 Risperidone (RisperDAL) 0.5 mg 1X ONCE PO 10/31/20 11:30 10/31/20 11:31 DC 10/31/20 11:36 Risperidone (RisperDAL) 0.5 mg PRN 1X PRN PO AGITATION 10/31/20 11:30 11/05/20 17:14 Lorazepam (Ativan) 0.5 mg PRN Q2HR PRN PO ANXIETY / AGITATION 10/31/20 11:15 10/31/20 22:18 Risperidone (RisperDAL) 0.75 mg QHS PO 11/01/20 21:00 11/04/20 09:00 DC 11/03/20 20:11 Lamotrigine (LaMICtal) 75 mg QHS PO 11/04/20 21:00 11/09/20 05:00 DC 11/08/20 19:58 Clonazepam (KlonoPIN) 0.5 mg 1200 PO 11/04/20 12:00 11/05/20 17:57 DC 11/05/20 11:53 Risperidone (RisperDAL) 1 mg QHS PO 11/04/20 21:00 11/05/20 17:57 DC 11/04/20 20:11 Clonazepam (KlonoPIN) 0.75 mg 1700 PO 11/04/20 17:00 11/06/20 21:00 DC 11/06/20 17:37 Clonazepam (KlonoPIN) 0.5 mg 1700 PO 11/07/20 17:00 11/14/20 16:54 Clonazepam (KlonoPIN) 0.5 mg BID PO 11/06/20 09:00 11/14/20 20:17 Risperidone (RisperDAL) 1.5 mg QHS PO 11/06/20 21:00 11/08/20 12:30 DC 11/07/20 20:29 Olanzapine (ZyPREXA ZYDIS) 5 mg QHS PO 11/07/20 21:00 11/14/20 20:16 Risperidone (RisperDAL) 2 mg QHS PO 11/09/20 21:00 11/10/20 09:00 DC 11/09/20 19:50 Risperidone (RisperDAL) 1 mg BID PO 11/08/20 12:30 11/08/20 22:30 DC 11/08/20 19:58 Lamotrigine (LaMICtal) 100 mg QHS PO 11/09/20 21:00 11/14/20 20:16 Ciprofloxacin 2 drop Q4H OS 11/09/20 17:00 11/16/20 21:00 11/14/20 20:18 Risperidone (RisperDAL) 2.5 mg QHS PO 11/10/20 21:00 11/12/20 08:00 DC 11/11/20 19:57 Fluvoxamine Maleate (Luvox) 75 mg QHS PO 11/10/20 21:00 11/12/20 23:01 DC 11/12/20 20:13 Fluvoxamine Maleate (Luvox) 100 mg QHS PO 11/13/20 21:00 11/14/20 20:16 Risperidone (RisperDAL) 1 mg DAILY PO 11/12/20 09:00 11/14/20 08:33 Risperidone (RisperDAL) 2 mg QHS PO 11/11/20 21:00 11/11/20 19:21 DC Risperidone (RisperDAL) 2 mg QHS PO 11/12/20 21:00 11/14/20 17:32 DC 11/13/20 19:47 Risperidone (RisperDAL) 2.5 mg QHS PO 11/14/20 21:00 11/14/20 20:16 Current Medications Medications (Trade) Dose Ordered Sig/Aline Route PRN Reason Start Time Stop Time Status Last Admin Dose Admin Risperidone (RisperDAL) 2.5 mg QHS PO 11/14/20 21:00 11/14/20 20:16 I have reviewed the current psychotropics carefully including drug interactions. Risk benefit ratio favors no change other than as noted in my dictated progress note. Diagnosis: Problems: (1) OCD (obsessive compulsive disorder) (2) Major depressive disorder, recurrent episode (3) Anxiety disorder, unspecified (4) Bipolar disorder, current episode depressed, severe, with psychotic features DEL GO MD Nov 14, 2020 21:03
--- NOTE | 2020-11-14 22:34 | NUR ---
Pt withdrawn to her room all evening. When approached with HS medications, pt stated "please no." Pt eventually compliant with whole medications after discussion with RN. Pt refused HS snack.
[2020-11-15] MEDS: CIPROFLOXACIN 0.3% OPHTH SOLUTION 2.5ML BOTTLE. OS SCH ×6 (01:00→20:47)
[2020-11-15] MEDS: LEVOTHYROXINE 75 MCG TABLET PO SCH (05:42)
[2020-11-15 05:48] VITALS: BP 141/89
[2020-11-15] MEDS: PANTOPRAZOLE 40 MG TABLET. PO SCH (07:35)
[2020-11-15] MEDS: MULTIVITAMIN with MINERAL TABLET. PO SCH (07:35)
[2020-11-15] MEDS: PSYLLIUM SEED (WITH SUGAR) PACKET. PO SCH (07:35)
[2020-11-15] MEDS: risperiDONE 1 MG TABLET. PO SCH (07:35)
[2020-11-15] MEDS: DOCUSATE SODIUM 100 MG CAPSULE PO SCH ×2 (07:35→20:46)
[2020-11-15] MEDS: METHYL SALICYLATE/MENTHOL TOPICAL OINTMENT 57GM TUBE. TP SCH (07:36)
[2020-11-15] MEDS: clonazePAM 0.5 MG TABLET PO SCH ×3 (07:37→20:46)
--- NOTE | 2020-11-15 07:48 | PDOC ---
Exam Note: Avel Note: This note is a late entry for 11/14/2020 covers elements not covered in my initial note. Subjective: The patient was reviewed on telehealth rounds in the evening of 11/14/2020 with Martinez BOYLE. Discussed with nursing staff, reviewed the chart. The patient slept 7 hours previous night. Her appetite remains poor. She ate two bites for lunch. She has been drinking the Ensure. Review of Systems: Positive for tiredness. Ambulation impaired with walker. No CV, , pulmonary, eye, ENT system symptoms on review. Mental Status Exam: The patient is oriented reasonably. Speech moderate latency. Often response is monosyllabic. As I questioned the patient on telehealth rounds she stated nothing can save her. She is already . She appeared quite psychotic, delusional but was attempting to eat her dinner. Abstraction is fair. Computation is impaired. Language function is intact. Attention span is short. Mood and affect still depressed, paranoid. No active suicidal ideation. Laboratory Data: Reviewed. Impression: Bipolar 1 disorder, depressed versus depressed with psychotic features. Anxiety disorder unspecified. OCD. Plan: The patient is currently on Risperdal 3 mg a day. We will increase to 3.5 mg a day. Continue Klonopin, Ambien, Remeron, trazodone, Luvox along with Ativan p.r.n., Zyprexa scheduled at current dosage. Adjust as clinically indicated. Assessment: Vital Signs/I&O: Vital Signs Date Time Temp Pulse Resp B/P (MAP) Pulse Ox O2 Delivery O2 Flow Rate FiO2 11/15/20 07:24 99.8 11/15/20 05:48 80 16 141/89 (106) 98 11/14/20 06:09 Room Air I & O 11/14/20 11/14/20 11/15/20 15:00 23:00 07:00 Intake Total 480 ml 0 ml Balance 480 ml 0 ml Current Medications: Meds: Current Medications Medications (Trade) Dose Ordered Sig/Aline Route PRN Reason Start Time Stop Time Status Last Admin Dose Admin Acetaminophen (Tylenol) 650 mg PRN Q6HRS PRN PO MILD PAIN / TEMP > 100.3'F 10/22/20 04:00 Al Hydroxide/Mg Hydroxide (Mylanta Plus Xs) 15 ml PRN AFTMEALHC PRN PO DYSPEPSIA 12/18/20 04:00 Magnesium Hydroxide (Milk Of Magnesia) 2,400 mg PRN QHS PRN PO CONSTIPATION, 2ND CHOICE 10/22/20 04:00 11/09/20 19:52 Aripiprazole (Abilify) 5 mg DAILY PO 10/22/20 09:00 10/25/20 21:23 DC 10/25/20 08:04 Bisacodyl (Dulcolax Tab) 5 mg PRN DAILY PRN PO CONSTIPATION, 3RD CHOICE 10/22/20 04:30 Clonazepam (KlonoPIN) 0.75 mg TID PO 10/22/20 09:00 10/29/20 07:15 DC 10/28/20 20:23 Doxycycline Hyclate (Vibra-Tab) 100 mg DAILY PO 10/22/20 09:00 10/24/20 12:31 DC 10/24/20 08:26 Fluoxetine HCl (PROzac) 20 mg DAILY PO 10/22/20 09:00 10/26/20 18:43 DC 10/26/20 09:30 Guaifenesin (Robitussin) 200 mg PRN Q4HRS PRN PO COUGH 10/22/20 04:30 Levothyroxine Sodium (Synthroid) 75 mcg DAILY06 PO 10/22/20 06:00 11/15/20 05:42 Mirtazapine (Remeron) 7.5 mg QHS PO 10/22/20 21:00 10/26/20 19:28 DC 10/25/20 20:19 Multivitamins/ Calcium (Thera-M Plus) 1 tab DAILY PO 10/22/20 09:00 11/15/20 07:35 Nortriptyline HCl (Pamelor) 75 mg QHS PO 10/22/20 21:00 10/29/20 19:51 DC 10/28/20 20:22 Polyethylene Glycol (miraLAX) 17 gm PRN DAILY PRN PO CONSTIPATION, 1ST CHOICE 10/22/20 04:30 11/08/20 20:00 Psyllium Hydrophilic Mucilloid (Metamucil) 1 pkt DAILY PO 10/22/20 09:00 11/15/20 07:35 Simethicone (Gas-X) 80 mg PRN BID PRN PO GAS / BLOATING 10/22/20 04:30 11/04/20 19:56 Zolpidem Tartrate (Ambien) 2.5 mg QHS PO 10/22/20 21:00 11/14/20 20:18 Non-Formulary Medication (Budesonide (Pulmicort Flexhaler)) 2 puff BID IH 10/22/20 09:00 UNV Lactobacillus Rhamnosus (Culturelle) 1 cap TID PO 10/22/20 09:00 10/30/20 11:59 DC 10/29/20 14:00 Pantoprazole Sodium (Protonix) 40 mg DAILYAC PO 10/22/20 07:30 11/15/20 07:35 Multi-Ingredient Ointment (Analgesic [place]) 1 sherice PRN QID PRN TP MUSCLE PAIN 10/22/20 04:45 Multi-Ingredient Ointment (Analgesic [place]) 1 sherice DAILY TP 10/22/20 09:00 11/15/20 07:36 Budesonide (Pulmicort) 0.5 mg RTBID NEB 10/22/20 08:00 10/22/20 20:14 DC 10/22/20 08:00 Fluticasone Furoate (ARNUITY 100mcg ELLIPTA) 2 puff BID INH 10/22/20 21:00 10/24/20 13:23 DC 10/24/20 08:27 Docusate Sodium (Colace) 100 mg BID PO 10/24/20 21:00 11/15/20 07:35 Olanzapine (ZyPREXA) 5 mg QHS PO 10/25/20 21:30 10/26/20 18:43 DC 10/25/20 21:34 Trazodone HCl (Desyrel) 100 mg PRN QHS PRN PO INSOMNIA, MAY REPEAT X1 10/26/20 00:45 10/26/20 00:44 DC Trazodone HCl (Desyrel) 100 mg PRN QHS PRN PO INSOMNIA, MAY REPEAT X1 10/26/20 00:45 UNV Trazodone HCl (Desyrel) 100 mg PRN QHS PRN PO INSOMNIA, MAY REPEAT X1 10/26/20 00:45 10/31/20 21:42 Fluoxetine HCl (PROzac) 30 mg DAILY PO 10/27/20 09:00 10/27/20 09:09 DC Olanzapine (ZyPREXA) 7.5 mg QHS PO 10/26/20 21:00 10/27/20 18:19 DC 10/26/20 19:56 Mirtazapine (Remeron) 15 mg QHS PO 10/26/20 21:00 11/14/20 20:16 Fluoxetine HCl (PROzac) 30 mg DAILY PO 10/27/20 09:15 11/05/20 18:17 DC 11/05/20 09:03 Risperidone (RisperDAL) 0.5 mg QHS PO 10/27/20 21:00 11/01/20 14:14 DC 10/31/20 19:49 Lamotrigine (LaMICtal) 25 mg QHS PO 10/27/20 21:00 10/29/20 23:00 DC 10/29/20 19:47 Lamotrigine (LaMICtal) 50 mg QHS PO 10/30/20 21:00 11/04/20 08:00 DC 11/03/20 20:13 Clonazepam (KlonoPIN) 0.25 mg DAILY@0900 PO 10/29/20 09:00 11/05/20 17:57 DC 11/05/20 09:04 Clonazepam (KlonoPIN) 0.75 mg PRN BID PRN PO ANXIETY / AGITATION 10/29/20 07:15 10/29/20 10:02 DC Clonazepam (KlonoPIN) 0.75 mg BID@1200,1700 PO 10/29/20 12:00 11/03/20 18:10 DC 11/03/20 17:45 Fluvoxamine Maleate (Luvox) 25 mg QHS PO 10/29/20 21:00 11/01/20 21:00 DC 10/31/20 19:49 Fluvoxamine Maleate (Luvox) 50 mg QHS PO 11/01/20 21:00 11/10/20 18:04 DC 11/09/20 19:50 Risperidone (RisperDAL) 0.5 mg 1X ONCE PO 10/31/20 11:30 10/31/20 11:31 DC 10/31/20 11:36 Risperidone (RisperDAL) 0.5 mg PRN 1X PRN PO AGITATION 10/31/20 11:30 11/05/20 17:14 Lorazepam (Ativan) 0.5 mg PRN Q2HR PRN PO ANXIETY / AGITATION 10/31/20 11:15 10/31/20 22:18 Risperidone (RisperDAL) 0.75 mg QHS PO 11/01/20 21:00 11/04/20 09:00 DC 11/03/20 20:11 Lamotrigine (LaMICtal) 75 mg QHS PO 11/04/20 21:00 11/09/20 05:00 DC 11/08/20 19:58 Clonazepam (KlonoPIN) 0.5 mg 1200 PO 11/04/20 12:00 11/05/20 17:57 DC 11/05/20 11:53 Risperidone (RisperDAL) 1 mg QHS PO 11/04/20 21:00 11/05/20 17:57 DC 11/04/20 20:11 Clonazepam (KlonoPIN) 0.75 mg 1700 PO 11/04/20 17:00 11/06/20 21:00 DC 11/06/20 17:37 Clonazepam (KlonoPIN) 0.5 mg 1700 PO 11/07/20 17:00 11/14/20 16:54 Clonazepam (KlonoPIN) 0.5 mg BID PO 11/06/20 09:00 11/15/20 07:37 Risperidone (RisperDAL) 1.5 mg QHS PO 11/06/20 21:00 11/08/20 12:30 DC 11/07/20 20:29 Olanzapine (ZyPREXA ZYDIS) 5 mg QHS PO 11/07/20 21:00 11/14/20 20:16 Risperidone (RisperDAL) 2 mg QHS PO 11/09/20 21:00 11/10/20 09:00 DC 11/09/20 19:50 Risperidone (RisperDAL) 1 mg BID PO 11/08/20 12:30 11/08/20 22:30 DC 11/08/20 19:58 Lamotrigine (LaMICtal) 100 mg QHS PO 11/09/20 21:00 11/14/20 20:16 Ciprofloxacin 2 drop Q4H OS 11/09/20 17:00 11/16/20 21:00 11/15/20 07:35 Risperidone (RisperDAL) 2.5 mg QHS PO 11/10/20 21:00 11/12/20 08:00 DC 11/11/20 19:57 Fluvoxamine Maleate (Luvox) 75 mg QHS PO 11/10/20 21:00 11/12/20 23:01 DC 11/12/20 20:13 Fluvoxamine Maleate (Luvox) 100 mg QHS PO 11/13/20 21:00 11/14/20 20:16 Risperidone (RisperDAL) 1 mg DAILY PO 11/12/20 09:00 11/15/20 07:35 Risperidone (RisperDAL) 2 mg QHS PO 11/11/20 21:00 11/11/20 19:21 DC Risperidone (RisperDAL) 2 mg QHS PO 11/12/20 21:00 11/14/20 17:32 DC 11/13/20 19:47 Risperidone (RisperDAL) 2.5 mg QHS PO 11/14/20 21:00 11/14/20 20:16 Current Medications Medications (Trade) Dose Ordered Sig/Aline Route PRN Reason Start Time Stop Time Status Last Admin Dose Admin Risperidone (RisperDAL) 2.5 mg QHS PO 11/14/20 21:00 11/14/20 20:16 I have reviewed the current psychotropics carefully including drug interactions. Risk benefit ratio favors no change other than as noted in my dictated progress note. Diagnosis: Problems: (1) Major depressive disorder, recurrent episode (2) Anxiety disorder, unspecified (3) OCD (obsessive compulsive disorder) (4) Bipolar disorder, current episode mixed, severe, with psychotic features DEL GO MD Nov 15, 2020 07:48
--- NOTE | 2020-11-15 12:29 | NUR ---
WEEKLY ACTIVITY THERAPY NOTE Date of Admission: 10/22 Date of AT Assessment: 10/25 Precipitating behaviors that initiated intake and admission: The patient made statements that she would attempt to strangle self. Patient had stopped eating prior to arrival to hospital Goal aimed: to increase socialization and motivation Initial Goal: Pt. will participate in at least three Activity Therapy groups or individual sessions before discharge. Goal changed 11/01/20: Pt. will participate in at least three Activity Therapy groups or individual sessions per week Weekly progress towards goal: achieved, 3/3 Group participation level: 1 full, 1 mod, 1 min Weekly highlights: Behaviors observed: mtg with Dietitian, struggles to eat meals, increased response to staff when invited to groups, when asked to join group on Sunday morning Pt. replied "please just let me ." Plan: no change to goal Beneficial adaptations:
[2020-11-15] MEDS ORDERED: levoFLOXacin 250 MG TABLET PO SCH (15:00)
[2020-11-15] MEDS: CEPHALEXIN 250 MG CAPSULE PO SCH ×2 (15:30→20:48)
--- NOTE | 2020-11-15 15:43 | TX PLAN ---
Interdisciplinary Tx Plan Admission Information Oct 22, 2020 at 02:55 Legal Status (on Admission): Voluntary, Court Appointed Guardian, Court Appointed Conservat DPOA/Guardian Name: Julisa Bernal-sister/guardian Contact Other Contact Name: Duane Other Contact Verified Code Status: Full Code Allergies: Coded Allergies: Penicillins (Verified Allergy, Intermediate, 10/20/20) azithromycin (Verified Allergy, Intermediate, 10/21/20) bupropion (Verified Allergy, Intermediate, 10/21/20) cefdinir (Verified Allergy, Intermediate, DIARRHEA, 11/15/20) erythromycin base (Verified Allergy, Intermediate, 10/21/20) sulfadiazine (Verified Allergy, Intermediate, 10/21/20) Estimated Length of Stay: 14 Diagnoses Primary Diagnosis: Bipolar depressed Reasons for Admission: Depressed, Sig. Change Appetite, Anxiety/Panic, Suicidal ideation Problem in Patient's Words: Per Kallie, "I'm not doing good, I'm not eating." Additional Admission Comments: Per intake record, SI with plan to strangle self with cord, not eating for the past week with history of anorexia. Problems Active Problems: Flat affect Slow to respond Anxious Depressed Poor intake of meals Increased incontinence Inactive Problems: Medication compliant Slept 7.5 hours night of 10/24/20 Pt Strengths/Limitations Ability for [place]: Fair Cognitive Functioning/Ability: Fair Communication Skills/Ability: Fair Financial Resources: Fair Insight/Judgement: Fair Intellectual Ability: Good Physical Health: Fair Social Skills: Fair Stability in Family: Good Verbal Skills: Fair Discharge Criteria Discharge Criteria: No need for close observ., Adequate arrangements @DC, Adequate self-care, Improved mood/thought Other Discharge Comments: Adequate meal intakes Preliminary Discharge Plan Preliminary DC Plan: Alf Other Arrangements: [facility]- Level II facility Special Precautions Special Precautions: Suicide Risk Fall Risk: High Initial D/C Plan Return to [facility] once stable. Identified Discharge Needs: F/U with PCP, psychiatrist, and counselor. Have [facility] recreational therapist follow up with Kallie to develop past time intersts within the facility. Currently Utilized Resources Currently Utilized Resources/P: PCP Telepsychiatrist Referrals Community Resources: Counseling services if available Identified Problems/Hx/Goals Objectives/Short-Term Goals Short Term Goals: Dec. Anxiety/Panic, Decrease Isolation, Dec. Symp. Depression, Improved Social Skills, Medication Stabilization, Monitor Med Effects, No Suicidal/Liv. ideation, Prevent Deterioration, Promote Coping Skill Short Term Goals in Patient's: Kallie expressed the desire to walk again and to evntually be able to live independently and return to work. Interventions/Frequency Staff Interventions/Frequency&: Nursing to provide routine safety checks, medications, and adl support. Psychiatry visit threes times weekly. SW visits twice weekly. PT/OT as ordered. Recreational therapy and SW group involvement as Kallie is willing. 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 Social: Kallie enjoyed exercising, playing with dogs, and dating. Education: Kallie graduated high school from [email or web address]. She went on to obtain her masters degree in business education from [employer]. Community Follow-up PCP Psychiatry [place] if available F/U from [facility] education director to identify activites of interest. Community Provider/Family Inpu: Kallie's sister/guardian, Julisa, participated in team meeting via phone. Dr. Bryon Ortiz, psychiatrist out of [facility], followed Kallie in the past. Nursing to obtain medical records from him. Treatment Plan Explained Patient/Spool Cleaner had this treatment plan explained to him/her as indicated by the signature below and has been given the opportunity to ask questions and make suggestions: Date: Patient/Spool Cleaner Signature: Status Update Update WEEKLY UPDATE/NOTE: Kallie is averaging ten percent of meal intakes and six hours of sleep at night. Kallie needs direction, in steps, to take her medications. She has been paranoid that staff are contributing to her incontinency and nursing will f/u with Dr. Zaldivar about possible UTI. Labs completed on 11/14/20 were within n ormal limits. Dr. Marsh increased risperdol on 11/14/11. Kallie attended SW group on 11/11/20 with some engagement. Attempted to reach Julisa, sister/guardian, for team meeting. Left Julisa voice message and later updated her by phone. Team will review Kallie again on 11/18/20 and determine if she would benefit from additional ECT treatments at [facility]. JUVE RAINES Nov 15, 2020 15:43
[2020-11-15 16:00] VITALS: BP 98/63
[2020-11-15] MEDS: MIRTAZAPINE 15 MG TABLET PO SCH (20:46)
[2020-11-15] MEDS: risperiDONE 2 MG TABLET. PO SCH (20:47)
[2020-11-15] MEDS: lamoTRIgine 100 MG TABLET. PO SCH (20:47)
[2020-11-15] MEDS: ZOLPIDEM 5 MG TABLET. PO SCH (20:47)
[2020-11-15] MEDS: LACTOBACILLUS RHAMNOSUS GG 1 CAPSULE. PO SCH (20:48)
--- NOTE | 2020-11-15 21:11 | PDOC ---
Exam Note: Avel Note: Please also refer to the separate dictated note~for this date of service dictated separately.~Patient seen individually. Discussed the patient with Nursing staff reviewed the chart.~Reviewed interim history and current functioning. Reviewed vital signs,~Labs/ Radiology~and current medications noted below. Continue current treatment with the changes noted in the dictated addendum note Assessment: Vital Signs/I&O: Vital Signs Date Time Temp Pulse Resp B/P (MAP) Pulse Ox O2 Delivery O2 Flow Rate FiO2 11/15/20 16:00 97.9 105 18 98/63 (75) 97 11/14/20 06:09 Room Air I & O 11/14/20 11/14/20 11/15/20 15:00 23:00 07:00 Intake Total 480 ml 0 ml Balance 480 ml 0 ml Current Medications: Meds: Current Medications Medications (Trade) Dose Ordered Sig/Aline Route PRN Reason Start Time Stop Time Status Last Admin Dose Admin Lactobacillus Rhamnosus (Culturelle) 1 cap BID PO 11/15/20 21:00 11/15/20 20:48 Cephalexin HCl (Keflex) 250 mg TID PO 11/15/20 15:30 11/15/20 20:48 Current Medications Medications (Trade) Dose Ordered Sig/Aline Route PRN Reason Start Time Stop Time Status Last Admin Dose Admin Acetaminophen (Tylenol) 650 mg PRN Q6HRS PRN PO MILD PAIN / TEMP > 100.3'F 10/22/20 04:00 Al Hydroxide/Mg Hydroxide (Mylanta Plus Xs) 15 ml PRN AFTMEALHC PRN PO DYSPEPSIA 10/22/20 04:00 Magnesium Hydroxide (Milk Of Magnesia) 2,400 mg PRN QHS PRN PO CONSTIPATION, 2ND CHOICE 10/22/20 04:00 11/09/20 19:52 Aripiprazole (Abilify) 5 mg DAILY PO 10/22/20 09:00 10/25/20 21:23 DC 10/25/20 08:04 Bisacodyl (Dulcolax Tab) 5 mg PRN DAILY PRN PO CONSTIPATION, 3RD CHOICE 10/22/20 04:30 Clonazepam (KlonoPIN) 0.75 mg TID PO 10/22/20 09:00 10/29/20 07:15 DC 10/28/20 20:23 Doxycycline Hyclate (Vibra-Tab) 100 mg DAILY PO 10/22/20 09:00 10/24/20 12:31 DC 10/24/20 08:26 Fluoxetine HCl (PROzac) 20 mg DAILY PO 10/22/20 09:00 10/26/20 18:43 DC 10/26/20 09:30 Guaifenesin (Robitussin) 200 mg PRN Q4HRS PRN PO COUGH 10/22/20 04:30 Levothyroxine Sodium (Synthroid) 75 mcg DAILY06 PO 10/22/20 06:00 11/15/20 05:42 Mirtazapine (Remeron) 7.5 mg QHS PO 10/22/20 21:00 10/26/20 19:28 DC 10/25/20 20:19 Multivitamins/ Calcium (Thera-M Plus) 1 tab DAILY PO 10/22/20 09:00 11/15/20 07:35 Nortriptyline HCl (Pamelor) 75 mg QHS PO 10/22/20 21:00 10/29/20 19:51 DC 10/28/20 20:22 Polyethylene Glycol (miraLAX) 17 gm PRN DAILY PRN PO CONSTIPATION, 1ST CHOICE 10/22/20 04:30 11/08/20 20:00 Psyllium Hydrophilic Mucilloid (Metamucil) 1 pkt DAILY PO 10/22/20 09:00 11/15/20 07:35 Simethicone (Gas-X) 80 mg PRN BID PRN PO GAS / BLOATING 10/22/20 04:30 11/04/20 19:56 Zolpidem Tartrate (Ambien) 2.5 mg QHS PO 10/22/20 21:00 11/15/20 20:47 Non-Formulary Medication (Budesonide (Pulmicort Flexhaler)) 2 puff BID IH 10/22/20 09:00 UNV Lactobacillus Rhamnosus (Culturelle) 1 cap TID PO 10/22/20 09:00 10/30/20 11:59 DC 10/29/20 14:00 Pantoprazole Sodium (Protonix) 40 mg DAILYAC PO 10/22/20 07:30 11/15/20 07:35 Multi-Ingredient Ointment (Analgesic [place]) 1 sherice PRN QID PRN TP MUSCLE PAIN 10/22/20 04:45 Multi-Ingredient Ointment (Analgesic [place]) 1 sherice DAILY TP 10/22/20 09:00 11/15/20 07:36 Budesonide (Pulmicort) 0.5 mg RTBID NEB 10/22/20 08:00 10/22/20 20:14 DC 10/22/20 08:00 Fluticasone Furoate (ARNUITY 100mcg ELLIPTA) 2 puff BID INH 10/22/20 21:00 10/24/20 13:23 DC 10/24/20 08:27 Docusate Sodium (Colace) 100 mg BID PO 10/24/20 21:00 11/15/20 20:46 Olanzapine (ZyPREXA) 5 mg QHS PO 10/25/20 21:30 10/26/20 18:43 DC 10/25/20 21:34 Trazodone HCl (Desyrel) 100 mg PRN QHS PRN PO INSOMNIA, MAY REPEAT X1 10/26/20 00:45 10/26/20 00:44 DC Trazodone HCl (Desyrel) 100 mg PRN QHS PRN PO INSOMNIA, MAY REPEAT X1 10/26/20 00:45 UNV Trazodone HCl (Desyrel) 100 mg PRN QHS PRN PO INSOMNIA, MAY REPEAT X1 10/26/20 00:45 10/31/20 21:42 Fluoxetine HCl (PROzac) 30 mg DAILY PO 10/27/20 09:00 10/27/20 09:09 DC Olanzapine (ZyPREXA) 7.5 mg QHS PO 10/26/20 21:00 10/27/20 18:19 DC 10/26/20 19:56 Mirtazapine (Remeron) 15 mg QHS PO 10/26/20 21:00 11/15/20 20:46 Fluoxetine HCl (PROzac) 30 mg DAILY PO 10/27/20 09:15 11/05/20 18:17 DC 11/05/20 09:03 Risperidone (RisperDAL) 0.5 mg QHS PO 10/27/20 21:00 11/01/20 14:14 DC 10/31/20 19:49 Lamotrigine (LaMICtal) 25 mg QHS PO 10/27/20 21:00 10/29/20 23:00 DC 10/29/20 19:47 Lamotrigine (LaMICtal) 50 mg QHS PO 10/30/20 21:00 11/04/20 08:00 DC 11/03/20 20:13 Clonazepam (KlonoPIN) 0.25 mg DAILY@0900 PO 10/29/20 09:00 11/05/20 17:57 DC 11/05/20 09:04 Clonazepam (KlonoPIN) 0.75 mg PRN BID PRN PO ANXIETY / AGITATION 10/29/20 07:15 10/29/20 10:02 DC Clonazepam (KlonoPIN) 0.75 mg BID@1200,1700 PO 10/29/20 12:00 11/03/20 18:10 DC 11/03/20 17:45 Fluvoxamine Maleate (Luvox) 25 mg QHS PO 10/29/20 21:00 11/01/20 21:00 DC 10/31/20 19:49 Fluvoxamine Maleate (Luvox) 50 mg QHS PO 11/01/20 21:00 11/10/20 18:04 DC 11/09/20 19:50 Risperidone (RisperDAL) 0.5 mg 1X ONCE PO 10/31/20 11:30 10/31/20 11:31 DC 10/31/20 11:36 Risperidone (RisperDAL) 0.5 mg PRN 1X PRN PO AGITATION 10/31/20 11:30 11/05/20 17:14 Lorazepam (Ativan) 0.5 mg PRN Q2HR PRN PO ANXIETY / AGITATION 10/31/20 11:15 10/31/20 22:18 Risperidone (RisperDAL) 0.75 mg QHS PO 11/01/20 21:00 11/04/20 09:00 DC 11/03/20 20:11 Lamotrigine (LaMICtal) 75 mg QHS PO 11/04/20 21:00 11/09/20 05:00 DC 11/08/20 19:58 Clonazepam (KlonoPIN) 0.5 mg 1200 PO 11/04/20 12:00 11/05/20 17:57 DC 11/05/20 11:53 Risperidone (RisperDAL) 1 mg QHS PO 11/04/20 21:00 11/05/20 17:57 DC 11/04/20 20:11 Clonazepam (KlonoPIN) 0.75 mg 1700 PO 11/04/20 17:00 11/06/20 21:00 DC 11/06/20 17:37 Clonazepam (KlonoPIN) 0.5 mg 1700 PO 11/07/20 17:00 11/15/20 17:00 Clonazepam (KlonoPIN) 0.5 mg BID PO 11/06/20 09:00 11/15/20 20:46 Risperidone (RisperDAL) 1.5 mg QHS PO 11/06/20 21:00 11/08/20 12:30 DC 11/07/20 20:29 Olanzapine (ZyPREXA ZYDIS) 5 mg QHS PO 11/07/20 21:00 11/15/20 20:46 Risperidone (RisperDAL) 2 mg QHS PO 11/09/20 21:00 11/10/20 09:00 DC 11/09/20 19:50 Risperidone (RisperDAL) 1 mg BID PO 11/08/20 12:30 11/08/20 22:30 DC 11/08/20 19:58 Lamotrigine (LaMICtal) 100 mg QHS PO 11/09/20 21:00 11/15/20 20:47 Ciprofloxacin 2 drop Q4H OS 11/09/20 17:00 11/16/20 21:00 11/15/20 20:47 Risperidone (RisperDAL) 2.5 mg QHS PO 11/10/20 21:00 11/12/20 08:00 DC 11/11/20 19:57 Fluvoxamine Maleate (Luvox) 75 mg QHS PO 11/10/20 21:00 11/12/20 23:01 DC 11/12/20 20:13 Fluvoxamine Maleate (Luvox) 100 mg QHS PO 11/13/20 21:00 11/15/20 20:47 Risperidone (RisperDAL) 1 mg DAILY PO 11/12/20 09:00 11/15/20 07:35 Risperidone (RisperDAL) 2 mg QHS PO 11/11/20 21:00 11/11/20 19:21 DC Risperidone (RisperDAL) 2 mg QHS PO 11/12/20 21:00 11/14/20 17:32 DC 11/13/20 19:47 Risperidone (RisperDAL) 2.5 mg QHS PO 11/14/20 21:00 11/15/20 20:47 Levofloxacin (Levaquin) 250 mg DAILY PO 11/15/20 15:00 11/21/20 14:59 Cancel Lactobacillus Rhamnosus (Culturelle) 1 cap BID PO 11/15/20 21:00 11/15/20 20:48 Cephalexin HCl (Keflex) 250 mg TID PO 11/15/20 15:30 11/15/20 20:48 I have reviewed the current psychotropics carefully including drug interactions. Risk benefit ratio favors no change other than as noted in my dictated progress note. Diagnosis: Problems: (1) OCD (obsessive compulsive disorder) (2) Bipolar disorder, current episode mixed, severe, with psychotic features (3) Anxiety disorder, unspecified (4) Major depressive disorder, recurrent episode DEL GO MD Nov 15, 2020 21:11
--- NOTE | 2020-11-15 23:58 | NUR ---
Pt in her room all evening. Compliant with shower and whole medications without much prompting. Minimal interaction but appears less anxious than previous evenings.
[2020-11-16] MEDS: CIPROFLOXACIN 0.3% OPHTH SOLUTION 2.5ML BOTTLE. OS SCH ×6 (00:52→20:47)
[2020-11-16] MEDS: LEVOTHYROXINE 75 MCG TABLET PO SCH (05:20)
[2020-11-16 05:40] VITALS: BP 108/72
[2020-11-16 06:01] LABS: HEMATOCRIT 41.8 % (36.0-47.0); HEMOGLOBIN 13.8 g/dL (12.0-15.5); RED BLOOD COUNT 4.6 x10^6/uL (3.50-5.40); RED CELL DISTRIBUTION WIDTH 13.7 % (11.5-14.5)
[2020-11-16 06:19] LABS: ALBUMIN 3.5 g/dL (3.4-5.0); ALBUMIN/GLOBULIN RATIO 0.9 (1.0-1.7); CALCIUM 9.5 mg/dL (8.5-10.1); CREATININE 0.9 mg/dL (0.6-1.0); GFR 64.1; TOTAL BILIRUBIN 0.3 mg/dL (0.2-1.0); TOTAL PROTEIN 7.4 g/dL (6.4-8.2)
--- NOTE | 2020-11-16 08:25 | PDOC ---
Exam Note: Avel Note: This note is a late entry for 11/15/2020 covers elements not covered in my initial note. Subjective: The patient was reviewed on telehealth rounds in the morning of 11/15/2020 for a treatment team meeting with Rashmi Brannon, Genie Bragg and Stephanie (social services analyst), Amanda, activity therapy and Lindsey RN. Discussed with nursing staff, reviewed the chart. The patient is sleeping average 6 to 7 hours. We tried to contact her sister Julisa to join on the treatment team meeting but sister was unavailable. Oral intake remains poor. She does have UTI. Started on Keflex, at times incontinent, has had some low-grade fever at 99. She refuses medications off and on but took them today. She has some crusting of her left eye. Defer her to Dr. Schneider. Review of Systems: Poor appetite. No CV, , pulmonary, eye, ENT system symptoms on review. Mental Status Exam: The patient is oriented reasonably. Speech has some latency, coherent, more verbal than before. Abstraction is fair. Computation is impaired. Language function is intact. Attention span is short. Mood and affect depressed. No suicidal ideation. Laboratory Data: Reviewed. Impression: Bipolar 1 disorder, depressed versus depressed with psychotic features. Anxiety disorder unspecified. OCD. Plan: Continue psychotropics from initial note. Treat the UTI. Risperdal is total of 3.5 mg a day. Maintain Lamictal, Klonopin, Ambien, Remeron, Luvox along with Ativan p.r.n. Assessment: Vital Signs/I&O: Vital Signs Date Time Temp Pulse Resp B/P (MAP) Pulse Ox O2 Delivery O2 Flow Rate FiO2 11/16/20 05:40 97.3 103 16 108/72 (84) 94 Room Air I & O 11/15/20 11/15/20 11/16/20 15:00 23:00 07:00 Intake Total 600 ml 300 ml Balance 600 ml 300 ml Labs: Laboratory Tests Test 11/16/20 05:50 White Blood Count 8.0 x10^3/uL (4.0-11.0) Red Blood Count 4.60 x10^6/uL (3.50-5.40) Hemoglobin 13.8 g/dL (12.0-15.5) Hematocrit 41.8 % (36.0-47.0) Mean Corpuscular Volume 91 fL (79-100) Mean Corpuscular Hemoglobin 30 pg (25-35) Mean Corpuscular Hemoglobin Concent 33 g/dL (31-37) Red Cell Distribution Width 13.7 % (11.5-14.5) Platelet Count 298 x10^3/uL (140-400) Sodium Level 139 mmol/L (136-145) Potassium Level 4.0 mmol/L (3.5-5.1) Chloride Level 103 mmol/L (98-107) Carbon Dioxide Level 27 mmol/L (21-32) Anion Gap 9 (6-14) Blood Urea Nitrogen 21 mg/dL (7-20) H Creatinine 0.9 mg/dL (0.6-1.0) Estimated GFR (Cockcroft-Gault) 64.1 BUN/Creatinine Ratio 23 (6-20) H Glucose Level 117 mg/dL (70-99) H Calcium Level 9.5 mg/dL (8.5-10.1) Total Bilirubin 0.3 mg/dL (0.2-1.0) Aspartate Amino Transferase (AST) 18 U/L (15-37) Alanine Aminotransferase (ALT) 22 U/L (14-59) Alkaline Phosphatase 102 U/L (46-116) Total Protein 7.4 g/dL (6.4-8.2) Albumin 3.5 g/dL (3.4-5.0) Albumin/Globulin Ratio 0.9 (1.0-1.7) L Current Medications: Meds: Laboratory Tests Test 11/16/20 05:50 White Blood Count 8.0 x10^3/uL Red Blood Count 4.60 x10^6/uL Hemoglobin 13.8 g/dL Hematocrit 41.8 % Mean Corpuscular Volume 91 fL Mean Corpuscular Hemoglobin 30 pg Mean Corpuscular Hemoglobin Concent 33 g/dL Red Cell Distribution Width 13.7 % Platelet Count 298 x10^3/uL Sodium Level 139 mmol/L Potassium Level 4.0 mmol/L Chloride Level 103 mmol/L Carbon Dioxide Level 27 mmol/L Anion Gap 9 Blood Urea Nitrogen 21 mg/dL Creatinine 0.9 mg/dL Estimated GFR (Cockcroft-Gault) 64.1 BUN/Creatinine Ratio 23 Glucose Level 117 mg/dL Calcium Level 9.5 mg/dL Total Bilirubin 0.3 mg/dL Aspartate Amino Transf (AST/SGOT) 18 U/L Alanine Aminotransferase (ALT/SGPT) 22 U/L Alkaline Phosphatase 102 U/L Total Protein 7.4 g/dL Albumin 3.5 g/dL Albumin/Globulin Ratio 0.9 Current Medications Medications (Trade) Dose Ordered Sig/Aline Route PRN Reason Start Time Stop Time Status Last Admin Dose Admin Acetaminophen (Tylenol) 650 mg PRN Q6HRS PRN PO MILD PAIN / TEMP > 100.3'F 10/22/20 04:00 Al Hydroxide/Mg Hydroxide (Mylanta Plus Xs) 15 ml PRN AFTMEALHC PRN PO DYSPEPSIA 10/22/20 04:00 Magnesium Hydroxide (Milk Of Magnesia) 2,400 mg PRN QHS PRN PO CONSTIPATION, 2ND CHOICE 10/22/20 04:00 11/09/20 19:52 Aripiprazole (Abilify) 5 mg DAILY PO 10/22/20 09:00 10/25/20 21:23 DC 10/25/20 08:04 Bisacodyl (Dulcolax Tab) 5 mg PRN DAILY PRN PO CONSTIPATION, 3RD CHOICE 10/22/20 04:30 Clonazepam (KlonoPIN) 0.75 mg TID PO 10/22/20 09:00 10/29/20 07:15 DC 10/28/20 20:23 Doxycycline Hyclate (Vibra-Tab) 100 mg DAILY PO 10/22/20 09:00 10/24/20 12:31 DC 10/24/20 08:26 Fluoxetine HCl (PROzac) 20 mg DAILY PO 10/22/20 09:00 10/26/20 18:43 DC 10/26/20 09:30 Guaifenesin (Robitussin) 200 mg PRN Q4HRS PRN PO COUGH 10/22/20 04:30 Levothyroxine Sodium (Synthroid) 75 mcg DAILY06 PO 10/22/20 06:00 11/16/20 05:20 Mirtazapine (Remeron) 7.5 mg QHS PO 10/22/20 21:00 10/26/20 19:28 DC 10/25/20 20:19 Multivitamins/ Calcium (Thera-M Plus) 1 tab DAILY PO 10/22/20 09:00 11/15/20 07:35 Nortriptyline HCl (Pamelor) 75 mg QHS PO 10/22/20 21:00 10/29/20 19:51 DC 10/28/20 20:22 Polyethylene Glycol (miraLAX) 17 gm PRN DAILY PRN PO CONSTIPATION, 1ST CHOICE 10/22/20 04:30 11/08/20 20:00 Psyllium Hydrophilic Mucilloid (Metamucil) 1 pkt DAILY PO 10/22/20 09:00 11/15/20 07:35 Simethicone (Gas-X) 80 mg PRN BID PRN PO GAS / BLOATING 10/22/20 04:30 11/04/20 19:56 Zolpidem Tartrate (Ambien) 2.5 mg QHS PO 10/22/20 21:00 11/15/20 20:47 Non-Formulary Medication (Budesonide (Pulmicort Flexhaler)) 2 puff BID IH 10/22/20 09:00 UNV Lactobacillus Rhamnosus (Culturelle) 1 cap TID PO 10/22/20 09:00 10/30/20 11:59 DC 10/29/20 14:00 Pantoprazole Sodium (Protonix) 40 mg DAILYAC PO 10/22/20 07:30 11/15/20 07:35 Multi-Ingredient Ointment (Analgesic [place]) 1 sherice PRN QID PRN TP MUSCLE PAIN 10/22/20 04:45 Multi-Ingredient Ointment (Analgesic [place]) 1 sherice DAILY TP 10/22/20 09:00 11/15/20 07:36 Budesonide (Pulmicort) 0.5 mg RTBID NEB 10/22/20 08:00 10/22/20 20:14 DC 10/22/20 08:00 Fluticasone Furoate (ARNUITY 100mcg ELLIPTA) 2 puff BID INH 10/22/20 21:00 10/24/20 13:23 DC 10/24/20 08:27 Docusate Sodium (Colace) 100 mg BID PO 10/24/20 21:00 11/15/20 20:46 Olanzapine (ZyPREXA) 5 mg QHS PO 10/25/20 21:30 10/26/20 18:43 DC 10/25/20 21:34 Trazodone HCl (Desyrel) 100 mg PRN QHS PRN PO INSOMNIA, MAY REPEAT X1 10/26/20 00:45 10/26/20 00:44 DC Trazodone HCl (Desyrel) 100 mg PRN QHS PRN PO INSOMNIA, MAY REPEAT X1 10/26/20 00:45 UNV Trazodone HCl (Desyrel) 100 mg PRN QHS PRN PO INSOMNIA, MAY REPEAT X1 10/26/20 00:45 10/31/20 21:42 Fluoxetine HCl (PROzac) 30 mg DAILY PO 10/27/20 09:00 10/27/20 09:09 DC Olanzapine (ZyPREXA) 7.5 mg QHS PO 10/26/20 21:00 10/27/20 18:19 DC 10/26/20 19:56 Mirtazapine (Remeron) 15 mg QHS PO 10/26/20 21:00 11/15/20 20:46 Fluoxetine HCl (PROzac) 30 mg DAILY PO 10/27/20 09:15 11/05/20 18:17 DC 11/05/20 09:03 Risperidone (RisperDAL) 0.5 mg QHS PO 10/27/20 21:00 11/01/20 14:14 DC 10/31/20 19:49 Lamotrigine (LaMICtal) 25 mg QHS PO 10/27/20 21:00 10/29/20 23:00 DC 10/29/20 19:47 Lamotrigine (LaMICtal) 50 mg QHS PO 10/30/20 21:00 11/04/20 08:00 DC 11/03/20 20:13 Clonazepam (KlonoPIN) 0.25 mg DAILY@0900 PO 10/29/20 09:00 11/05/20 17:57 DC 11/05/20 09:04 Clonazepam (KlonoPIN) 0.75 mg PRN BID PRN PO ANXIETY / AGITATION 10/29/20 07:15 10/29/20 10:02 DC Clonazepam (KlonoPIN) 0.75 mg BID@1200,1700 PO 10/29/20 12:00 11/03/20 18:10 DC 11/03/20 17:45 Fluvoxamine Maleate (Luvox) 25 mg QHS PO 10/29/20 21:00 11/01/20 21:00 DC 10/31/20 19:49 Fluvoxamine Maleate (Luvox) 50 mg QHS PO 11/01/20 21:00 11/10/20 18:04 DC 11/09/20 19:50 Risperidone (RisperDAL) 0.5 mg 1X ONCE PO 10/31/20 11:30 10/31/20 11:31 DC 10/31/20 11:36 Risperidone (RisperDAL) 0.5 mg PRN 1X PRN PO AGITATION 10/31/20 11:30 11/05/20 17:14 Lorazepam (Ativan) 0.5 mg PRN Q2HR PRN PO ANXIETY / AGITATION 10/31/20 11:15 10/31/20 22:18 Risperidone (RisperDAL) 0.75 mg QHS PO 11/01/20 21:00 11/04/20 09:00 DC 11/03/20 20:11 Lamotrigine (LaMICtal) 75 mg QHS PO 11/04/20 21:00 11/09/20 05:00 DC 11/08/20 19:58 Clonazepam (KlonoPIN) 0.5 mg 1200 PO 11/04/20 12:00 11/05/20 17:57 DC 11/05/20 11:53 Risperidone (RisperDAL) 1 mg QHS PO 11/04/20 21:00 11/05/20 17:57 DC 11/04/20 20:11 Clonazepam (KlonoPIN) 0.75 mg 1700 PO 11/04/20 17:00 11/06/20 21:00 DC 11/06/20 17:37 Clonazepam (KlonoPIN) 0.5 mg 1700 PO 11/07/20 17:00 11/15/20 17:00 Clonazepam (KlonoPIN) 0.5 mg BID PO 11/06/20 09:00 11/15/20 20:46 Risperidone (RisperDAL) 1.5 mg QHS PO 11/06/20 21:00 11/08/20 12:30 DC 11/07/20 20:29 Olanzapine (ZyPREXA ZYDIS) 5 mg QHS PO 11/07/20 21:00 11/15/20 20:46 Risperidone (RisperDAL) 2 mg QHS PO 11/09/20 21:00 11/10/20 09:00 DC 11/09/20 19:50 Risperidone (RisperDAL) 1 mg BID PO 11/08/20 12:30 11/08/20 22:30 DC 11/08/20 19:58 Lamotrigine (LaMICtal) 100 mg QHS PO 11/09/20 21:00 11/15/20 20:47 Ciprofloxacin 2 drop Q4H OS 11/09/20 17:00 11/16/20 21:00 11/16/20 05:20 Risperidone (RisperDAL) 2.5 mg QHS PO 11/10/20 21:00 11/12/20 08:00 DC 11/11/20 19:57 Fluvoxamine Maleate (Luvox) 75 mg QHS PO 11/10/20 21:00 11/12/20 23:01 DC 11/12/20 20:13 Fluvoxamine Maleate (Luvox) 100 mg QHS PO 11/13/20 21:00 11/15/20 20:47 Risperidone (RisperDAL) 1 mg DAILY PO 11/12/20 09:00 11/15/20 07:35 Risperidone (RisperDAL) 2 mg QHS PO 11/11/20 21:00 11/11/20 19:21 DC Risperidone (RisperDAL) 2 mg QHS PO 11/12/20 21:00 11/14/20 17:32 DC 11/13/20 19:47 Risperidone (RisperDAL) 2.5 mg QHS PO 11/14/20 21:00 11/15/20 20:47 Levofloxacin (Levaquin) 250 mg DAILY PO 11/15/20 15:00 11/21/20 14:59 Cancel Lactobacillus Rhamnosus (Culturelle) 1 cap BID PO 11/15/20 21:00 11/15/20 20:48 Cephalexin HCl (Keflex) 250 mg TID PO 11/15/20 15:30 11/15/20 20:48 Current Medications Medications (Trade) Dose Ordered Sig/Aline Route PRN Reason Start Time Stop Time Status Last Admin Dose Admin Lactobacillus Rhamnosus (Culturelle) 1 cap BID PO 11/15/20 21:00 11/15/20 20:48 Cephalexin HCl (Keflex) 250 mg TID PO 11/15/20 15:30 11/15/20 20:48 I have reviewed the current psychotropics carefully including drug interactions. Risk benefit ratio favors no change other than as noted in my dictated progress note. Diagnosis: Problems: (1) UTI (urinary tract infection) (2) OCD (obsessive compulsive disorder) (3) Bipolar disorder, current episode mixed, severe, with psychotic features (4) Anxiety disorder, unspecified (5) Major depressive disorder, recurrent episode DEL GO MD Nov 16, 2020 08:25
[2020-11-16] MEDS: LACTOBACILLUS RHAMNOSUS GG 1 CAPSULE. PO SCH ×2 (09:22→20:47)
[2020-11-16] MEDS: CEPHALEXIN 250 MG CAPSULE PO SCH ×3 (09:22→20:47)
[2020-11-16] MEDS: PSYLLIUM SEED (WITH SUGAR) PACKET. PO SCH (09:22)
[2020-11-16] MEDS: DOCUSATE SODIUM 100 MG CAPSULE PO SCH ×2 (09:22→20:47)
[2020-11-16] MEDS: risperiDONE 1 MG TABLET. PO SCH (09:22)
[2020-11-16] MEDS: PANTOPRAZOLE 40 MG TABLET. PO SCH (09:23)
[2020-11-16] MEDS: MULTIVITAMIN with MINERAL TABLET. PO SCH (09:23)
[2020-11-16] MEDS: METHYL SALICYLATE/MENTHOL TOPICAL OINTMENT 57GM TUBE. TP SCH (09:26)
[2020-11-16] MEDS: clonazePAM 0.5 MG TABLET PO SCH ×3 (09:26→20:47)
--- NOTE | 2020-11-16 14:09 | NUR ---
Nursing note: Pt has been pleasant, med compliant and cooperative this shift. She appears to be less anxious and states she is "doing better" but also says she does still have a little bit of depression and anxiety. Pt has walked around her room and has spent some time in the day room for groups. Will continue to monitor.
[2020-11-16 15:41] VITALS: BP 121/79
[2020-11-16] MEDS: lamoTRIgine 100 MG TABLET. PO SCH (20:46)
[2020-11-16] MEDS: ZOLPIDEM 5 MG TABLET. PO SCH (20:46)
[2020-11-16] MEDS: risperiDONE 2 MG TABLET. PO SCH (20:47)
[2020-11-16] MEDS: MIRTAZAPINE 15 MG TABLET PO SCH (20:47)
--- NOTE | 2020-11-16 21:11 | PDOC ---
Exam Note: Avel Note: Please also refer to the separate dictated note~for this date of service dictated separately.~Patient seen individually. Discussed the patient with Nursing staff reviewed the chart.~Reviewed interim history and current functioning. Reviewed vital signs,~Labs/ Radiology~and current medications noted below. Continue current treatment with the changes noted in the dictated addendum note Assessment: Vital Signs/I&O: Vital Signs Date Time Temp Pulse Resp B/P (MAP) Pulse Ox O2 Delivery O2 Flow Rate FiO2 11/16/20 15:41 97.0 87 16 121/79 (93) 96 Room Air I & O 11/15/20 11/15/20 11/16/20 14:59 22:59 06:59 Intake Total 600 ml 300 ml Balance 600 ml 300 ml Labs: Laboratory Tests Test 11/16/20 05:50 White Blood Count 8.0 x10^3/uL (4.0-11.0) Red Blood Count 4.60 x10^6/uL (3.50-5.40) Hemoglobin 13.8 g/dL (12.0-15.5) Hematocrit 41.8 % (36.0-47.0) Mean Corpuscular Volume 91 fL (79-100) Mean Corpuscular Hemoglobin 30 pg (25-35) Mean Corpuscular Hemoglobin Concent 33 g/dL (31-37) Red Cell Distribution Width 13.7 % (11.5-14.5) Platelet Count 298 x10^3/uL (140-400) Sodium Level 139 mmol/L (136-145) Potassium Level 4.0 mmol/L (3.5-5.1) Chloride Level 103 mmol/L (98-107) Carbon Dioxide Level 27 mmol/L (21-32) Anion Gap 9 (6-14) Blood Urea Nitrogen 21 mg/dL (7-20) H Creatinine 0.9 mg/dL (0.6-1.0) Estimated GFR (Cockcroft-Gault) 64.1 BUN/Creatinine Ratio 23 (6-20) H Glucose Level 117 mg/dL (70-99) H Calcium Level 9.5 mg/dL (8.5-10.1) Total Bilirubin 0.3 mg/dL (0.2-1.0) Aspartate Amino Transferase (AST) 18 U/L (15-37) Alanine Aminotransferase (ALT) 22 U/L (14-59) Alkaline Phosphatase 102 U/L (46-116) Total Protein 7.4 g/dL (6.4-8.2) Albumin 3.5 g/dL (3.4-5.0) Albumin/Globulin Ratio 0.9 (1.0-1.7) L Current Medications: Meds: Laboratory Tests Test 11/16/20 05:50 White Blood Count 8.0 x10^3/uL Red Blood Count 4.60 x10^6/uL Hemoglobin 13.8 g/dL Hematocrit 41.8 % Mean Corpuscular Volume 91 fL Mean Corpuscular Hemoglobin 30 pg Mean Corpuscular Hemoglobin Concent 33 g/dL Red Cell Distribution Width 13.7 % Platelet Count 298 x10^3/uL Sodium Level 139 mmol/L Potassium Level 4.0 mmol/L Chloride Level 103 mmol/L Carbon Dioxide Level 27 mmol/L Anion Gap 9 Blood Urea Nitrogen 21 mg/dL Creatinine 0.9 mg/dL Estimated GFR (Cockcroft-Gault) 64.1 BUN/Creatinine Ratio 23 Glucose Level 117 mg/dL Calcium Level 9.5 mg/dL Total Bilirubin 0.3 mg/dL Aspartate Amino Transf (AST/SGOT) 18 U/L Alanine Aminotransferase (ALT/SGPT) 22 U/L Alkaline Phosphatase 102 U/L Total Protein 7.4 g/dL Albumin 3.5 g/dL Albumin/Globulin Ratio 0.9 Current Medications Medications (Trade) Dose Ordered Sig/Aline Route PRN Reason Start Time Stop Time Status Last Admin Dose Admin Acetaminophen (Tylenol) 650 mg PRN Q6HRS PRN PO MILD PAIN / TEMP > 100.3'F 10/22/20 04:00 Al Hydroxide/Mg Hydroxide (Mylanta Plus Xs) 15 ml PRN AFTMEALHC PRN PO DYSPEPSIA 10/22/20 04:00 Magnesium Hydroxide (Milk Of Magnesia) 2,400 mg PRN QHS PRN PO CONSTIPATION, 2ND CHOICE 10/22/20 04:00 11/09/20 19:52 Aripiprazole (Abilify) 5 mg DAILY PO 10/22/20 09:00 10/25/20 21:23 DC 10/25/20 08:04 Bisacodyl (Dulcolax Tab) 5 mg PRN DAILY PRN PO CONSTIPATION, 3RD CHOICE 10/22/20 04:30 Clonazepam (KlonoPIN) 0.75 mg TID PO 10/22/20 09:00 10/29/20 07:15 DC 10/28/20 20:23 Doxycycline Hyclate (Vibra-Tab) 100 mg DAILY PO 10/22/20 09:00 10/24/20 12:31 DC 10/24/20 08:26 Fluoxetine HCl (PROzac) 20 mg DAILY PO 10/22/20 09:00 10/26/20 18:43 DC 10/26/20 09:30 Guaifenesin (Robitussin) 200 mg PRN Q4HRS PRN PO COUGH 10/22/20 04:30 Levothyroxine Sodium (Synthroid) 75 mcg DAILY06 PO 10/22/20 06:00 11/16/20 05:20 Mirtazapine (Remeron) 7.5 mg QHS PO 10/22/20 21:00 10/26/20 19:28 DC 10/25/20 20:19 Multivitamins/ Calcium (Thera-M Plus) 1 tab DAILY PO 10/22/20 09:00 11/16/20 09:23 Nortriptyline HCl (Pamelor) 75 mg QHS PO 10/22/20 21:00 10/29/20 19:51 DC 10/28/20 20:22 Polyethylene Glycol (miraLAX) 17 gm PRN DAILY PRN PO CONSTIPATION, 1ST CHOICE 10/22/20 04:30 11/08/20 20:00 Psyllium Hydrophilic Mucilloid (Metamucil) 1 pkt DAILY PO 10/22/20 09:00 11/16/20 09:22 Simethicone (Gas-X) 80 mg PRN BID PRN PO GAS / BLOATING 10/22/20 04:30 11/04/20 19:56 Zolpidem Tartrate (Ambien) 2.5 mg QHS PO 10/22/20 21:00 11/16/20 20:46 Non-Formulary Medication (Budesonide (Pulmicort Flexhaler)) 2 puff BID IH 10/22/20 09:00 UNV Lactobacillus Rhamnosus (Culturelle) 1 cap TID PO 10/22/20 09:00 10/30/20 11:59 DC 10/29/20 14:00 Pantoprazole Sodium (Protonix) 40 mg DAILYAC PO 10/22/20 07:30 11/16/20 09:23 Multi-Ingredient Ointment (Analgesic [place]) 1 sherice PRN QID PRN TP MUSCLE PAIN 10/22/20 04:45 Multi-Ingredient Ointment (Analgesic [place]) 1 sherice DAILY TP 10/22/20 09:00 11/16/20 09:26 Budesonide (Pulmicort) 0.5 mg RTBID NEB 10/22/20 08:00 10/22/20 20:14 DC 10/22/20 08:00 Fluticasone Furoate (ARNUITY 100mcg ELLIPTA) 2 puff BID INH 10/22/20 21:00 10/24/20 13:23 DC 10/24/20 08:27 Docusate Sodium (Colace) 100 mg BID PO 10/24/20 21:00 11/16/20 20:47 Olanzapine (ZyPREXA) 5 mg QHS PO 10/25/20 21:30 10/26/20 18:43 DC 10/25/20 21:34 Trazodone HCl (Desyrel) 100 mg PRN QHS PRN PO INSOMNIA, MAY REPEAT X1 10/26/20 00:45 10/26/20 00:44 DC Trazodone HCl (Desyrel) 100 mg PRN QHS PRN PO INSOMNIA, MAY REPEAT X1 10/26/20 00:45 UNV Trazodone HCl (Desyrel) 100 mg PRN QHS PRN PO INSOMNIA, MAY REPEAT X1 10/26/20 00:45 10/31/20 21:42 Fluoxetine HCl (PROzac) 30 mg DAILY PO 10/27/20 09:00 10/27/20 09:09 DC Olanzapine (ZyPREXA) 7.5 mg QHS PO 10/26/20 21:00 10/27/20 18:19 DC 10/26/20 19:56 Mirtazapine (Remeron) 15 mg QHS PO 10/26/20 21:00 11/16/20 20:47 Fluoxetine HCl (PROzac) 30 mg DAILY PO 10/27/20 09:15 11/05/20 18:17 DC 11/05/20 09:03 Risperidone (RisperDAL) 0.5 mg QHS PO 10/27/20 21:00 11/01/20 14:14 DC 10/31/20 19:49 Lamotrigine (LaMICtal) 25 mg QHS PO 10/27/20 21:00 10/29/20 23:00 DC 10/29/20 19:47 Lamotrigine (LaMICtal) 50 mg QHS PO 10/30/20 21:00 11/04/20 08:00 DC 11/03/20 20:13 Clonazepam (KlonoPIN) 0.25 mg DAILY@0900 PO 10/29/20 09:00 11/05/20 17:57 DC 11/05/20 09:04 Clonazepam (KlonoPIN) 0.75 mg PRN BID PRN PO ANXIETY / AGITATION 10/29/20 07:15 10/29/20 10:02 DC Clonazepam (KlonoPIN) 0.75 mg BID@1200,1700 PO 10/29/20 12:00 11/03/20 18:10 DC 11/03/20 17:45 Fluvoxamine Maleate (Luvox) 25 mg QHS PO 10/29/20 21:00 11/01/20 21:00 DC 10/31/20 19:49 Fluvoxamine Maleate (Luvox) 50 mg QHS PO 11/01/20 21:00 11/10/20 18:04 DC 11/09/20 19:50 Risperidone (RisperDAL) 0.5 mg 1X ONCE PO 10/31/20 11:30 10/31/20 11:31 DC 10/31/20 11:36 Risperidone (RisperDAL) 0.5 mg PRN 1X PRN PO AGITATION 10/31/20 11:30 11/05/20 17:14 Lorazepam (Ativan) 0.5 mg PRN Q2HR PRN PO ANXIETY / AGITATION 10/31/20 11:15 10/31/20 22:18 Risperidone (RisperDAL) 0.75 mg QHS PO 11/01/20 21:00 11/04/20 09:00 DC 11/03/20 20:11 Lamotrigine (LaMICtal) 75 mg QHS PO 11/04/20 21:00 11/09/20 05:00 DC 11/08/20 19:58 Clonazepam (KlonoPIN) 0.5 mg 1200 PO 11/04/20 12:00 11/05/20 17:57 DC 11/05/20 11:53 Risperidone (RisperDAL) 1 mg QHS PO 11/04/20 21:00 11/05/20 17:57 DC 11/04/20 20:11 Clonazepam (KlonoPIN) 0.75 mg 1700 PO 11/04/20 17:00 11/06/20 21:00 DC 11/06/20 17:37 Clonazepam (KlonoPIN) 0.5 mg 1700 PO 11/07/20 17:00 11/16/20 17:38 Clonazepam (KlonoPIN) 0.5 mg BID PO 11/06/20 09:00 11/16/20 20:47 Risperidone (RisperDAL) 1.5 mg QHS PO 11/06/20 21:00 11/08/20 12:30 DC 11/07/20 20:29 Olanzapine (ZyPREXA ZYDIS) 5 mg QHS PO 11/07/20 21:00 11/16/20 20:47 Risperidone (RisperDAL) 2 mg QHS PO 11/09/20 21:00 11/10/20 09:00 DC 11/09/20 19:50 Risperidone (RisperDAL) 1 mg BID PO 11/08/20 12:30 11/08/20 22:30 DC 11/08/20 19:58 Lamotrigine (LaMICtal) 100 mg QHS PO 11/09/20 21:00 11/16/20 20:46 Ciprofloxacin 2 drop Q4H OS 11/09/20 17:00 11/16/20 21:00 DC 11/16/20 20:47 Risperidone (RisperDAL) 2.5 mg QHS PO 11/10/20 21:00 11/12/20 08:00 DC 11/11/20 19:57 Fluvoxamine Maleate (Luvox) 75 mg QHS PO 11/10/20 21:00 11/12/20 23:01 DC 11/12/20 20:13 Fluvoxamine Maleate (Luvox) 100 mg QHS PO 11/13/20 21:00 11/16/20 20:46 Risperidone (RisperDAL) 1 mg DAILY PO 11/12/20 09:00 11/16/20 09:22 Risperidone (RisperDAL) 2 mg QHS PO 11/11/20 21:00 11/11/20 19:21 DC Risperidone (RisperDAL) 2 mg QHS PO 11/12/20 21:00 11/14/20 17:32 DC 11/13/20 19:47 Risperidone (RisperDAL) 2.5 mg QHS PO 11/14/20 21:00 11/16/20 20:47 Levofloxacin (Levaquin) 250 mg DAILY PO 11/15/20 15:00 11/21/20 14:59 Cancel Lactobacillus Rhamnosus (Culturelle) 1 cap BID PO 11/15/20 21:00 11/16/20 20:47 Cephalexin HCl (Keflex) 250 mg TID PO 11/15/20 15:30 11/16/20 20:47 I have reviewed the current psychotropics carefully including drug interactions. Risk benefit ratio favors no change other than as noted in my dictated progress note. Diagnosis: Problems: (1) Major depressive disorder, recurrent episode (2) Anxiety disorder, unspecified (3) OCD (obsessive compulsive disorder) (4) Bipolar disorder, current episode depressed, severe, with psychotic features DEL GO MD Nov 16, 2020 21:11
--- NOTE | 2020-11-17 00:46 | NUR ---
Nursing Note Pt withdrawn, answers questions slowly, seems to stare at length off into space. Compliant with meds and assessment. Very little interaction.
[2020-11-17] MEDS: LEVOTHYROXINE 75 MCG TABLET PO SCH (05:21)
[2020-11-17 05:36] VITALS: BP 102/66
[2020-11-17] MEDS: METHYL SALICYLATE/MENTHOL TOPICAL OINTMENT 57GM TUBE. TP SCH (07:50)
[2020-11-17] MEDS: clonazePAM 0.5 MG TABLET PO SCH ×3 (07:51→19:54)
[2020-11-17] MEDS: DOCUSATE SODIUM 100 MG CAPSULE PO SCH ×2 (07:51→19:54)
[2020-11-17] MEDS: risperiDONE 1 MG TABLET. PO SCH (07:51)
[2020-11-17] MEDS: LACTOBACILLUS RHAMNOSUS GG 1 CAPSULE. PO SCH ×2 (07:51→19:54)
[2020-11-17] MEDS: MULTIVITAMIN with MINERAL TABLET. PO SCH (07:51)
[2020-11-17] MEDS: PSYLLIUM SEED (WITH SUGAR) PACKET. PO SCH (07:51)
[2020-11-17] MEDS: PANTOPRAZOLE 40 MG TABLET. PO SCH (07:51)
[2020-11-17] MEDS: CEPHALEXIN 250 MG CAPSULE PO SCH ×3 (07:52→19:54)
--- NOTE | 2020-11-17 08:10 | PDOC ---
Exam Note: Avel Note: This note is a late entry for 11/16/2020 covers elements not covered in my initial note. Subjective: The patient was reviewed on telehealth rounds in the evening of 11/16/2020 with Jacinta BOYLE. Discussed with nursing staff, reviewed the chart. The patient slept 8-1/4 hours previous night. She has been more talkative, interactive on the unit, attending groups, more compliant with medications, less anxious. She has been in the Day room one of which is an improvement. Appetite she has been eating smaller portions, finishing them entirely which is quite an improvement. When specifically questioned directly she stated she is still felt depressed, no better but objectively she seems to be less psychotic, less depressed, less anxious. Review of Systems: No CV, , pulmonary, eye, ENT system symptoms on review. S he does admit to being tired. Mental Status Exam: The patient is oriented to herself and situation. Speech has some latency. Often response is monosyllabic. Abstraction is fair. Computation is impaired. Language function is intact. Mood and affect less withdrawn. No active suicidal ideation. Laboratory Data: Reviewed. Impression: Bipolar 1 disorder, depressed versus depressed with psychotic features. Anxiety disorder unspecified. OCD. Plan: Continue psychotropics from initial note. We may need to increase Risperdal further but for now we will hold it at this dosage. Assessment: Vital Signs/I&O: Vital Signs Date Time Temp Pulse Resp B/P (MAP) Pulse Ox O2 Delivery O2 Flow Rate FiO2 11/17/20 05:36 98.6 107 18 102/66 (78) 96 11/16/20 15:41 Room Air I & O 11/16/20 11/16/20 11/17/20 15:00 23:00 07:00 Intake Total 600 ml 160 ml Balance 600 ml 160 ml Current Medications: Meds: Current Medications Medications (Trade) Dose Ordered Sig/Aline Route PRN Reason Start Time Stop Time Status Last Admin Dose Admin Acetaminophen (Tylenol) 650 mg PRN Q6HRS PRN PO MILD PAIN / TEMP > 100.3'F 10/22/20 04:00 Al Hydroxide/Mg Hydroxide (Mylanta Plus Xs) 15 ml PRN AFTMEALHC PRN PO DYSPEPSIA 10/22/20 04:00 Magnesium Hydroxide (Milk Of Magnesia) 2,400 mg PRN QHS PRN PO CONSTIPATION, 2ND CHOICE 10/22/20 04:00 11/09/20 19:52 Aripiprazole (Abilify) 5 mg DAILY PO 10/22/20 09:00 10/25/20 21:23 DC 10/25/20 08:04 Bisacodyl (Dulcolax Tab) 5 mg PRN DAILY PRN PO CONSTIPATION, 3RD CHOICE 10/22/20 04:30 Clonazepam (KlonoPIN) 0.75 mg TID PO 10/22/20 09:00 10/29/20 07:15 DC 10/28/20 20:23 Doxycycline Hyclate (Vibra-Tab) 100 mg DAILY PO 10/22/20 09:00 10/24/20 12:31 DC 10/24/20 08:26 Fluoxetine HCl (PROzac) 20 mg DAILY PO 10/22/20 09:00 10/26/20 18:43 DC 10/26/20 09:30 Guaifenesin (Robitussin) 200 mg PRN Q4HRS PRN PO COUGH 10/22/20 04:30 Levothyroxine Sodium (Synthroid) 75 mcg DAILY06 PO 10/22/20 06:00 11/17/20 05:21 Mirtazapine (Remeron) 7.5 mg QHS PO 10/22/20 21:00 10/26/20 19:28 DC 10/25/20 20:19 Multivitamins/ Calcium (Thera-M Plus) 1 tab DAILY PO 10/22/20 09:00 11/17/20 07:51 Nortriptyline HCl (Pamelor) 75 mg QHS PO 10/22/20 21:00 10/29/20 19:51 DC 10/28/20 20:22 Polyethylene Glycol (miraLAX) 17 gm PRN DAILY PRN PO CONSTIPATION, 1ST CHOICE 10/22/20 04:30 11/08/20 20:00 Psyllium Hydrophilic Mucilloid (Metamucil) 1 pkt DAILY PO 10/22/20 09:00 11/17/20 07:51 Simethicone (Gas-X) 80 mg PRN BID PRN PO GAS / BLOATING 10/22/20 04:30 11/04/20 19:56 Zolpidem Tartrate (Ambien) 2.5 mg QHS PO 10/22/20 21:00 11/16/20 20:46 Non-Formulary Medication (Budesonide (Pulmicort Flexhaler)) 2 puff BID IH 10/22/20 09:00 UNV Lactobacillus Rhamnosus (Culturelle) 1 cap TID PO 10/22/20 09:00 10/30/20 11:59 DC 10/29/20 14:00 Pantoprazole Sodium (Protonix) 40 mg DAILYAC PO 10/22/20 07:30 11/17/20 07:51 Multi-Ingredient Ointment (Analgesic [place]) 1 sherice PRN QID PRN TP MUSCLE PAIN 10/22/20 04:45 Multi-Ingredient Ointment (Analgesic [place]) 1 sherice DAILY TP 10/22/20 09:00 11/17/20 07:50 Budesonide (Pulmicort) 0.5 mg RTBID NEB 10/22/20 08:00 10/22/20 20:14 DC 10/22/20 08:00 Fluticasone Furoate (ARNUITY 100mcg ELLIPTA) 2 puff BID INH 10/22/20 21:00 10/24/20 13:23 DC 10/24/20 08:27 Docusate Sodium (Colace) 100 mg BID PO 10/24/20 21:00 11/17/20 07:51 Olanzapine (ZyPREXA) 5 mg QHS PO 10/25/20 21:30 10/26/20 18:43 DC 10/25/20 21:34 Trazodone HCl (Desyrel) 100 mg PRN QHS PRN PO INSOMNIA, MAY REPEAT X1 10/26/20 00:45 10/26/20 00:44 DC Trazodone HCl (Desyrel) 100 mg PRN QHS PRN PO INSOMNIA, MAY REPEAT X1 10/26/20 00:45 UNV Trazodone HCl (Desyrel) 100 mg PRN QHS PRN PO INSOMNIA, MAY REPEAT X1 10/26/20 00:45 10/31/20 21:42 Fluoxetine HCl (PROzac) 30 mg DAILY PO 10/27/20 09:00 10/27/20 09:09 DC Olanzapine (ZyPREXA) 7.5 mg QHS PO 10/26/20 21:00 10/27/20 18:19 DC 10/26/20 19:56 Mirtazapine (Remeron) 15 mg QHS PO 10/26/20 21:00 11/16/20 20:47 Fluoxetine HCl (PROzac) 30 mg DAILY PO 10/27/20 09:15 11/05/20 18:17 DC 11/05/20 09:03 Risperidone (RisperDAL) 0.5 mg QHS PO 10/27/20 21:00 11/01/20 14:14 DC 10/31/20 19:49 Lamotrigine (LaMICtal) 25 mg QHS PO 10/27/20 21:00 10/29/20 23:00 DC 10/29/20 19:47 Lamotrigine (LaMICtal) 50 mg QHS PO 10/30/20 21:00 11/04/20 08:00 DC 11/03/20 20:13 Clonazepam (KlonoPIN) 0.25 mg DAILY@0900 PO 10/29/20 09:00 11/05/20 17:57 DC 11/05/20 09:04 Clonazepam (KlonoPIN) 0.75 mg PRN BID PRN PO ANXIETY / AGITATION 10/29/20 07:15 10/29/20 10:02 DC Clonazepam (KlonoPIN) 0.75 mg BID@1200,1700 PO 10/29/20 12:00 11/03/20 18:10 DC 11/03/20 17:45 Fluvoxamine Maleate (Luvox) 25 mg QHS PO 10/29/20 21:00 11/01/20 21:00 DC 10/31/20 19:49 Fluvoxamine Maleate (Luvox) 50 mg QHS PO 11/01/20 21:00 11/10/20 18:04 DC 11/09/20 19:50 Risperidone (RisperDAL) 0.5 mg 1X ONCE PO 10/31/20 11:30 10/31/20 11:31 DC 10/31/20 11:36 Risperidone (RisperDAL) 0.5 mg PRN 1X PRN PO AGITATION 10/31/20 11:30 11/05/20 17:14 Lorazepam (Ativan) 0.5 mg PRN Q2HR PRN PO ANXIETY / AGITATION 10/31/20 11:15 10/31/20 22:18 Risperidone (RisperDAL) 0.75 mg QHS PO 11/01/20 21:00 11/04/20 09:00 DC 11/03/20 20:11 Lamotrigine (LaMICtal) 75 mg QHS PO 11/04/20 21:00 11/09/20 05:00 DC 11/08/20 19:58 Clonazepam (KlonoPIN) 0.5 mg 1200 PO 11/04/20 12:00 11/05/20 17:57 DC 11/05/20 11:53 Risperidone (RisperDAL) 1 mg QHS PO 11/04/20 21:00 11/05/20 17:57 DC 11/04/20 20:11 Clonazepam (KlonoPIN) 0.75 mg 1700 PO 11/04/20 17:00 11/06/20 21:00 DC 11/06/20 17:37 Clonazepam (KlonoPIN) 0.5 mg 1700 PO 11/07/20 17:00 11/16/20 17:38 Clonazepam (KlonoPIN) 0.5 mg BID PO 11/06/20 09:00 11/17/20 07:51 Risperidone (RisperDAL) 1.5 mg QHS PO 11/06/20 21:00 11/08/20 12:30 DC 11/07/20 20:29 Olanzapine (ZyPREXA ZYDIS) 5 mg QHS PO 11/07/20 21:00 11/16/20 20:47 Risperidone (RisperDAL) 2 mg QHS PO 11/09/20 21:00 11/10/20 09:00 DC 11/09/20 19:50 Risperidone (RisperDAL) 1 mg BID PO 11/08/20 12:30 11/08/20 22:30 DC 11/08/20 19:58 Lamotrigine (LaMICtal) 100 mg QHS PO 11/09/20 21:00 11/16/20 20:46 Ciprofloxacin 2 drop Q4H OS 11/09/20 17:00 11/16/20 21:00 DC 11/16/20 20:47 Risperidone (RisperDAL) 2.5 mg QHS PO 11/10/20 21:00 11/12/20 08:00 DC 11/11/20 19:57 Fluvoxamine Maleate (Luvox) 75 mg QHS PO 11/10/20 21:00 11/12/20 23:01 DC 11/12/20 20:13 Fluvoxamine Maleate (Luvox) 100 mg QHS PO 11/13/20 21:00 11/16/20 20:46 Risperidone (RisperDAL) 1 mg DAILY PO 11/12/20 09:00 11/17/20 07:51 Risperidone (RisperDAL) 2 mg QHS PO 11/11/20 21:00 11/11/20 19:21 DC Risperidone (RisperDAL) 2 mg QHS PO 11/12/20 21:00 11/14/20 17:32 DC 11/13/20 19:47 Risperidone (RisperDAL) 2.5 mg QHS PO 11/14/20 21:00 11/16/20 20:47 Levofloxacin (Levaquin) 250 mg DAILY PO 11/15/20 15:00 11/21/20 14:59 Cancel Lactobacillus Rhamnosus (Culturelle) 1 cap BID PO 11/15/20 21:00 11/17/20 07:51 Cephalexin HCl (Keflex) 250 mg TID PO 11/15/20 15:30 11/17/20 07:52 I have reviewed the current psychotropics carefully including drug interactions. Risk benefit ratio favors no change other than as noted in my dictated progress note. Diagnosis: Problems: (1) Major depressive disorder, recurrent episode (2) Anxiety disorder, unspecified (3) Bipolar disorder, current episode mixed, severe, with psychotic features (4) OCD (obsessive compulsive disorder) DEL GO MD Nov 17, 2020 08:10
--- NOTE | 2020-11-17 11:03 | NUR ---
Nursing note: Pt has remained in her room all morning. She continues to have a flat affect, but i is pleasant, med compliant and cooperative.
[2020-11-17 15:41] VITALS: BP 98/62
[2020-11-17] MEDS: MIRTAZAPINE 15 MG TABLET PO SCH (19:54)
[2020-11-17] MEDS: lamoTRIgine 100 MG TABLET. PO SCH (19:54)
[2020-11-17] MEDS: ZOLPIDEM 5 MG TABLET. PO SCH (19:56)
[2020-11-17] MEDS: risperiDONE 2 MG TABLET. PO SCH (19:56)
[2020-11-17] MEDS: POLYETHYLENE GLYCOL 3350 17 GM PACKET. PO PRN (20:41)
--- NOTE | 2020-11-17 21:22 | PDOC ---
Exam Note: Avel Note: Please also refer to the separate dictated note~for this date of service dictated separately.~Patient seen individually. Discussed the patient with Nursing staff reviewed the chart.~Reviewed interim history and current functioning. Reviewed vital signs,~Labs/ Radiology~and current medications noted below. Continue current treatment with the changes noted in the dictated addendum note Assessment: Vital Signs/I&O: Vital Signs Date Time Temp Pulse Resp B/P (MAP) Pulse Ox O2 Delivery O2 Flow Rate FiO2 11/17/20 15:41 97.7 109 17 98/62 (74) 95 11/16/20 15:41 Room Air I & O 11/16/20 11/16/20 11/17/20 15:00 23:00 07:00 Intake Total 600 ml 160 ml Balance 600 ml 160 ml Current Medications: Meds: Current Medications Medications (Trade) Dose Ordered Sig/Aline Route PRN Reason Start Time Stop Time Status Last Admin Dose Admin Acetaminophen (Tylenol) 650 mg PRN Q6HRS PRN PO MILD PAIN / TEMP > 100.3'F 10/22/20 04:00 Al Hydroxide/Mg Hydroxide (Mylanta Plus Xs) 15 ml PRN AFTMEALHC PRN PO DYSPEPSIA 10/22/20 04:00 Magnesium Hydroxide (Milk Of Magnesia) 2,400 mg PRN QHS PRN PO CONSTIPATION, 2ND CHOICE 10/22/20 04:00 11/09/20 19:52 Aripiprazole (Abilify) 5 mg DAILY PO 10/22/20 09:00 10/25/20 21:23 DC 10/25/20 08:04 Bisacodyl (Dulcolax Tab) 5 mg PRN DAILY PRN PO CONSTIPATION, 3RD CHOICE 10/22/20 04:30 Clonazepam (KlonoPIN) 0.75 mg TID PO 10/22/20 09:00 10/29/20 07:15 DC 10/28/20 20:23 Doxycycline Hyclate (Vibra-Tab) 100 mg DAILY PO 10/22/20 09:00 10/24/20 12:31 DC 10/24/20 08:26 Fluoxetine HCl (PROzac) 20 mg DAILY PO 10/22/20 09:00 10/26/20 18:43 DC 10/26/20 09:30 Guaifenesin (Robitussin) 200 mg PRN Q4HRS PRN PO COUGH 10/22/20 04:30 Levothyroxine Sodium (Synthroid) 75 mcg DAILY06 PO 10/22/20 06:00 11/17/20 05:21 Mirtazapine (Remeron) 7.5 mg QHS PO 10/22/20 21:00 10/26/20 19:28 DC 10/25/20 20:19 Multivitamins/ Calcium (Thera-M Plus) 1 tab DAILY PO 10/22/20 09:00 11/17/20 07:51 Nortriptyline HCl (Pamelor) 75 mg QHS PO 10/22/20 21:00 10/29/20 19:51 DC 10/28/20 20:22 Polyethylene Glycol (miraLAX) 17 gm PRN DAILY PRN PO CONSTIPATION, 1ST CHOICE 10/22/20 04:30 11/17/20 20:41 Psyllium Hydrophilic Mucilloid (Metamucil) 1 pkt DAILY PO 10/22/20 09:00 11/17/20 07:51 Simethicone (Gas-X) 80 mg PRN BID PRN PO GAS / BLOATING 10/22/20 04:30 11/04/20 19:56 Zolpidem Tartrate (Ambien) 2.5 mg QHS PO 10/22/20 21:00 11/17/20 19:56 Non-Formulary Medication (Budesonide (Pulmicort Flexhaler)) 2 puff BID IH 10/22/20 09:00 UNV Lactobacillus Rhamnosus (Culturelle) 1 cap TID PO 10/22/20 09:00 10/30/20 11:59 DC 10/29/20 14:00 Pantoprazole Sodium (Protonix) 40 mg DAILYAC PO 10/22/20 07:30 11/17/20 07:51 Multi-Ingredient Ointment (Analgesic [place]) 1 sherice PRN QID PRN TP MUSCLE PAIN 10/22/20 04:45 Multi-Ingredient Ointment (Analgesic [place]) 1 sherice DAILY TP 10/22/20 09:00 11/17/20 07:50 Budesonide (Pulmicort) 0.5 mg RTBID NEB 10/22/20 08:00 10/22/20 20:14 DC 10/22/20 08:00 Fluticasone Furoate (ARNUITY 100mcg ELLIPTA) 2 puff BID INH 10/22/20 21:00 10/24/20 13:23 DC 10/24/20 08:27 Docusate Sodium (Colace) 100 mg BID PO 10/24/20 21:00 11/17/20 19:54 Olanzapine (ZyPREXA) 5 mg QHS PO 10/25/20 21:30 10/26/20 18:43 DC 10/25/20 21:34 Trazodone HCl (Desyrel) 100 mg PRN QHS PRN PO INSOMNIA, MAY REPEAT X1 10/26/20 00:45 10/26/20 00:44 DC Trazodone HCl (Desyrel) 100 mg PRN QHS PRN PO INSOMNIA, MAY REPEAT X1 10/26/20 00:45 UNV Trazodone HCl (Desyrel) 100 mg PRN QHS PRN PO INSOMNIA, MAY REPEAT X1 10/26/20 00:45 10/31/20 21:42 Fluoxetine HCl (PROzac) 30 mg DAILY PO 10/27/20 09:00 10/27/20 09:09 DC Olanzapine (ZyPREXA) 7.5 mg QHS PO 10/26/20 21:00 10/27/20 18:19 DC 10/26/20 19:56 Mirtazapine (Remeron) 15 mg QHS PO 10/26/20 21:00 11/17/20 19:54 Fluoxetine HCl (PROzac) 30 mg DAILY PO 10/27/20 09:15 11/05/20 18:17 DC 11/05/20 09:03 Risperidone (RisperDAL) 0.5 mg QHS PO 10/27/20 21:00 11/01/20 14:14 DC 10/31/20 19:49 Lamotrigine (LaMICtal) 25 mg QHS PO 10/27/20 21:00 10/29/20 23:00 DC 10/29/20 19:47 Lamotrigine (LaMICtal) 50 mg QHS PO 10/30/20 21:00 11/04/20 08:00 DC 11/03/20 20:13 Clonazepam (KlonoPIN) 0.25 mg DAILY@0900 PO 10/29/20 09:00 11/05/20 17:57 DC 11/05/20 09:04 Clonazepam (KlonoPIN) 0.75 mg PRN BID PRN PO ANXIETY / AGITATION 10/29/20 07:15 10/29/20 10:02 DC Clonazepam (KlonoPIN) 0.75 mg BID@1200,1700 PO 10/29/20 12:00 11/03/20 18:10 DC 11/03/20 17:45 Fluvoxamine Maleate (Luvox) 25 mg QHS PO 10/29/20 21:00 11/01/20 21:00 DC 10/31/20 19:49 Fluvoxamine Maleate (Luvox) 50 mg QHS PO 11/01/20 21:00 11/10/20 18:04 DC 11/09/20 19:50 Risperidone (RisperDAL) 0.5 mg 1X ONCE PO 10/31/20 11:30 10/31/20 11:31 DC 10/31/20 11:36 Risperidone (RisperDAL) 0.5 mg PRN 1X PRN PO AGITATION 10/31/20 11:30 11/05/20 17:14 Lorazepam (Ativan) 0.5 mg PRN Q2HR PRN PO ANXIETY / AGITATION 10/31/20 11:15 10/31/20 22:18 Risperidone (RisperDAL) 0.75 mg QHS PO 11/01/20 21:00 11/04/20 09:00 DC 11/03/20 20:11 Lamotrigine (LaMICtal) 75 mg QHS PO 11/04/20 21:00 11/09/20 05:00 DC 11/08/20 19:58 Clonazepam (KlonoPIN) 0.5 mg 1200 PO 11/04/20 12:00 11/05/20 17:57 DC 11/05/20 11:53 Risperidone (RisperDAL) 1 mg QHS PO 11/04/20 21:00 11/05/20 17:57 DC 11/04/20 20:11 Clonazepam (KlonoPIN) 0.75 mg 1700 PO 11/04/20 17:00 11/06/20 21:00 DC 11/06/20 17:37 Clonazepam (KlonoPIN) 0.5 mg 1700 PO 11/07/20 17:00 11/17/20 17:26 Clonazepam (KlonoPIN) 0.5 mg BID PO 11/06/20 09:00 11/17/20 19:54 Risperidone (RisperDAL) 1.5 mg QHS PO 11/06/20 21:00 11/08/20 12:30 DC 11/07/20 20:29 Olanzapine (ZyPREXA ZYDIS) 5 mg QHS PO 11/07/20 21:00 11/17/20 19:54 Risperidone (RisperDAL) 2 mg QHS PO 11/09/20 21:00 11/10/20 09:00 DC 11/09/20 19:50 Risperidone (RisperDAL) 1 mg BID PO 11/08/20 12:30 11/08/20 22:30 DC 11/08/20 19:58 Lamotrigine (LaMICtal) 100 mg QHS PO 11/09/20 21:00 11/17/20 19:54 Ciprofloxacin 2 drop Q4H OS 11/09/20 17:00 11/16/20 21:00 DC 11/16/20 20:47 Risperidone (RisperDAL) 2.5 mg QHS PO 11/10/20 21:00 11/12/20 08:00 DC 11/11/20 19:57 Fluvoxamine Maleate (Luvox) 75 mg QHS PO 11/10/20 21:00 11/12/20 23:01 DC 11/12/20 20:13 Fluvoxamine Maleate (Luvox) 100 mg QHS PO 11/13/20 21:00 11/17/20 19:54 Risperidone (RisperDAL) 1 mg DAILY PO 11/12/20 09:00 11/17/20 07:51 Risperidone (RisperDAL) 2 mg QHS PO 11/11/20 21:00 11/11/20 19:21 DC Risperidone (RisperDAL) 2 mg QHS PO 11/12/20 21:00 11/14/20 17:32 DC 11/13/20 19:47 Risperidone (RisperDAL) 2.5 mg QHS PO 11/14/20 21:00 11/17/20 19:56 Levofloxacin (Levaquin) 250 mg DAILY PO 11/15/20 15:00 11/21/20 14:59 Cancel Lactobacillus Rhamnosus (Culturelle) 1 cap BID PO 11/15/20 21:00 11/17/20 19:54 Cephalexin HCl (Keflex) 250 mg TID PO 11/15/20 15:30 11/17/20 19:54 I have reviewed the current psychotropics carefully including drug interactions. Risk benefit ratio favors no change other than as noted in my dictated progress note. Diagnosis: Problems: (1) OCD (obsessive compulsive disorder) (2) Major depressive disorder, recurrent episode (3) Anxiety disorder, unspecified (4) Bipolar disorder, current episode depressed, severe, with psychotic features DEL GO MD Nov 17, 2020 21:22
--- NOTE | 2020-11-17 22:23 | NUR ---
Nursing Note: Pt withdrawn to room, sitting quietly at shift change. Pt calm and cooperative, still slow to respond but is more interactive and responsive to staff this evening and answering questions. Pt cooperative with assessment and compliant with medications administered whole. Pt continues to be anxious about being incontinent. Pt encouraged to use the restroom and to check to be sure her brief was dry, which she did and found she had not been incontinent. Pt c/o feeling constipated and PRN Miralax administered.
[2020-11-18] MEDS: LEVOTHYROXINE 75 MCG TABLET PO SCH (05:41)
[2020-11-18 06:13] VITALS: BP 144/82
[2020-11-18] MEDS: DOCUSATE SODIUM 100 MG CAPSULE PO SCH ×2 (07:36→19:51)
[2020-11-18] MEDS: PANTOPRAZOLE 40 MG TABLET. PO SCH (07:36)
[2020-11-18] MEDS: LACTOBACILLUS RHAMNOSUS GG 1 CAPSULE. PO SCH ×2 (07:36→19:51)
[2020-11-18] MEDS: risperiDONE 1 MG TABLET. PO SCH (07:36)
[2020-11-18] MEDS: METHYL SALICYLATE/MENTHOL TOPICAL OINTMENT 57GM TUBE. TP SCH (07:37)
[2020-11-18] MEDS: clonazePAM 0.5 MG TABLET PO SCH ×3 (07:37→19:51)
[2020-11-18] MEDS: CEPHALEXIN 250 MG CAPSULE PO SCH ×3 (07:37→19:51)
[2020-11-18] MEDS: MULTIVITAMIN with MINERAL TABLET. PO SCH (07:37)
[2020-11-18] MEDS: PSYLLIUM SEED (WITH SUGAR) PACKET. PO SCH (07:39)
--- NOTE | 2020-11-18 08:15 | PDOC ---
Exam Note: Avel Note: This note is a late entry for 11/17/2020 covers elements not covered in my initial note. Subjective: The patient was reviewed on telehealth rounds in the evening of 11/17/2020 with Jacinta BOYLE. Discussed with nursing staff, reviewed the chart. The patient slept 7 hours previous night. His appetite is better. Subjectively for the first time she tells me she is feeling better. She is less obsessed about her bowels but still questioned me on this. Review of Systems: No CV, , pulmonary, eye, ENT system symptoms on review. Mental Status Exam: The patient is oriented to herself and situation. She is pleasant, verbal, interactive, much more forthcoming, smiling almost at times but no suicidal or homicidal ideation. Speech has some latency. Often response is monosyllabic. Abstraction is fair. Computation is impaired. Language function is intact. Mood and affect less withdrawn. Laboratory Data: Reviewed. Impression: Bipolar 1 disorder, depressed versus depressed with psychotic features. Anxiety disorder unspecified. OCD. Plan: Continue psychotropics from initial note. Assessment: Vital Signs/I&O: Vital Signs Date Time Temp Pulse Resp B/P (MAP) Pulse Ox O2 Delivery O2 Flow Rate FiO2 11/18/20 06:13 97.2 107 20 144/82 (102) 97 Room Air I & O 11/17/20 11/17/20 11/18/20 15:00 23:00 07:00 Intake Total 580 ml 220 ml Balance 580 ml 220 ml Current Medications: Meds: Current Medications Medications (Trade) Dose Ordered Sig/Aline Route PRN Reason Start Time Stop Time Status Last Admin Dose Admin Acetaminophen (Tylenol) 650 mg PRN Q6HRS PRN PO MILD PAIN / TEMP > 100.3'F 10/22/20 04:00 Al Hydroxide/Mg Hydroxide (Mylanta Plus Xs) 15 ml PRN AFTMEALHC PRN PO DYSPEPSIA 10/22/20 04:00 Magnesium Hydroxide (Milk Of Magnesia) 2,400 mg PRN QHS PRN PO CONSTIPATION, 2ND CHOICE 10/22/20 04:00 11/09/20 19:52 Aripiprazole (Abilify) 5 mg DAILY PO 10/22/20 09:00 10/25/20 21:23 DC 10/25/20 08:04 Bisacodyl (Dulcolax Tab) 5 mg PRN DAILY PRN PO CONSTIPATION, 3RD CHOICE 10/22/20 04:30 Clonazepam (KlonoPIN) 0.75 mg TID PO 10/22/20 09:00 10/29/20 07:15 DC 10/28/20 20:23 Doxycycline Hyclate (Vibra-Tab) 100 mg DAILY PO 10/22/20 09:00 10/24/20 12:31 DC 10/24/20 08:26 Fluoxetine HCl (PROzac) 20 mg DAILY PO 10/22/20 09:00 10/26/20 18:43 DC 10/26/20 09:30 Guaifenesin (Robitussin) 200 mg PRN Q4HRS PRN PO COUGH 10/22/20 04:30 Levothyroxine Sodium (Synthroid) 75 mcg DAILY06 PO 10/22/20 06:00 11/18/20 05:41 Mirtazapine (Remeron) 7.5 mg QHS PO 10/22/20 21:00 10/26/20 19:28 DC 10/25/20 20:19 Multivitamins/ Calcium (Thera-M Plus) 1 tab DAILY PO 10/22/20 09:00 11/18/20 07:37 Nortriptyline HCl (Pamelor) 75 mg QHS PO 10/22/20 21:00 10/29/20 19:51 DC 10/28/20 20:22 Polyethylene Glycol (miraLAX) 17 gm PRN DAILY PRN PO CONSTIPATION, 1ST CHOICE 10/22/20 04:30 11/17/20 20:41 Psyllium Hydrophilic Mucilloid (Metamucil) 1 pkt DAILY PO 10/22/20 09:00 11/18/20 07:39 Simethicone (Gas-X) 80 mg PRN BID PRN PO GAS / BLOATING 10/22/20 04:30 11/04/20 19:56 Zolpidem Tartrate (Ambien) 2.5 mg QHS PO 10/22/20 21:00 11/17/20 19:56 Non-Formulary Medication (Budesonide (Pulmicort Flexhaler)) 2 puff BID IH 10/22/20 09:00 UNV Lactobacillus Rhamnosus (Culturelle) 1 cap TID PO 10/22/20 09:00 10/30/20 11:59 DC 10/29/20 14:00 Pantoprazole Sodium (Protonix) 40 mg DAILYAC PO 10/22/20 07:30 11/18/20 07:36 Multi-Ingredient Ointment (Analgesic [place]) 1 sherice PRN QID PRN TP MUSCLE PAIN 10/22/20 04:45 Multi-Ingredient Ointment (Analgesic [place]) 1 sherice DAILY TP 10/22/20 09:00 11/18/20 07:37 Budesonide (Pulmicort) 0.5 mg RTBID NEB 10/22/20 08:00 10/22/20 20:14 DC 10/22/20 08:00 Fluticasone Furoate (ARNUITY 100mcg ELLIPTA) 2 puff BID INH 10/22/20 21:00 10/24/20 13:23 DC 10/24/20 08:27 Docusate Sodium (Colace) 100 mg BID PO 10/24/20 21:00 11/18/20 07:36 Olanzapine (ZyPREXA) 5 mg QHS PO 10/25/20 21:30 10/26/20 18:43 DC 10/25/20 21:34 Trazodone HCl (Desyrel) 100 mg PRN QHS PRN PO INSOMNIA, MAY REPEAT X1 10/26/20 00:45 10/26/20 00:44 DC Trazodone HCl (Desyrel) 100 mg PRN QHS PRN PO INSOMNIA, MAY REPEAT X1 10/26/20 00:45 UNV Trazodone HCl (Desyrel) 100 mg PRN QHS PRN PO INSOMNIA, MAY REPEAT X1 10/26/20 00:45 10/31/20 21:42 Fluoxetine HCl (PROzac) 30 mg DAILY PO 10/27/20 09:00 10/27/20 09:09 DC Olanzapine (ZyPREXA) 7.5 mg QHS PO 10/26/20 21:00 10/27/20 18:19 DC 10/26/20 19:56 Mirtazapine (Remeron) 15 mg QHS PO 10/26/20 21:00 11/17/20 19:54 Fluoxetine HCl (PROzac) 30 mg DAILY PO 10/27/20 09:15 11/05/20 18:17 DC 11/05/20 09:03 Risperidone (RisperDAL) 0.5 mg QHS PO 10/27/20 21:00 11/01/20 14:14 DC 10/31/20 19:49 Lamotrigine (LaMICtal) 25 mg QHS PO 10/27/20 21:00 10/29/20 23:00 DC 10/29/20 19:47 Lamotrigine (LaMICtal) 50 mg QHS PO 10/30/20 21:00 11/04/20 08:00 DC 11/03/20 20:13 Clonazepam (KlonoPIN) 0.25 mg DAILY@0900 PO 10/29/20 09:00 11/05/20 17:57 DC 11/05/20 09:04 Clonazepam (KlonoPIN) 0.75 mg PRN BID PRN PO ANXIETY / AGITATION 10/29/20 07:15 10/29/20 10:02 DC Clonazepam (KlonoPIN) 0.75 mg BID@1200,1700 PO 10/29/20 12:00 11/03/20 18:10 DC 11/03/20 17:45 Fluvoxamine Maleate (Luvox) 25 mg QHS PO 10/29/20 21:00 11/01/20 21:00 DC 10/31/20 19:49 Fluvoxamine Maleate (Luvox) 50 mg QHS PO 11/01/20 21:00 11/10/20 18:04 DC 11/09/20 19:50 Risperidone (RisperDAL) 0.5 mg 1X ONCE PO 10/31/20 11:30 10/31/20 11:31 DC 10/31/20 11:36 Risperidone (RisperDAL) 0.5 mg PRN 1X PRN PO AGITATION 10/31/20 11:30 11/05/20 17:14 Lorazepam (Ativan) 0.5 mg PRN Q2HR PRN PO ANXIETY / AGITATION 10/31/20 11:15 10/31/20 22:18 Risperidone (RisperDAL) 0.75 mg QHS PO 11/01/20 21:00 11/04/20 09:00 DC 11/03/20 20:11 Lamotrigine (LaMICtal) 75 mg QHS PO 11/04/20 21:00 11/09/20 05:00 DC 11/08/20 19:58 Clonazepam (KlonoPIN) 0.5 mg 1200 PO 11/04/20 12:00 11/05/20 17:57 DC 11/05/20 11:53 Risperidone (RisperDAL) 1 mg QHS PO 11/04/20 21:00 11/05/20 17:57 DC 11/04/20 20:11 Clonazepam (KlonoPIN) 0.75 mg 1700 PO 11/04/20 17:00 11/06/20 21:00 DC 11/06/20 17:37 Clonazepam (KlonoPIN) 0.5 mg 1700 PO 11/07/20 17:00 11/17/20 17:26 Clonazepam (KlonoPIN) 0.5 mg BID PO 11/06/20 09:00 11/18/20 07:37 Risperidone (RisperDAL) 1.5 mg QHS PO 11/06/20 21:00 11/08/20 12:30 DC 11/07/20 20:29 Olanzapine (ZyPREXA ZYDIS) 5 mg QHS PO 11/07/20 21:00 11/17/20 19:54 Risperidone (RisperDAL) 2 mg QHS PO 11/09/20 21:00 11/10/20 09:00 DC 11/09/20 19:50 Risperidone (RisperDAL) 1 mg BID PO 11/08/20 12:30 11/08/20 22:30 DC 11/08/20 19:58 Lamotrigine (LaMICtal) 100 mg QHS PO 11/09/20 21:00 11/17/20 19:54 Ciprofloxacin 2 drop Q4H OS 11/09/20 17:00 11/16/20 21:00 DC 11/16/20 20:47 Risperidone (RisperDAL) 2.5 mg QHS PO 11/10/20 21:00 11/12/20 08:00 DC 11/11/20 19:57 Fluvoxamine Maleate (Luvox) 75 mg QHS PO 11/10/20 21:00 11/12/20 23:01 DC 11/12/20 20:13 Fluvoxamine Maleate (Luvox) 100 mg QHS PO 11/13/20 21:00 11/17/20 19:54 Risperidone (RisperDAL) 1 mg DAILY PO 11/12/20 09:00 11/18/20 07:36 Risperidone (RisperDAL) 2 mg QHS PO 11/11/20 21:00 11/11/20 19:21 DC Risperidone (RisperDAL) 2 mg QHS PO 11/12/20 21:00 11/14/20 17:32 DC 11/13/20 19:47 Risperidone (RisperDAL) 2.5 mg QHS PO 11/14/20 21:00 11/17/20 19:56 Levofloxacin (Levaquin) 250 mg DAILY PO 11/15/20 15:00 11/21/20 14:59 Cancel Lactobacillus Rhamnosus (Culturelle) 1 cap BID PO 11/15/20 21:00 11/18/20 07:36 Cephalexin HCl (Keflex) 250 mg TID PO 11/15/20 15:30 11/18/20 07:37 I have reviewed the current psychotropics carefully including drug interactions. Risk benefit ratio favors no change other than as noted in my dictated progress note. Diagnosis: Problems: (1) OCD (obsessive compulsive disorder) (2) Bipolar disorder, current episode depressed, severe, with psychotic features (3) Anxiety disorder, unspecified (4) Major depressive disorder, recurrent episode DEL GO MD Nov 18, 2020 08:15
--- NOTE | 2020-11-18 13:12 | NUR ---
Pt appears in high anxiety during shift. She appears to be ruminating internally concerning various stress-inducing topics for her. When asked a question by staff, she will often take a long pause before being able to answer. She requires frequent encouragement and motivation from staff. At the beginning of morning assessment she verbalized anxiety and distress d/t what she says was a goal given to her by another staff member to walk 5 feet 5 times. Kallie repeated that she "can't do it." When asked and encouraged by staff to attempt this task, she did so without physical difficulty, she then sat down and repeated her anxieties about being unable to do the task. She appears problem focussed and has difficulty identifying solutions. She also verbalized increased anxiety regarding urination, incontinence, and BMs. She currently has a UTI and is taking Keflex 250 mg BID. Her last reported BM was this morning (11/18/20). Offers of potential solutions to her stress r/t urinating/BM were all subsequently denied/refused by pt. She denies SI/HI. She complains of 5/10 L knee pain, scheduled muscle rub applied as ordered. She is alert to self, place, situation, but not time. Will pass onto the next shift.
--- NOTE | 2020-11-18 13:29 | NUR ---
Pt is complaint with medications and requests by staff.
--- NOTE | 2020-11-18 14:07 | NUR ---
Reviewed with Dr. Marsh at team this morning. Kallie is showing slow improvement in psychosis and OCD. She is sleeping adequately at night and intakes have improved slightly. At this time, will not proceed with potential transfer to [facility] for ECT. Call placed to Julisa, sister/guardian, to update and she was in agreement with plan. Julisa will be involved in treatment team meeting via phone on 11/22/20. Call placed to Terry at [facility] to update. Faxed current notes, medication list, and labs for review. CHRISSY has spoken with and observed Kallie at and recreational therapy group activities on 11/16 and 11/17/20. While Kallie has a flat affect, she is participating and engaged in the group activities.
--- NOTE | 2020-11-18 15:37 | NUR ---
Pt discovered on the floor in her room. Initial assessment shows no injuries. Pt denies pain. Pt assisted back into her chair. She stated that she stood up to amb and wanted to kill self. Further conversation and obtaining more information from pt difficult d/t pt's withdrawn state and difficulty conversing with others. PRN Lorazepam 0.5 mg PO administered. Will pass on to following shift.
[2020-11-18] MEDS: LORazepam 0.5 MG TABLET PO PRN (15:41)
[2020-11-18 15:58] VITALS: BP 125/78
--- NOTE | 2020-11-18 17:25 | NUR ---
Jacqueline RN brought pt her food, and in response pt became mad and called the RN an offensive term for females. This nurse approached pt and asked what was displeasing about her dinner, to which pt replied, "you're just not listening to me." This nurse clarified that I was attempting to alleviate the situation, and pt said, "Why would that nurse give me food after everything I've been through?" When this nurse asked pt to be more specific about her difficulties she stated, "I'm not alive." This nurse then asked directly, "So you think you're ?" and pt responded "yes." Will pass on to following shift.
[2020-11-18] MEDS: MIRTAZAPINE 15 MG TABLET PO SCH (19:51)
[2020-11-18] MEDS: lamoTRIgine 100 MG TABLET. PO SCH (19:52)
[2020-11-18] MEDS: ZOLPIDEM 5 MG TABLET. PO SCH (19:53)
[2020-11-18] MEDS: risperiDONE 2 MG TABLET. PO SCH (19:54)
--- NOTE | 2020-11-18 21:02 | NUR ---
Nursing Note: Pt withdrawn, sitting quietly in her room at shift change. Pt anxious and depressed. Pt stating that her body is shutting down and that she just wants to . Pt reports that she tried to kill herself today by putting herself on the floor. Pt says that nothing has worked and that she feels "hopeless". Pt reports that she cannot urinate or have a bowel movement and her body is just shutting down. I spent time with her 1:1 allowing her to verbalize/validate her feelings and concerns, however she continued to report that she is dying and that her body was shutting down. Pt was compliant with her medications this evening.
--- NOTE | 2020-11-18 21:08 | PDOC ---
Exam Note: Avel Note: Please also refer to the separate dictated note~for this date of service dictated separately.~Patient seen individually. Discussed the patient with Nursing staff reviewed the chart.~Reviewed interim history and current functioning. Reviewed vital signs,~Labs/ Radiology~and current medications noted below. Continue current treatment with the changes noted in the dictated addendum note Assessment: Vital Signs/I&O: Vital Signs Date Time Temp Pulse Resp B/P (MAP) Pulse Ox O2 Delivery O2 Flow Rate FiO2 11/18/20 15:58 97.1 109 18 125/78 (94) 95 11/18/20 06:13 Room Air I & O 11/17/20 11/17/20 11/18/20 15:00 23:00 07:00 Intake Total 580 ml 220 ml Balance 580 ml 220 ml Current Medications: Meds: Current Medications Medications (Trade) Dose Ordered Sig/Aline Route PRN Reason Start Time Stop Time Status Last Admin Dose Admin Acetaminophen (Tylenol) 650 mg PRN Q6HRS PRN PO MILD PAIN / TEMP > 100.3'F 10/22/20 04:00 Al Hydroxide/Mg Hydroxide (Mylanta Plus Xs) 15 ml PRN AFTMEALHC PRN PO DYSPEPSIA 10/22/20 04:00 Magnesium Hydroxide (Milk Of Magnesia) 2,400 mg PRN QHS PRN PO CONSTIPATION, 2ND CHOICE 10/22/20 04:00 11/09/20 19:52 Aripiprazole (Abilify) 5 mg DAILY PO 10/22/20 09:00 10/25/20 21:23 DC 10/25/20 08:04 Bisacodyl (Dulcolax Tab) 5 mg PRN DAILY PRN PO CONSTIPATION, 3RD CHOICE 10/22/20 04:30 Clonazepam (KlonoPIN) 0.75 mg TID PO 10/22/20 09:00 10/29/20 07:15 DC 10/28/20 20:23 Doxycycline Hyclate (Vibra-Tab) 100 mg DAILY PO 10/22/20 09:00 10/24/20 12:31 DC 10/24/20 08:26 Fluoxetine HCl (PROzac) 20 mg DAILY PO 10/22/20 09:00 10/26/20 18:43 DC 10/26/20 09:30 Guaifenesin (Robitussin) 200 mg PRN Q4HRS PRN PO COUGH 10/22/20 04:30 Levothyroxine Sodium (Synthroid) 75 mcg DAILY06 PO 10/22/20 06:00 11/18/20 05:41 Mirtazapine (Remeron) 7.5 mg QHS PO 10/22/20 21:00 10/26/20 19:28 DC 10/25/20 20:19 Multivitamins/ Calcium (Thera-M Plus) 1 tab DAILY PO 10/22/20 09:00 11/18/20 07:37 Nortriptyline HCl (Pamelor) 75 mg QHS PO 10/22/20 21:00 10/29/20 19:51 DC 10/28/20 20:22 Polyethylene Glycol (miraLAX) 17 gm PRN DAILY PRN PO CONSTIPATION, 1ST CHOICE 10/22/20 04:30 11/17/20 20:41 Psyllium Hydrophilic Mucilloid (Metamucil) 1 pkt DAILY PO 10/22/20 09:00 11/18/20 07:39 Simethicone (Gas-X) 80 mg PRN BID PRN PO GAS / BLOATING 10/22/20 04:30 11/04/20 19:56 Zolpidem Tartrate (Ambien) 2.5 mg QHS PO 10/22/20 21:00 11/18/20 19:53 Non-Formulary Medication (Budesonide (Pulmicort Flexhaler)) 2 puff BID IH 10/22/20 09:00 UNV Lactobacillus Rhamnosus (Culturelle) 1 cap TID PO 10/22/20 09:00 10/30/20 11:59 DC 10/29/20 14:00 Pantoprazole Sodium (Protonix) 40 mg DAILYAC PO 10/22/20 07:30 11/18/20 07:36 Multi-Ingredient Ointment (Analgesic [place]) 1 sherice PRN QID PRN TP MUSCLE PAIN 10/22/20 04:45 Multi-Ingredient Ointment (Analgesic [place]) 1 sherice DAILY TP 10/22/20 09:00 11/18/20 07:37 Budesonide (Pulmicort) 0.5 mg RTBID NEB 10/22/20 08:00 10/22/20 20:14 DC 10/22/20 08:00 Fluticasone Furoate (ARNUITY 100mcg ELLIPTA) 2 puff BID INH 10/22/20 21:00 10/24/20 13:23 DC 10/24/20 08:27 Docusate Sodium (Colace) 100 mg BID PO 10/24/20 21:00 11/18/20 19:51 Olanzapine (ZyPREXA) 5 mg QHS PO 10/25/20 21:30 10/26/20 18:43 DC 10/25/20 21:34 Trazodone HCl (Desyrel) 100 mg PRN QHS PRN PO INSOMNIA, MAY REPEAT X1 10/26/20 00:45 10/26/20 00:44 DC Trazodone HCl (Desyrel) 100 mg PRN QHS PRN PO INSOMNIA, MAY REPEAT X1 10/26/20 00:45 UNV Trazodone HCl (Desyrel) 100 mg PRN QHS PRN PO INSOMNIA, MAY REPEAT X1 10/26/20 00:45 10/31/20 21:42 Fluoxetine HCl (PROzac) 30 mg DAILY PO 10/27/20 09:00 10/27/20 09:09 DC Olanzapine (ZyPREXA) 7.5 mg QHS PO 10/26/20 21:00 10/27/20 18:19 DC 10/26/20 19:56 Mirtazapine (Remeron) 15 mg QHS PO 10/26/20 21:00 11/18/20 19:51 Fluoxetine HCl (PROzac) 30 mg DAILY PO 10/27/20 09:15 11/05/20 18:17 DC 11/05/20 09:03 Risperidone (RisperDAL) 0.5 mg QHS PO 10/27/20 21:00 11/01/20 14:14 DC 10/31/20 19:49 Lamotrigine (LaMICtal) 25 mg QHS PO 10/27/20 21:00 10/29/20 23:00 DC 10/29/20 19:47 Lamotrigine (LaMICtal) 50 mg QHS PO 10/30/20 21:00 11/04/20 08:00 DC 11/03/20 20:13 Clonazepam (KlonoPIN) 0.25 mg DAILY@0900 PO 10/29/20 09:00 11/05/20 17:57 DC 11/05/20 09:04 Clonazepam (KlonoPIN) 0.75 mg PRN BID PRN PO ANXIETY / AGITATION 10/29/20 07:15 10/29/20 10:02 DC Clonazepam (KlonoPIN) 0.75 mg BID@1200,1700 PO 10/29/20 12:00 11/03/20 18:10 DC 11/03/20 17:45 Fluvoxamine Maleate (Luvox) 25 mg QHS PO 10/29/20 21:00 11/01/20 21:00 DC 10/31/20 19:49 Fluvoxamine Maleate (Luvox) 50 mg QHS PO 11/01/20 21:00 11/10/20 18:04 DC 11/09/20 19:50 Risperidone (RisperDAL) 0.5 mg 1X ONCE PO 10/31/20 11:30 10/31/20 11:31 DC 10/31/20 11:36 Risperidone (RisperDAL) 0.5 mg PRN 1X PRN PO AGITATION 10/31/20 11:30 11/05/20 17:14 Lorazepam (Ativan) 0.5 mg PRN Q2HR PRN PO ANXIETY / AGITATION 10/31/20 11:15 11/18/20 15:41 Risperidone (RisperDAL) 0.75 mg QHS PO 11/01/20 21:00 11/04/20 09:00 DC 11/03/20 20:11 Lamotrigine (LaMICtal) 75 mg QHS PO 11/04/20 21:00 11/09/20 05:00 DC 11/08/20 19:58 Clonazepam (KlonoPIN) 0.5 mg 1200 PO 11/04/20 12:00 11/05/20 17:57 DC 11/05/20 11:53 Risperidone (RisperDAL) 1 mg QHS PO 11/04/20 21:00 11/05/20 17:57 DC 11/04/20 20:11 Clonazepam (KlonoPIN) 0.75 mg 1700 PO 11/04/20 17:00 11/06/20 21:00 DC 11/06/20 17:37 Clonazepam (KlonoPIN) 0.5 mg 1700 PO 11/07/20 17:00 11/18/20 17:12 Clonazepam (KlonoPIN) 0.5 mg BID PO 11/06/20 09:00 11/18/20 19:51 Risperidone (RisperDAL) 1.5 mg QHS PO 11/06/20 21:00 11/08/20 12:30 DC 11/07/20 20:29 Olanzapine (ZyPREXA ZYDIS) 5 mg QHS PO 11/07/20 21:00 11/18/20 19:51 Risperidone (RisperDAL) 2 mg QHS PO 11/09/20 21:00 11/10/20 09:00 DC 11/09/20 19:50 Risperidone (RisperDAL) 1 mg BID PO 11/08/20 12:30 11/08/20 22:30 DC 11/08/20 19:58 Lamotrigine (LaMICtal) 100 mg QHS PO 11/09/20 21:00 11/18/20 18:27 DC 11/17/20 19:54 Ciprofloxacin 2 drop Q4H OS 11/09/20 17:00 11/16/20 21:00 DC 11/16/20 20:47 Risperidone (RisperDAL) 2.5 mg QHS PO 11/10/20 21:00 11/12/20 08:00 DC 11/11/20 19:57 Fluvoxamine Maleate (Luvox) 75 mg QHS PO 11/10/20 21:00 11/12/20 23:01 DC 11/12/20 20:13 Fluvoxamine Maleate (Luvox) 100 mg QHS PO 11/13/20 21:00 11/18/20 19:51 Risperidone (RisperDAL) 1 mg DAILY PO 11/12/20 09:00 11/18/20 07:36 Risperidone (RisperDAL) 2 mg QHS PO 11/11/20 21:00 11/11/20 19:21 DC Risperidone (RisperDAL) 2 mg QHS PO 11/12/20 21:00 11/14/20 17:32 DC 11/13/20 19:47 Risperidone (RisperDAL) 2.5 mg QHS PO 11/14/20 21:00 11/18/20 19:54 Levofloxacin (Levaquin) 250 mg DAILY PO 11/15/20 15:00 11/21/20 14:59 Cancel Lactobacillus Rhamnosus (Culturelle) 1 cap BID PO 11/15/20 21:00 11/18/20 19:51 Cephalexin HCl (Keflex) 250 mg TID PO 11/15/20 15:30 11/18/20 19:51 Lamotrigine (LaMICtal) 150 mg QHS PO 11/18/20 21:00 11/18/20 19:52 Current Medications Medications (Trade) Dose Ordered Sig/Aline Route PRN Reason Start Time Stop Time Status Last Admin Dose Admin Lamotrigine (LaMICtal) 150 mg QHS PO 11/18/20 21:00 11/18/20 19:52 I have reviewed the current psychotropics carefully including drug interactions. Risk benefit ratio favors no change other than as noted in my dictated progress note. Diagnosis: Problems: (1) Bipolar disorder, current episode depressed, severe, with psychotic features (2) OCD (obsessive compulsive disorder) (3) Anxiety disorder, unspecified (4) Major depressive disorder, recurrent episode DEL GO MD Nov 18, 2020 21:08
[2020-11-19] MEDS: LEVOTHYROXINE 75 MCG TABLET PO SCH (05:21)
[2020-11-19 06:13] VITALS: BP 109/69
[2020-11-19] MEDS: PSYLLIUM SEED (WITH SUGAR) PACKET. PO SCH (08:04)
[2020-11-19] MEDS: risperiDONE 1 MG TABLET. PO SCH (08:05)
[2020-11-19] MEDS: LACTOBACILLUS RHAMNOSUS GG 1 CAPSULE. PO SCH ×2 (08:05→20:42)
[2020-11-19] MEDS: PANTOPRAZOLE 40 MG TABLET. PO SCH (08:05)
[2020-11-19] MEDS: MULTIVITAMIN with MINERAL TABLET. PO SCH (08:05)
[2020-11-19] MEDS: DOCUSATE SODIUM 100 MG CAPSULE PO SCH ×2 (08:05→20:42)
[2020-11-19] MEDS: CEPHALEXIN 250 MG CAPSULE PO SCH ×3 (08:05→20:42)
[2020-11-19] MEDS: clonazePAM 0.5 MG TABLET PO SCH ×3 (08:12→20:42)
[2020-11-19] MEDS: METHYL SALICYLATE/MENTHOL TOPICAL OINTMENT 57GM TUBE. TP SCH (08:12)
--- NOTE | 2020-11-19 08:58 | PDOC ---
Exam Note: Avel Note: This note is a late entry for 11/18/2020 covers elements not covered in my initial note. Subjective: The patient was reviewed on telehealth rounds in the morning of 11/18/2020 for a treatment team meeting with Rashmi Brannon, Genie Bragg and Stephanie (social work therapist), Amanda, activity therapy and Lolis RN. Discussed with nursing staff, reviewed the chart. The patient slept 6 hours previous night. She had put herself on the floor, stated she was . Her insides were decaying and there was nothing that could help her. I processed this with her at some length. Nevertheless despite this appetite is little better. She ate nothing for lunch but ate breakfast and dinner. Review of Systems: Positive for vague somatic symptoms consistent with her above psychosis. No CV, , pulmonary, eye, ENT system symptoms on review. Mental Status Exam: The patient is alert and oriented. Speech coherent, has some latency. Abstraction is fair. Computation is impaired. Language function is intact. Mood and affect depressed. No active suicidal or homicidal ideation but she states she was already . Denies wanting to hurt herself. Laboratory Data: Reviewed. Impression: Bipolar 1 disorder, depressed versus depressed with psychotic features. Anxiety disorder unspecified. OCD. Plan: Continue current psychotropics. Increase Lamictal from 100 mg a day to 150 mg a day after she has been on 100 mg for 5 days. Continue rest unchanged. Assessment: Vital Signs/I&O: Vital Signs Date Time Temp Pulse Resp B/P (MAP) Pulse Ox O2 Delivery O2 Flow Rate FiO2 11/19/20 06:13 97.5 83 16 109/69 (82) 97 11/18/20 06:13 Room Air I & O 11/18/20 11/18/20 11/19/20 15:00 23:00 07:00 Intake Total 360 ml 100 ml Balance 360 ml 100 ml Current Medications: Meds: Current Medications Medications (Trade) Dose Ordered Sig/Aline Route PRN Reason Start Time Stop Time Status Last Admin Dose Admin Acetaminophen (Tylenol) 650 mg PRN Q6HRS PRN PO MILD PAIN / TEMP > 100.3'F 10/22/20 04:00 Al Hydroxide/Mg Hydroxide (Mylanta Plus Xs) 15 ml PRN AFTMEALHC PRN PO DYSPEPSIA 10/22/20 04:00 Magnesium Hydroxide (Milk Of Magnesia) 2,400 mg PRN QHS PRN PO CONSTIPATION, 2ND CHOICE 10/22/20 04:00 11/09/20 19:52 Aripiprazole (Abilify) 5 mg DAILY PO 10/22/20 09:00 10/25/20 21:23 DC 10/25/20 08:04 Bisacodyl (Dulcolax Tab) 5 mg PRN DAILY PRN PO CONSTIPATION, 3RD CHOICE 10/22/20 04:30 Clonazepam (KlonoPIN) 0.75 mg TID PO 10/22/20 09:00 10/29/20 07:15 DC 10/28/20 20:23 Doxycycline Hyclate (Vibra-Tab) 100 mg DAILY PO 10/22/20 09:00 10/24/20 12:31 DC 10/24/20 08:26 Fluoxetine HCl (PROzac) 20 mg DAILY PO 10/22/20 09:00 10/26/20 18:43 DC 10/26/20 09:30 Guaifenesin (Robitussin) 200 mg PRN Q4HRS PRN PO COUGH 10/22/20 04:30 Levothyroxine Sodium (Synthroid) 75 mcg DAILY06 PO 10/22/20 06:00 11/19/20 05:21 Mirtazapine (Remeron) 7.5 mg QHS PO 10/22/20 21:00 10/26/20 19:28 DC 10/25/20 20:19 Multivitamins/ Calcium (Thera-M Plus) 1 tab DAILY PO 10/22/20 09:00 11/19/20 08:05 Nortriptyline HCl (Pamelor) 75 mg QHS PO 10/22/20 21:00 10/29/20 19:51 DC 10/28/20 20:22 Polyethylene Glycol (miraLAX) 17 gm PRN DAILY PRN PO CONSTIPATION, 1ST CHOICE 10/22/20 04:30 11/17/20 20:41 Psyllium Hydrophilic Mucilloid (Metamucil) 1 pkt DAILY PO 10/22/20 09:00 11/19/20 08:04 Simethicone (Gas-X) 80 mg PRN BID PRN PO GAS / BLOATING 10/22/20 04:30 11/04/20 19:56 Zolpidem Tartrate (Ambien) 2.5 mg QHS PO 10/22/20 21:00 11/18/20 19:53 Non-Formulary Medication (Budesonide (Pulmicort Flexhaler)) 2 puff BID IH 10/22/20 09:00 UNV Lactobacillus Rhamnosus (Culturelle) 1 cap TID PO 10/22/20 09:00 10/30/20 11:59 DC 10/29/20 14:00 Pantoprazole Sodium (Protonix) 40 mg DAILYAC PO 10/22/20 07:30 11/19/20 08:05 Multi-Ingredient Ointment (Analgesic [place]) 1 sherice PRN QID PRN TP MUSCLE PAIN 10/22/20 04:45 Multi-Ingredient Ointment (Analgesic [place]) 1 sherice DAILY TP 10/22/20 09:00 11/19/20 08:12 Budesonide (Pulmicort) 0.5 mg RTBID NEB 10/22/20 08:00 10/22/20 20:14 DC 10/22/20 08:00 Fluticasone Furoate (ARNUITY 100mcg ELLIPTA) 2 puff BID INH 10/22/20 21:00 10/24/20 13:23 DC 10/24/20 08:27 Docusate Sodium (Colace) 100 mg BID PO 10/24/20 21:00 11/19/20 08:05 Olanzapine (ZyPREXA) 5 mg QHS PO 10/25/20 21:30 10/26/20 18:43 DC 10/25/20 21:34 Trazodone HCl (Desyrel) 100 mg PRN QHS PRN PO INSOMNIA, MAY REPEAT X1 10/26/20 00:45 10/26/20 00:44 DC Trazodone HCl (Desyrel) 100 mg PRN QHS PRN PO INSOMNIA, MAY REPEAT X1 10/26/20 00:45 UNV Trazodone HCl (Desyrel) 100 mg PRN QHS PRN PO INSOMNIA, MAY REPEAT X1 10/26/20 00:45 10/31/20 21:42 Fluoxetine HCl (PROzac) 30 mg DAILY PO 10/27/20 09:00 10/27/20 09:09 DC Olanzapine (ZyPREXA) 7.5 mg QHS PO 10/26/20 21:00 10/27/20 18:19 DC 10/26/20 19:56 Mirtazapine (Remeron) 15 mg QHS PO 10/26/20 21:00 11/18/20 19:51 Fluoxetine HCl (PROzac) 30 mg DAILY PO 10/27/20 09:15 11/05/20 18:17 DC 11/05/20 09:03 Risperidone (RisperDAL) 0.5 mg QHS PO 10/27/20 21:00 11/01/20 14:14 DC 10/31/20 19:49 Lamotrigine (LaMICtal) 25 mg QHS PO 10/27/20 21:00 10/29/20 23:00 DC 10/29/20 19:47 Lamotrigine (LaMICtal) 50 mg QHS PO 10/30/20 21:00 11/04/20 08:00 DC 11/03/20 20:13 Clonazepam (KlonoPIN) 0.25 mg DAILY@0900 PO 10/29/20 09:00 11/05/20 17:57 DC 11/05/20 09:04 Clonazepam (KlonoPIN) 0.75 mg PRN BID PRN PO ANXIETY / AGITATION 10/29/20 07:15 10/29/20 10:02 DC Clonazepam (KlonoPIN) 0.75 mg BID@1200,1700 PO 10/29/20 12:00 11/03/20 18:10 DC 11/03/20 17:45 Fluvoxamine Maleate (Luvox) 25 mg QHS PO 10/29/20 21:00 11/01/20 21:00 DC 10/31/20 19:49 Fluvoxamine Maleate (Luvox) 50 mg QHS PO 11/01/20 21:00 11/10/20 18:04 DC 11/09/20 19:50 Risperidone (RisperDAL) 0.5 mg 1X ONCE PO 10/31/20 11:30 10/31/20 11:31 DC 10/31/20 11:36 Risperidone (RisperDAL) 0.5 mg PRN 1X PRN PO AGITATION 10/31/20 11:30 11/05/20 17:14 Lorazepam (Ativan) 0.5 mg PRN Q2HR PRN PO ANXIETY / AGITATION 10/31/20 11:15 11/18/20 15:41 Risperidone (RisperDAL) 0.75 mg QHS PO 11/01/20 21:00 11/04/20 09:00 DC 11/03/20 20:11 Lamotrigine (LaMICtal) 75 mg QHS PO 11/04/20 21:00 11/09/20 05:00 DC 11/08/20 19:58 Clonazepam (KlonoPIN) 0.5 mg 1200 PO 11/04/20 12:00 11/05/20 17:57 DC 11/05/20 11:53 Risperidone (RisperDAL) 1 mg QHS PO 11/04/20 21:00 11/05/20 17:57 DC 11/04/20 20:11 Clonazepam (KlonoPIN) 0.75 mg 1700 PO 11/04/20 17:00 11/06/20 21:00 DC 11/06/20 17:37 Clonazepam (KlonoPIN) 0.5 mg 1700 PO 11/07/20 17:00 11/18/20 17:12 Clonazepam (KlonoPIN) 0.5 mg BID PO 11/06/20 09:00 11/19/20 08:12 Risperidone (RisperDAL) 1.5 mg QHS PO 11/06/20 21:00 11/08/20 12:30 DC 11/07/20 20:29 Olanzapine (ZyPREXA ZYDIS) 5 mg QHS PO 11/07/20 21:00 11/18/20 19:51 Risperidone (RisperDAL) 2 mg QHS PO 11/09/20 21:00 11/10/20 09:00 DC 11/09/20 19:50 Risperidone (RisperDAL) 1 mg BID PO 11/08/20 12:30 11/08/20 22:30 DC 11/08/20 19:58 Lamotrigine (LaMICtal) 100 mg QHS PO 11/09/20 21:00 11/18/20 18:27 DC 11/17/20 19:54 Ciprofloxacin 2 drop Q4H OS 11/09/20 17:00 11/16/20 21:00 DC 11/16/20 20:47 Risperidone (RisperDAL) 2.5 mg QHS PO 11/10/20 21:00 11/12/20 08:00 DC 11/11/20 19:57 Fluvoxamine Maleate (Luvox) 75 mg QHS PO 11/10/20 21:00 11/12/20 23:01 DC 11/12/20 20:13 Fluvoxamine Maleate (Luvox) 100 mg QHS PO 11/13/20 21:00 11/18/20 19:51 Risperidone (RisperDAL) 1 mg DAILY PO 11/12/20 09:00 11/19/20 08:05 Risperidone (RisperDAL) 2 mg QHS PO 11/11/20 21:00 11/11/20 19:21 DC Risperidone (RisperDAL) 2 mg QHS PO 11/12/20 21:00 11/14/20 17:32 DC 11/13/20 19:47 Risperidone (RisperDAL) 2.5 mg QHS PO 11/14/20 21:00 11/18/20 19:54 Levofloxacin (Levaquin) 250 mg DAILY PO 11/15/20 15:00 11/21/20 14:59 Cancel Lactobacillus Rhamnosus (Culturelle) 1 cap BID PO 11/15/20 21:00 11/19/20 08:05 Cephalexin HCl (Keflex) 250 mg TID PO 11/15/20 15:30 11/19/20 08:05 Lamotrigine (LaMICtal) 150 mg QHS PO 11/18/20 21:00 11/18/20 19:52 Current Medications Medications (Trade) Dose Ordered Sig/Aline Route PRN Reason Start Time Stop Time Status Last Admin Dose Admin Lamotrigine (LaMICtal) 150 mg QHS PO 11/18/20 21:00 11/18/20 19:52 I have reviewed the current psychotropics carefully including drug interactions. Risk benefit ratio favors no change other than as noted in my dictated progress note. Diagnosis: Problems: (1) OCD (obsessive compulsive disorder) (2) Bipolar disorder, current episode depressed, severe, with psychotic features (3) Anxiety disorder, unspecified (4) Major depressive disorder, recurrent episode DEL GO MD Nov 19, 2020 08:58
[2020-11-19 15:19] VITALS: BP 134/88
--- NOTE | 2020-11-19 18:38 | NUR ---
Pt up for meals and out to groups with encouragement. Took meds today well. Threw self on floor mid morning. pt feels this is how she can kill herself. Pt refused to get up for supper.
[2020-11-19] MEDS: MIRTAZAPINE 15 MG TABLET PO SCH (20:43)
[2020-11-19] MEDS: lamoTRIgine 100 MG TABLET. PO SCH (20:43)
[2020-11-19] MEDS: ZOLPIDEM 5 MG TABLET. PO SCH (20:44)
[2020-11-19] MEDS: risperiDONE 2 MG TABLET. PO SCH (20:44)
--- NOTE | 2020-11-19 21:36 | PDOC ---
Exam Note: Avel Note: Please also refer to the separate dictated note~for this date of service dictated separately.~Patient seen individually. Discussed the patient with Nursing staff reviewed the chart.~Reviewed interim history and current functioning. Reviewed vital signs,~Labs/ Radiology~and current medications noted below. Continue current treatment with the changes noted in the dictated addendum note Assessment: Vital Signs/I&O: Vital Signs Date Time Temp Pulse Resp B/P (MAP) Pulse Ox O2 Delivery O2 Flow Rate FiO2 11/19/20 15:19 97.7 91 20 134/88 (103) 100 Room Air I & O 11/18/20 11/18/20 11/19/20 15:00 23:00 07:00 Intake Total 360 ml 100 ml Balance 360 ml 100 ml Current Medications: I have reviewed the current psychotropics carefully including drug interactions. Risk benefit ratio favors no change other than as noted in my dictated progress note. Diagnosis: Problems: (1) OCD (obsessive compulsive disorder) (2) Bipolar disorder, current episode depressed, severe, with psychotic features (3) Anxiety disorder, unspecified (4) Major depressive disorder, recurrent episode DEL GO MD Nov 19, 2020 21:36
--- NOTE | 2020-11-19 22:00 | NUR ---
Patient is in bed on assumption of care, awake in bed. When this nurse went in to assess patient, patient stated "I'm incontinent." She was cooperative with being assisted to the bathroom to void and get cleaned up. She was then assisted back to the chair to sit and wait so this radio script writer could put fresh linens on her bed. At that point, she looked up and stated "I'm ." This radio script writer assured her that she was very much alive, as people don't walk, talk, or use toilets. She was compliant with medications whole. Flat and very slow to respond to assessment questions. Patient denies any pain or discomfort. She appears to be sleeping at present time. Will continue to monitor.
[2020-11-20] MEDS: LEVOTHYROXINE 75 MCG TABLET PO SCH (04:47)
[2020-11-20 06:33] VITALS: BP 134/78
[2020-11-20] MEDS: MULTIVITAMIN with MINERAL TABLET. PO SCH (08:19)
[2020-11-20] MEDS: LACTOBACILLUS RHAMNOSUS GG 1 CAPSULE. PO SCH ×2 (08:19→20:52)
[2020-11-20] MEDS: PANTOPRAZOLE 40 MG TABLET. PO SCH (08:19)
[2020-11-20] MEDS: PSYLLIUM SEED (WITH SUGAR) PACKET. PO SCH (08:19)
[2020-11-20] MEDS: CEPHALEXIN 250 MG CAPSULE PO SCH ×3 (08:19→20:55)
[2020-11-20] MEDS: risperiDONE 1 MG TABLET. PO SCH (08:19)
[2020-11-20] MEDS: DOCUSATE SODIUM 100 MG CAPSULE PO SCH ×2 (08:19→20:51)
[2020-11-20] MEDS: METHYL SALICYLATE/MENTHOL TOPICAL OINTMENT 57GM TUBE. TP SCH (08:21)
[2020-11-20] MEDS: clonazePAM 0.5 MG TABLET PO SCH ×3 (08:21→20:53)
--- NOTE | 2020-11-20 13:07 | PN ---
DATE: 11/20/2020 SUBJECTIVE: The patient was seen today, met with the staff, chart reviewed and also covering for Dr. Marsh. The patient's behavior remains the same. She stays in bed, complaining of feeling tired and weak and also having difficulty walking. She uses a walker. The patient states she is anorexic. She does not have any appetite. The patient also has significant problems with concentration and thinking. She is constantly staring, having difficulty holding a conversation. OBSERVATION: VITAL SIGNS: Temperature 98.1, blood pressure 134/78, pulse 94, respirations 16, O2 sat 96%. GENERAL: Slept about 6 hours last night. The patient's appetite decreased. CURRENT MEDICATIONS: The patient's current medications include Risperdal 2.5 mg at night, Luvox 100 mg at night, Risperdal 1 mg daily, Zyprexa 5 mg at night, Klonopin 0.5 mg 3 times a day, Risperdal 0.5 mg p.r.n., mirtazapine 15 mg at night. She is also on lorazepam 0.5 mg q. 2 hours p.r.n. The patient is also on Ambien 2.5 mg at night. The patient's behavior has not changed. The patient continues to have problems with inability to participate in activities, being withdrawn and depressed. LABORATORY DATA: The patient's lab reviewed. BUN was 21, glucose 117. The patient currently is not presenting with any other major behavior problems. ASSESSMENT: [place] I: 1. Major depression, recurrent. 2. Generalized anxiety disorder. 3. History of bipolar disorder. AXIS II: None. AXIS III: Hypertension, hypothyroidism, gastroesophageal reflux disease, Parkinson's disease and recurrent urinary tract infections. PLAN: Continue with the current treatment. The patient apparently has been taking several medications. The patient is still not showing much improvement. LENGTH OF STAY: 5 days. LORENA BETANCOURT MD DR: NATI/wil JOB#: [id number] / [id number]
[2020-11-20 15:34] VITALS: BP 112/75
--- NOTE | 2020-11-20 17:35 | NUR ---
Pt withdrawn to bed most of day. Ate very little. Has been compliant with meds and cares. Pt told dr she was depressed because she couldn't walk anymore. Pt ambulated to day room for groups yesterday and has ambulated today from bed to BR.
[2020-11-20] MEDS: ZOLPIDEM 5 MG TABLET. PO SCH (20:48)
[2020-11-20] MEDS: lamoTRIgine 100 MG TABLET. PO SCH (20:53)
[2020-11-20] MEDS: MIRTAZAPINE 15 MG TABLET PO SCH (20:55)
[2020-11-20] MEDS: risperiDONE 2 MG TABLET. PO SCH (20:56)
--- NOTE | 2020-11-20 21:13 | PDOC ---
Exam Note: Avel Note: This note is a late entry for 11/19/2020 covers elements not covered in my initial note. Subjective: The patient was reviewed on telehealth rounds in the evening of 11/19/2020 with Laisha BOYLE. Discussed with nursing staff, reviewed the chart. The patient slept 6 hours previous night. She was quite obsessive previous night stating she was , nothing could get her better. During the day today, she has been compliant with her medications. She did try to throw herself on the floor to kill herself, but this was certainly not something she even got hurt with. I addressed this with her. Review of Systems: Poor appetite. No CV, , pulmonary, eye, ENT system symptoms on review. Mental Status Exam: The patient is alert and oriented. She was a little more interactive, still admits to being depressed, withdrawn, does not feel there is any hope for her. Speech coherent, has some latency. Abstraction is fair. Computation is impaired. Attention span is short. Language function is intact. Mood and affect depressed. No active suicidal or homicidal ideation Laboratory Data: Reviewed. Impression: Bipolar 1 disorder, depressed versus depressed with psychotic features. Anxiety disorder unspecified. OCD. Plan: Continue current psychotropics. Assessment: Vital Signs/I&O: Vital Signs Date Time Temp Pulse Resp B/P (MAP) Pulse Ox O2 Delivery O2 Flow Rate FiO2 11/20/20 15:34 97.2 99 16 112/75 (87) 98 Room Air I & O 11/19/20 11/19/20 11/20/20 15:00 23:00 07:00 Intake Total 360 ml 0 ml Balance 360 ml 0 ml Current Medications: Meds: Current Medications Medications (Trade) Dose Ordered Sig/Aline Route PRN Reason Start Time Stop Time Status Last Admin Dose Admin Acetaminophen (Tylenol) 650 mg PRN Q6HRS PRN PO MILD PAIN / TEMP > 100.3'F 10/22/20 04:00 11/20/20 05:00 Al Hydroxide/Mg Hydroxide (Mylanta Plus Xs) 15 ml PRN AFTMEALHC PRN PO DYSPEPSIA 10/22/20 04:00 Magnesium Hydroxide (Milk Of Magnesia) 2,400 mg PRN QHS PRN PO CONSTIPATION, 2ND CHOICE 10/22/20 04:00 11/09/20 19:52 Aripiprazole (Abilify) 5 mg DAILY PO 10/22/20 09:00 10/25/20 21:23 DC 10/25/20 08:04 Bisacodyl (Dulcolax Tab) 5 mg PRN DAILY PRN PO CONSTIPATION, 3RD CHOICE 10/22/20 04:30 Clonazepam (KlonoPIN) 0.75 mg TID PO 10/22/20 09:00 10/29/20 07:15 DC 10/28/20 20:23 Doxycycline Hyclate (Vibra-Tab) 100 mg DAILY PO 10/22/20 09:00 10/24/20 12:31 DC 10/24/20 08:26 Fluoxetine HCl (PROzac) 20 mg DAILY PO 10/22/20 09:00 10/26/20 18:43 DC 10/26/20 09:30 Guaifenesin (Robitussin) 200 mg PRN Q4HRS PRN PO COUGH 10/22/20 04:30 Levothyroxine Sodium (Synthroid) 75 mcg DAILY06 PO 10/22/20 06:00 11/20/20 04:47 Mirtazapine (Remeron) 7.5 mg QHS PO 10/22/20 21:00 10/26/20 19:28 DC 10/25/20 20:19 Multivitamins/ Calcium (Thera-M Plus) 1 tab DAILY PO 10/22/20 09:00 11/20/20 08:19 Nortriptyline HCl (Pamelor) 75 mg QHS PO 10/22/20 21:00 10/29/20 19:51 DC 10/28/20 20:22 Polyethylene Glycol (miraLAX) 17 gm PRN DAILY PRN PO CONSTIPATION, 1ST CHOICE 10/22/20 04:30 11/17/20 20:41 Psyllium Hydrophilic Mucilloid (Metamucil) 1 pkt DAILY PO 10/22/20 09:00 11/20/20 08:19 Simethicone (Gas-X) 80 mg PRN BID PRN PO GAS / BLOATING 10/22/20 04:30 11/04/20 19:56 Zolpidem Tartrate (Ambien) 2.5 mg QHS PO 10/22/20 21:00 11/20/20 20:48 Non-Formulary Medication (Budesonide (Pulmicort Flexhaler)) 2 puff BID IH 10/22/20 09:00 UNV Lactobacillus Rhamnosus (Culturelle) 1 cap TID PO 10/22/20 09:00 10/30/20 11:59 DC 10/29/20 14:00 Pantoprazole Sodium (Protonix) 40 mg DAILYAC PO 10/22/20 07:30 11/20/20 08:19 Multi-Ingredient Ointment (Analgesic Clayton) 1 sherice PRN QID PRN TP MUSCLE PAIN 10/22/20 04:45 Multi-Ingredient Ointment (Analgesic Clayton) 1 sherice DAILY TP 10/22/20 09:00 11/20/20 08:21 Budesonide (Pulmicort) 0.5 mg RTBID NEB 10/22/20 08:00 10/22/20 20:14 DC 10/22/20 08:00 Fluticasone Furoate (ARNUITY 100mcg ELLIPTA) 2 puff BID INH 10/22/20 21:00 10/24/20 13:23 DC 10/24/20 08:27 Docusate Sodium (Colace) 100 mg BID PO 10/24/20 21:00 11/20/20 20:51 Olanzapine (ZyPREXA) 5 mg QHS PO 10/25/20 21:30 10/26/20 18:43 DC 10/25/20 21:34 Trazodone HCl (Desyrel) 100 mg PRN QHS PRN PO INSOMNIA, MAY REPEAT X1 10/26/20 00:45 10/26/20 00:44 DC Trazodone HCl (Desyrel) 100 mg PRN QHS PRN PO INSOMNIA, MAY REPEAT X1 10/26/20 00:45 UNV Trazodone HCl (Desyrel) 100 mg PRN QHS PRN PO INSOMNIA, MAY REPEAT X1 10/26/20 00:45 10/31/20 21:42 Fluoxetine HCl (PROzac) 30 mg DAILY PO 10/27/20 09:00 10/27/20 09:09 DC Olanzapine (ZyPREXA) 7.5 mg QHS PO 10/26/20 21:00 10/27/20 18:19 DC 10/26/20 19:56 Mirtazapine (Remeron) 15 mg QHS PO 10/26/20 21:00 11/20/20 20:55 Fluoxetine HCl (PROzac) 30 mg DAILY PO 10/27/20 09:15 11/05/20 18:17 DC 11/05/20 09:03 Risperidone (RisperDAL) 0.5 mg QHS PO 10/27/20 21:00 11/01/20 14:14 DC 10/31/20 19:49 Lamotrigine (LaMICtal) 25 mg QHS PO 10/27/20 21:00 10/29/20 23:00 DC 10/29/20 19:47 Lamotrigine (LaMICtal) 50 mg QHS PO 10/30/20 21:00 11/04/20 08:00 DC 11/03/20 20:13 Clonazepam (KlonoPIN) 0.25 mg DAILY@0900 PO 10/29/20 09:00 11/05/20 17:57 DC 11/05/20 09:04 Clonazepam (KlonoPIN) 0.75 mg PRN BID PRN PO ANXIETY / AGITATION 10/29/20 07:15 10/29/20 10:02 DC Clonazepam (KlonoPIN) 0.75 mg BID@1200,1700 PO 10/29/20 12:00 11/03/20 18:10 DC 11/03/20 17:45 Fluvoxamine Maleate (Luvox) 25 mg QHS PO 10/29/20 21:00 11/01/20 21:00 DC 10/31/20 19:49 Fluvoxamine Maleate (Luvox) 50 mg QHS PO 11/01/20 21:00 11/10/20 18:04 DC 11/09/20 19:50 Risperidone (RisperDAL) 0.5 mg 1X ONCE PO 10/31/20 11:30 10/31/20 11:31 DC 10/31/20 11:36 Risperidone (RisperDAL) 0.5 mg PRN 1X PRN PO AGITATION 10/31/20 11:30 11/05/20 17:14 Lorazepam (Ativan) 0.5 mg PRN Q2HR PRN PO ANXIETY / AGITATION 10/31/20 11:15 11/18/20 15:41 Risperidone (RisperDAL) 0.75 mg QHS PO 11/01/20 21:00 11/04/20 09:00 DC 11/03/20 20:11 Lamotrigine (LaMICtal) 75 mg QHS PO 11/04/20 21:00 11/09/20 05:00 DC 11/08/20 19:58 Clonazepam (KlonoPIN) 0.5 mg 1200 PO 11/04/20 12:00 11/05/20 17:57 DC 11/05/20 11:53 Risperidone (RisperDAL) 1 mg QHS PO 11/04/20 21:00 11/05/20 17:57 DC 11/04/20 20:11 Clonazepam (KlonoPIN) 0.75 mg 1700 PO 11/04/20 17:00 11/06/20 21:00 DC 11/06/20 17:37 Clonazepam (KlonoPIN) 0.5 mg 1700 PO 11/07/20 17:00 11/20/20 18:02 Clonazepam (KlonoPIN) 0.5 mg BID PO 11/06/20 09:00 11/20/20 20:53 Risperidone (RisperDAL) 1.5 mg QHS PO 11/06/20 21:00 11/08/20 12:30 DC 11/07/20 20:29 Olanzapine (ZyPREXA ZYDIS) 5 mg QHS PO 11/07/20 21:00 11/20/20 20:50 Risperidone (RisperDAL) 2 mg QHS PO 11/09/20 21:00 11/10/20 09:00 DC 11/09/20 19:50 Risperidone (RisperDAL) 1 mg BID PO 11/08/20 12:30 11/08/20 22:30 DC 11/08/20 19:58 Lamotrigine (LaMICtal) 100 mg QHS PO 11/09/20 21:00 11/18/20 18:27 DC 11/17/20 19:54 Ciprofloxacin 2 drop Q4H OS 11/09/20 17:00 11/16/20 21:00 DC 11/16/20 20:47 Risperidone (RisperDAL) 2.5 mg QHS PO 11/10/20 21:00 11/12/20 08:00 DC 11/11/20 19:57 Fluvoxamine Maleate (Luvox) 75 mg QHS PO 11/10/20 21:00 11/12/20 23:01 DC 11/12/20 20:13 Fluvoxamine Maleate (Luvox) 100 mg QHS PO 11/13/20 21:00 11/20/20 20:56 Risperidone (RisperDAL) 1 mg DAILY PO 11/12/20 09:00 11/20/20 08:19 Risperidone (RisperDAL) 2 mg QHS PO 11/11/20 21:00 11/11/20 19:21 DC Risperidone (RisperDAL) 2 mg QHS PO 11/12/20 21:00 11/14/20 17:32 DC 11/13/20 19:47 Risperidone (RisperDAL) 2.5 mg QHS PO 11/14/20 21:00 11/20/20 20:56 Levofloxacin (Levaquin) 250 mg DAILY PO 11/15/20 15:00 11/21/20 14:59 Cancel Lactobacillus Rhamnosus (Culturelle) 1 cap BID PO 11/15/20 21:00 11/20/20 20:52 Cephalexin HCl (Keflex) 250 mg TID PO 11/15/20 15:30 11/20/20 20:55 Lamotrigine (LaMICtal) 150 mg QHS PO 11/18/20 21:00 11/20/20 20:53 I have reviewed the current psychotropics carefully including drug interactions. Risk benefit ratio favors no change other than as noted in my dictated progress note. Diagnosis: Problems: (1) Bipolar disorder, current episode depressed, severe, with psychotic features (2) OCD (obsessive compulsive disorder) (3) Anxiety disorder, unspecified (4) Major depressive disorder, recurrent episode DEL GO MD Nov 20, 2020 21:13
--- NOTE | 2020-11-20 22:00 | NUR ---
Patient is sitting in her room assumption of care, sitting in her bed. She has some unfinished snacks in front of her on the side table. This nurse asked her if she was wanting to finish them. The patient responded very slowly, stating "I can't make a decision." The patient was compliant with assessments and took her medications whole. She did end up finishing her yogurt. No agitation. No delusions voiced this shift. Patient denies SI. Denies any pain or discomfort. She appears to be sleeping comfortably at present time. Will continue to monitor.
[2020-11-21] MEDS: LEVOTHYROXINE 75 MCG TABLET PO SCH (05:26)
[2020-11-21 06:40] VITALS: BP 105/63
[2020-11-21] MEDS: PANTOPRAZOLE 40 MG TABLET. PO SCH (07:48)
[2020-11-21] MEDS: PSYLLIUM SEED (WITH SUGAR) PACKET. PO SCH (07:48)
[2020-11-21] MEDS: CEPHALEXIN 250 MG CAPSULE PO SCH ×3 (07:48→20:03)
[2020-11-21] MEDS: MULTIVITAMIN with MINERAL TABLET. PO SCH (07:48)
[2020-11-21] MEDS: risperiDONE 1 MG TABLET. PO SCH (07:49)
[2020-11-21] MEDS: LACTOBACILLUS RHAMNOSUS GG 1 CAPSULE. PO SCH ×2 (07:49→20:03)
[2020-11-21] MEDS: DOCUSATE SODIUM 100 MG CAPSULE PO SCH ×2 (07:49→20:02)
[2020-11-21] MEDS: METHYL SALICYLATE/MENTHOL TOPICAL OINTMENT 57GM TUBE. TP SCH (07:50)
[2020-11-21] MEDS: clonazePAM 0.5 MG TABLET PO SCH ×3 (07:50→20:04)
--- NOTE | 2020-11-21 13:04 | PN ---
DATE: 11/21/2020 SUBJECTIVE: The patient was seen today, met with the staff, chart reviewed. Staff reports continued behavior problems, withdrawn, staying in bed, does not interact with the staff, mostly flat, having difficulty with concentration and thinking. OBSERVATION: VITAL SIGNS: Temperature 98.2, blood pressure 105/63, pulse 85, respirations 16, O2 sat 96%. GENERAL: Slept about 6 hours last night. The patient's appetite has been decreased. The patient apparently is not interacting with the staff, not participating in any activities. Complains of feeling tired and weak and also complains of having problems with anorexia. MEDICATIONS: The patient's current medications include Risperdal 2.5 mg at night, Luvox 100 mg at night, Risperdal 1 mg daily, Zyprexa 5 mg at night, Klonopin 0.5 mg 3 times a day, Risperdal 0.5 mg p.r.n., mirtazapine 15 mg at night. The patient is also on lorazepam 0.5 mg q. 12 hours p.r.n. The patient continues to take Ambien 2.5 mg at night. The patient is not having any side effects. Overall, the patient's behavior has not changed. LABORATORY DATA: The patient's lab reviewed. ASSESSMENT: 1. Major depressive disorder, recurrent. 2. Generalized anxiety disorder. 3. History of bipolar disorder. PLAN: To continue with the current treatment plan. LENGTH OF STAY: 7-10 days. LORENA BETANCOURT MD DR: NATI/wil JOB#: [id number] / [id number]
[2020-11-21 16:04] VITALS: BP 150/82
--- NOTE | 2020-11-21 18:24 | NUR ---
Pt has been up for meals. Has eaten better today. Compliant with meds. Still thinks she cant walk but has been ambulating to and from groups and bath room.
[2020-11-21] MEDS: MIRTAZAPINE 15 MG TABLET PO SCH (20:03)
[2020-11-21] MEDS: lamoTRIgine 100 MG TABLET. PO SCH (20:03)
[2020-11-21] MEDS: ZOLPIDEM 5 MG TABLET. PO SCH (20:05)
[2020-11-21] MEDS: risperiDONE 2 MG TABLET. PO SCH (20:05)
--- NOTE | 2020-11-21 23:59 | NUR ---
Patient is sitting in her room assumption of care, sitting in her bed. The patient was compliant with assessments and took her medications whole. No agitation. No delusions voiced this shift. Patient denies SI. Denies any pain or discomfort. She appears to be sleeping comfortably at present time. Will continue to monitor.
[2020-11-22] MEDS: LEVOTHYROXINE 75 MCG TABLET PO SCH (05:21)
[2020-11-22 06:03] VITALS: BP 159/89
[2020-11-22] MEDS: MULTIVITAMIN with MINERAL TABLET. PO SCH (08:00)
[2020-11-22] MEDS: DOCUSATE SODIUM 100 MG CAPSULE PO SCH ×2 (08:00→20:55)
[2020-11-22] MEDS: PANTOPRAZOLE 40 MG TABLET. PO SCH (08:00)
[2020-11-22] MEDS: risperiDONE 1 MG TABLET. PO SCH (08:00)
[2020-11-22] MEDS: LACTOBACILLUS RHAMNOSUS GG 1 CAPSULE. PO SCH ×2 (08:00→20:55)
[2020-11-22] MEDS: PSYLLIUM SEED (WITH SUGAR) PACKET. PO SCH (08:00)
[2020-11-22] MEDS: CEPHALEXIN 250 MG CAPSULE PO SCH ×3 (08:01→20:56)
[2020-11-22] MEDS: clonazePAM 0.5 MG TABLET PO SCH ×3 (08:04→20:58)
[2020-11-22] MEDS: METHYL SALICYLATE/MENTHOL TOPICAL OINTMENT 57GM TUBE. TP SCH (08:04)
--- NOTE | 2020-11-22 14:47 | NUR ---
Nursing note: Pt has remained in her room for the majority of the shift. She is pleasant, med compliant and cooperative. Pt states she is doing much better, but does still have some depression and anxiety. She denies having any SI this shift. Pt did go to the dayroom for a short time this afternoon but said she got nervous and decided to go back to her room. When asked if she wanted a PRN to help with her anxiety, pt replied "no, I think I'll be okay". Pt is currently sitting quietly in her room with no other complaints. Will continue to monitor.
[2020-11-22 16:28] VITALS: BP 111/69
--- NOTE | 2020-11-22 16:56 | NUR ---
WEEKLY ACTIVITY THERAPY NOTE Date of Admission: 10/22 Date of AT Assessment: 10/25 Precipitating behaviors that initiated intake and admission: The patient made statements that she would attempt to strangle self. Patient had stopped eating prior to arrival to hospital Goal aimed: to increase socialization and motivation Initial Goal: Pt. will participate in at least three Activity Therapy groups or individual sessions before discharge. Goal changed 11/01/20: Pt. will participate in at least three Activity Therapy groups or individual sessions per week Weekly progress towards goal: exceeded 04/07 Group participation level: 4 full, 2 mod Weekly highlights: fully engaged in a back to back group yester, Sunday Behaviors observed: meets with dietitian, Sunday was alert and vocal with good eye contact when invited to group, usually in room when not in group Plan:change goal to: Pt. will participate in at least one Activity Therapy group per day Beneficial adaptations:
[2020-11-22] MEDS: lamoTRIgine 100 MG TABLET. PO SCH (20:55)
[2020-11-22] MEDS: MIRTAZAPINE 15 MG TABLET PO SCH (20:55)
[2020-11-22] MEDS: risperiDONE 2 MG TABLET. PO SCH (20:56)
[2020-11-22] MEDS: ZOLPIDEM 5 MG TABLET. PO SCH (20:58)
--- NOTE | 2020-11-22 21:03 | PDOC ---
Exam Note: Avel Note: Please also refer to the separate dictated note~for this date of service dictated separately.~Patient seen individually. Discussed the patient with Nursing staff reviewed the chart.~Reviewed interim history and current functioning. Reviewed vital signs,~Labs/ Radiology~and current medications noted below. Continue current treatment with the changes noted in the dictated addendum note Assessment: Vital Signs/I&O: Vital Signs Date Time Temp Pulse Resp B/P (MAP) Pulse Ox O2 Delivery O2 Flow Rate FiO2 11/22/20 16:28 98.3 105 18 111/69 (83) 97 11/20/20 15:34 Room Air I & O 11/21/20 11/21/20 11/22/20 15:00 23:00 07:00 Intake Total 680 ml 240 ml Balance 680 ml 240 ml Current Medications: Meds: Current Medications Medications (Trade) Dose Ordered Sig/Aline Route PRN Reason Start Time Stop Time Status Last Admin Dose Admin Lamotrigine (LaMICtal) 175 mg QHS PO 11/22/20 21:00 11/25/20 09:00 11/22/20 20:55 I have reviewed the current psychotropics carefully including drug interactions. Risk benefit ratio favors no change other than as noted in my dictated progress note. Diagnosis: Problems: (1) Bipolar disorder, current episode depressed, severe, with psychotic features (2) Major depressive disorder, recurrent episode (3) Anxiety disorder, unspecified (4) OCD (obsessive compulsive disorder) DEL GO MD Nov 22, 2020 21:03
--- NOTE | 2020-11-22 23:40 | NUR ---
Patient was laying in her bed on her side and facing her roommate. When nurse entered the room for medications/assessment patient did not sit up. Patient answered nurses questions and then stated that she had gone to a 'stress reduction" group this afternoon but that she had left before it was finished. When asked if she felt it was helpful, patient said she wasn't sure, but maybe. Nurse asked patient to sit up, patient then took medications and then laid back down. Patient appeared cold, she was in a curled up position. Nurse brought patient warm blanket and patient thanked nurse. Patient denied wanting to hurt herself when asked. Dr Marsh made some medication changes today and labs are scheduled for tomorrow morning.
[2020-11-23] MEDS: traZODone 100 MG TABLET. PO PRN (01:02)
--- NOTE | 2020-11-23 01:03 | NUR ---
patient not sleeping. Given PRN trazodone as ordered for insomnia. Will continue to monitor.
[2020-11-23 05:48] VITALS: BP 110/70
[2020-11-23] MEDS: LEVOTHYROXINE 75 MCG TABLET PO SCH (05:49)
[2020-11-23 07:30] LABS: HEMATOCRIT 35.2 % (36.0-47.0); HEMOGLOBIN 11.5 g/dL (12.0-15.5); RED BLOOD COUNT 3.84 x10^6/uL (3.50-5.40); RED CELL DISTRIBUTION WIDTH 13.6 % (11.5-14.5); WHITE BLOOD COUNT 6.8 x10^3/uL (4.0-11.0)
[2020-11-23 07:38] LABS: ALBUMIN 2.7 g/dL (3.4-5.0); ALBUMIN/GLOBULIN RATIO 0.8 (1.0-1.7); CALCIUM 8.5 mg/dL (8.5-10.1); CREATININE 0.7 mg/dL (0.6-1.0); GFR 85.6; POTASSIUM 3.8 mmol/L (3.5-5.1); TOTAL BILIRUBIN 0.2 mg/dL (0.2-1.0)
[2020-11-23] MEDS: PSYLLIUM SEED (WITH SUGAR) PACKET. PO SCH (08:05)
[2020-11-23] MEDS: MULTIVITAMIN with MINERAL TABLET. PO SCH (08:06)
[2020-11-23] MEDS: CEPHALEXIN 250 MG CAPSULE PO SCH ×2 (08:06→14:06)
[2020-11-23] MEDS: risperiDONE 1 MG TABLET. PO SCH (08:06)
[2020-11-23] MEDS: LACTOBACILLUS RHAMNOSUS GG 1 CAPSULE. PO SCH ×2 (08:06→21:01)
[2020-11-23] MEDS: PANTOPRAZOLE 40 MG TABLET. PO SCH (08:06)
[2020-11-23] MEDS: DOCUSATE SODIUM 100 MG CAPSULE PO SCH ×2 (08:06→21:00)
[2020-11-23] MEDS: clonazePAM 0.5 MG TABLET PO SCH ×3 (08:09→21:05)
[2020-11-23] MEDS: METHYL SALICYLATE/MENTHOL TOPICAL OINTMENT 57GM TUBE. TP SCH (08:10)
--- NOTE | 2020-11-23 09:02 | PDOC ---
Exam Note: Avel Note: This note is a late entry for 11/22/2020 covers elements not covered in my initial note. Subjective: The patient was reviewed on telehealth rounds in the morning of 11/22/2020 for a treatment team meeting with Rashmi Brannon, Genie Bragg and Stephanie (social and political studies professor), Amanda Valero, activity therapy and Jacinta BOYLE. Discussed with nursing staff, reviewed the chart. The patient slept 6-3/4 hours previous night. Her sister Julisa attended the treatment team meeting. Dr. Huggins covered for me for the past 2 days. I reviewed information from Dr. Huggins. On Sunday, the patient was quite depressed, delusional stating she was already . Her organs were . Over the weekend she did better. She remains somewhat obsessive about her bowel movements and urination, but otherwise, appetite is better, still having some mood swings, going to the bathroom on her own and attending groups. Amanda Valero, activity therapy staff discussed her progress in groups. Weight is 134 pounds. She does have UTI and is currently on antibiotics for this. Review of Systems: She still complains of some tiredness but less so than before. No CV, , pulmonary, eye, ENT system symptoms on review. Mental Status Exam: The patient is reasonably oriented. Speech has some latency, coherent. Abstraction is fair. Computation is impaired. Language function is intact. Attention span is short. Mood and affect less withdrawn. No suicidal ideation, less delusional. Laboratory Data: Reviewed. Impression: Bipolar 1 disorder, depressed versus depressed with psychotic features. Anxiety disorder unspecified. OCD. Plan: Given her ongoing mood swings, we will increase Lamictal from 150 mg h.s. to 175 mg h.s., for 3 days and then 200 mg h.s. thereafter. Continue rest of the psychotropics unchanged. Treat the UTI. Assessment: Vital Signs/I&O: Vital Signs Date Time Temp Pulse Resp B/P (MAP) Pulse Ox O2 Delivery O2 Flow Rate FiO2 11/23/20 05:48 98.5 89 16 110/70 (83) 94 11/20/20 15:34 Room Air I & O 11/22/20 11/22/20 11/23/20 15:00 23:00 07:00 Intake Total 960 ml 200 ml Balance 960 ml 200 ml Labs: Laboratory Tests Test 11/23/20 06:31 White Blood Count 6.8 x10^3/uL (4.0-11.0) Red Blood Count 3.84 x10^6/uL (3.50-5.40) Hemoglobin 11.5 g/dL (12.0-15.5) L Hematocrit 35.2 % (36.0-47.0) L Mean Corpuscular Volume 92 fL (79-100) Mean Corpuscular Hemoglobin 30 pg (25-35) Mean Corpuscular Hemoglobin Concent 33 g/dL (31-37) Red Cell Distribution Width 13.6 % (11.5-14.5) Platelet Count 184 x10^3/uL (140-400) Sodium Level 142 mmol/L (136-145) Potassium Level 3.8 mmol/L (3.5-5.1) Chloride Level 105 mmol/L (98-107) Carbon Dioxide Level 29 mmol/L (21-32) Anion Gap 8 (6-14) Blood Urea Nitrogen 19 mg/dL (7-20) Creatinine 0.7 mg/dL (0.6-1.0) Estimated GFR (Cockcroft-Gault) 85.6 BUN/Creatinine Ratio 27 (6-20) H Glucose Level 88 mg/dL (70-99) Calcium Level 8.5 mg/dL (8.5-10.1) Total Bilirubin 0.2 mg/dL (0.2-1.0) Aspartate Amino Transferase (AST) 15 U/L (15-37) Alanine Aminotransferase (ALT) 18 U/L (14-59) Alkaline Phosphatase 78 U/L (46-116) Total Protein 6.0 g/dL (6.4-8.2) L Albumin 2.7 g/dL (3.4-5.0) L Albumin/Globulin Ratio 0.8 (1.0-1.7) L Current Medications: Meds: Current Medications Medications (Trade) Dose Ordered Sig/Aline Route PRN Reason Start Time Stop Time Status Last Admin Dose Admin Lamotrigine (LaMICtal) 175 mg QHS PO 11/22/20 21:00 11/25/20 09:00 11/22/20 20:55 I have reviewed the current psychotropics carefully including drug interactions. Risk benefit ratio favors no change other than as noted in my dictated progress note. Diagnosis: Problems: (1) Major depressive disorder, recurrent episode (2) Anxiety disorder, unspecified (3) Bipolar disorder, current episode mixed, severe, with psychotic features (4) OCD (obsessive compulsive disorder) (5) Bipolar disorder, current episode depressed, severe, with psychotic features (6) UTI (urinary tract infection) DEL GO MD Nov 23, 2020 09:02
--- NOTE | 2020-11-23 10:38 | TX PLAN ---
Interdisciplinary Tx Plan Admission Information Oct 22, 2020 at 02:55 Legal Status (on Admission): Voluntary, Court Appointed Guardian, Court Appointed Conservat DPOA/Guardian Name: Julisa Bernal-sister/guardian Contact Other Contact Name: Duane Other Contact Verified Code Status: Full Code Allergies: Coded Allergies: Penicillins (Verified Allergy, Intermediate, 10/20/20) azithromycin (Verified Allergy, Intermediate, 10/21/20) bupropion (Verified Allergy, Intermediate, 10/21/20) cefdinir (Verified Allergy, Intermediate, DIARRHEA, 11/15/20) erythromycin base (Verified Allergy, Intermediate, 10/21/20) sulfadiazine (Verified Allergy, Intermediate, 10/21/20) Estimated Length of Stay: 14 Diagnoses Primary Diagnosis: Bipolar depressed Reasons for Admission: Depressed, Sig. Change Appetite, Anxiety/Panic, Suicidal ideation Problem in Patient's Words: Per Kallie, "I'm not doing good, I'm not eating." Additional Admission Comments: Per intake record, SI with plan to strangle self with cord, not eating for the past week with history of anorexia. Problems Active Problems: Flat affect Slow to respond Anxious Depressed Poor intake of meals Increased incontinence Inactive Problems: Medication compliant Slept 7.5 hours night of 10/24/20 Pt Strengths/Limitations Ability for [place]: Fair Cognitive Functioning/Ability: Fair Communication Skills/Ability: Fair Financial Resources: Fair Insight/Judgement: Fair Intellectual Ability: Good Physical Health: Fair Social Skills: Fair Stability in Family: Good Verbal Skills: Fair Discharge Criteria Discharge Criteria: No need for close observ., Adequate arrangements @DC, Adequate self-care, Improved mood/thought Other Discharge Comments: Adequate meal intakes Preliminary Discharge Plan Preliminary DC Plan: Detention Other Arrangements: [facility]- Level II facility Special Precautions Special Precautions: Suicide Risk Fall Risk: High Initial D/C Plan Return to [facility] once stable. Identified Discharge Needs: F/U with PCP, psychiatrist, and counselor. Have [facility] recreational therapist follow up with Kallie to develop past time intersts within the facility. Currently Utilized Resources Currently Utilized Resources/P: PCP Telepsychiatrist Referrals Community Resources: Counseling services if available Identified Problems/Hx/Goals Objectives/Short-Term Goals Short Term Goals: Dec. Anxiety/Panic, Decrease Isolation, Dec. Symp. Depression, Improved Social Skills, Medication Stabilization, Monitor Med Effects, No Suicidal/Liv. ideation, Prevent Deterioration, Promote Coping Skill Short Term Goals in Patient's: Kallie expressed the desire to walk again and to evntually be able to live independently and return to work. Interventions/Frequency Staff Interventions/Frequency&: Nursing to provide routine safety checks, medications, and adl support. Psychiatry visit threes times weekly. SW visits twice weekly. PT/OT as ordered. Recreational therapy and SW group involvement as Kallie is willing. 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 Social: Kallie enjoyed exercising, playing with dogs, and dating. Education: Kallie graduated high school from [employer]. She went on to obtain her masters degree in business education from [employer]. Community Follow-up PCP Psychiatry [place] if available F/U from [facility] director of corporate sponsorships to identify activites of interest. Community Provider/Family Inpu: Kallie's sister/guardian, Julisa, participated in team meeting via phone. Dr. Bryon Ortiz, psychiatrist out of [facility], followed Kallie in the past. Nursing to obtain medical records from him. Treatment Plan Explained Patient/Civil Engineer'S Aide had this treatment plan explained to him/her as indicated by the signature below and has been given the opportunity to ask questions and make suggestions: Date: Patient/Civil Engineer'S Aide Signature: Status Update Update WEEKLY NOTE/UPDATE: Kallie is averaging 55% of her meals and sleeping six hours at night. She has been more alert and engaged. She had a difficult day on 11/19/20 where she thought she was but then did better over the weekend as she attended groups in the day room. Kallie continues treatment for the UTI. Lamictal will be increased to 175mg for three days then 200mg after. izzy Egan, participated in team meeting via phone. Tentative d/c 11-26 thru 11-30-20. JUVE RAINES Nov 23, 2020 10:38
--- NOTE | 2020-11-23 15:03 | NUR ---
Nursing note: Pt has been pleasant, med compliant and cooperative this shift. Pt has been up to the day room and has participated in group today. Pt continues to appear calm, but she states that her depression and anxiety is worse than yesterday. She does continue to deny SI at this time. She is currently in the day room for group. Will continue to monitor.
[2020-11-23 16:08] VITALS: BP 114/68
[2020-11-23] MEDS: risperiDONE 2 MG TABLET. PO SCH (21:01)
[2020-11-23] MEDS: MIRTAZAPINE 15 MG TABLET PO SCH (21:02)
[2020-11-23] MEDS: lamoTRIgine 100 MG TABLET. PO SCH (21:02)
--- NOTE | 2020-11-23 21:03 | PDOC ---
Exam Note: Avel Note: Please also refer to the separate dictated note~for this date of service dictated separately.~Patient seen individually. Discussed the patient with Nursing staff reviewed the chart.~Reviewed interim history and current functioning. Reviewed vital signs,~Labs/ Radiology~and current medications noted below. Continue current treatment with the changes noted in the dictated addendum note Assessment: Vital Signs/I&O: Vital Signs Date Time Temp Pulse Resp B/P (MAP) Pulse Ox O2 Delivery O2 Flow Rate FiO2 11/23/20 16:08 97.1 102 16 114/68 (83) 99 11/20/20 15:34 Room Air I & O 11/22/20 11/22/20 11/23/20 15:00 23:00 07:00 Intake Total 960 ml 200 ml Balance 960 ml 200 ml Labs: Laboratory Tests Test 11/23/20 06:31 White Blood Count 6.8 x10^3/uL (4.0-11.0) Red Blood Count 3.84 x10^6/uL (3.50-5.40) Hemoglobin 11.5 g/dL (12.0-15.5) L Hematocrit 35.2 % (36.0-47.0) L Mean Corpuscular Volume 92 fL (79-100) Mean Corpuscular Hemoglobin 30 pg (25-35) Mean Corpuscular Hemoglobin Concent 33 g/dL (31-37) Red Cell Distribution Width 13.6 % (11.5-14.5) Platelet Count 184 x10^3/uL (140-400) Sodium Level 142 mmol/L (136-145) Potassium Level 3.8 mmol/L (3.5-5.1) Chloride Level 105 mmol/L (98-107) Carbon Dioxide Level 29 mmol/L (21-32) Anion Gap 8 (6-14) Blood Urea Nitrogen 19 mg/dL (7-20) Creatinine 0.7 mg/dL (0.6-1.0) Estimated GFR (Cockcroft-Gault) 85.6 BUN/Creatinine Ratio 27 (6-20) H Glucose Level 88 mg/dL (70-99) Calcium Level 8.5 mg/dL (8.5-10.1) Total Bilirubin 0.2 mg/dL (0.2-1.0) Aspartate Amino Transferase (AST) 15 U/L (15-37) Alanine Aminotransferase (ALT) 18 U/L (14-59) Alkaline Phosphatase 78 U/L (46-116) Total Protein 6.0 g/dL (6.4-8.2) L Albumin 2.7 g/dL (3.4-5.0) L Albumin/Globulin Ratio 0.8 (1.0-1.7) L Current Medications: Meds: Laboratory Tests Test 11/23/20 06:31 White Blood Count 6.8 x10^3/uL Red Blood Count 3.84 x10^6/uL Hemoglobin 11.5 g/dL Hematocrit 35.2 % Mean Corpuscular Volume 92 fL Mean Corpuscular Hemoglobin 30 pg Mean Corpuscular Hemoglobin Concent 33 g/dL Red Cell Distribution Width 13.6 % Platelet Count 184 x10^3/uL Sodium Level 142 mmol/L Potassium Level 3.8 mmol/L Chloride Level 105 mmol/L Carbon Dioxide Level 29 mmol/L Anion Gap 8 Blood Urea Nitrogen 19 mg/dL Creatinine 0.7 mg/dL Estimated GFR (Cockcroft-Gault) 85.6 BUN/Creatinine Ratio 27 Glucose Level 88 mg/dL Calcium Level 8.5 mg/dL Total Bilirubin 0.2 mg/dL Aspartate Amino Transf (AST/SGOT) 15 U/L Alanine Aminotransferase (ALT/SGPT) 18 U/L Alkaline Phosphatase 78 U/L Total Protein 6.0 g/dL Albumin 2.7 g/dL Albumin/Globulin Ratio 0.8 Current Medications Medications (Trade) Dose Ordered Sig/Aline Route PRN Reason Start Time Stop Time Status Last Admin Dose Admin Acetaminophen (Tylenol) 650 mg PRN Q6HRS PRN PO MILD PAIN / TEMP > 100.3'F 10/22/20 04:00 11/20/20 05:00 Al Hydroxide/Mg Hydroxide (Mylanta Plus Xs) 15 ml PRN AFTMEALHC PRN PO DYSPEPSIA 10/22/20 04:00 Magnesium Hydroxide (Milk Of Magnesia) 2,400 mg PRN QHS PRN PO CONSTIPATION, 2ND CHOICE 10/22/20 04:00 11/09/20 19:52 Aripiprazole (Abilify) 5 mg DAILY PO 10/22/20 09:00 10/25/20 21:23 DC 10/25/20 08:04 Bisacodyl (Dulcolax Tab) 5 mg PRN DAILY PRN PO CONSTIPATION, 3RD CHOICE 10/22/20 04:30 Clonazepam (KlonoPIN) 0.75 mg TID PO 10/22/20 09:00 10/29/20 07:15 DC 10/28/20 20:23 Doxycycline Hyclate (Vibra-Tab) 100 mg DAILY PO 10/22/20 09:00 10/24/20 12:31 DC 10/24/20 08:26 Fluoxetine HCl (PROzac) 20 mg DAILY PO 10/22/20 09:00 10/26/20 18:43 DC 10/26/20 09:30 Guaifenesin (Robitussin) 200 mg PRN Q4HRS PRN PO COUGH 10/22/20 04:30 Levothyroxine Sodium (Synthroid) 75 mcg DAILY06 PO 10/22/20 06:00 11/23/20 05:49 Mirtazapine (Remeron) 7.5 mg QHS PO 10/22/20 21:00 10/26/20 19:28 DC 10/25/20 20:19 Multivitamins/ Calcium (Thera-M Plus) 1 tab DAILY PO 10/22/20 09:00 11/23/20 08:06 Nortriptyline HCl (Pamelor) 75 mg QHS PO 10/22/20 21:00 10/29/20 19:51 DC 10/28/20 20:22 Polyethylene Glycol (miraLAX) 17 gm PRN DAILY PRN PO CONSTIPATION, 1ST CHOICE 10/22/20 04:30 11/17/20 20:41 Psyllium Hydrophilic Mucilloid (Metamucil) 1 pkt DAILY PO 10/22/20 09:00 11/23/20 08:05 Simethicone (Gas-X) 80 mg PRN BID PRN PO GAS / BLOATING 10/22/20 04:30 11/04/20 19:56 Zolpidem Tartrate (Ambien) 2.5 mg QHS PO 10/22/20 21:00 11/22/20 20:58 Non-Formulary Medication (Budesonide (Pulmicort Flexhaler)) 2 puff BID IH 10/22/20 09:00 UNV Lactobacillus Rhamnosus (Culturelle) 1 cap TID PO 10/22/20 09:00 10/30/20 11:59 DC 10/29/20 14:00 Pantoprazole Sodium (Protonix) 40 mg DAILYAC PO 10/22/20 07:30 11/23/20 08:06 Multi-Ingredient Ointment (Analgesic [place]) 1 sherice PRN QID PRN TP MUSCLE PAIN 10/22/20 04:45 Multi-Ingredient Ointment (Analgesic [place]) 1 sherice DAILY TP 10/22/20 09:00 11/23/20 08:10 Budesonide (Pulmicort) 0.5 mg RTBID NEB 10/22/20 08:00 10/22/20 20:14 DC 10/22/20 08:00 Fluticasone Furoate (ARNUITY 100mcg ELLIPTA) 2 puff BID INH 10/22/20 21:00 10/24/20 13:23 DC 10/24/20 08:27 Docusate Sodium (Colace) 100 mg BID PO 10/24/20 21:00 11/23/20 08:06 Olanzapine (ZyPREXA) 5 mg QHS PO 10/25/20 21:30 10/26/20 18:43 DC 10/25/20 21:34 Trazodone HCl (Desyrel) 100 mg PRN QHS PRN PO INSOMNIA, MAY REPEAT X1 10/26/20 00:45 10/26/20 00:44 DC Trazodone HCl (Desyrel) 100 mg PRN QHS PRN PO INSOMNIA, MAY REPEAT X1 10/26/20 00:45 UNV Trazodone HCl (Desyrel) 100 mg PRN QHS PRN PO INSOMNIA, MAY REPEAT X1 10/26/20 00:45 11/23/20 01:02 Fluoxetine HCl (PROzac) 30 mg DAILY PO 10/27/20 09:00 10/27/20 09:09 DC Olanzapine (ZyPREXA) 7.5 mg QHS PO 10/26/20 21:00 10/27/20 18:19 DC 10/26/20 19:56 Mirtazapine (Remeron) 15 mg QHS PO 10/26/20 21:00 11/22/20 20:55 Fluoxetine HCl (PROzac) 30 mg DAILY PO 10/27/20 09:15 11/05/20 18:17 DC 11/05/20 09:03 Risperidone (RisperDAL) 0.5 mg QHS PO 10/27/20 21:00 11/01/20 14:14 DC 10/31/20 19:49 Lamotrigine (LaMICtal) 25 mg QHS PO 10/27/20 21:00 10/29/20 23:00 DC 10/29/20 19:47 Lamotrigine (LaMICtal) 50 mg QHS PO 10/30/20 21:00 11/04/20 08:00 DC 11/03/20 20:13 Clonazepam (KlonoPIN) 0.25 mg DAILY@0900 PO 10/29/20 09:00 11/05/20 17:57 DC 11/05/20 09:04 Clonazepam (KlonoPIN) 0.75 mg PRN BID PRN PO ANXIETY / AGITATION 10/29/20 07:15 10/29/20 10:02 DC Clonazepam (KlonoPIN) 0.75 mg BID@1200,1700 PO 10/29/20 12:00 11/03/20 18:10 DC 11/03/20 17:45 Fluvoxamine Maleate (Luvox) 25 mg QHS PO 10/29/20 21:00 11/01/20 21:00 DC 10/31/20 19:49 Fluvoxamine Maleate (Luvox) 50 mg QHS PO 11/01/20 21:00 11/10/20 18:04 DC 11/09/20 19:50 Risperidone (RisperDAL) 0.5 mg 1X ONCE PO 10/31/20 11:30 10/31/20 11:31 DC 10/31/20 11:36 Risperidone (RisperDAL) 0.5 mg PRN 1X PRN PO AGITATION 10/31/20 11:30 11/23/20 14:08 DC 11/05/20 17:14 Lorazepam (Ativan) 0.5 mg PRN Q2HR PRN PO ANXIETY / AGITATION 10/31/20 11:15 11/18/20 15:41 Risperidone (RisperDAL) 0.75 mg QHS PO 11/01/20 21:00 11/04/20 09:00 DC 11/03/20 20:11 Lamotrigine (LaMICtal) 75 mg QHS PO 11/04/20 21:00 11/09/20 05:00 DC 11/08/20 19:58 Clonazepam (KlonoPIN) 0.5 mg 1200 PO 11/04/20 12:00 11/05/20 17:57 DC 11/05/20 11:53 Risperidone (RisperDAL) 1 mg QHS PO 11/04/20 21:00 11/05/20 17:57 DC 11/04/20 20:11 Clonazepam (KlonoPIN) 0.75 mg 1700 PO 11/04/20 17:00 11/06/20 21:00 DC 11/06/20 17:37 Clonazepam (KlonoPIN) 0.5 mg 1700 PO 11/07/20 17:00 11/23/20 17:33 Clonazepam (KlonoPIN) 0.5 mg BID PO 11/06/20 09:00 11/23/20 08:09 Risperidone (RisperDAL) 1.5 mg QHS PO 11/06/20 21:00 11/08/20 12:30 DC 11/07/20 20:29 Olanzapine (ZyPREXA ZYDIS) 5 mg QHS PO 11/07/20 21:00 11/22/20 20:56 Risperidone (RisperDAL) 2 mg QHS PO 11/09/20 21:00 11/10/20 09:00 DC 11/09/20 19:50 Risperidone (RisperDAL) 1 mg BID PO 11/08/20 12:30 11/08/20 22:30 DC 11/08/20 19:58 Lamotrigine (LaMICtal) 100 mg QHS PO 11/09/20 21:00 11/18/20 18:27 DC 11/17/20 19:54 Ciprofloxacin 2 drop Q4H OS 11/09/20 17:00 11/16/20 21:00 DC 11/16/20 20:47 Risperidone (RisperDAL) 2.5 mg QHS PO 11/10/20 21:00 11/12/20 08:00 DC 11/11/20 19:57 Fluvoxamine Maleate (Luvox) 75 mg QHS PO 11/10/20 21:00 11/12/20 23:01 DC 11/12/20 20:13 Fluvoxamine Maleate (Luvox) 100 mg QHS PO 11/13/20 21:00 11/22/20 20:55 Risperidone (RisperDAL) 1 mg DAILY PO 11/12/20 09:00 11/23/20 08:06 Risperidone (RisperDAL) 2 mg QHS PO 11/11/20 21:00 11/11/20 19:21 DC Risperidone (RisperDAL) 2 mg QHS PO 11/12/20 21:00 11/14/20 17:32 DC 11/13/20 19:47 Risperidone (RisperDAL) 2.5 mg QHS PO 11/14/20 21:00 11/22/20 20:56 Levofloxacin (Levaquin) 250 mg DAILY PO 11/15/20 15:00 11/21/20 14:59 Cancel Lactobacillus Rhamnosus (Culturelle) 1 cap BID PO 11/15/20 21:00 11/23/20 08:06 Cephalexin HCl (Keflex) 250 mg TID PO 11/15/20 15:30 11/23/20 16:11 DC 11/23/20 14:06 Lamotrigine (LaMICtal) 150 mg QHS PO 11/18/20 21:00 11/22/20 18:00 DC 11/21/20 20:03 Lamotrigine (LaMICtal) 175 mg QHS PO 11/22/20 21:00 11/25/20 09:00 11/22/20 20:55 Lamotrigine (LaMICtal) 200 mg QHS PO 11/25/20 21:00 I have reviewed the current psychotropics carefully including drug interactions. Risk benefit ratio favors no change other than as noted in my dictated progress note. Diagnosis: Problems: (1) OCD (obsessive compulsive disorder) (2) Bipolar disorder, current episode depressed, severe, with psychotic features (3) Anxiety disorder, unspecified (4) Major depressive disorder, recurrent episode DEL GO MD Nov 23, 2020 21:03
[2020-11-23] MEDS: ZOLPIDEM 5 MG TABLET. PO SCH (21:06)
--- NOTE | 2020-11-24 00:06 | NUR ---
Patient compliant with medications. She stated she had a "worse" day than yesterday but said she didn't want to talk about it. Cooperative with staff and still has flat affect.
[2020-11-24] MEDS: LEVOTHYROXINE 75 MCG TABLET PO SCH (05:47)
[2020-11-24 06:33] VITALS: BP 133/81
[2020-11-24] MEDS: risperiDONE 1 MG TABLET. PO SCH (08:12)
[2020-11-24] MEDS: PANTOPRAZOLE 40 MG TABLET. PO SCH (08:12)
[2020-11-24] MEDS: DOCUSATE SODIUM 100 MG CAPSULE PO SCH ×2 (08:12→21:09)
[2020-11-24] MEDS: MULTIVITAMIN with MINERAL TABLET. PO SCH (08:12)
[2020-11-24] MEDS: PSYLLIUM SEED (WITH SUGAR) PACKET. PO SCH (08:12)
[2020-11-24] MEDS: LACTOBACILLUS RHAMNOSUS GG 1 CAPSULE. PO SCH ×2 (08:12→21:09)
[2020-11-24] MEDS: clonazePAM 0.5 MG TABLET PO SCH ×3 (08:13→21:12)
[2020-11-24] MEDS: METHYL SALICYLATE/MENTHOL TOPICAL OINTMENT 57GM TUBE. TP SCH (09:00)
--- NOTE | 2020-11-24 11:08 | NUR ---
PATIENT IS AWAKE SITTING IN HER ROOM EATING BREAKFAST UPON ASSESSMENT, CALM AND COOPERATIVE, COMPLIANT WITH MEDS, DENIED SI, DENIED ANY PAIN, STATED SHE DID NOT SLEEP WELL LAST NIGHT , HOPEFUL TO HAVE A BETTER DAY TODAY.
[2020-11-24 15:17] VITALS: BP 127/76
[2020-11-24] MEDS: LORazepam 0.5 MG TABLET PO PRN (15:55)
--- NOTE | 2020-11-24 16:08 | NUR ---
PATIENT BECAME ANXIOUS THIS AFTERNOON, FIXATED ON HER GI SYSTEM, BOWEL MOVEMENT AND URINE OUTPUT, BELIEVES HER BOWEL DOES NOT WORK AND DOES NOT DIGEST FOOD, CALLING THIS RN MULTIPLE TIMES TO EXPLAIN THE SAME PROBLEM OVER AND OVER. PATIENT HAD BM THIS AM, PATIENT WAS INSTRUCTED TO CALL FOR STAFF WHEN PT HAS BOWEL MOVEMENT TO OBSERVE. ATIVAN GIVEN ORDERED TO PROMOTE REST AND DECREASE ANXIETY.
--- NOTE | 2020-11-24 20:53 | PDOC ---
Exam Note: Avel Note: This note is a late entry for 11/23/2020 covers elements not covered in my initial note. Subjective: The patient was reviewed on telehealth rounds in the evening of 11/23/2020 with Jacinta BOYLE. Discussed with nursing staff, reviewed the chart. The patient slept 5-1/4 hours previous night. Subjectively she has been depressed and anxious but in fact she has attended groups and has been eating better which she reluctantly admitted as I questioned her on this. She still admits to feeling depressed, perhaps worse than yesterday but again interactions have been better. Her conversation with me is more coherent. Review of Systems: No CV, , pulmonary, eye, ENT system symptoms on review. Mental Status Exam: The patient is reasonably oriented. Speech is coherent. Abstraction is fair. Computation is impaired. Language function is intact. Attention span is short. Mood and affect less withdrawn, little more animated individually. Laboratory Data: Reviewed. Impression: Bipolar 1 disorder, depressed versus depressed with psychotic features. Anxiety disorder unspecified. OCD. Plan: No change from initial note. We are gradually increasing the Lamictal going up to 200 mg a day on 11/25. Risperdal is at a total of 3.5 mg a day, Remeron, trazodone, Klonopin unchanged and Zyprexa 5 mg h.s. We may stop this in a next day or so but it is stimulating her appetite which is of benefit, Ativan p.r.n., Luvox 100 mg h.s. Assessment: Vital Signs/I&O: Vital Signs Date Time Temp Pulse Resp B/P (MAP) Pulse Ox O2 Delivery O2 Flow Rate FiO2 11/24/20 15:17 97.8 114 17 127/76 (93) 95 11/24/20 06:33 Room Air I & O 11/23/20 11/23/20 11/24/20 15:00 23:00 07:00 Intake Total 600 ml 380 ml Balance 600 ml 380 ml Current Medications: Meds: Current Medications Medications (Trade) Dose Ordered Sig/Aline Route PRN Reason Start Time Stop Time Status Last Admin Dose Admin Acetaminophen (Tylenol) 650 mg PRN Q6HRS PRN PO MILD PAIN / TEMP > 100.3'F 10/22/20 04:00 11/20/20 05:00 Al Hydroxide/Mg Hydroxide (Mylanta Plus Xs) 15 ml PRN AFTMEALHC PRN PO DYSPEPSIA 10/22/20 04:00 Magnesium Hydroxide (Milk Of Magnesia) 2,400 mg PRN QHS PRN PO CONSTIPATION, 2ND CHOICE 10/22/20 04:00 11/09/20 19:52 Aripiprazole (Abilify) 5 mg DAILY PO 10/22/20 09:00 10/25/20 21:23 DC 10/25/20 08:04 Bisacodyl (Dulcolax Tab) 5 mg PRN DAILY PRN PO CONSTIPATION, 3RD CHOICE 10/22/20 04:30 Clonazepam (KlonoPIN) 0.75 mg TID PO 10/22/20 09:00 10/29/20 07:15 DC 10/28/20 20:23 Doxycycline Hyclate (Vibra-Tab) 100 mg DAILY PO 10/22/20 09:00 10/24/20 12:31 DC 10/24/20 08:26 Fluoxetine HCl (PROzac) 20 mg DAILY PO 10/22/20 09:00 10/26/20 18:43 DC 10/26/20 09:30 Guaifenesin (Robitussin) 200 mg PRN Q4HRS PRN PO COUGH 10/22/20 04:30 Levothyroxine Sodium (Synthroid) 75 mcg DAILY06 PO 10/22/20 06:00 11/24/20 05:47 Mirtazapine (Remeron) 7.5 mg QHS PO 10/22/20 21:00 10/26/20 19:28 DC 10/25/20 20:19 Multivitamins/ Calcium (Thera-M Plus) 1 tab DAILY PO 10/22/20 09:00 11/24/20 08:12 Nortriptyline HCl (Pamelor) 75 mg QHS PO 10/22/20 21:00 10/29/20 19:51 DC 10/28/20 20:22 Polyethylene Glycol (miraLAX) 17 gm PRN DAILY PRN PO CONSTIPATION, 1ST CHOICE 10/22/20 04:30 11/17/20 20:41 Psyllium Hydrophilic Mucilloid (Metamucil) 1 pkt DAILY PO 10/22/20 09:00 11/24/20 08:12 Simethicone (Gas-X) 80 mg PRN BID PRN PO GAS / BLOATING 10/22/20 04:30 11/04/20 19:56 Zolpidem Tartrate (Ambien) 2.5 mg QHS PO 10/22/20 21:00 11/23/20 21:06 Non-Formulary Medication (Budesonide (Pulmicort Flexhaler)) 2 puff BID IH 10/22/20 09:00 UNV Lactobacillus Rhamnosus (Culturelle) 1 cap TID PO 10/22/20 09:00 10/30/20 11:59 DC 10/29/20 14:00 Pantoprazole Sodium (Protonix) 40 mg DAILYAC PO 10/22/20 07:30 11/24/20 08:12 Multi-Ingredient Ointment (Analgesic [place]) 1 sherice PRN QID PRN TP MUSCLE PAIN 10/22/20 04:45 Multi-Ingredient Ointment (Analgesic [place]) 1 sherice DAILY TP 10/22/20 09:00 11/23/20 08:10 Budesonide (Pulmicort) 0.5 mg RTBID NEB 10/22/20 08:00 10/22/20 20:14 DC 10/22/20 08:00 Fluticasone Furoate (ARNUITY 100mcg ELLIPTA) 2 puff BID INH 10/22/20 21:00 10/24/20 13:23 DC 10/24/20 08:27 Docusate Sodium (Colace) 100 mg BID PO 10/24/20 21:00 11/24/20 08:12 Olanzapine (ZyPREXA) 5 mg QHS PO 10/25/20 21:30 10/26/20 18:43 DC 10/25/20 21:34 Trazodone HCl (Desyrel) 100 mg PRN QHS PRN PO INSOMNIA, MAY REPEAT X1 10/26/20 00:45 10/26/20 00:44 DC Trazodone HCl (Desyrel) 100 mg PRN QHS PRN PO INSOMNIA, MAY REPEAT X1 10/26/20 00:45 UNV Trazodone HCl (Desyrel) 100 mg PRN QHS PRN PO INSOMNIA, MAY REPEAT X1 10/26/20 00:45 11/23/20 01:02 Fluoxetine HCl (PROzac) 30 mg DAILY PO 10/27/20 09:00 10/27/20 09:09 DC Olanzapine (ZyPREXA) 7.5 mg QHS PO 10/26/20 21:00 10/27/20 18:19 DC 10/26/20 19:56 Mirtazapine (Remeron) 15 mg QHS PO 10/26/20 21:00 11/23/20 21:02 Fluoxetine HCl (PROzac) 30 mg DAILY PO 10/27/20 09:15 11/05/20 18:17 DC 11/05/20 09:03 Risperidone (RisperDAL) 0.5 mg QHS PO 10/27/20 21:00 11/01/20 14:14 DC 10/31/20 19:49 Lamotrigine (LaMICtal) 25 mg QHS PO 10/27/20 21:00 10/29/20 23:00 DC 10/29/20 19:47 Lamotrigine (LaMICtal) 50 mg QHS PO 10/30/20 21:00 11/04/20 08:00 DC 11/03/20 20:13 Clonazepam (KlonoPIN) 0.25 mg DAILY@0900 PO 10/29/20 09:00 11/05/20 17:57 DC 11/05/20 09:04 Clonazepam (KlonoPIN) 0.75 mg PRN BID PRN PO ANXIETY / AGITATION 10/29/20 07:15 10/29/20 10:02 DC Clonazepam (KlonoPIN) 0.75 mg BID@1200,1700 PO 10/29/20 12:00 11/03/20 18:10 DC 11/03/20 17:45 Fluvoxamine Maleate (Luvox) 25 mg QHS PO 10/29/20 21:00 11/01/20 21:00 DC 10/31/20 19:49 Fluvoxamine Maleate (Luvox) 50 mg QHS PO 11/01/20 21:00 11/10/20 18:04 DC 11/09/20 19:50 Risperidone (RisperDAL) 0.5 mg 1X ONCE PO 10/31/20 11:30 10/31/20 11:31 DC 10/31/20 11:36 Risperidone (RisperDAL) 0.5 mg PRN 1X PRN PO AGITATION 10/31/20 11:30 11/23/20 14:08 DC 11/05/20 17:14 Lorazepam (Ativan) 0.5 mg PRN Q2HR PRN PO ANXIETY / AGITATION 10/31/20 11:15 11/24/20 15:55 Risperidone (RisperDAL) 0.75 mg QHS PO 11/01/20 21:00 11/04/20 09:00 DC 11/03/20 20:11 Lamotrigine (LaMICtal) 75 mg QHS PO 11/04/20 21:00 11/09/20 05:00 DC 11/08/20 19:58 Clonazepam (KlonoPIN) 0.5 mg 1200 PO 11/04/20 12:00 11/05/20 17:57 DC 11/05/20 11:53 Risperidone (RisperDAL) 1 mg QHS PO 11/04/20 21:00 11/05/20 17:57 DC 11/04/20 20:11 Clonazepam (KlonoPIN) 0.75 mg 1700 PO 11/04/20 17:00 11/06/20 21:00 DC 11/06/20 17:37 Clonazepam (KlonoPIN) 0.5 mg 1700 PO 11/07/20 17:00 11/24/20 17:28 Clonazepam (KlonoPIN) 0.5 mg BID PO 11/06/20 09:00 11/24/20 08:13 Risperidone (RisperDAL) 1.5 mg QHS PO 11/06/20 21:00 11/08/20 12:30 DC 11/07/20 20:29 Olanzapine (ZyPREXA ZYDIS) 5 mg QHS PO 11/07/20 21:00 11/23/20 21:06 Risperidone (RisperDAL) 2 mg QHS PO 11/09/20 21:00 11/10/20 09:00 DC 11/09/20 19:50 Risperidone (RisperDAL) 1 mg BID PO 11/08/20 12:30 11/08/20 22:30 DC 11/08/20 19:58 Lamotrigine (LaMICtal) 100 mg QHS PO 11/09/20 21:00 11/18/20 18:27 DC 11/17/20 19:54 Ciprofloxacin 2 drop Q4H OS 11/09/20 17:00 11/16/20 21:00 DC 11/16/20 20:47 Risperidone (RisperDAL) 2.5 mg QHS PO 11/10/20 21:00 11/12/20 08:00 DC 11/11/20 19:57 Fluvoxamine Maleate (Luvox) 75 mg QHS PO 11/10/20 21:00 11/12/20 23:01 DC 11/12/20 20:13 Fluvoxamine Maleate (Luvox) 100 mg QHS PO 11/13/20 21:00 11/24/20 18:40 DC 11/23/20 21:01 Risperidone (RisperDAL) 1 mg DAILY PO 11/12/20 09:00 11/24/20 17:21 DC 11/24/20 08:12 Risperidone (RisperDAL) 2 mg QHS PO 11/11/20 21:00 11/11/20 19:21 DC Risperidone (RisperDAL) 2 mg QHS PO 11/12/20 21:00 11/14/20 17:32 DC 11/13/20 19:47 Risperidone (RisperDAL) 2.5 mg QHS PO 11/14/20 21:00 11/23/20 21:01 Levofloxacin (Levaquin) 250 mg DAILY PO 11/15/20 15:00 11/21/20 14:59 Cancel Lactobacillus Rhamnosus (Culturelle) 1 cap BID PO 11/15/20 21:00 11/24/20 08:12 Cephalexin HCl (Keflex) 250 mg TID PO 11/15/20 15:30 11/23/20 16:11 DC 11/23/20 14:06 Lamotrigine (LaMICtal) 150 mg QHS PO 11/18/20 21:00 11/22/20 18:00 DC 11/21/20 20:03 Lamotrigine (LaMICtal) 175 mg QHS PO 11/22/20 21:00 11/25/20 09:00 11/23/20 21:02 Lamotrigine (LaMICtal) 200 mg QHS PO 11/25/20 21:00 Risperidone (RisperDAL) 1.5 mg DAILY PO 11/25/20 09:00 Fluvoxamine Maleate (Luvox) 100 mg QHS PO 11/24/20 21:00 Fluvoxamine Maleate (Luvox) 25 mg HS PO 11/24/20 21:00 I have reviewed the current psychotropics carefully including drug interactions. Risk benefit ratio favors no change other than as noted in my dictated progress note. Diagnosis: Problems: (1) Bipolar disorder, current episode depressed, severe, with psychotic features (2) Anxiety disorder, unspecified (3) Major depressive disorder, recurrent episode (4) OCD (obsessive compulsive disorder) DEL GO MD Nov 24, 2020 20:53
--- NOTE | 2020-11-24 20:53 | PDOC ---
Exam Note: Avel Note: Please also refer to the separate dictated note~for this date of service dictated separately.~Patient seen individually. Discussed the patient with Nursing staff reviewed the chart.~Reviewed interim history and current functioning. Reviewed vital signs,~Labs/ Radiology~and current medications noted below. Continue current treatment with the changes noted in the dictated addendum note Assessment: Vital Signs/I&O: Vital Signs Date Time Temp Pulse Resp B/P (MAP) Pulse Ox O2 Delivery O2 Flow Rate FiO2 11/24/20 15:17 97.8 114 17 127/76 (93) 95 11/24/20 06:33 Room Air I & O 11/23/20 11/23/20 11/24/20 15:00 23:00 07:00 Intake Total 600 ml 380 ml Balance 600 ml 380 ml Current Medications: Meds: Current Medications Medications (Trade) Dose Ordered Sig/Aline Route PRN Reason Start Time Stop Time Status Last Admin Dose Admin Acetaminophen (Tylenol) 650 mg PRN Q6HRS PRN PO MILD PAIN / TEMP > 100.3'F 10/22/20 04:00 11/20/20 05:00 Al Hydroxide/Mg Hydroxide (Mylanta Plus Xs) 15 ml PRN AFTMEALHC PRN PO DYSPEPSIA 10/22/20 04:00 Magnesium Hydroxide (Milk Of Magnesia) 2,400 mg PRN QHS PRN PO CONSTIPATION, 2ND CHOICE 10/22/20 04:00 11/09/20 19:52 Aripiprazole (Abilify) 5 mg DAILY PO 10/22/20 09:00 10/25/20 21:23 DC 10/25/20 08:04 Bisacodyl (Dulcolax Tab) 5 mg PRN DAILY PRN PO CONSTIPATION, 3RD CHOICE 10/22/20 04:30 Clonazepam (KlonoPIN) 0.75 mg TID PO 10/22/20 09:00 10/29/20 07:15 DC 10/28/20 20:23 Doxycycline Hyclate (Vibra-Tab) 100 mg DAILY PO 10/22/20 09:00 10/24/20 12:31 DC 10/24/20 08:26 Fluoxetine HCl (PROzac) 20 mg DAILY PO 10/22/20 09:00 10/26/20 18:43 DC 10/26/20 09:30 Guaifenesin (Robitussin) 200 mg PRN Q4HRS PRN PO COUGH 10/22/20 04:30 Levothyroxine Sodium (Synthroid) 75 mcg DAILY06 PO 10/22/20 06:00 11/24/20 05:47 Mirtazapine (Remeron) 7.5 mg QHS PO 10/22/20 21:00 10/26/20 19:28 DC 10/25/20 20:19 Multivitamins/ Calcium (Thera-M Plus) 1 tab DAILY PO 10/22/20 09:00 11/24/20 08:12 Nortriptyline HCl (Pamelor) 75 mg QHS PO 10/22/20 21:00 10/29/20 19:51 DC 10/28/20 20:22 Polyethylene Glycol (miraLAX) 17 gm PRN DAILY PRN PO CONSTIPATION, 1ST CHOICE 10/22/20 04:30 11/17/20 20:41 Psyllium Hydrophilic Mucilloid (Metamucil) 1 pkt DAILY PO 10/22/20 09:00 11/24/20 08:12 Simethicone (Gas-X) 80 mg PRN BID PRN PO GAS / BLOATING 10/22/20 04:30 11/04/20 19:56 Zolpidem Tartrate (Ambien) 2.5 mg QHS PO 10/22/20 21:00 11/23/20 21:06 Non-Formulary Medication (Budesonide (Pulmicort Flexhaler)) 2 puff BID IH 10/22/20 09:00 UNV Lactobacillus Rhamnosus (Culturelle) 1 cap TID PO 10/22/20 09:00 10/30/20 11:59 DC 10/29/20 14:00 Pantoprazole Sodium (Protonix) 40 mg DAILYAC PO 10/22/20 07:30 11/24/20 08:12 Multi-Ingredient Ointment (Analgesic [place]) 1 sherice PRN QID PRN TP MUSCLE PAIN 10/22/20 04:45 Multi-Ingredient Ointment (Analgesic [place]) 1 sherice DAILY TP 10/22/20 09:00 11/23/20 08:10 Budesonide (Pulmicort) 0.5 mg RTBID NEB 10/22/20 08:00 10/22/20 20:14 DC 10/22/20 08:00 Fluticasone Furoate (ARNUITY 100mcg ELLIPTA) 2 puff BID INH 10/22/20 21:00 10/24/20 13:23 DC 10/24/20 08:27 Docusate Sodium (Colace) 100 mg BID PO 10/24/20 21:00 11/24/20 08:12 Olanzapine (ZyPREXA) 5 mg QHS PO 10/25/20 21:30 10/26/20 18:43 DC 10/25/20 21:34 Trazodone HCl (Desyrel) 100 mg PRN QHS PRN PO INSOMNIA, MAY REPEAT X1 10/26/20 00:45 10/26/20 00:44 DC Trazodone HCl (Desyrel) 100 mg PRN QHS PRN PO INSOMNIA, MAY REPEAT X1 10/26/20 00:45 UNV Trazodone HCl (Desyrel) 100 mg PRN QHS PRN PO INSOMNIA, MAY REPEAT X1 10/26/20 00:45 11/23/20 01:02 Fluoxetine HCl (PROzac) 30 mg DAILY PO 10/27/20 09:00 10/27/20 09:09 DC Olanzapine (ZyPREXA) 7.5 mg QHS PO 10/26/20 21:00 10/27/20 18:19 DC 10/26/20 19:56 Mirtazapine (Remeron) 15 mg QHS PO 10/26/20 21:00 11/23/20 21:02 Fluoxetine HCl (PROzac) 30 mg DAILY PO 10/27/20 09:15 11/05/20 18:17 DC 11/05/20 09:03 Risperidone (RisperDAL) 0.5 mg QHS PO 10/27/20 21:00 11/01/20 14:14 DC 10/31/20 19:49 Lamotrigine (LaMICtal) 25 mg QHS PO 10/27/20 21:00 10/29/20 23:00 DC 10/29/20 19:47 Lamotrigine (LaMICtal) 50 mg QHS PO 10/30/20 21:00 11/04/20 08:00 DC 11/03/20 20:13 Clonazepam (KlonoPIN) 0.25 mg DAILY@0900 PO 10/29/20 09:00 11/05/20 17:57 DC 11/05/20 09:04 Clonazepam (KlonoPIN) 0.75 mg PRN BID PRN PO ANXIETY / AGITATION 10/29/20 07:15 10/29/20 10:02 DC Clonazepam (KlonoPIN) 0.75 mg BID@1200,1700 PO 10/29/20 12:00 11/03/20 18:10 DC 11/03/20 17:45 Fluvoxamine Maleate (Luvox) 25 mg QHS PO 10/29/20 21:00 11/01/20 21:00 DC 10/31/20 19:49 Fluvoxamine Maleate (Luvox) 50 mg QHS PO 11/01/20 21:00 11/10/20 18:04 DC 11/09/20 19:50 Risperidone (RisperDAL) 0.5 mg 1X ONCE PO 10/31/20 11:30 10/31/20 11:31 DC 10/31/20 11:36 Risperidone (RisperDAL) 0.5 mg PRN 1X PRN PO AGITATION 10/31/20 11:30 11/23/20 14:08 DC 11/05/20 17:14 Lorazepam (Ativan) 0.5 mg PRN Q2HR PRN PO ANXIETY / AGITATION 10/31/20 11:15 11/24/20 15:55 Risperidone (RisperDAL) 0.75 mg QHS PO 11/01/20 21:00 11/04/20 09:00 DC 11/03/20 20:11 Lamotrigine (LaMICtal) 75 mg QHS PO 11/04/20 21:00 11/09/20 05:00 DC 11/08/20 19:58 Clonazepam (KlonoPIN) 0.5 mg 1200 PO 11/04/20 12:00 11/05/20 17:57 DC 11/05/20 11:53 Risperidone (RisperDAL) 1 mg QHS PO 11/04/20 21:00 11/05/20 17:57 DC 11/04/20 20:11 Clonazepam (KlonoPIN) 0.75 mg 1700 PO 11/04/20 17:00 11/06/20 21:00 DC 11/06/20 17:37 Clonazepam (KlonoPIN) 0.5 mg 1700 PO 11/07/20 17:00 11/24/20 17:28 Clonazepam (KlonoPIN) 0.5 mg BID PO 11/06/20 09:00 11/24/20 08:13 Risperidone (RisperDAL) 1.5 mg QHS PO 11/06/20 21:00 11/08/20 12:30 DC 11/07/20 20:29 Olanzapine (ZyPREXA ZYDIS) 5 mg QHS PO 11/07/20 21:00 11/23/20 21:06 Risperidone (RisperDAL) 2 mg QHS PO 11/09/20 21:00 11/10/20 09:00 DC 11/09/20 19:50 Risperidone (RisperDAL) 1 mg BID PO 11/08/20 12:30 11/08/20 22:30 DC 11/08/20 19:58 Lamotrigine (LaMICtal) 100 mg QHS PO 11/09/20 21:00 11/18/20 18:27 DC 11/17/20 19:54 Ciprofloxacin 2 drop Q4H OS 11/09/20 17:00 11/16/20 21:00 DC 11/16/20 20:47 Risperidone (RisperDAL) 2.5 mg QHS PO 11/10/20 21:00 11/12/20 08:00 DC 11/11/20 19:57 Fluvoxamine Maleate (Luvox) 75 mg QHS PO 11/10/20 21:00 11/12/20 23:01 DC 11/12/20 20:13 Fluvoxamine Maleate (Luvox) 100 mg QHS PO 11/13/20 21:00 11/24/20 18:40 DC 11/23/20 21:01 Risperidone (RisperDAL) 1 mg DAILY PO 11/12/20 09:00 11/24/20 17:21 DC 11/24/20 08:12 Risperidone (RisperDAL) 2 mg QHS PO 11/11/20 21:00 11/11/20 19:21 DC Risperidone (RisperDAL) 2 mg QHS PO 11/12/20 21:00 11/14/20 17:32 DC 11/13/20 19:47 Risperidone (RisperDAL) 2.5 mg QHS PO 11/14/20 21:00 11/23/20 21:01 Levofloxacin (Levaquin) 250 mg DAILY PO 11/15/20 15:00 11/21/20 14:59 Cancel Lactobacillus Rhamnosus (Culturelle) 1 cap BID PO 11/15/20 21:00 11/24/20 08:12 Cephalexin HCl (Keflex) 250 mg TID PO 11/15/20 15:30 11/23/20 16:11 DC 11/23/20 14:06 Lamotrigine (LaMICtal) 150 mg QHS PO 11/18/20 21:00 11/22/20 18:00 DC 11/21/20 20:03 Lamotrigine (LaMICtal) 175 mg QHS PO 11/22/20 21:00 11/25/20 09:00 11/23/20 21:02 Lamotrigine (LaMICtal) 200 mg QHS PO 11/25/20 21:00 Risperidone (RisperDAL) 1.5 mg DAILY PO 11/25/20 09:00 Fluvoxamine Maleate (Luvox) 100 mg QHS PO 11/24/20 21:00 Fluvoxamine Maleate (Luvox) 25 mg HS PO 11/24/20 21:00 I have reviewed the current psychotropics carefully including drug interactions. Risk benefit ratio favors no change other than as noted in my dictated progress note. Diagnosis: Problems: (1) OCD (obsessive compulsive disorder) (2) Bipolar disorder, current episode mixed, severe, with psychotic features (3) Anxiety disorder, unspecified DEL GO MD Nov 24, 2020 20:53
[2020-11-24] MEDS: lamoTRIgine 100 MG TABLET. PO SCH (21:10)
[2020-11-24] MEDS: MIRTAZAPINE 15 MG TABLET PO SCH (21:11)
[2020-11-24] MEDS: ZOLPIDEM 5 MG TABLET. PO SCH (21:11)
[2020-11-24] MEDS: risperiDONE 2 MG TABLET. PO SCH (21:13)
--- NOTE | 2020-11-25 03:41 | NUR ---
Patient is anxious. Patient is delusional and fixated on her bowels and digestion. Patient talked for 20 minutes about her brief is being "stuck in her butt" and the food is stuck in her stomach because of this. She stated the brief has "crust from the food in it" and it is hurting her stomach. Nurse suggested a bigger size brief or sweatpants that weren't as tight in the waistband but she stated that it would not make a difference. Patient expressed concern about how she would get to the bathroom in the night if she needed to, as we have no nurse call lights. Patient room is across from the nurses station and patient was instructed to call out if she needed assistance during the night. Patient very slow to take medications, was distracted by another cup on her tray, eventually she took them.
[2020-11-25] MEDS: LEVOTHYROXINE 75 MCG TABLET PO SCH (06:16)
[2020-11-25 06:20] VITALS: BP 130/75
--- NOTE | 2020-11-25 08:06 | PDOC ---
Exam Note: Avel Note: This note is a late entry for 11/24/2020 covers elements not covered in my initial note. Subjective: The patient was reviewed on telehealth rounds in the evening of 11/24/2020 with Delores BOYEL. Discussed with nursing staff, reviewed the chart. The patient slept 7-1/2 hours previous night. She did well in the morning but more anxious and obsessed about her bowels in the evening. I addressed this at great length with her on telehealth rounds but there was nothing that could convince her otherwise. She felt she was not going to have her bowel movement and stool was being layered. Dietary did assess patient. Review of Systems: Appetite is better. She has the GI symptoms as above. No CV, , pulmonary, eye, ENT system symptoms on review. Mental Status Exam: The patient is reasonably oriented. Speech is coherent. Abstraction is fair. Computation is impaired. Language function is intact. Mood and affect still somewhat anxious, depressed but better than before. Laboratory Data: Reviewed. Impression: Bipolar 1 disorder, depressed versus depressed with psychotic features. Anxiety disorder unspecified. OCD. Plan: No change from initial note. We will increase the morning Risperdal from 1 mg to 1.5 mg. Continue 2.5 mg h.s. Increase Lamictal to 200 mg a day starting 11/25. Maintain rest of the psychotropics unchanged. Adjust as clinically indicated. Assessment: Vital Signs/I&O: Vital Signs Date Time Temp Pulse Resp B/P (MAP) Pulse Ox O2 Delivery O2 Flow Rate FiO2 11/25/20 06:20 98.2 98 20 130/75 (93) 94 Room Air I & O 11/24/20 11/24/20 11/25/20 14:59 22:59 06:59 Intake Total 700 ml 200 ml Balance 700 ml 200 ml Current Medications: Meds: Current Medications Medications (Trade) Dose Ordered Sig/Aline Route PRN Reason Start Time Stop Time Status Last Admin Dose Admin Acetaminophen (Tylenol) 650 mg PRN Q6HRS PRN PO MILD PAIN / TEMP > 100.3'F 10/22/20 04:00 11/20/20 05:00 Al Hydroxide/Mg Hydroxide (Mylanta Plus Xs) 15 ml PRN AFTMEALHC PRN PO DYSPEPSIA 10/22/20 04:00 Magnesium Hydroxide (Milk Of Magnesia) 2,400 mg PRN QHS PRN PO CONSTIPATION, 2ND CHOICE 10/22/20 04:00 11/09/20 19:52 Aripiprazole (Abilify) 5 mg DAILY PO 10/22/20 09:00 10/25/20 21:23 DC 10/25/20 08:04 Bisacodyl (Dulcolax Tab) 5 mg PRN DAILY PRN PO CONSTIPATION, 3RD CHOICE 10/22/20 04:30 Clonazepam (KlonoPIN) 0.75 mg TID PO 10/22/20 09:00 10/29/20 07:15 DC 10/28/20 20:23 Doxycycline Hyclate (Vibra-Tab) 100 mg DAILY PO 10/22/20 09:00 10/24/20 12:31 DC 10/24/20 08:26 Fluoxetine HCl (PROzac) 20 mg DAILY PO 10/22/20 09:00 10/26/20 18:43 DC 10/26/20 09:30 Guaifenesin (Robitussin) 200 mg PRN Q4HRS PRN PO COUGH 10/22/20 04:30 Levothyroxine Sodium (Synthroid) 75 mcg DAILY06 PO 10/22/20 06:00 11/25/20 06:16 Mirtazapine (Remeron) 7.5 mg QHS PO 10/22/20 21:00 10/26/20 19:28 DC 10/25/20 20:19 Multivitamins/ Calcium (Thera-M Plus) 1 tab DAILY PO 10/22/20 09:00 11/24/20 08:12 Nortriptyline HCl (Pamelor) 75 mg QHS PO 10/22/20 21:00 10/29/20 19:51 DC 10/28/20 20:22 Polyethylene Glycol (miraLAX) 17 gm PRN DAILY PRN PO CONSTIPATION, 1ST CHOICE 10/22/20 04:30 11/17/20 20:41 Psyllium Hydrophilic Mucilloid (Metamucil) 1 pkt DAILY PO 10/22/20 09:00 11/24/20 08:12 Simethicone (Gas-X) 80 mg PRN BID PRN PO GAS / BLOATING 10/22/20 04:30 11/04/20 19:56 Zolpidem Tartrate (Ambien) 2.5 mg QHS PO 10/22/20 21:00 11/24/20 21:11 Non-Formulary Medication (Budesonide (Pulmicort Flexhaler)) 2 puff BID IH 10/22/20 09:00 UNV Lactobacillus Rhamnosus (Culturelle) 1 cap TID PO 10/22/20 09:00 10/30/20 11:59 DC 10/29/20 14:00 Pantoprazole Sodium (Protonix) 40 mg DAILYAC PO 10/22/20 07:30 11/24/20 08:12 Multi-Ingredient Ointment (Analgesic [place]) 1 sherice PRN QID PRN TP MUSCLE PAIN 10/22/20 04:45 Multi-Ingredient Ointment (Analgesic [place]) 1 sherice DAILY TP 10/22/20 09:00 11/23/20 08:10 Budesonide (Pulmicort) 0.5 mg RTBID NEB 10/22/20 08:00 10/22/20 20:14 DC 10/22/20 08:00 Fluticasone Furoate (ARNUITY 100mcg ELLIPTA) 2 puff BID INH 10/22/20 21:00 10/24/20 13:23 DC 10/24/20 08:27 Docusate Sodium (Colace) 100 mg BID PO 10/24/20 21:00 11/24/20 21:09 Olanzapine (ZyPREXA) 5 mg QHS PO 10/25/20 21:30 10/26/20 18:43 DC 10/25/20 21:34 Trazodone HCl (Desyrel) 100 mg PRN QHS PRN PO INSOMNIA, MAY REPEAT X1 10/26/20 00:45 10/26/20 00:44 DC Trazodone HCl (Desyrel) 100 mg PRN QHS PRN PO INSOMNIA, MAY REPEAT X1 10/26/20 00:45 UNV Trazodone HCl (Desyrel) 100 mg PRN QHS PRN PO INSOMNIA, MAY REPEAT X1 10/26/20 00:45 11/23/20 01:02 Fluoxetine HCl (PROzac) 30 mg DAILY PO 10/27/20 09:00 10/27/20 09:09 DC Olanzapine (ZyPREXA) 7.5 mg QHS PO 10/26/20 21:00 10/27/20 18:19 DC 10/26/20 19:56 Mirtazapine (Remeron) 15 mg QHS PO 10/26/20 21:00 11/24/20 21:11 Fluoxetine HCl (PROzac) 30 mg DAILY PO 10/27/20 09:15 11/05/20 18:17 DC 11/05/20 09:03 Risperidone (RisperDAL) 0.5 mg QHS PO 10/27/20 21:00 11/01/20 14:14 DC 10/31/20 19:49 Lamotrigine (LaMICtal) 25 mg QHS PO 10/27/20 21:00 10/29/20 23:00 DC 10/29/20 19:47 Lamotrigine (LaMICtal) 50 mg QHS PO 10/30/20 21:00 11/04/20 08:00 DC 11/03/20 20:13 Clonazepam (KlonoPIN) 0.25 mg DAILY@0900 PO 10/29/20 09:00 11/05/20 17:57 DC 11/05/20 09:04 Clonazepam (KlonoPIN) 0.75 mg PRN BID PRN PO ANXIETY / AGITATION 10/29/20 07:15 10/29/20 10:02 DC Clonazepam (KlonoPIN) 0.75 mg BID@1200,1700 PO 10/29/20 12:00 11/03/20 18:10 DC 11/03/20 17:45 Fluvoxamine Maleate (Luvox) 25 mg QHS PO 10/29/20 21:00 11/01/20 21:00 DC 10/31/20 19:49 Fluvoxamine Maleate (Luvox) 50 mg QHS PO 11/01/20 21:00 11/10/20 18:04 DC 11/09/20 19:50 Risperidone (RisperDAL) 0.5 mg 1X ONCE PO 10/31/20 11:30 10/31/20 11:31 DC 10/31/20 11:36 Risperidone (RisperDAL) 0.5 mg PRN 1X PRN PO AGITATION 10/31/20 11:30 11/23/20 14:08 DC 11/05/20 17:14 Lorazepam (Ativan) 0.5 mg PRN Q2HR PRN PO ANXIETY / AGITATION 10/31/20 11:15 11/24/20 15:55 Risperidone (RisperDAL) 0.75 mg QHS PO 11/01/20 21:00 11/04/20 09:00 DC 11/03/20 20:11 Lamotrigine (LaMICtal) 75 mg QHS PO 11/04/20 21:00 11/09/20 05:00 DC 11/08/20 19:58 Clonazepam (KlonoPIN) 0.5 mg 1200 PO 11/04/20 12:00 11/05/20 17:57 DC 11/05/20 11:53 Risperidone (RisperDAL) 1 mg QHS PO 11/04/20 21:00 11/05/20 17:57 DC 11/04/20 20:11 Clonazepam (KlonoPIN) 0.75 mg 1700 PO 11/04/20 17:00 11/06/20 21:00 DC 11/06/20 17:37 Clonazepam (KlonoPIN) 0.5 mg 1700 PO 11/07/20 17:00 11/24/20 17:28 Clonazepam (KlonoPIN) 0.5 mg BID PO 11/06/20 09:00 11/24/20 21:12 Risperidone (RisperDAL) 1.5 mg QHS PO 11/06/20 21:00 11/08/20 12:30 DC 11/07/20 20:29 Olanzapine (ZyPREXA ZYDIS) 5 mg QHS PO 11/07/20 21:00 11/24/20 21:12 Risperidone (RisperDAL) 2 mg QHS PO 11/09/20 21:00 11/10/20 09:00 DC 11/09/20 19:50 Risperidone (RisperDAL) 1 mg BID PO 11/08/20 12:30 11/08/20 22:30 DC 11/08/20 19:58 Lamotrigine (LaMICtal) 100 mg QHS PO 11/09/20 21:00 11/18/20 18:27 DC 11/17/20 19:54 Ciprofloxacin 2 drop Q4H OS 11/09/20 17:00 11/16/20 21:00 DC 11/16/20 20:47 Risperidone (RisperDAL) 2.5 mg QHS PO 11/10/20 21:00 11/12/20 08:00 DC 11/11/20 19:57 Fluvoxamine Maleate (Luvox) 75 mg QHS PO 11/10/20 21:00 11/12/20 23:01 DC 11/12/20 20:13 Fluvoxamine Maleate (Luvox) 100 mg QHS PO 11/13/20 21:00 11/24/20 18:40 DC 11/23/20 21:01 Risperidone (RisperDAL) 1 mg DAILY PO 11/12/20 09:00 11/24/20 17:21 DC 11/24/20 08:12 Risperidone (RisperDAL) 2 mg QHS PO 11/11/20 21:00 11/11/20 19:21 DC Risperidone (RisperDAL) 2 mg QHS PO 11/12/20 21:00 11/14/20 17:32 DC 11/13/20 19:47 Risperidone (RisperDAL) 2.5 mg QHS PO 11/14/20 21:00 11/24/20 21:13 Levofloxacin (Levaquin) 250 mg DAILY PO 11/15/20 15:00 11/21/20 14:59 Cancel Lactobacillus Rhamnosus (Culturelle) 1 cap BID PO 11/15/20 21:00 11/24/20 21:09 Cephalexin HCl (Keflex) 250 mg TID PO 11/15/20 15:30 11/23/20 16:11 DC 11/23/20 14:06 Lamotrigine (LaMICtal) 150 mg QHS PO 11/18/20 21:00 11/22/20 18:00 DC 11/21/20 20:03 Lamotrigine (LaMICtal) 175 mg QHS PO 11/22/20 21:00 11/25/20 09:00 11/24/20 21:10 Lamotrigine (LaMICtal) 200 mg QHS PO 11/25/20 21:00 Risperidone (RisperDAL) 1.5 mg DAILY PO 11/25/20 09:00 Fluvoxamine Maleate (Luvox) 100 mg QHS PO 11/24/20 21:00 11/24/20 21:11 Fluvoxamine Maleate (Luvox) 25 mg HS PO 11/24/20 21:00 11/24/20 21:15 Current Medications Medications (Trade) Dose Ordered Sig/Aline Route PRN Reason Start Time Stop Time Status Last Admin Dose Admin Fluvoxamine Maleate (Luvox) 100 mg QHS PO 11/24/20 21:00 11/24/20 21:11 Fluvoxamine Maleate (Luvox) 25 mg HS PO 11/24/20 21:00 11/24/20 21:15 I have reviewed the current psychotropics carefully including drug interactions. Risk benefit ratio favors no change other than as noted in my dictated progress note. Diagnosis: Problems: (1) Bipolar disorder, current episode depressed, severe, with psychotic features (2) OCD (obsessive compulsive disorder) (3) Bipolar disorder, current episode mixed, severe, with psychotic features (4) Major depressive disorder, recurrent episode DEL GO MD Nov 25, 2020 08:06
[2020-11-25] MEDS: MULTIVITAMIN with MINERAL TABLET. PO SCH (08:31)
[2020-11-25] MEDS: DOCUSATE SODIUM 100 MG CAPSULE PO SCH ×2 (08:31→20:03)
[2020-11-25] MEDS: LACTOBACILLUS RHAMNOSUS GG 1 CAPSULE. PO SCH ×2 (08:31→20:04)
[2020-11-25] MEDS: PANTOPRAZOLE 40 MG TABLET. PO SCH (08:31)
[2020-11-25] MEDS: clonazePAM 0.5 MG TABLET PO SCH ×3 (08:31→20:06)
[2020-11-25] MEDS: risperiDONE 1 MG TABLET. PO SCH (08:33)
[2020-11-25] MEDS: PSYLLIUM SEED (WITH SUGAR) PACKET. PO SCH (08:42)
[2020-11-25] MEDS: METHYL SALICYLATE/MENTHOL TOPICAL OINTMENT 57GM TUBE. TP SCH (08:42)
--- NOTE | 2020-11-25 11:28 | NUR ---
PATIENT IS AWAKE UP IN A CHAIR EATING BREAKFAST UPON ASSESSMENT. CALM AND QUIET, COMPLIANT WITH MEDICATIONS, DENIED ANY PAIN, NO DELUSIONS , NO BEHAVIOR NOTED AT THIS TIME.
[2020-11-25 16:14] VITALS: BP 109/72
[2020-11-25] MEDS: ZOLPIDEM 5 MG TABLET. PO SCH (20:03)
[2020-11-25] MEDS: risperiDONE 2 MG TABLET. PO SCH (20:04)
[2020-11-25] MEDS: MIRTAZAPINE 15 MG TABLET PO SCH (20:04)
[2020-11-25] MEDS: lamoTRIgine 100 MG TABLET. PO SCH (20:06)
--- NOTE | 2020-11-25 21:00 | PDOC ---
Exam Note: Avel Note: Please also refer to the separate dictated note~for this date of service dictated separately.~Patient seen individually. Discussed the patient with Nursing staff reviewed the chart.~Reviewed interim history and current functioning. Reviewed vital signs,~Labs/ Radiology~and current medications noted below. Continue current treatment with the changes noted in the dictated addendum note Assessment: Vital Signs/I&O: Vital Signs Date Time Temp Pulse Resp B/P (MAP) Pulse Ox O2 Delivery O2 Flow Rate FiO2 11/25/20 16:14 97.6 96 16 109/72 (84) 96 11/25/20 06:20 Room Air I & O 11/24/20 11/24/20 11/25/20 14:59 22:59 06:59 Intake Total 700 ml 200 ml Balance 700 ml 200 ml Current Medications: Meds: Current Medications Medications (Trade) Dose Ordered Sig/Aline Route PRN Reason Start Time Stop Time Status Last Admin Dose Admin Acetaminophen (Tylenol) 650 mg PRN Q6HRS PRN PO MILD PAIN / TEMP > 100.3'F 10/22/20 04:00 11/20/20 05:00 Al Hydroxide/Mg Hydroxide (Mylanta Plus Xs) 15 ml PRN AFTMEALHC PRN PO DYSPEPSIA 10/22/20 04:00 Magnesium Hydroxide (Milk Of Magnesia) 2,400 mg PRN QHS PRN PO CONSTIPATION, 2ND CHOICE 10/22/20 04:00 11/09/20 19:52 Aripiprazole (Abilify) 5 mg DAILY PO 10/22/20 09:00 10/25/20 21:23 DC 10/25/20 08:04 Bisacodyl (Dulcolax Tab) 5 mg PRN DAILY PRN PO CONSTIPATION, 3RD CHOICE 10/22/20 04:30 Clonazepam (KlonoPIN) 0.75 mg TID PO 10/22/20 09:00 10/29/20 07:15 DC 10/28/20 20:23 Doxycycline Hyclate (Vibra-Tab) 100 mg DAILY PO 10/22/20 09:00 10/24/20 12:31 DC 10/24/20 08:26 Fluoxetine HCl (PROzac) 20 mg DAILY PO 10/22/20 09:00 10/26/20 18:43 DC 10/26/20 09:30 Guaifenesin (Robitussin) 200 mg PRN Q4HRS PRN PO COUGH 10/22/20 04:30 Levothyroxine Sodium (Synthroid) 75 mcg DAILY06 PO 10/22/20 06:00 11/25/20 06:16 Mirtazapine (Remeron) 7.5 mg QHS PO 10/22/20 21:00 10/26/20 19:28 DC 10/25/20 20:19 Multivitamins/ Calcium (Thera-M Plus) 1 tab DAILY PO 10/22/20 09:00 11/25/20 08:31 Nortriptyline HCl (Pamelor) 75 mg QHS PO 10/22/20 21:00 10/29/20 19:51 DC 10/28/20 20:22 Polyethylene Glycol (miraLAX) 17 gm PRN DAILY PRN PO CONSTIPATION, 1ST CHOICE 10/22/20 04:30 11/17/20 20:41 Psyllium Hydrophilic Mucilloid (Metamucil) 1 pkt DAILY PO 10/22/20 09:00 11/24/20 08:12 Simethicone (Gas-X) 80 mg PRN BID PRN PO GAS / BLOATING 10/22/20 04:30 11/04/20 19:56 Zolpidem Tartrate (Ambien) 2.5 mg QHS PO 10/22/20 21:00 11/25/20 20:03 Non-Formulary Medication (Budesonide (Pulmicort Flexhaler)) 2 puff BID IH 10/22/20 09:00 UNV Lactobacillus Rhamnosus (Culturelle) 1 cap TID PO 10/22/20 09:00 10/30/20 11:59 DC 10/29/20 14:00 Pantoprazole Sodium (Protonix) 40 mg DAILYAC PO 10/22/20 07:30 11/25/20 08:31 Multi-Ingredient Ointment (Analgesic Dow) 1 sherice PRN QID PRN TP MUSCLE PAIN 10/22/20 04:45 Multi-Ingredient Ointment (Analgesic Dow) 1 sherice DAILY TP 10/22/20 09:00 11/23/20 08:10 Budesonide (Pulmicort) 0.5 mg RTBID NEB 10/22/20 08:00 10/22/20 20:14 DC 10/22/20 08:00 Fluticasone Furoate (ARNUITY 100mcg ELLIPTA) 2 puff BID INH 10/22/20 21:00 10/24/20 13:23 DC 10/24/20 08:27 Docusate Sodium (Colace) 100 mg BID PO 10/24/20 21:00 11/25/20 20:03 Olanzapine (ZyPREXA) 5 mg QHS PO 10/25/20 21:30 10/26/20 18:43 DC 10/25/20 21:34 Trazodone HCl (Desyrel) 100 mg PRN QHS PRN PO INSOMNIA, MAY REPEAT X1 10/26/20 00:45 10/26/20 00:44 DC Trazodone HCl (Desyrel) 100 mg PRN QHS PRN PO INSOMNIA, MAY REPEAT X1 10/26/20 00:45 UNV Trazodone HCl (Desyrel) 100 mg PRN QHS PRN PO INSOMNIA, MAY REPEAT X1 10/26/20 00:45 11/23/20 01:02 Fluoxetine HCl (PROzac) 30 mg DAILY PO 10/27/20 09:00 10/27/20 09:09 DC Olanzapine (ZyPREXA) 7.5 mg QHS PO 10/26/20 21:00 10/27/20 18:19 DC 10/26/20 19:56 Mirtazapine (Remeron) 15 mg QHS PO 10/26/20 21:00 11/25/20 20:04 Fluoxetine HCl (PROzac) 30 mg DAILY PO 10/27/20 09:15 11/05/20 18:17 DC 11/05/20 09:03 Risperidone (RisperDAL) 0.5 mg QHS PO 10/27/20 21:00 11/01/20 14:14 DC 10/31/20 19:49 Lamotrigine (LaMICtal) 25 mg QHS PO 10/27/20 21:00 10/29/20 23:00 DC 10/29/20 19:47 Lamotrigine (LaMICtal) 50 mg QHS PO 10/30/20 21:00 11/04/20 08:00 DC 11/03/20 20:13 Clonazepam (KlonoPIN) 0.25 mg DAILY@0900 PO 10/29/20 09:00 11/05/20 17:57 DC 11/05/20 09:04 Clonazepam (KlonoPIN) 0.75 mg PRN BID PRN PO ANXIETY / AGITATION 10/29/20 07:15 10/29/20 10:02 DC Clonazepam (KlonoPIN) 0.75 mg BID@1200,1700 PO 10/29/20 12:00 11/03/20 18:10 DC 11/03/20 17:45 Fluvoxamine Maleate (Luvox) 25 mg QHS PO 10/29/20 21:00 11/01/20 21:00 DC 10/31/20 19:49 Fluvoxamine Maleate (Luvox) 50 mg QHS PO 11/01/20 21:00 11/10/20 18:04 DC 11/09/20 19:50 Risperidone (RisperDAL) 0.5 mg 1X ONCE PO 10/31/20 11:30 10/31/20 11:31 DC 10/31/20 11:36 Risperidone (RisperDAL) 0.5 mg PRN 1X PRN PO AGITATION 10/31/20 11:30 11/23/20 14:08 DC 11/05/20 17:14 Lorazepam (Ativan) 0.5 mg PRN Q2HR PRN PO ANXIETY / AGITATION 10/31/20 11:15 11/24/20 15:55 Risperidone (RisperDAL) 0.75 mg QHS PO 11/01/20 21:00 11/04/20 09:00 DC 11/03/20 20:11 Lamotrigine (LaMICtal) 75 mg QHS PO 11/04/20 21:00 11/09/20 05:00 DC 11/08/20 19:58 Clonazepam (KlonoPIN) 0.5 mg 1200 PO 11/04/20 12:00 11/05/20 17:57 DC 11/05/20 11:53 Risperidone (RisperDAL) 1 mg QHS PO 11/04/20 21:00 11/05/20 17:57 DC 11/04/20 20:11 Clonazepam (KlonoPIN) 0.75 mg 1700 PO 11/04/20 17:00 11/06/20 21:00 DC 11/06/20 17:37 Clonazepam (KlonoPIN) 0.5 mg 1700 PO 11/07/20 17:00 11/25/20 16:27 Clonazepam (KlonoPIN) 0.5 mg BID PO 11/06/20 09:00 11/25/20 20:06 Risperidone (RisperDAL) 1.5 mg QHS PO 11/06/20 21:00 11/08/20 12:30 DC 11/07/20 20:29 Olanzapine (ZyPREXA ZYDIS) 5 mg QHS PO 11/07/20 21:00 11/25/20 20:04 Risperidone (RisperDAL) 2 mg QHS PO 11/09/20 21:00 11/10/20 09:00 DC 11/09/20 19:50 Risperidone (RisperDAL) 1 mg BID PO 11/08/20 12:30 11/08/20 22:30 DC 11/08/20 19:58 Lamotrigine (LaMICtal) 100 mg QHS PO 11/09/20 21:00 11/18/20 18:27 DC 11/17/20 19:54 Ciprofloxacin 2 drop Q4H OS 11/09/20 17:00 11/16/20 21:00 DC 11/16/20 20:47 Risperidone (RisperDAL) 2.5 mg QHS PO 11/10/20 21:00 11/12/20 08:00 DC 11/11/20 19:57 Fluvoxamine Maleate (Luvox) 75 mg QHS PO 11/10/20 21:00 11/12/20 23:01 DC 11/12/20 20:13 Fluvoxamine Maleate (Luvox) 100 mg QHS PO 11/13/20 21:00 11/24/20 18:40 DC 11/23/20 21:01 Risperidone (RisperDAL) 1 mg DAILY PO 11/12/20 09:00 11/24/20 17:21 DC 11/24/20 08:12 Risperidone (RisperDAL) 2 mg QHS PO 11/11/20 21:00 11/11/20 19:21 DC Risperidone (RisperDAL) 2 mg QHS PO 11/12/20 21:00 11/14/20 17:32 DC 11/13/20 19:47 Risperidone (RisperDAL) 2.5 mg QHS PO 11/14/20 21:00 11/25/20 20:04 Levofloxacin (Levaquin) 250 mg DAILY PO 11/15/20 15:00 11/21/20 14:59 Cancel Lactobacillus Rhamnosus (Culturelle) 1 cap BID PO 11/15/20 21:00 11/25/20 20:04 Cephalexin HCl (Keflex) 250 mg TID PO 11/15/20 15:30 11/23/20 16:11 DC 11/23/20 14:06 Lamotrigine (LaMICtal) 150 mg QHS PO 11/18/20 21:00 11/22/20 18:00 DC 11/21/20 20:03 Lamotrigine (LaMICtal) 175 mg QHS PO 11/22/20 21:00 11/25/20 09:00 DC 11/24/20 21:10 Lamotrigine (LaMICtal) 200 mg QHS PO 11/25/20 21:00 11/25/20 20:06 Risperidone (RisperDAL) 1.5 mg DAILY PO 11/25/20 09:00 11/25/20 08:33 Fluvoxamine Maleate (Luvox) 100 mg QHS PO 11/24/20 21:00 11/25/20 20:04 Fluvoxamine Maleate (Luvox) 25 mg HS PO 11/24/20 21:00 11/25/20 20:04 Current Medications Medications (Trade) Dose Ordered Sig/Aline Route PRN Reason Start Time Stop Time Status Last Admin Dose Admin Lamotrigine (LaMICtal) 200 mg QHS PO 11/25/20 21:00 11/25/20 20:06 Risperidone (RisperDAL) 1.5 mg DAILY PO 11/25/20 09:00 11/25/20 08:33 I have reviewed the current psychotropics carefully including drug interactions. Risk benefit ratio favors no change other than as noted in my dictated progress note. Diagnosis: Problems: (1) Anxiety disorder, unspecified (2) Major depressive disorder, recurrent episode (3) Bipolar disorder, current episode mixed, severe, with psychotic features (4) OCD (obsessive compulsive disorder) DEL GO MD Nov 25, 2020 21:00
--- NOTE | 2020-11-25 22:15 | NUR ---
Nursing Note: On assessment pt is sitting up in chair in her room. Pt calm and slow to respond to staff. Pt states that she feels numb all over, she just feels like no one is trying to understand her. Sat with pt and talked about why she feels this way and what we can do to help. Offered pt puzzle or coloring pages, pt declined. Pt states she likes to exercise, encouraged pt to walk laps around the unit if she wanted to. Pt compliant with medications whole.
[2020-11-26] MEDS: LEVOTHYROXINE 75 MCG TABLET PO SCH (05:11)
[2020-11-26 06:11] VITALS: BP 119/72
--- NOTE | 2020-11-26 08:21 | PDOC ---
Exam Note: Avel Note: This note is a late entry for 11/25/2020 covers elements not covered in my initial note. Subjective: The patient was reviewed on telehealth rounds in the evening of 11/25/2020 with Delores BOYLE. Discussed with nursing staff, reviewed the chart. The patient slept 5-1/2 hours previous night. Overall she is less obsessive, despite this still obsessed about her bowel as I met with her. Appetite is better. She has been taking some Ensure supplements other than her GI symptoms. Review of Systems: Appetite is better. No CV, , pulmonary, eye, ENT system symptoms on review. Mental Status Exam: The patient is reasonably oriented. Speech is coherent, has some latency. Abstraction is fair. Computation is impaired. Language function is intact. Attention span is short. Mood and affect still depressed, anxious, somewhat delusional, but much improved. Laboratory Data: Reviewed. Impression: Bipolar 1 disorder, depressed versus depressed with psychotic features. Anxiety disorder unspecified. OCD. Plan: No change from initial note. Assessment: Vital Signs/I&O: Vital Signs Date Time Temp Pulse Resp B/P (MAP) Pulse Ox O2 Delivery O2 Flow Rate FiO2 11/26/20 06:11 97.6 78 16 119/72 (88) 97 11/25/20 06:20 Room Air I & O 11/25/20 11/25/20 11/26/20 15:00 23:00 07:00 Intake Total 600 ml 180 ml Balance 600 ml 180 ml Current Medications: Meds: Current Medications Medications (Trade) Dose Ordered Sig/Aline Route PRN Reason Start Time Stop Time Status Last Admin Dose Admin Acetaminophen (Tylenol) 650 mg PRN Q6HRS PRN PO MILD PAIN / TEMP > 100.3'F 10/22/20 04:00 11/20/20 05:00 Al Hydroxide/Mg Hydroxide (Mylanta Plus Xs) 15 ml PRN AFTMEALHC PRN PO DYSPEPSIA 10/22/20 04:00 Magnesium Hydroxide (Milk Of Magnesia) 2,400 mg PRN QHS PRN PO CONSTIPATION, 2ND CHOICE 10/22/20 04:00 11/09/20 19:52 Aripiprazole (Abilify) 5 mg DAILY PO 10/22/20 09:00 10/25/20 21:23 DC 10/25/20 08:04 Bisacodyl (Dulcolax Tab) 5 mg PRN DAILY PRN PO CONSTIPATION, 3RD CHOICE 10/22/20 04:30 Clonazepam (KlonoPIN) 0.75 mg TID PO 10/22/20 09:00 10/29/20 07:15 DC 10/28/20 20:23 Doxycycline Hyclate (Vibra-Tab) 100 mg DAILY PO 10/22/20 09:00 10/24/20 12:31 DC 10/24/20 08:26 Fluoxetine HCl (PROzac) 20 mg DAILY PO 10/22/20 09:00 10/26/20 18:43 DC 10/26/20 09:30 Guaifenesin (Robitussin) 200 mg PRN Q4HRS PRN PO COUGH 10/22/20 04:30 Levothyroxine Sodium (Synthroid) 75 mcg DAILY06 PO 10/22/20 06:00 11/26/20 05:11 Mirtazapine (Remeron) 7.5 mg QHS PO 10/22/20 21:00 10/26/20 19:28 DC 10/25/20 20:19 Multivitamins/ Calcium (Thera-M Plus) 1 tab DAILY PO 10/22/20 09:00 11/25/20 08:31 Nortriptyline HCl (Pamelor) 75 mg QHS PO 10/22/20 21:00 10/29/20 19:51 DC 10/28/20 20:22 Polyethylene Glycol (miraLAX) 17 gm PRN DAILY PRN PO CONSTIPATION, 1ST CHOICE 10/22/20 04:30 11/17/20 20:41 Psyllium Hydrophilic Mucilloid (Metamucil) 1 pkt DAILY PO 10/22/20 09:00 11/24/20 08:12 Simethicone (Gas-X) 80 mg PRN BID PRN PO GAS / BLOATING 10/22/20 04:30 11/04/20 19:56 Zolpidem Tartrate (Ambien) 2.5 mg QHS PO 10/22/20 21:00 11/25/20 20:03 Non-Formulary Medication (Budesonide (Pulmicort Flexhaler)) 2 puff BID IH 10/22/20 09:00 UNV Lactobacillus Rhamnosus (Culturelle) 1 cap TID PO 10/22/20 09:00 10/30/20 11:59 DC 10/29/20 14:00 Pantoprazole Sodium (Protonix) 40 mg DAILYAC PO 10/22/20 07:30 11/25/20 08:31 Multi-Ingredient Ointment (Analgesic [place]) 1 sherice PRN QID PRN TP MUSCLE PAIN 10/22/20 04:45 Multi-Ingredient Ointment (Analgesic [place]) 1 sherice DAILY TP 10/22/20 09:00 11/23/20 08:10 Budesonide (Pulmicort) 0.5 mg RTBID NEB 10/22/20 08:00 10/22/20 20:14 DC 10/22/20 08:00 Fluticasone Furoate (ARNUITY 100mcg ELLIPTA) 2 puff BID INH 10/22/20 21:00 10/24/20 13:23 DC 10/24/20 08:27 Docusate Sodium (Colace) 100 mg BID PO 10/24/20 21:00 11/25/20 20:03 Olanzapine (ZyPREXA) 5 mg QHS PO 10/25/20 21:30 10/26/20 18:43 DC 10/25/20 21:34 Trazodone HCl (Desyrel) 100 mg PRN QHS PRN PO INSOMNIA, MAY REPEAT X1 10/26/20 00:45 10/26/20 00:44 DC Trazodone HCl (Desyrel) 100 mg PRN QHS PRN PO INSOMNIA, MAY REPEAT X1 10/26/20 00:45 UNV Trazodone HCl (Desyrel) 100 mg PRN QHS PRN PO INSOMNIA, MAY REPEAT X1 10/26/20 00:45 11/23/20 01:02 Fluoxetine HCl (PROzac) 30 mg DAILY PO 10/27/20 09:00 10/27/20 09:09 DC Olanzapine (ZyPREXA) 7.5 mg QHS PO 10/26/20 21:00 10/27/20 18:19 DC 10/26/20 19:56 Mirtazapine (Remeron) 15 mg QHS PO 10/26/20 21:00 11/25/20 20:04 Fluoxetine HCl (PROzac) 30 mg DAILY PO 10/27/20 09:15 11/05/20 18:17 DC 11/05/20 09:03 Risperidone (RisperDAL) 0.5 mg QHS PO 10/27/20 21:00 11/01/20 14:14 DC 10/31/20 19:49 Lamotrigine (LaMICtal) 25 mg QHS PO 10/27/20 21:00 10/29/20 23:00 DC 10/29/20 19:47 Lamotrigine (LaMICtal) 50 mg QHS PO 10/30/20 21:00 11/04/20 08:00 DC 11/03/20 20:13 Clonazepam (KlonoPIN) 0.25 mg DAILY@0900 PO 10/29/20 09:00 11/05/20 17:57 DC 11/05/20 09:04 Clonazepam (KlonoPIN) 0.75 mg PRN BID PRN PO ANXIETY / AGITATION 10/29/20 07:15 10/29/20 10:02 DC Clonazepam (KlonoPIN) 0.75 mg BID@1200,1700 PO 10/29/20 12:00 11/03/20 18:10 DC 11/03/20 17:45 Fluvoxamine Maleate (Luvox) 25 mg QHS PO 10/29/20 21:00 11/01/20 21:00 DC 10/31/20 19:49 Fluvoxamine Maleate (Luvox) 50 mg QHS PO 11/01/20 21:00 11/10/20 18:04 DC 11/09/20 19:50 Risperidone (RisperDAL) 0.5 mg 1X ONCE PO 10/31/20 11:30 10/31/20 11:31 DC 10/31/20 11:36 Risperidone (RisperDAL) 0.5 mg PRN 1X PRN PO AGITATION 10/31/20 11:30 11/23/20 14:08 DC 11/05/20 17:14 Lorazepam (Ativan) 0.5 mg PRN Q2HR PRN PO ANXIETY / AGITATION 10/31/20 11:15 11/24/20 15:55 Risperidone (RisperDAL) 0.75 mg QHS PO 11/01/20 21:00 11/04/20 09:00 DC 11/03/20 20:11 Lamotrigine (LaMICtal) 75 mg QHS PO 11/04/20 21:00 11/09/20 05:00 DC 11/08/20 19:58 Clonazepam (KlonoPIN) 0.5 mg 1200 PO 11/04/20 12:00 11/05/20 17:57 DC 11/05/20 11:53 Risperidone (RisperDAL) 1 mg QHS PO 11/04/20 21:00 11/05/20 17:57 DC 11/04/20 20:11 Clonazepam (KlonoPIN) 0.75 mg 1700 PO 11/04/20 17:00 11/06/20 21:00 DC 11/06/20 17:37 Clonazepam (KlonoPIN) 0.5 mg 1700 PO 11/07/20 17:00 11/25/20 16:27 Clonazepam (KlonoPIN) 0.5 mg BID PO 11/06/20 09:00 11/25/20 20:06 Risperidone (RisperDAL) 1.5 mg QHS PO 11/06/20 21:00 11/08/20 12:30 DC 11/07/20 20:29 Olanzapine (ZyPREXA ZYDIS) 5 mg QHS PO 11/07/20 21:00 11/25/20 20:04 Risperidone (RisperDAL) 2 mg QHS PO 11/09/20 21:00 11/10/20 09:00 DC 11/09/20 19:50 Risperidone (RisperDAL) 1 mg BID PO 11/08/20 12:30 11/08/20 22:30 DC 11/08/20 19:58 Lamotrigine (LaMICtal) 100 mg QHS PO 11/09/20 21:00 11/18/20 18:27 DC 11/17/20 19:54 Ciprofloxacin 2 drop Q4H OS 11/09/20 17:00 11/16/20 21:00 DC 11/16/20 20:47 Risperidone (RisperDAL) 2.5 mg QHS PO 11/10/20 21:00 11/12/20 08:00 DC 11/11/20 19:57 Fluvoxamine Maleate (Luvox) 75 mg QHS PO 11/10/20 21:00 11/12/20 23:01 DC 11/12/20 20:13 Fluvoxamine Maleate (Luvox) 100 mg QHS PO 11/13/20 21:00 11/24/20 18:40 DC 11/23/20 21:01 Risperidone (RisperDAL) 1 mg DAILY PO 11/12/20 09:00 11/24/20 17:21 DC 11/24/20 08:12 Risperidone (RisperDAL) 2 mg QHS PO 11/11/20 21:00 11/11/20 19:21 DC Risperidone (RisperDAL) 2 mg QHS PO 11/12/20 21:00 11/14/20 17:32 DC 11/13/20 19:47 Risperidone (RisperDAL) 2.5 mg QHS PO 11/14/20 21:00 11/25/20 20:04 Levofloxacin (Levaquin) 250 mg DAILY PO 11/15/20 15:00 11/21/20 14:59 Cancel Lactobacillus Rhamnosus (Culturelle) 1 cap BID PO 11/15/20 21:00 11/25/20 20:04 Cephalexin HCl (Keflex) 250 mg TID PO 11/15/20 15:30 11/23/20 16:11 DC 11/23/20 14:06 Lamotrigine (LaMICtal) 150 mg QHS PO 11/18/20 21:00 11/22/20 18:00 DC 11/21/20 20:03 Lamotrigine (LaMICtal) 175 mg QHS PO 11/22/20 21:00 11/25/20 09:00 DC 11/24/20 21:10 Lamotrigine (LaMICtal) 200 mg QHS PO 11/25/20 21:00 11/25/20 20:06 Risperidone (RisperDAL) 1.5 mg DAILY PO 11/25/20 09:00 11/25/20 08:33 Fluvoxamine Maleate (Luvox) 100 mg QHS PO 11/24/20 21:00 11/25/20 20:04 Fluvoxamine Maleate (Luvox) 25 mg HS PO 11/24/20 21:00 11/25/20 20:04 Current Medications Medications (Trade) Dose Ordered Sig/Aline Route PRN Reason Start Time Stop Time Status Last Admin Dose Admin Lamotrigine (LaMICtal) 200 mg QHS PO 11/25/20 21:00 11/25/20 20:06 Risperidone (RisperDAL) 1.5 mg DAILY PO 11/25/20 09:00 11/25/20 08:33 I have reviewed the current psychotropics carefully including drug interactions. Risk benefit ratio favors no change other than as noted in my dictated progress note. Diagnosis: Problems: (1) Bipolar disorder, current episode mixed, severe, with psychotic features (2) OCD (obsessive compulsive disorder) (3) Major depressive disorder, recurrent episode (4) Anxiety disorder, unspecified DEL GO MD Nov 26, 2020 08:21
[2020-11-26] MEDS: risperiDONE 1 MG TABLET. PO SCH (08:27)
[2020-11-26] MEDS: MULTIVITAMIN with MINERAL TABLET. PO SCH (08:27)
[2020-11-26] MEDS: DOCUSATE SODIUM 100 MG CAPSULE PO SCH ×2 (08:27→21:14)
[2020-11-26] MEDS: PANTOPRAZOLE 40 MG TABLET. PO SCH (08:27)
[2020-11-26] MEDS: LACTOBACILLUS RHAMNOSUS GG 1 CAPSULE. PO SCH ×2 (08:27→21:14)
[2020-11-26] MEDS: PSYLLIUM SEED (WITH SUGAR) PACKET. PO SCH (08:27)
[2020-11-26] MEDS: clonazePAM 0.5 MG TABLET PO SCH ×3 (08:27→21:15)
[2020-11-26] MEDS: METHYL SALICYLATE/MENTHOL TOPICAL OINTMENT 57GM TUBE. TP SCH (08:28)
--- NOTE | 2020-11-26 12:37 | NUR ---
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 Special Instructions/Notes: Upon return to [facility], arrange for f/u appointments with house physician and tele-psychiatrist within 7-10 days. DISCHARGE TO FACILITY Facility: [facility] Address: [address] [place] [address] [facility] [id number] Contact Name: CHRISSY Rushing PCP: Dr. Cerna [phone], (fax) Psychiatrist: Facility tele-psychiatrist
--- NOTE | 2020-11-26 12:45 | NUR ---
Call placed to Julisa, shannanan, to review upcoming d/c plan for Kallie. Julisa was in agreement with plan and expressed appreciation for the update.
--- NOTE | 2020-11-26 15:06 | NUR ---
Pt up for meals. Has eaten well today. Has been compliant with meds and cares.
[2020-11-26 16:38] VITALS: BP 124/82
[2020-11-26 16:39] VITALS: BP 137/79
--- NOTE | 2020-11-26 21:09 | PDOC ---
Exam Note: Avel Note: Please also refer to the separate dictated note~for this date of service dictated separately.~Patient seen individually. Discussed the patient with Nursing staff reviewed the chart.~Reviewed interim history and current functioning. Reviewed vital signs,~Labs/ Radiology~and current medications noted below. Continue current treatment with the changes noted in the dictated addendum note Assessment: Vital Signs/I&O: Vital Signs Date Time Temp Pulse Resp B/P (MAP) Pulse Ox O2 Delivery O2 Flow Rate FiO2 11/26/20 16:39 97.6 73 20 137/79 (98) 96 Room Air I & O 11/25/20 11/25/20 11/26/20 14:59 22:59 06:59 Intake Total 600 ml 180 ml Balance 600 ml 180 ml Labs: Laboratory Tests Test 11/26/20 05:15 Coronavirus (PCR) Not detected (Not Detected) Current Medications: Meds: Laboratory Tests Test 11/26/20 05:15 Coronavirus (PCR) Not detected Current Medications Medications (Trade) Dose Ordered Sig/Aline Route PRN Reason Start Time Stop Time Status Last Admin Dose Admin Acetaminophen (Tylenol) 650 mg PRN Q6HRS PRN PO MILD PAIN / TEMP > 100.3'F 10/22/20 04:00 11/20/20 05:00 Al Hydroxide/Mg Hydroxide (Mylanta Plus Xs) 15 ml PRN AFTMEALHC PRN PO DYSPEPSIA 10/22/20 04:00 Magnesium Hydroxide (Milk Of Magnesia) 2,400 mg PRN QHS PRN PO CONSTIPATION, 2ND CHOICE 10/22/20 04:00 11/09/20 19:52 Aripiprazole (Abilify) 5 mg DAILY PO 10/22/20 09:00 10/25/20 21:23 DC 10/25/20 08:04 Bisacodyl (Dulcolax Tab) 5 mg PRN DAILY PRN PO CONSTIPATION, 3RD CHOICE 10/22/20 04:30 Clonazepam (KlonoPIN) 0.75 mg TID PO 10/22/20 09:00 10/29/20 07:15 DC 10/28/20 20:23 Doxycycline Hyclate (Vibra-Tab) 100 mg DAILY PO 10/22/20 09:00 10/24/20 12:31 DC 10/24/20 08:26 Fluoxetine HCl (PROzac) 20 mg DAILY PO 10/22/20 09:00 10/26/20 18:43 DC 10/26/20 09:30 Guaifenesin (Robitussin) 200 mg PRN Q4HRS PRN PO COUGH 10/22/20 04:30 Levothyroxine Sodium (Synthroid) 75 mcg DAILY06 PO 10/22/20 06:00 11/26/20 05:11 Mirtazapine (Remeron) 7.5 mg QHS PO 10/22/20 21:00 10/26/20 19:28 DC 10/25/20 20:19 Multivitamins/ Calcium (Thera-M Plus) 1 tab DAILY PO 10/22/20 09:00 11/26/20 08:27 Nortriptyline HCl (Pamelor) 75 mg QHS PO 10/22/20 21:00 10/29/20 19:51 DC 10/28/20 20:22 Polyethylene Glycol (miraLAX) 17 gm PRN DAILY PRN PO CONSTIPATION, 1ST CHOICE 10/22/20 04:30 11/17/20 20:41 Psyllium Hydrophilic Mucilloid (Metamucil) 1 pkt DAILY PO 10/22/20 09:00 11/26/20 08:27 Simethicone (Gas-X) 80 mg PRN BID PRN PO GAS / BLOATING 10/22/20 04:30 11/04/20 19:56 Zolpidem Tartrate (Ambien) 2.5 mg QHS PO 10/22/20 21:00 11/25/20 20:03 Non-Formulary Medication (Budesonide (Pulmicort Flexhaler)) 2 puff BID IH 10/22/20 09:00 UNV Lactobacillus Rhamnosus (Culturelle) 1 cap TID PO 10/22/20 09:00 10/30/20 11:59 DC 10/29/20 14:00 Pantoprazole Sodium (Protonix) 40 mg DAILYAC PO 10/22/20 07:30 11/26/20 08:27 Multi-Ingredient Ointment (Analgesic [place]) 1 sherice PRN QID PRN TP MUSCLE PAIN 10/22/20 04:45 Multi-Ingredient Ointment (Analgesic [place]) 1 sherice DAILY TP 10/22/20 09:00 11/26/20 08:28 Budesonide (Pulmicort) 0.5 mg RTBID NEB 10/22/20 08:00 10/22/20 20:14 DC 10/22/20 08:00 Fluticasone Furoate (ARNUITY 100mcg ELLIPTA) 2 puff BID INH 10/22/20 21:00 10/24/20 13:23 DC 10/24/20 08:27 Docusate Sodium (Colace) 100 mg BID PO 10/24/20 21:00 11/26/20 08:27 Olanzapine (ZyPREXA) 5 mg QHS PO 10/25/20 21:30 10/26/20 18:43 DC 10/25/20 21:34 Trazodone HCl (Desyrel) 100 mg PRN QHS PRN PO INSOMNIA, MAY REPEAT X1 10/26/20 00:45 10/26/20 00:44 DC Trazodone HCl (Desyrel) 100 mg PRN QHS PRN PO INSOMNIA, MAY REPEAT X1 10/26/20 00:45 UNV Trazodone HCl (Desyrel) 100 mg PRN QHS PRN PO INSOMNIA, MAY REPEAT X1 10/26/20 00:45 11/23/20 01:02 Fluoxetine HCl (PROzac) 30 mg DAILY PO 10/27/20 09:00 10/27/20 09:09 DC Olanzapine (ZyPREXA) 7.5 mg QHS PO 10/26/20 21:00 10/27/20 18:19 DC 10/26/20 19:56 Mirtazapine (Remeron) 15 mg QHS PO 10/26/20 21:00 11/25/20 20:04 Fluoxetine HCl (PROzac) 30 mg DAILY PO 10/27/20 09:15 11/05/20 18:17 DC 11/05/20 09:03 Risperidone (RisperDAL) 0.5 mg QHS PO 10/27/20 21:00 11/01/20 14:14 DC 10/31/20 19:49 Lamotrigine (LaMICtal) 25 mg QHS PO 10/27/20 21:00 10/29/20 23:00 DC 10/29/20 19:47 Lamotrigine (LaMICtal) 50 mg QHS PO 10/30/20 21:00 11/04/20 08:00 DC 11/03/20 20:13 Clonazepam (KlonoPIN) 0.25 mg DAILY@0900 PO 10/29/20 09:00 11/05/20 17:57 DC 11/05/20 09:04 Clonazepam (KlonoPIN) 0.75 mg PRN BID PRN PO ANXIETY / AGITATION 10/29/20 07:15 10/29/20 10:02 DC Clonazepam (KlonoPIN) 0.75 mg BID@1200,1700 PO 10/29/20 12:00 11/03/20 18:10 DC 11/03/20 17:45 Fluvoxamine Maleate (Luvox) 25 mg QHS PO 10/29/20 21:00 11/01/20 21:00 DC 10/31/20 19:49 Fluvoxamine Maleate (Luvox) 50 mg QHS PO 11/01/20 21:00 11/10/20 18:04 DC 11/09/20 19:50 Risperidone (RisperDAL) 0.5 mg 1X ONCE PO 10/31/20 11:30 10/31/20 11:31 DC 10/31/20 11:36 Risperidone (RisperDAL) 0.5 mg PRN 1X PRN PO AGITATION 10/31/20 11:30 11/23/20 14:08 DC 11/05/20 17:14 Lorazepam (Ativan) 0.5 mg PRN Q2HR PRN PO ANXIETY / AGITATION 10/31/20 11:15 11/24/20 15:55 Risperidone (RisperDAL) 0.75 mg QHS PO 11/01/20 21:00 11/04/20 09:00 DC 11/03/20 20:11 Lamotrigine (LaMICtal) 75 mg QHS PO 11/04/20 21:00 11/09/20 05:00 DC 11/08/20 19:58 Clonazepam (KlonoPIN) 0.5 mg 1200 PO 11/04/20 12:00 11/05/20 17:57 DC 11/05/20 11:53 Risperidone (RisperDAL) 1 mg QHS PO 11/04/20 21:00 11/05/20 17:57 DC 11/04/20 20:11 Clonazepam (KlonoPIN) 0.75 mg 1700 PO 11/04/20 17:00 11/06/20 21:00 DC 11/06/20 17:37 Clonazepam (KlonoPIN) 0.5 mg 1700 PO 11/07/20 17:00 11/26/20 17:00 Clonazepam (KlonoPIN) 0.5 mg BID PO 11/06/20 09:00 11/26/20 08:27 Risperidone (RisperDAL) 1.5 mg QHS PO 11/06/20 21:00 11/08/20 12:30 DC 11/07/20 20:29 Olanzapine (ZyPREXA ZYDIS) 5 mg QHS PO 11/07/20 21:00 11/25/20 20:04 Risperidone (RisperDAL) 2 mg QHS PO 11/09/20 21:00 11/10/20 09:00 DC 11/09/20 19:50 Risperidone (RisperDAL) 1 mg BID PO 11/08/20 12:30 11/08/20 22:30 DC 11/08/20 19:58 Lamotrigine (LaMICtal) 100 mg QHS PO 11/09/20 21:00 11/18/20 18:27 DC 11/17/20 19:54 Ciprofloxacin 2 drop Q4H OS 11/09/20 17:00 11/16/20 21:00 DC 11/16/20 20:47 Risperidone (RisperDAL) 2.5 mg QHS PO 11/10/20 21:00 11/12/20 08:00 DC 11/11/20 19:57 Fluvoxamine Maleate (Luvox) 75 mg QHS PO 11/10/20 21:00 11/12/20 23:01 DC 11/12/20 20:13 Fluvoxamine Maleate (Luvox) 100 mg QHS PO 11/13/20 21:00 11/24/20 18:40 DC 11/23/20 21:01 Risperidone (RisperDAL) 1 mg DAILY PO 11/12/20 09:00 11/24/20 17:21 DC 11/24/20 08:12 Risperidone (RisperDAL) 2 mg QHS PO 11/11/20 21:00 11/11/20 19:21 DC Risperidone (RisperDAL) 2 mg QHS PO 11/12/20 21:00 11/14/20 17:32 DC 11/13/20 19:47 Risperidone (RisperDAL) 2.5 mg QHS PO 11/14/20 21:00 11/25/20 20:04 Levofloxacin (Levaquin) 250 mg DAILY PO 11/15/20 15:00 11/21/20 14:59 Cancel Lactobacillus Rhamnosus (Culturelle) 1 cap BID PO 11/15/20 21:00 11/26/20 08:27 Cephalexin HCl (Keflex) 250 mg TID PO 11/15/20 15:30 11/23/20 16:11 DC 11/23/20 14:06 Lamotrigine (LaMICtal) 150 mg QHS PO 11/18/20 21:00 11/22/20 18:00 DC 11/21/20 20:03 Lamotrigine (LaMICtal) 175 mg QHS PO 11/22/20 21:00 11/25/20 09:00 DC 11/24/20 21:10 Lamotrigine (LaMICtal) 200 mg QHS PO 11/25/20 21:00 11/25/20 20:06 Risperidone (RisperDAL) 1.5 mg DAILY PO 11/25/20 09:00 11/26/20 08:27 Fluvoxamine Maleate (Luvox) 100 mg QHS PO 11/24/20 21:00 11/25/20 20:04 Fluvoxamine Maleate (Luvox) 25 mg HS PO 11/24/20 21:00 11/25/20 20:04 I have reviewed the current psychotropics carefully including drug interactions. Risk benefit ratio favors no change other than as noted in my dictated progress note. Diagnosis: Problems: (1) Anxiety disorder, unspecified (2) Major depressive disorder, recurrent episode (3) Bipolar disorder, current episode depressed, severe, with psychotic features (4) OCD (obsessive compulsive disorder) DEL GO MD Nov 26, 2020 21:09
[2020-11-26] MEDS: lamoTRIgine 100 MG TABLET. PO SCH (21:15)
[2020-11-26] MEDS: risperiDONE 2 MG TABLET. PO SCH (21:16)
[2020-11-26] MEDS: MIRTAZAPINE 15 MG TABLET PO SCH (21:16)
[2020-11-26] MEDS: ZOLPIDEM 5 MG TABLET. PO SCH (21:17)
--- NOTE | 2020-11-26 22:00 | NUR ---
Patient is sitting in her room assumption of care, sitting in a chair. The patient was compliant with assessments and took her medications whole. No agitation. No delusions voiced this shift. Patient denies SI. Denies any pain or discomfort. She appears to be sleeping comfortably at present time. Will continue to monitor.
[2020-11-27] MEDS: LEVOTHYROXINE 75 MCG TABLET PO SCH (05:06)
[2020-11-27 06:05] VITALS: BP 125/79
--- NOTE | 2020-11-27 07:42 | PDOC ---
Exam Note: Avel Note: This note is a late entry for 11/26/2020 covers elements not covered in my initial note. Subjective: The patient was reviewed on telehealth rounds in the evening of 11/26/2020 with Laisha BOYLE. Discussed with nursing staff, reviewed the chart. The patient slept 6-1/4 hours previous night. Overall she is doing better, though she minimizes her improvement. Appetite is better. She is less paranoid, suspicious. She still has the GI symptoms regarding constipation. Review of Systems: No CV, , pulmonary, eye, ENT system symptoms on review. Mental Status Exam: The patient is reasonably oriented. Speech is coherent, has some latency. Abstraction is fair. Computation is impaired. Language function is intact. Mood and affect still withdrawn. Laboratory Data: Reviewed. Impression: Bipolar 1 disorder, depressed versus depressed with psychotic features. Anxiety disorder unspecified. OCD. Plan: No change from initial note. She seems to be responding to her current regimen. Assessment: Vital Signs/I&O: Vital Signs Date Time Temp Pulse Resp B/P (MAP) Pulse Ox O2 Delivery O2 Flow Rate FiO2 11/27/20 06:05 96.9 76 18 125/79 (94) 97 11/26/20 16:39 Room Air I & O 11/26/20 11/26/20 11/27/20 15:00 23:00 07:00 Intake Total 480 ml 340 ml Balance 480 ml 340 ml Current Medications: Meds: Current Medications Medications (Trade) Dose Ordered Sig/Aline Route PRN Reason Start Time Stop Time Status Last Admin Dose Admin Acetaminophen (Tylenol) 650 mg PRN Q6HRS PRN PO MILD PAIN / TEMP > 100.3'F 10/22/20 04:00 11/20/20 05:00 Al Hydroxide/Mg Hydroxide (Mylanta Plus Xs) 15 ml PRN AFTMEALHC PRN PO DYSPEPSIA 10/22/20 04:00 Magnesium Hydroxide (Milk Of Magnesia) 2,400 mg PRN QHS PRN PO CONSTIPATION, 2ND CHOICE 10/22/20 04:00 11/09/20 19:52 Aripiprazole (Abilify) 5 mg DAILY PO 10/22/20 09:00 10/25/20 21:23 DC 10/25/20 08:04 Bisacodyl (Dulcolax Tab) 5 mg PRN DAILY PRN PO CONSTIPATION, 3RD CHOICE 10/22/20 04:30 Clonazepam (KlonoPIN) 0.75 mg TID PO 10/22/20 09:00 10/29/20 07:15 DC 10/28/20 20:23 Doxycycline Hyclate (Vibra-Tab) 100 mg DAILY PO 10/22/20 09:00 10/24/20 12:31 DC 10/24/20 08:26 Fluoxetine HCl (PROzac) 20 mg DAILY PO 10/22/20 09:00 10/26/20 18:43 DC 10/26/20 09:30 Guaifenesin (Robitussin) 200 mg PRN Q4HRS PRN PO COUGH 10/22/20 04:30 Levothyroxine Sodium (Synthroid) 75 mcg DAILY06 PO 10/22/20 06:00 11/27/20 05:06 Mirtazapine (Remeron) 7.5 mg QHS PO 10/22/20 21:00 10/26/20 19:28 DC 10/25/20 20:19 Multivitamins/ Calcium (Thera-M Plus) 1 tab DAILY PO 10/22/20 09:00 11/26/20 08:27 Nortriptyline HCl (Pamelor) 75 mg QHS PO 10/22/20 21:00 10/29/20 19:51 DC 10/28/20 20:22 Polyethylene Glycol (miraLAX) 17 gm PRN DAILY PRN PO CONSTIPATION, 1ST CHOICE 10/22/20 04:30 11/17/20 20:41 Psyllium Hydrophilic Mucilloid (Metamucil) 1 pkt DAILY PO 10/22/20 09:00 11/26/20 08:27 Simethicone (Gas-X) 80 mg PRN BID PRN PO GAS / BLOATING 10/22/20 04:30 11/04/20 19:56 Zolpidem Tartrate (Ambien) 2.5 mg QHS PO 10/22/20 21:00 11/26/20 21:17 Non-Formulary Medication (Budesonide (Pulmicort Flexhaler)) 2 puff BID IH 10/22/20 09:00 UNV Lactobacillus Rhamnosus (Culturelle) 1 cap TID PO 10/22/20 09:00 10/30/20 11:59 DC 10/29/20 14:00 Pantoprazole Sodium (Protonix) 40 mg DAILYAC PO 10/22/20 07:30 11/26/20 08:27 Multi-Ingredient Ointment (Analgesic [place]) 1 sherice PRN QID PRN TP MUSCLE PAIN 10/22/20 04:45 Multi-Ingredient Ointment (Analgesic [place]) 1 sherice DAILY TP 10/22/20 09:00 11/26/20 08:28 Budesonide (Pulmicort) 0.5 mg RTBID NEB 10/22/20 08:00 10/22/20 20:14 DC 10/22/20 08:00 Fluticasone Furoate (ARNUITY 100mcg ELLIPTA) 2 puff BID INH 10/22/20 21:00 10/24/20 13:23 DC 10/24/20 08:27 Docusate Sodium (Colace) 100 mg BID PO 10/24/20 21:00 11/26/20 21:14 Olanzapine (ZyPREXA) 5 mg QHS PO 10/25/20 21:30 10/26/20 18:43 DC 10/25/20 21:34 Trazodone HCl (Desyrel) 100 mg PRN QHS PRN PO INSOMNIA, MAY REPEAT X1 10/26/20 00:45 10/26/20 00:44 DC Trazodone HCl (Desyrel) 100 mg PRN QHS PRN PO INSOMNIA, MAY REPEAT X1 10/26/20 00:45 UNV Trazodone HCl (Desyrel) 100 mg PRN QHS PRN PO INSOMNIA, MAY REPEAT X1 10/26/20 00:45 11/23/20 01:02 Fluoxetine HCl (PROzac) 30 mg DAILY PO 10/27/20 09:00 10/27/20 09:09 DC Olanzapine (ZyPREXA) 7.5 mg QHS PO 10/26/20 21:00 10/27/20 18:19 DC 10/26/20 19:56 Mirtazapine (Remeron) 15 mg QHS PO 10/26/20 21:00 11/26/20 21:16 Fluoxetine HCl (PROzac) 30 mg DAILY PO 10/27/20 09:15 11/05/20 18:17 DC 11/05/20 09:03 Risperidone (RisperDAL) 0.5 mg QHS PO 10/27/20 21:00 11/01/20 14:14 DC 10/31/20 19:49 Lamotrigine (LaMICtal) 25 mg QHS PO 10/27/20 21:00 10/29/20 23:00 DC 10/29/20 19:47 Lamotrigine (LaMICtal) 50 mg QHS PO 10/30/20 21:00 11/04/20 08:00 DC 11/03/20 20:13 Clonazepam (KlonoPIN) 0.25 mg DAILY@0900 PO 10/29/20 09:00 11/05/20 17:57 DC 11/05/20 09:04 Clonazepam (KlonoPIN) 0.75 mg PRN BID PRN PO ANXIETY / AGITATION 10/29/20 07:15 10/29/20 10:02 DC Clonazepam (KlonoPIN) 0.75 mg BID@1200,1700 PO 10/29/20 12:00 11/03/20 18:10 DC 11/03/20 17:45 Fluvoxamine Maleate (Luvox) 25 mg QHS PO 10/29/20 21:00 11/01/20 21:00 DC 10/31/20 19:49 Fluvoxamine Maleate (Luvox) 50 mg QHS PO 11/01/20 21:00 11/10/20 18:04 DC 11/09/20 19:50 Risperidone (RisperDAL) 0.5 mg 1X ONCE PO 10/31/20 11:30 10/31/20 11:31 DC 10/31/20 11:36 Risperidone (RisperDAL) 0.5 mg PRN 1X PRN PO AGITATION 10/31/20 11:30 11/23/20 14:08 DC 11/05/20 17:14 Lorazepam (Ativan) 0.5 mg PRN Q2HR PRN PO ANXIETY / AGITATION 10/31/20 11:15 11/24/20 15:55 Risperidone (RisperDAL) 0.75 mg QHS PO 11/01/20 21:00 11/04/20 09:00 DC 11/03/20 20:11 Lamotrigine (LaMICtal) 75 mg QHS PO 11/04/20 21:00 11/09/20 05:00 DC 11/08/20 19:58 Clonazepam (KlonoPIN) 0.5 mg 1200 PO 11/04/20 12:00 11/05/20 17:57 DC 11/05/20 11:53 Risperidone (RisperDAL) 1 mg QHS PO 11/04/20 21:00 11/05/20 17:57 DC 11/04/20 20:11 Clonazepam (KlonoPIN) 0.75 mg 1700 PO 11/04/20 17:00 11/06/20 21:00 DC 11/06/20 17:37 Clonazepam (KlonoPIN) 0.5 mg 1700 PO 11/07/20 17:00 11/26/20 17:00 Clonazepam (KlonoPIN) 0.5 mg BID PO 11/06/20 09:00 11/26/20 21:15 Risperidone (RisperDAL) 1.5 mg QHS PO 11/06/20 21:00 11/08/20 12:30 DC 11/07/20 20:29 Olanzapine (ZyPREXA ZYDIS) 5 mg QHS PO 11/07/20 21:00 11/26/20 21:15 Risperidone (RisperDAL) 2 mg QHS PO 11/09/20 21:00 11/10/20 09:00 DC 11/09/20 19:50 Risperidone (RisperDAL) 1 mg BID PO 11/08/20 12:30 11/08/20 22:30 DC 11/08/20 19:58 Lamotrigine (LaMICtal) 100 mg QHS PO 11/09/20 21:00 11/18/20 18:27 DC 11/17/20 19:54 Ciprofloxacin 2 drop Q4H OS 11/09/20 17:00 11/16/20 21:00 DC 11/16/20 20:47 Risperidone (RisperDAL) 2.5 mg QHS PO 11/10/20 21:00 11/12/20 08:00 DC 11/11/20 19:57 Fluvoxamine Maleate (Luvox) 75 mg QHS PO 11/10/20 21:00 11/12/20 23:01 DC 11/12/20 20:13 Fluvoxamine Maleate (Luvox) 100 mg QHS PO 11/13/20 21:00 11/24/20 18:40 DC 11/23/20 21:01 Risperidone (RisperDAL) 1 mg DAILY PO 11/12/20 09:00 11/24/20 17:21 DC 11/24/20 08:12 Risperidone (RisperDAL) 2 mg QHS PO 11/11/20 21:00 11/11/20 19:21 DC Risperidone (RisperDAL) 2 mg QHS PO 11/12/20 21:00 11/14/20 17:32 DC 11/13/20 19:47 Risperidone (RisperDAL) 2.5 mg QHS PO 11/14/20 21:00 11/26/20 21:16 Levofloxacin (Levaquin) 250 mg DAILY PO 11/15/20 15:00 11/21/20 14:59 Cancel Lactobacillus Rhamnosus (Culturelle) 1 cap BID PO 11/15/20 21:00 11/26/20 21:14 Cephalexin HCl (Keflex) 250 mg TID PO 11/15/20 15:30 11/23/20 16:11 DC 11/23/20 14:06 Lamotrigine (LaMICtal) 150 mg QHS PO 11/18/20 21:00 11/22/20 18:00 DC 11/21/20 20:03 Lamotrigine (LaMICtal) 175 mg QHS PO 11/22/20 21:00 11/25/20 09:00 DC 11/24/20 21:10 Lamotrigine (LaMICtal) 200 mg QHS PO 11/25/20 21:00 11/26/20 21:15 Risperidone (RisperDAL) 1.5 mg DAILY PO 11/25/20 09:00 11/26/20 08:27 Fluvoxamine Maleate (Luvox) 100 mg QHS PO 11/24/20 21:00 11/26/20 21:15 Fluvoxamine Maleate (Luvox) 25 mg HS PO 11/24/20 21:00 11/26/20 21:16 I have reviewed the current psychotropics carefully including drug interactions. Risk benefit ratio favors no change other than as noted in my dictated progress note. Diagnosis: Problems: (1) Anxiety disorder, unspecified (2) OCD (obsessive compulsive disorder) (3) Bipolar disorder, current episode depressed, severe, with psychotic features DEL GO MD Nov 27, 2020 07:42
[2020-11-27] MEDS: PSYLLIUM SEED (WITH SUGAR) PACKET. PO SCH (08:43)
[2020-11-27] MEDS: METHYL SALICYLATE/MENTHOL TOPICAL OINTMENT 57GM TUBE. TP SCH (08:44)
[2020-11-27] MEDS: PANTOPRAZOLE 40 MG TABLET. PO SCH (08:44)
[2020-11-27] MEDS: DOCUSATE SODIUM 100 MG CAPSULE PO SCH ×2 (08:44→20:20)
[2020-11-27] MEDS: MULTIVITAMIN with MINERAL TABLET. PO SCH (08:44)
[2020-11-27] MEDS: LACTOBACILLUS RHAMNOSUS GG 1 CAPSULE. PO SCH ×2 (08:44→20:20)
[2020-11-27] MEDS: risperiDONE 1 MG TABLET. PO SCH (08:44)
[2020-11-27] MEDS: clonazePAM 0.5 MG TABLET PO SCH ×3 (08:51→20:22)
[2020-11-27 16:10] VITALS: BP 119/70
--- NOTE | 2020-11-27 17:52 | NUR ---
Pt up for meals. Has been compliant with meds and cares. Pt remains quiet and withdrawn.
[2020-11-27] MEDS: lamoTRIgine 100 MG TABLET. PO SCH (20:18)
[2020-11-27] MEDS: ZOLPIDEM 5 MG TABLET. PO SCH (20:21)
[2020-11-27] MEDS: risperiDONE 2 MG TABLET. PO SCH (20:22)
[2020-11-27] MEDS: MIRTAZAPINE 15 MG TABLET PO SCH (20:22)
--- NOTE | 2020-11-27 20:56 | PDOC ---
Exam Note: Avel Note: Please also refer to the separate dictated note~for this date of service dictated separately.~Patient seen individually. Discussed the patient with Nursing staff reviewed the chart.~Reviewed interim history and current functioning. Reviewed vital signs,~Labs/ Radiology~and current medications noted below. Continue current treatment with the changes noted in the dictated addendum note Assessment: Vital Signs/I&O: Vital Signs Date Time Temp Pulse Resp B/P (MAP) Pulse Ox O2 Delivery O2 Flow Rate FiO2 11/27/20 16:10 97.4 62 18 119/70 (86) 97 11/26/20 16:39 Room Air I & O 11/26/20 11/26/20 11/27/20 14:59 22:59 06:59 Intake Total 480 ml 340 ml Balance 480 ml 340 ml Current Medications: Meds: Current Medications Medications (Trade) Dose Ordered Sig/Aline Route PRN Reason Start Time Stop Time Status Last Admin Dose Admin Acetaminophen (Tylenol) 650 mg PRN Q6HRS PRN PO MILD PAIN / TEMP > 100.3'F 10/22/20 04:00 11/20/20 05:00 Al Hydroxide/Mg Hydroxide (Mylanta Plus Xs) 15 ml PRN AFTMEALHC PRN PO DYSPEPSIA 10/22/20 04:00 Magnesium Hydroxide (Milk Of Magnesia) 2,400 mg PRN QHS PRN PO CONSTIPATION, 2ND CHOICE 10/22/20 04:00 11/09/20 19:52 Aripiprazole (Abilify) 5 mg DAILY PO 10/22/20 09:00 10/25/20 21:23 DC 10/25/20 08:04 Bisacodyl (Dulcolax Tab) 5 mg PRN DAILY PRN PO CONSTIPATION, 3RD CHOICE 10/22/20 04:30 Clonazepam (KlonoPIN) 0.75 mg TID PO 10/22/20 09:00 10/29/20 07:15 DC 10/28/20 20:23 Doxycycline Hyclate (Vibra-Tab) 100 mg DAILY PO 10/22/20 09:00 10/24/20 12:31 DC 10/24/20 08:26 Fluoxetine HCl (PROzac) 20 mg DAILY PO 10/22/20 09:00 10/26/20 18:43 DC 12/22/20 09:30 Guaifenesin (Robitussin) 200 mg PRN Q4HRS PRN PO COUGH 10/22/20 04:30 Levothyroxine Sodium (Synthroid) 75 mcg DAILY06 PO 10/22/20 06:00 11/27/20 05:06 Mirtazapine (Remeron) 7.5 mg QHS PO 10/22/20 21:00 10/26/20 19:28 DC 10/25/20 20:19 Multivitamins/ Calcium (Thera-M Plus) 1 tab DAILY PO 10/22/20 09:00 11/27/20 08:44 Nortriptyline HCl (Pamelor) 75 mg QHS PO 10/22/20 21:00 10/29/20 19:51 DC 10/28/20 20:22 Polyethylene Glycol (miraLAX) 17 gm PRN DAILY PRN PO CONSTIPATION, 1ST CHOICE 10/22/20 04:30 11/17/20 20:41 Psyllium Hydrophilic Mucilloid (Metamucil) 1 pkt DAILY PO 10/22/20 09:00 11/27/20 08:43 Simethicone (Gas-X) 80 mg PRN BID PRN PO GAS / BLOATING 10/22/20 04:30 11/04/20 19:56 Zolpidem Tartrate (Ambien) 2.5 mg QHS PO 10/22/20 21:00 11/27/20 20:21 Non-Formulary Medication (Budesonide (Pulmicort Flexhaler)) 2 puff BID IH 10/22/20 09:00 UNV Lactobacillus Rhamnosus (Culturelle) 1 cap TID PO 10/22/20 09:00 10/30/20 11:59 DC 10/29/20 14:00 Pantoprazole Sodium (Protonix) 40 mg DAILYAC PO 10/22/20 07:30 11/27/20 08:44 Multi-Ingredient Ointment (Analgesic [place]) 1 sherice PRN QID PRN TP MUSCLE PAIN 10/22/20 04:45 Multi-Ingredient Ointment (Analgesic [place]) 1 sherice DAILY TP 10/22/20 09:00 11/27/20 08:44 Budesonide (Pulmicort) 0.5 mg RTBID NEB 10/22/20 08:00 10/22/20 20:14 DC 10/22/20 08:00 Fluticasone Furoate (ARNUITY 100mcg ELLIPTA) 2 puff BID INH 10/22/20 21:00 10/24/20 13:23 DC 10/24/20 08:27 Docusate Sodium (Colace) 100 mg BID PO 10/24/20 21:00 11/27/20 20:20 Olanzapine (ZyPREXA) 5 mg QHS PO 10/25/20 21:30 10/26/20 18:43 DC 10/25/20 21:34 Trazodone HCl (Desyrel) 100 mg PRN QHS PRN PO INSOMNIA, MAY REPEAT X1 10/26/20 00:45 10/26/20 00:44 DC Trazodone HCl (Desyrel) 100 mg PRN QHS PRN PO INSOMNIA, MAY REPEAT X1 10/26/20 00:45 UNV Trazodone HCl (Desyrel) 100 mg PRN QHS PRN PO INSOMNIA, MAY REPEAT X1 10/26/20 00:45 11/23/20 01:02 Fluoxetine HCl (PROzac) 30 mg DAILY PO 10/27/20 09:00 10/27/20 09:09 DC Olanzapine (ZyPREXA) 7.5 mg QHS PO 10/26/20 21:00 10/27/20 18:19 DC 10/26/20 19:56 Mirtazapine (Remeron) 15 mg QHS PO 10/26/20 21:00 11/27/20 20:22 Fluoxetine HCl (PROzac) 30 mg DAILY PO 10/27/20 09:15 11/05/20 18:17 DC 11/05/20 09:03 Risperidone (RisperDAL) 0.5 mg QHS PO 10/27/20 21:00 11/01/20 14:14 DC 10/31/20 19:49 Lamotrigine (LaMICtal) 25 mg QHS PO 10/27/20 21:00 10/29/20 23:00 DC 10/29/20 19:47 Lamotrigine (LaMICtal) 50 mg QHS PO 10/30/20 21:00 11/04/20 08:00 DC 11/03/20 20:13 Clonazepam (KlonoPIN) 0.25 mg DAILY@0900 PO 10/29/20 09:00 11/05/20 17:57 DC 11/05/20 09:04 Clonazepam (KlonoPIN) 0.75 mg PRN BID PRN PO ANXIETY / AGITATION 10/29/20 07:15 10/29/20 10:02 DC Clonazepam (KlonoPIN) 0.75 mg BID@1200,1700 PO 10/29/20 12:00 11/03/20 18:10 DC 11/03/20 17:45 Fluvoxamine Maleate (Luvox) 25 mg QHS PO 10/29/20 21:00 11/01/20 21:00 DC 10/31/20 19:49 Fluvoxamine Maleate (Luvox) 50 mg QHS PO 11/01/20 21:00 11/10/20 18:04 DC 11/09/20 19:50 Risperidone (RisperDAL) 0.5 mg 1X ONCE PO 10/31/20 11:30 10/31/20 11:31 DC 10/31/20 11:36 Risperidone (RisperDAL) 0.5 mg PRN 1X PRN PO AGITATION 10/31/20 11:30 11/23/20 14:08 DC 11/05/20 17:14 Lorazepam (Ativan) 0.5 mg PRN Q2HR PRN PO ANXIETY / AGITATION 10/31/20 11:15 11/24/20 15:55 Risperidone (RisperDAL) 0.75 mg QHS PO 11/01/20 21:00 11/04/20 09:00 DC 11/03/20 20:11 Lamotrigine (LaMICtal) 75 mg QHS PO 11/04/20 21:00 11/09/20 05:00 DC 11/08/20 19:58 Clonazepam (KlonoPIN) 0.5 mg 1200 PO 11/04/20 12:00 11/05/20 17:57 DC 11/05/20 11:53 Risperidone (RisperDAL) 1 mg QHS PO 11/04/20 21:00 11/05/20 17:57 DC 11/04/20 20:11 Clonazepam (KlonoPIN) 0.75 mg 1700 PO 11/04/20 17:00 11/06/20 21:00 DC 11/06/20 17:37 Clonazepam (KlonoPIN) 0.5 mg 1700 PO 11/07/20 17:00 11/27/20 17:23 Clonazepam (KlonoPIN) 0.5 mg BID PO 11/06/20 09:00 11/27/20 20:22 Risperidone (RisperDAL) 1.5 mg QHS PO 11/06/20 21:00 11/08/20 12:30 DC 11/07/20 20:29 Olanzapine (ZyPREXA ZYDIS) 5 mg QHS PO 11/07/20 21:00 11/27/20 20:21 Risperidone (RisperDAL) 2 mg QHS PO 11/09/20 21:00 11/10/20 09:00 DC 11/09/20 19:50 Risperidone (RisperDAL) 1 mg BID PO 11/08/20 12:30 11/08/20 22:30 DC 11/08/20 19:58 Lamotrigine (LaMICtal) 100 mg QHS PO 11/09/20 21:00 11/18/20 18:27 DC 11/17/20 19:54 Ciprofloxacin 2 drop Q4H OS 11/09/20 17:00 11/16/20 21:00 DC 11/16/20 20:47 Risperidone (RisperDAL) 2.5 mg QHS PO 11/10/20 21:00 11/12/20 08:00 DC 11/11/20 19:57 Fluvoxamine Maleate (Luvox) 75 mg QHS PO 11/10/20 21:00 11/12/20 23:01 DC 11/12/20 20:13 Fluvoxamine Maleate (Luvox) 100 mg QHS PO 11/13/20 21:00 11/24/20 18:40 DC 11/23/20 21:01 Risperidone (RisperDAL) 1 mg DAILY PO 11/12/20 09:00 11/24/20 17:21 DC 11/24/20 08:12 Risperidone (RisperDAL) 2 mg QHS PO 11/11/20 21:00 11/11/20 19:21 DC Risperidone (RisperDAL) 2 mg QHS PO 11/12/20 21:00 11/14/20 17:32 DC 11/13/20 19:47 Risperidone (RisperDAL) 2.5 mg QHS PO 11/14/20 21:00 11/27/20 20:22 Levofloxacin (Levaquin) 250 mg DAILY PO 11/15/20 15:00 11/21/20 14:59 Cancel Lactobacillus Rhamnosus (Culturelle) 1 cap BID PO 11/15/20 21:00 11/27/20 20:20 Cephalexin HCl (Keflex) 250 mg TID PO 11/15/20 15:30 11/23/20 16:11 DC 11/23/20 14:06 Lamotrigine (LaMICtal) 150 mg QHS PO 11/18/20 21:00 11/22/20 18:00 DC 11/21/20 20:03 Lamotrigine (LaMICtal) 175 mg QHS PO 11/22/20 21:00 11/25/20 09:00 DC 11/24/20 21:10 Lamotrigine (LaMICtal) 200 mg QHS PO 11/25/20 21:00 11/27/20 20:18 Risperidone (RisperDAL) 1.5 mg DAILY PO 11/25/20 09:00 11/27/20 08:44 Fluvoxamine Maleate (Luvox) 100 mg QHS PO 11/24/20 21:00 11/27/20 20:21 Fluvoxamine Maleate (Luvox) 25 mg HS PO 11/24/20 21:00 11/27/20 20:20 I have reviewed the current psychotropics carefully including drug interactions. Risk benefit ratio favors no change other than as noted in my dictated progress note. Diagnosis: Problems: (1) OCD (obsessive compulsive disorder) (2) Bipolar disorder, current episode depressed, severe, with psychotic features (3) Anxiety disorder, unspecified DEL GO MD Nov 27, 2020 20:55
[2020-11-28] MEDS ORDERED: LAMO100T8 PO (02:26)
[2020-11-28] MEDS ORDERED: FLUV100T2 PO (02:28)
[2020-11-28] MEDS ORDERED: FLUV50TA2 PO (02:29)
[2020-11-28] MEDS ORDERED: TRAZ-125 PO (02:34)
[2020-11-28] MEDS ORDERED: OLAN5TAB3 PO (02:36)
[2020-11-28] MEDS ORDERED: RISP1TAB88 PO ×2 (02:38)
[2020-11-28] MEDS ORDERED: LORA-254 PO (02:40)
[2020-11-28] MEDS ORDERED: DOCU100C28 PO (02:43)
[2020-11-28] MEDS: LEVOTHYROXINE 75 MCG TABLET PO SCH (05:13)
[2020-11-28 06:42] VITALS: BP 153/90
--- NOTE | 2020-11-28 08:09 | PDOC ---
Exam Note: Avel Note: This note is a late entry for 11/27/2020 covers elements not covered in my initial note. Subjective: The patient was reviewed on telehealth rounds in the evening of 11/27/2020 with Laisha BOYLE. Discussed with nursing staff, reviewed the chart. The patient slept 7 hours previous night. The patient has been going out to the dining room and to groups. She has a new roommate relating well to her. Subjectively when I again questioned her she said she was not doing well but when we pertinently asked about each of the things she was doing better including improved appetite, attending groups and other activities. She was able to ascertain. She is doing them now as compared to not being able to do it a few days back. Review of Systems: No CV, , pulmonary, eye, ENT system symptoms on review. Mental Status Exam: The patient is reasonably oriented. She is pleasant, verbal, interactive. Speech often response is monosyllabic. Abstraction is fair. Computation is impaired. Language function is intact. Mood and affect is improved. No psychotic symptoms, suicidal or homicidal ideation. Laboratory Data: Reviewed. Impression: Bipolar 1 disorder, depressed versus depressed with psychotic features. Anxiety disorder unspecified. OCD. Plan: No change from initial note. We will make further adjustments in psycho tropics as clinically indicated. Assessment: Vital Signs/I&O: Vital Signs Date Time Temp Pulse Resp B/P (MAP) Pulse Ox O2 Delivery O2 Flow Rate FiO2 11/28/20 06:42 97.9 103 16 153/90 (111) 97 11/26/20 16:39 Room Air I & O 11/27/20 11/27/20 11/28/20 15:00 23:00 07:00 Intake Total 600 ml 460 ml Balance 600 ml 460 ml Current Medications: Meds: Current Medications Medications (Trade) Dose Ordered Sig/Aline Route PRN Reason Start Time Stop Time Status Last Admin Dose Admin Acetaminophen (Tylenol) 650 mg PRN Q6HRS PRN PO MILD PAIN / TEMP > 100.3'F 10/22/20 04:00 11/20/20 05:00 Al Hydroxide/Mg Hydroxide (Mylanta Plus Xs) 15 ml PRN AFTMEALHC PRN PO DYSPEPSIA 10/22/20 04:00 Magnesium Hydroxide (Milk Of Magnesia) 2,400 mg PRN QHS PRN PO CONSTIPATION, 2ND CHOICE 10/22/20 04:00 11/09/20 19:52 Aripiprazole (Abilify) 5 mg DAILY PO 10/22/20 09:00 10/25/20 21:23 DC 10/25/20 08:04 Bisacodyl (Dulcolax Tab) 5 mg PRN DAILY PRN PO CONSTIPATION, 3RD CHOICE 10/22/20 04:30 Clonazepam (KlonoPIN) 0.75 mg TID PO 10/22/20 09:00 10/29/20 07:15 DC 10/28/20 20:23 Doxycycline Hyclate (Vibra-Tab) 100 mg DAILY PO 10/22/20 09:00 10/24/20 12:31 DC 10/24/20 08:26 Fluoxetine HCl (PROzac) 20 mg DAILY PO 10/22/20 09:00 10/26/20 18:43 DC 10/26/20 09:30 Guaifenesin (Robitussin) 200 mg PRN Q4HRS PRN PO COUGH 10/22/20 04:30 Levothyroxine Sodium (Synthroid) 75 mcg DAILY06 PO 10/22/20 06:00 11/28/20 05:13 Mirtazapine (Remeron) 7.5 mg QHS PO 10/22/20 21:00 10/26/20 19:28 DC 10/25/20 20:19 Multivitamins/ Calcium (Thera-M Plus) 1 tab DAILY PO 10/22/20 09:00 11/27/20 08:44 Nortriptyline HCl (Pamelor) 75 mg QHS PO 10/22/20 21:00 10/29/20 19:51 DC 10/28/20 20:22 Polyethylene Glycol (miraLAX) 17 gm PRN DAILY PRN PO CONSTIPATION, 1ST CHOICE 10/22/20 04:30 11/17/20 20:41 Psyllium Hydrophilic Mucilloid (Metamucil) 1 pkt DAILY PO 10/22/20 09:00 11/27/20 08:43 Simethicone (Gas-X) 80 mg PRN BID PRN PO GAS / BLOATING 10/22/20 04:30 11/04/20 19:56 Zolpidem Tartrate (Ambien) 2.5 mg QHS PO 10/22/20 21:00 11/27/20 20:21 Non-Formulary Medication (Budesonide (Pulmicort Flexhaler)) 2 puff BID IH 10/22/20 09:00 UNV Lactobacillus Rhamnosus (Culturelle) 1 cap TID PO 10/22/20 09:00 10/30/20 11:59 DC 10/29/20 14:00 Pantoprazole Sodium (Protonix) 40 mg DAILYAC PO 10/22/20 07:30 11/27/20 08:44 Multi-Ingredient Ointment (Analgesic [place]) 1 sherice PRN QID PRN TP MUSCLE PAIN 10/22/20 04:45 Multi-Ingredient Ointment (Analgesic [place]) 1 sherice DAILY TP 10/22/20 09:00 11/27/20 08:44 Budesonide (Pulmicort) 0.5 mg RTBID NEB 10/22/20 08:00 10/22/20 20:14 DC 10/22/20 08:00 Fluticasone Furoate (ARNUITY 100mcg ELLIPTA) 2 puff BID INH 10/22/20 21:00 10/24/20 13:23 DC 10/24/20 08:27 Docusate Sodium (Colace) 100 mg BID PO 10/24/20 21:00 11/27/20 20:20 Olanzapine (ZyPREXA) 5 mg QHS PO 10/25/20 21:30 10/26/20 18:43 DC 10/25/20 21:34 Trazodone HCl (Desyrel) 100 mg PRN QHS PRN PO INSOMNIA, MAY REPEAT X1 10/26/20 00:45 10/26/20 00:44 DC Trazodone HCl (Desyrel) 100 mg PRN QHS PRN PO INSOMNIA, MAY REPEAT X1 10/26/20 00:45 UNV Trazodone HCl (Desyrel) 100 mg PRN QHS PRN PO INSOMNIA, MAY REPEAT X1 10/26/20 00:45 11/23/20 01:02 Fluoxetine HCl (PROzac) 30 mg DAILY PO 10/27/20 09:00 10/27/20 09:09 DC Olanzapine (ZyPREXA) 7.5 mg QHS PO 10/26/20 21:00 10/27/20 18:19 DC 10/26/20 19:56 Mirtazapine (Remeron) 15 mg QHS PO 10/26/20 21:00 11/27/20 20:22 Fluoxetine HCl (PROzac) 30 mg DAILY PO 10/27/20 09:15 11/05/20 18:17 DC 11/05/20 09:03 Risperidone (RisperDAL) 0.5 mg QHS PO 10/27/20 21:00 11/01/20 14:14 DC 10/31/20 19:49 Lamotrigine (LaMICtal) 25 mg QHS PO 10/27/20 21:00 10/29/20 23:00 DC 10/29/20 19:47 Lamotrigine (LaMICtal) 50 mg QHS PO 10/30/20 21:00 11/04/20 08:00 DC 11/03/20 20:13 Clonazepam (KlonoPIN) 0.25 mg DAILY@0900 PO 10/29/20 09:00 11/05/20 17:57 DC 11/05/20 09:04 Clonazepam (KlonoPIN) 0.75 mg PRN BID PRN PO ANXIETY / AGITATION 10/29/20 07:15 10/29/20 10:02 DC Clonazepam (KlonoPIN) 0.75 mg BID@1200,1700 PO 10/29/20 12:00 11/03/20 18:10 DC 11/03/20 17:45 Fluvoxamine Maleate (Luvox) 25 mg QHS PO 10/29/20 21:00 11/01/20 21:00 DC 10/31/20 19:49 Fluvoxamine Maleate (Luvox) 50 mg QHS PO 11/01/20 21:00 11/10/20 18:04 DC 11/09/20 19:50 Risperidone (RisperDAL) 0.5 mg 1X ONCE PO 10/31/20 11:30 10/31/20 11:31 DC 10/31/20 11:36 Risperidone (RisperDAL) 0.5 mg PRN 1X PRN PO AGITATION 10/31/20 11:30 11/23/20 14:08 DC 11/05/20 17:14 Lorazepam (Ativan) 0.5 mg PRN Q2HR PRN PO ANXIETY / AGITATION 10/31/20 11:15 11/24/20 15:55 Risperidone (RisperDAL) 0.75 mg QHS PO 11/01/20 21:00 11/04/20 09:00 DC 11/03/20 20:11 Lamotrigine (LaMICtal) 75 mg QHS PO 11/04/20 21:00 11/09/20 05:00 DC 11/08/20 19:58 Clonazepam (KlonoPIN) 0.5 mg 1200 PO 11/04/20 12:00 11/05/20 17:57 DC 11/05/20 11:53 Risperidone (RisperDAL) 1 mg QHS PO 11/04/20 21:00 11/05/20 17:57 DC 11/04/20 20:11 Clonazepam (KlonoPIN) 0.75 mg 1700 PO 11/04/20 17:00 11/06/20 21:00 DC 11/06/20 17:37 Clonazepam (KlonoPIN) 0.5 mg 1700 PO 11/07/20 17:00 11/27/20 17:23 Clonazepam (KlonoPIN) 0.5 mg BID PO 11/06/20 09:00 11/27/20 20:22 Risperidone (RisperDAL) 1.5 mg QHS PO 11/06/20 21:00 11/08/20 12:30 DC 11/07/20 20:29 Olanzapine (ZyPREXA ZYDIS) 5 mg QHS PO 11/07/20 21:00 11/27/20 20:21 Risperidone (RisperDAL) 2 mg QHS PO 11/09/20 21:00 11/10/20 09:00 DC 11/09/20 19:50 Risperidone (RisperDAL) 1 mg BID PO 11/08/20 12:30 11/08/20 22:30 DC 11/08/20 19:58 Lamotrigine (LaMICtal) 100 mg QHS PO 11/09/20 21:00 11/18/20 18:27 DC 11/17/20 19:54 Ciprofloxacin 2 drop Q4H OS 11/09/20 17:00 11/16/20 21:00 DC 11/16/20 20:47 Risperidone (RisperDAL) 2.5 mg QHS PO 11/10/20 21:00 11/12/20 08:00 DC 11/11/20 19:57 Fluvoxamine Maleate (Luvox) 75 mg QHS PO 11/10/20 21:00 11/12/20 23:01 DC 11/12/20 20:13 Fluvoxamine Maleate (Luvox) 100 mg QHS PO 11/13/20 21:00 11/24/20 18:40 DC 11/23/20 21:01 Risperidone (RisperDAL) 1 mg DAILY PO 11/12/20 09:00 11/24/20 17:21 DC 11/24/20 08:12 Risperidone (RisperDAL) 2 mg QHS PO 11/11/20 21:00 11/11/20 19:21 DC Risperidone (RisperDAL) 2 mg QHS PO 11/12/20 21:00 11/14/20 17:32 DC 11/13/20 19:47 Risperidone (RisperDAL) 2.5 mg QHS PO 11/14/20 21:00 11/27/20 20:22 Levofloxacin (Levaquin) 250 mg DAILY PO 11/15/20 15:00 11/21/20 14:59 Cancel Lactobacillus Rhamnosus (Culturelle) 1 cap BID PO 11/15/20 21:00 11/27/20 20:20 Cephalexin HCl (Keflex) 250 mg TID PO 11/15/20 15:30 11/23/20 16:11 DC 11/23/20 14:06 Lamotrigine (LaMICtal) 150 mg QHS PO 11/18/20 21:00 11/22/20 18:00 DC 11/21/20 20:03 Lamotrigine (LaMICtal) 175 mg QHS PO 11/22/20 21:00 11/25/20 09:00 DC 11/24/20 21:10 Lamotrigine (LaMICtal) 200 mg QHS PO 11/25/20 21:00 11/27/20 20:18 Risperidone (RisperDAL) 1.5 mg DAILY PO 11/25/20 09:00 11/27/20 08:44 Fluvoxamine Maleate (Luvox) 100 mg QHS PO 11/24/20 21:00 11/27/20 20:21 Fluvoxamine Maleate (Luvox) 25 mg HS PO 11/24/20 21:00 11/27/20 20:20 I have reviewed the current psychotropics carefully including drug interactions. Risk benefit ratio favors no change other than as noted in my dictated progress note. Diagnosis: Problems: (1) OCD (obsessive compulsive disorder) (2) Bipolar disorder, current episode mixed, severe, with psychotic features (3) Anxiety disorder, unspecified (4) Major depressive disorder, recurrent episode (5) Bipolar disorder, current episode depressed, severe, with psychotic features DEL GO MD Nov 28, 2020 08:09
[2020-11-28] MEDS: MULTIVITAMIN with MINERAL TABLET. PO SCH (08:13)
[2020-11-28] MEDS: DOCUSATE SODIUM 100 MG CAPSULE PO SCH ×2 (08:13→20:29)
[2020-11-28] MEDS: LACTOBACILLUS RHAMNOSUS GG 1 CAPSULE. PO SCH ×2 (08:13→20:30)
[2020-11-28] MEDS: PANTOPRAZOLE 40 MG TABLET. PO SCH (08:13)
[2020-11-28] MEDS: PSYLLIUM SEED (WITH SUGAR) PACKET. PO SCH (08:13)
[2020-11-28] MEDS: METHYL SALICYLATE/MENTHOL TOPICAL OINTMENT 57GM TUBE. TP SCH (08:14)
[2020-11-28] MEDS: risperiDONE 1 MG TABLET. PO SCH (08:14)
[2020-11-28] MEDS: clonazePAM 0.5 MG TABLET PO SCH ×3 (08:15→20:30)
[2020-11-28 15:47] VITALS: BP 106/72
--- NOTE | 2020-11-28 16:18 | NUR ---
Pt up in chair in room for meals. Has refused to come out for groups. Has been compliant with meds. Pt flat.
[2020-11-28] MEDS: MIRTAZAPINE 15 MG TABLET PO SCH (20:31)
[2020-11-28] MEDS: ZOLPIDEM 5 MG TABLET. PO SCH (20:31)
[2020-11-28] MEDS: risperiDONE 2 MG TABLET. PO SCH (20:32)
[2020-11-28] MEDS: lamoTRIgine 100 MG TABLET. PO SCH (20:33)
--- NOTE | 2020-11-28 20:52 | PDOC ---
Exam Note: Avel Note: Please also refer to the separate dictated note~for this date of service dictated separately.~Patient seen individually. Discussed the patient with Nursing staff reviewed the chart.~Reviewed interim history and current functioning. Reviewed vital signs,~Labs/ Radiology~and current medications noted below. Continue current treatment with the changes noted in the dictated addendum note Assessment: Vital Signs/I&O: Vital Signs Date Time Temp Pulse Resp B/P (MAP) Pulse Ox O2 Delivery O2 Flow Rate FiO2 11/28/20 15:47 97.1 98 17 106/72 (83) 93 11/26/20 16:39 Room Air I & O 11/27/20 11/27/20 11/28/20 14:59 22:59 06:59 Intake Total 600 ml 460 ml Balance 600 ml 460 ml Current Medications: Meds: Current Medications Medications (Trade) Dose Ordered Sig/Aline Route PRN Reason Start Time Stop Time Status Last Admin Dose Admin Acetaminophen (Tylenol) 650 mg PRN Q6HRS PRN PO MILD PAIN / TEMP > 100.3'F 10/22/20 04:00 11/20/20 05:00 Al Hydroxide/Mg Hydroxide (Mylanta Plus Xs) 15 ml PRN AFTMEALHC PRN PO DYSPEPSIA 10/22/20 04:00 Magnesium Hydroxide (Milk Of Magnesia) 2,400 mg PRN QHS PRN PO CONSTIPATION, 2ND CHOICE 10/22/20 04:00 11/09/20 19:52 Aripiprazole (Abilify) 5 mg DAILY PO 10/22/20 09:00 10/25/20 21:23 DC 10/25/20 08:04 Bisacodyl (Dulcolax Tab) 5 mg PRN DAILY PRN PO CONSTIPATION, 3RD CHOICE 10/22/20 04:30 Clonazepam (KlonoPIN) 0.75 mg TID PO 10/22/20 09:00 10/29/20 07:15 DC 10/28/20 20:23 Doxycycline Hyclate (Vibra-Tab) 100 mg DAILY PO 10/22/20 09:00 10/24/20 12:31 DC 10/24/20 08:26 Fluoxetine HCl (PROzac) 20 mg DAILY PO 10/22/20 09:00 10/26/20 18:43 DC 12/22/20 09:30 Guaifenesin (Robitussin) 200 mg PRN Q4HRS PRN PO COUGH 10/22/20 04:30 Levothyroxine Sodium (Synthroid) 75 mcg DAILY06 PO 10/22/20 06:00 11/28/20 05:13 Mirtazapine (Remeron) 7.5 mg QHS PO 10/22/20 21:00 10/26/20 19:28 DC 10/25/20 20:19 Multivitamins/ Calcium (Thera-M Plus) 1 tab DAILY PO 10/22/20 09:00 11/28/20 08:13 Nortriptyline HCl (Pamelor) 75 mg QHS PO 10/22/20 21:00 10/29/20 19:51 DC 10/28/20 20:22 Polyethylene Glycol (miraLAX) 17 gm PRN DAILY PRN PO CONSTIPATION, 1ST CHOICE 10/22/20 04:30 11/17/20 20:41 Psyllium Hydrophilic Mucilloid (Metamucil) 1 pkt DAILY PO 10/22/20 09:00 11/28/20 08:13 Simethicone (Gas-X) 80 mg PRN BID PRN PO GAS / BLOATING 10/22/20 04:30 11/04/20 19:56 Zolpidem Tartrate (Ambien) 2.5 mg QHS PO 10/22/20 21:00 11/28/20 20:31 Non-Formulary Medication (Budesonide (Pulmicort Flexhaler)) 2 puff BID IH 10/22/20 09:00 UNV Lactobacillus Rhamnosus (Culturelle) 1 cap TID PO 10/22/20 09:00 10/30/20 11:59 DC 10/29/20 14:00 Pantoprazole Sodium (Protonix) 40 mg DAILYAC PO 10/22/20 07:30 11/28/20 08:13 Multi-Ingredient Ointment (Analgesic [place]) 1 sherice PRN QID PRN TP MUSCLE PAIN 10/22/20 04:45 Multi-Ingredient Ointment (Analgesic [place]) 1 sherice DAILY TP 10/22/20 09:00 11/28/20 08:14 Budesonide (Pulmicort) 0.5 mg RTBID NEB 10/22/20 08:00 10/22/20 20:14 DC 10/22/20 08:00 Fluticasone Furoate (ARNUITY 100mcg ELLIPTA) 2 puff BID INH 10/22/20 21:00 10/24/20 13:23 DC 10/24/20 08:27 Docusate Sodium (Colace) 100 mg BID PO 10/24/20 21:00 11/28/20 20:29 Olanzapine (ZyPREXA) 5 mg QHS PO 10/25/20 21:30 10/26/20 18:43 DC 10/25/20 21:34 Trazodone HCl (Desyrel) 100 mg PRN QHS PRN PO INSOMNIA, MAY REPEAT X1 10/26/20 00:45 10/26/20 00:44 DC Trazodone HCl (Desyrel) 100 mg PRN QHS PRN PO INSOMNIA, MAY REPEAT X1 10/26/20 00:45 UNV Trazodone HCl (Desyrel) 100 mg PRN QHS PRN PO INSOMNIA, MAY REPEAT X1 10/26/20 00:45 11/23/20 01:02 Fluoxetine HCl (PROzac) 30 mg DAILY PO 10/27/20 09:00 10/27/20 09:09 DC Olanzapine (ZyPREXA) 7.5 mg QHS PO 10/26/20 21:00 10/27/20 18:19 DC 10/26/20 19:56 Mirtazapine (Remeron) 15 mg QHS PO 10/26/20 21:00 11/28/20 20:31 Fluoxetine HCl (PROzac) 30 mg DAILY PO 10/27/20 09:15 11/05/20 18:17 DC 11/05/20 09:03 Risperidone (RisperDAL) 0.5 mg QHS PO 10/27/20 21:00 11/01/20 14:14 DC 10/31/20 19:49 Lamotrigine (LaMICtal) 25 mg QHS PO 10/27/20 21:00 10/29/20 23:00 DC 10/29/20 19:47 Lamotrigine (LaMICtal) 50 mg QHS PO 10/30/20 21:00 11/04/20 08:00 DC 11/03/20 20:13 Clonazepam (KlonoPIN) 0.25 mg DAILY@0900 PO 10/29/20 09:00 11/05/20 17:57 DC 11/05/20 09:04 Clonazepam (KlonoPIN) 0.75 mg PRN BID PRN PO ANXIETY / AGITATION 10/29/20 07:15 10/29/20 10:02 DC Clonazepam (KlonoPIN) 0.75 mg BID@1200,1700 PO 10/29/20 12:00 11/03/20 18:10 DC 11/03/20 17:45 Fluvoxamine Maleate (Luvox) 25 mg QHS PO 10/29/20 21:00 11/01/20 21:00 DC 10/31/20 19:49 Fluvoxamine Maleate (Luvox) 50 mg QHS PO 11/01/20 21:00 11/10/20 18:04 DC 11/09/20 19:50 Risperidone (RisperDAL) 0.5 mg 1X ONCE PO 10/31/20 11:30 10/31/20 11:31 DC 10/31/20 11:36 Risperidone (RisperDAL) 0.5 mg PRN 1X PRN PO AGITATION 10/31/20 11:30 11/23/20 14:08 DC 11/05/20 17:14 Lorazepam (Ativan) 0.5 mg PRN Q2HR PRN PO ANXIETY / AGITATION 10/31/20 11:15 11/24/20 15:55 Risperidone (RisperDAL) 0.75 mg QHS PO 11/01/20 21:00 11/04/20 09:00 DC 11/03/20 20:11 Lamotrigine (LaMICtal) 75 mg QHS PO 11/04/20 21:00 11/09/20 05:00 DC 11/08/20 19:58 Clonazepam (KlonoPIN) 0.5 mg 1200 PO 11/04/20 12:00 11/05/20 17:57 DC 11/05/20 11:53 Risperidone (RisperDAL) 1 mg QHS PO 11/04/20 21:00 11/05/20 17:57 DC 11/04/20 20:11 Clonazepam (KlonoPIN) 0.75 mg 1700 PO 11/04/20 17:00 11/06/20 21:00 DC 11/06/20 17:37 Clonazepam (KlonoPIN) 0.5 mg 1700 PO 11/07/20 17:00 11/28/20 17:24 Clonazepam (KlonoPIN) 0.5 mg BID PO 11/06/20 09:00 11/28/20 20:30 Risperidone (RisperDAL) 1.5 mg QHS PO 11/06/20 21:00 11/08/20 12:30 DC 11/07/20 20:29 Olanzapine (ZyPREXA ZYDIS) 5 mg QHS PO 11/07/20 21:00 11/28/20 20:31 Risperidone (RisperDAL) 2 mg QHS PO 11/09/20 21:00 11/10/20 09:00 DC 11/09/20 19:50 Risperidone (RisperDAL) 1 mg BID PO 11/08/20 12:30 11/08/20 22:30 DC 11/08/20 19:58 Lamotrigine (LaMICtal) 100 mg QHS PO 11/09/20 21:00 11/18/20 18:27 DC 11/17/20 19:54 Ciprofloxacin 2 drop Q4H OS 11/09/20 17:00 11/16/20 21:00 DC 11/16/20 20:47 Risperidone (RisperDAL) 2.5 mg QHS PO 11/10/20 21:00 11/12/20 08:00 DC 11/11/20 19:57 Fluvoxamine Maleate (Luvox) 75 mg QHS PO 11/10/20 21:00 11/12/20 23:01 DC 11/12/20 20:13 Fluvoxamine Maleate (Luvox) 100 mg QHS PO 11/13/20 21:00 11/24/20 18:40 DC 11/23/20 21:01 Risperidone (RisperDAL) 1 mg DAILY PO 11/12/20 09:00 11/24/20 17:21 DC 11/24/20 08:12 Risperidone (RisperDAL) 2 mg QHS PO 11/11/20 21:00 11/11/20 19:21 DC Risperidone (RisperDAL) 2 mg QHS PO 11/12/20 21:00 11/14/20 17:32 DC 11/13/20 19:47 Risperidone (RisperDAL) 2.5 mg QHS PO 11/14/20 21:00 11/28/20 20:32 Levofloxacin (Levaquin) 250 mg DAILY PO 11/15/20 15:00 11/21/20 14:59 Cancel Lactobacillus Rhamnosus (Culturelle) 1 cap BID PO 11/15/20 21:00 11/28/20 20:30 Cephalexin HCl (Keflex) 250 mg TID PO 11/15/20 15:30 11/23/20 16:11 DC 11/23/20 14:06 Lamotrigine (LaMICtal) 150 mg QHS PO 11/18/20 21:00 11/22/20 18:00 DC 11/21/20 20:03 Lamotrigine (LaMICtal) 175 mg QHS PO 11/22/20 21:00 11/25/20 09:00 DC 11/24/20 21:10 Lamotrigine (LaMICtal) 200 mg QHS PO 11/25/20 21:00 11/28/20 20:33 Risperidone (RisperDAL) 1.5 mg DAILY PO 11/25/20 09:00 11/28/20 08:14 Fluvoxamine Maleate (Luvox) 100 mg QHS PO 11/24/20 21:00 11/28/20 20:32 Fluvoxamine Maleate (Luvox) 25 mg HS PO 11/24/20 21:00 11/28/20 20:30 I have reviewed the current psychotropics carefully including drug interactions. Risk benefit ratio favors no change other than as noted in my dictated progress note. Diagnosis: Problems: (1) OCD (obsessive compulsive disorder) (2) Bipolar disorder, current episode depressed, severe, with psychotic features (3) Anxiety disorder, unspecified (4) Major depressive disorder, recurrent episode DEL GO MD Nov 28, 2020 20:52
--- NOTE | 2020-11-28 22:56 | NUR ---
Patient is in her room on assumption of care, awake in bed. The patient was compliant with assessments and took her medications whole. No agitation. No delusions voiced this shift. Patient denies SI. Denies any pain or discomfort. She appears to be sleeping comfortably at present time. Will continue to monitor.
[2020-11-29] MEDS: LEVOTHYROXINE 75 MCG TABLET PO SCH (05:12)
[2020-11-29 06:14] VITALS: BP 119/68
[2020-11-29] MEDS: PSYLLIUM SEED (WITH SUGAR) PACKET. PO SCH (07:37)
[2020-11-29] MEDS: PANTOPRAZOLE 40 MG TABLET. PO SCH (07:38)
[2020-11-29] MEDS: LACTOBACILLUS RHAMNOSUS GG 1 CAPSULE. PO SCH (07:38)
[2020-11-29] MEDS: risperiDONE 1 MG TABLET. PO SCH (07:38)
[2020-11-29] MEDS: MULTIVITAMIN with MINERAL TABLET. PO SCH (07:38)
[2020-11-29] MEDS: DOCUSATE SODIUM 100 MG CAPSULE PO SCH (07:38)
[2020-11-29] MEDS: METHYL SALICYLATE/MENTHOL TOPICAL OINTMENT 57GM TUBE. TP SCH (07:41)
[2020-11-29] MEDS: clonazePAM 0.5 MG TABLET PO SCH (07:41)
--- NOTE | 2020-11-29 08:32 | PDOC ---
Exam Note: Avel Note: This note is a late entry for 11/28/2020 covers elements not covered in my initial note. Subjective: The patient was reviewed on telehealth rounds in the evening of 11/28/2020 with Laisha BOYLE. Discussed with nursing staff, reviewed the chart. The patient slept 8-1/2 hours previous night. The patient has been up for meals but when questioned she always states she is not doing well. She did not attend yazidism services this morning. Appetite is fair. Refused snacks. Review of Systems: She complains of incontinence as I met with her on telehealth visit but no CV, , pulmonary, eye, ENT system symptoms on review. Mental Status Exam: The patient is reasonably oriented. Speech has some latency, coherent. Abstraction is fair. Computation is impaired. Language function is intact. Mood and affect is somewhat withdrawn but improved. No suicidal or homicidal ideation. Laboratory Data: Reviewed. Impression: Bipolar 1 disorder, depressed versus depressed with psychotic features. Anxiety disorder unspecified. OCD. Plan: No change from initial note. We will transition back to her facility perhaps this week. Assessment: Vital Signs/I&O: Vital Signs Date Time Temp Pulse Resp B/P (MAP) Pulse Ox O2 Delivery O2 Flow Rate FiO2 11/29/20 06:14 97.3 84 16 119/68 (85) 95 Room Air I & O 11/28/20 11/28/20 11/29/20 15:00 23:00 07:00 Intake Total 720 ml 460 ml 120 ml Balance 720 ml 460 ml 120 ml Current Medications: Meds: Current Medications Medications (Trade) Dose Ordered Sig/Aline Route PRN Reason Start Time Stop Time Status Last Admin Dose Admin Acetaminophen (Tylenol) 650 mg PRN Q6HRS PRN PO MILD PAIN / TEMP > 100.3'F 10/22/20 04:00 11/20/20 05:00 Al Hydroxide/Mg Hydroxide (Mylanta Plus Xs) 15 ml PRN AFTMEALHC PRN PO DYSPEPSIA 10/22/20 04:00 Magnesium Hydroxide (Milk Of Magnesia) 2,400 mg PRN QHS PRN PO CONSTIPATION, 2ND CHOICE 10/22/20 04:00 11/09/20 19:52 Aripiprazole (Abilify) 5 mg DAILY PO 10/22/20 09:00 10/25/20 21:23 DC 10/25/20 08:04 Bisacodyl (Dulcolax Tab) 5 mg PRN DAILY PRN PO CONSTIPATION, 3RD CHOICE 10/22/20 04:30 Clonazepam (KlonoPIN) 0.75 mg TID PO 10/22/20 09:00 10/29/20 07:15 DC 10/28/20 20:23 Doxycycline Hyclate (Vibra-Tab) 100 mg DAILY PO 10/22/20 09:00 10/24/20 12:31 DC 10/24/20 08:26 Fluoxetine HCl (PROzac) 20 mg DAILY PO 10/22/20 09:00 10/26/20 18:43 DC 10/26/20 09:30 Guaifenesin (Robitussin) 200 mg PRN Q4HRS PRN PO COUGH 10/22/20 04:30 Levothyroxine Sodium (Synthroid) 75 mcg DAILY06 PO 10/22/20 06:00 11/29/20 05:12 Mirtazapine (Remeron) 7.5 mg QHS PO 10/22/20 21:00 10/26/20 19:28 DC 10/25/20 20:19 Multivitamins/ Calcium (Thera-M Plus) 1 tab DAILY PO 10/22/20 09:00 11/29/20 07:38 Nortriptyline HCl (Pamelor) 75 mg QHS PO 10/22/20 21:00 10/29/20 19:51 DC 10/28/20 20:22 Polyethylene Glycol (miraLAX) 17 gm PRN DAILY PRN PO CONSTIPATION, 1ST CHOICE 10/22/20 04:30 11/17/20 20:41 Psyllium Hydrophilic Mucilloid (Metamucil) 1 pkt DAILY PO 10/22/20 09:00 11/29/20 07:37 Simethicone (Gas-X) 80 mg PRN BID PRN PO GAS / BLOATING 10/22/20 04:30 11/04/20 19:56 Zolpidem Tartrate (Ambien) 2.5 mg QHS PO 10/22/20 21:00 11/28/20 20:31 Non-Formulary Medication (Budesonide (Pulmicort Flexhaler)) 2 puff BID IH 10/22/20 09:00 UNV Lactobacillus Rhamnosus (Culturelle) 1 cap TID PO 10/22/20 09:00 10/30/20 11:59 DC 10/29/20 14:00 Pantoprazole Sodium (Protonix) 40 mg DAILYAC PO 10/22/20 07:30 11/29/20 07:38 Multi-Ingredient Ointment (Analgesic [place]) 1 sherice PRN QID PRN TP MUSCLE PAIN 10/22/20 04:45 Multi-Ingredient Ointment (Analgesic [place]) 1 sherice DAILY TP 10/22/20 09:00 11/29/20 07:41 Budesonide (Pulmicort) 0.5 mg RTBID NEB 10/22/20 08:00 10/22/20 20:14 DC 10/22/20 08:00 Fluticasone Furoate (ARNUITY 100mcg ELLIPTA) 2 puff BID INH 10/22/20 21:00 10/24/20 13:23 DC 10/24/20 08:27 Docusate Sodium (Colace) 100 mg BID PO 10/24/20 21:00 11/29/20 07:38 Olanzapine (ZyPREXA) 5 mg QHS PO 10/25/20 21:30 10/26/20 18:43 DC 10/25/20 21:34 Trazodone HCl (Desyrel) 100 mg PRN QHS PRN PO INSOMNIA, MAY REPEAT X1 10/26/20 00:45 10/26/20 00:44 DC Trazodone HCl (Desyrel) 100 mg PRN QHS PRN PO INSOMNIA, MAY REPEAT X1 10/26/20 00:45 UNV Trazodone HCl (Desyrel) 100 mg PRN QHS PRN PO INSOMNIA, MAY REPEAT X1 10/26/20 00:45 11/23/20 01:02 Fluoxetine HCl (PROzac) 30 mg DAILY PO 10/27/20 09:00 10/27/20 09:09 DC Olanzapine (ZyPREXA) 7.5 mg QHS PO 10/26/20 21:00 10/27/20 18:19 DC 10/26/20 19:56 Mirtazapine (Remeron) 15 mg QHS PO 10/26/20 21:00 11/28/20 20:31 Fluoxetine HCl (PROzac) 30 mg DAILY PO 10/27/20 09:15 11/05/20 18:17 DC 11/05/20 09:03 Risperidone (RisperDAL) 0.5 mg QHS PO 10/27/20 21:00 11/01/20 14:14 DC 10/31/20 19:49 Lamotrigine (LaMICtal) 25 mg QHS PO 10/27/20 21:00 10/29/20 23:00 DC 10/29/20 19:47 Lamotrigine (LaMICtal) 50 mg QHS PO 10/30/20 21:00 11/04/20 08:00 DC 11/03/20 20:13 Clonazepam (KlonoPIN) 0.25 mg DAILY@0900 PO 10/29/20 09:00 11/05/20 17:57 DC 11/05/20 09:04 Clonazepam (KlonoPIN) 0.75 mg PRN BID PRN PO ANXIETY / AGITATION 10/29/20 07:15 10/29/20 10:02 DC Clonazepam (KlonoPIN) 0.75 mg BID@1200,1700 PO 10/29/20 12:00 11/03/20 18:10 DC 11/03/20 17:45 Fluvoxamine Maleate (Luvox) 25 mg QHS PO 10/29/20 21:00 11/01/20 21:00 DC 10/31/20 19:49 Fluvoxamine Maleate (Luvox) 50 mg QHS PO 11/01/20 21:00 11/10/20 18:04 DC 11/09/20 19:50 Risperidone (RisperDAL) 0.5 mg 1X ONCE PO 10/31/20 11:30 10/31/20 11:31 DC 10/31/20 11:36 Risperidone (RisperDAL) 0.5 mg PRN 1X PRN PO AGITATION 10/31/20 11:30 11/23/20 14:08 DC 11/05/20 17:14 Lorazepam (Ativan) 0.5 mg PRN Q2HR PRN PO ANXIETY / AGITATION 10/31/20 11:15 11/24/20 15:55 Risperidone (RisperDAL) 0.75 mg QHS PO 11/01/20 21:00 11/04/20 09:00 DC 11/03/20 20:11 Lamotrigine (LaMICtal) 75 mg QHS PO 11/04/20 21:00 11/09/20 05:00 DC 11/08/20 19:58 Clonazepam (KlonoPIN) 0.5 mg 1200 PO 11/04/20 12:00 11/05/20 17:57 DC 11/05/20 11:53 Risperidone (RisperDAL) 1 mg QHS PO 11/04/20 21:00 11/05/20 17:57 DC 11/04/20 20:11 Clonazepam (KlonoPIN) 0.75 mg 1700 PO 11/04/20 17:00 11/06/20 21:00 DC 11/06/20 17:37 Clonazepam (KlonoPIN) 0.5 mg 1700 PO 11/07/20 17:00 11/28/20 17:24 Clonazepam (KlonoPIN) 0.5 mg BID PO 11/06/20 09:00 11/29/20 07:41 Risperidone (RisperDAL) 1.5 mg QHS PO 11/06/20 21:00 11/08/20 12:30 DC 11/07/20 20:29 Olanzapine (ZyPREXA ZYDIS) 5 mg QHS PO 11/07/20 21:00 11/28/20 20:31 Risperidone (RisperDAL) 2 mg QHS PO 11/09/20 21:00 11/10/20 09:00 DC 11/09/20 19:50 Risperidone (RisperDAL) 1 mg BID PO 11/08/20 12:30 11/08/20 22:30 DC 11/08/20 19:58 Lamotrigine (LaMICtal) 100 mg QHS PO 11/09/20 21:00 11/18/20 18:27 DC 11/17/20 19:54 Ciprofloxacin 2 drop Q4H OS 11/09/20 17:00 11/16/20 21:00 DC 11/16/20 20:47 Risperidone (RisperDAL) 2.5 mg QHS PO 11/10/20 21:00 11/12/20 08:00 DC 11/11/20 19:57 Fluvoxamine Maleate (Luvox) 75 mg QHS PO 11/10/20 21:00 11/12/20 23:01 DC 11/12/20 20:13 Fluvoxamine Maleate (Luvox) 100 mg QHS PO 11/13/20 21:00 11/24/20 18:40 DC 11/23/20 21:01 Risperidone (RisperDAL) 1 mg DAILY PO 11/12/20 09:00 11/24/20 17:21 DC 11/24/20 08:12 Risperidone (RisperDAL) 2 mg QHS PO 11/11/20 21:00 11/11/20 19:21 DC Risperidone (RisperDAL) 2 mg QHS PO 11/12/20 21:00 11/14/20 17:32 DC 11/13/20 19:47 Risperidone (RisperDAL) 2.5 mg QHS PO 11/14/20 21:00 11/28/20 20:32 Levofloxacin (Levaquin) 250 mg DAILY PO 11/15/20 15:00 11/21/20 14:59 Cancel Lactobacillus Rhamnosus (Culturelle) 1 cap BID PO 11/15/20 21:00 11/29/20 07:38 Cephalexin HCl (Keflex) 250 mg TID PO 11/15/20 15:30 11/23/20 16:11 DC 11/23/20 14:06 Lamotrigine (LaMICtal) 150 mg QHS PO 11/18/20 21:00 11/22/20 18:00 DC 11/21/20 20:03 Lamotrigine (LaMICtal) 175 mg QHS PO 11/22/20 21:00 11/25/20 09:00 DC 11/24/20 21:10 Lamotrigine (LaMICtal) 200 mg QHS PO 11/25/20 21:00 11/28/20 20:33 Risperidone (RisperDAL) 1.5 mg DAILY PO 11/25/20 09:00 11/29/20 07:38 Fluvoxamine Maleate (Luvox) 100 mg QHS PO 11/24/20 21:00 11/28/20 20:32 Fluvoxamine Maleate (Luvox) 25 mg HS PO 11/24/20 21:00 11/28/20 20:30 I have reviewed the current psychotropics carefully including drug interactions. Risk benefit ratio favors no change other than as noted in my dictated progress note. Diagnosis: Problems: (1) Bipolar disorder, current episode depressed, severe, with psychotic features (2) OCD (obsessive compulsive disorder) (3) Major depressive disorder, recurrent episode (4) Anxiety disorder, unspecified DEL GO MD Nov 29, 2020 08:32
--- NOTE | 2020-11-29 09:10 | NUR ---
Met with Kallie to complete written safety plan. Kallie was focused on a loss of balance she had yesterday in which she fell back into her chair while trying to use her walker. Reassurance and support provided as well as reminder to use walker brakes to increase safety. Discussed d/c back to [facility] [place] and Kallie expressed she would prefer to go home. SW stated to Kallie that it was something to continue to stride towards and that she could talk to with her sister/guardian about. Reviewed people Kallie could reach out to when she is feeling increased anxiety/depression and activities she could distract herself with. Kallie will have Dr. Cerna, PCP, follow at [facility] and the support of telepsychiatry.
--- NOTE | 2020-11-29 11:28 | NUR ---
WEEKLY ACTIVITY THERAPY NOTE Date of Admission: 10/22 Date of AT Assessment: 10/25 Precipitating behaviors that initiated intake and admission: The patient made statements that she would attempt to strangle self. Patient had stopped eating prior to arrival to hospital Goal aimed: to increase socialization and motivation Initial Goal: Pt. will participate in at least three Activity Therapy groups or individual sessions before discharge. Goal changed 11/01/20: Pt. will participate in at least three Activity Therapy groups or individual sessions per week Goal changed 11/22: Pt. will participate in at least one Activity Therapy group per day Weekly progress towards goal: did not achieve Group participation level: 4 full, 2 mod, 1 min Weekly highlights: She came up with numerous words, independently, actively listened and shared personal experience with goal setting on Sunday in [facility]/ goal setting group Behaviors observed: more alert and animated this week, appeared more calm and relaxed, pleasant to have in groups Plan: no change to goal Beneficial adaptations:
--- NOTE | 2020-11-29 12:15 | NUR ---
Transition Record was faxed to follow-up provider with the following elements: Reason for admission, procedures, tests, principal diagnosis, pending studies, patient instructions, 28/05 contact information for unit, phone number to obtain pending test results, plan for follow-up care, physician follow-up, advanced directive information, and medication list with dose, duration and instructions. This information was included in the following documents: History and physical, lab results, study results, progress notes, social work planning form, DC instruction form, patient visit summary, and medication reconciliation form. Date & time record faxed: 11/28/20 @ [phone] Record faxed to: [facility] @ [phone] Record discussed with/ report given to: Celena @ [phone]
--- NOTE | 2020-11-29 21:07 | PDOC ---
Exam Note: Avel Note: Please also refer to the separate dictated note~for this date of service dictated separately.~Patient seen individually. Discussed the patient with Nursing staff reviewed the chart.~Reviewed interim history and current functioning. Reviewed vital signs,~Labs/ Radiology~and current medications noted below. Continue current treatment with the changes noted in the dictated addendum note Assessment: Vital Signs/I&O: Vital Signs Date Time Temp Pulse Resp B/P (MAP) Pulse Ox O2 Delivery O2 Flow Rate FiO2 11/29/20 06:14 97.3 84 16 119/68 (85) 95 Room Air I & O 11/28/20 11/28/20 11/29/20 15:00 23:00 07:00 Intake Total 720 ml 460 ml 120 ml Balance 720 ml 460 ml 120 ml Current Medications: Meds: Current Medications Medications (Trade) Dose Ordered Sig/Aline Route PRN Reason Start Time Stop Time Status Last Admin Dose Admin Acetaminophen (Tylenol) 650 mg PRN Q6HRS PRN PO MILD PAIN / TEMP > 100.3'F 10/22/20 04:00 11/29/20 12:52 DC 11/20/20 05:00 Al Hydroxide/Mg Hydroxide (Mylanta Plus Xs) 15 ml PRN AFTMEALHC PRN PO DYSPEPSIA 10/22/20 04:00 11/29/20 12:52 DC Magnesium Hydroxide (Milk Of Magnesia) 2,400 mg PRN QHS PRN PO CONSTIPATION, 2ND CHOICE 10/22/20 04:00 11/29/20 12:52 DC 11/09/20 19:52 Aripiprazole (Abilify) 5 mg DAILY PO 10/22/20 09:00 10/25/20 21:23 DC 10/25/20 08:04 Bisacodyl (Dulcolax Tab) 5 mg PRN DAILY PRN PO CONSTIPATION, 3RD CHOICE 10/22/20 04:30 11/29/20 12:52 DC Clonazepam (KlonoPIN) 0.75 mg TID PO 10/22/20 09:00 10/29/20 07:15 DC 10/28/20 20:23 Doxycycline Hyclate (Vibra-Tab) 100 mg DAILY PO 10/22/20 09:00 10/24/20 12:31 DC 10/24/20 08:26 Fluoxetine HCl (PROzac) 20 mg DAILY PO 10/22/20 09:00 10/26/20 18:43 DC 10/26/20 09:30 Guaifenesin (Robitussin) 200 mg PRN Q4HRS PRN PO COUGH 10/22/20 04:30 11/29/20 12:52 DC Levothyroxine Sodium (Synthroid) 75 mcg DAILY06 PO 10/22/20 06:00 11/29/20 12:52 DC 11/29/20 05:12 Mirtazapine (Remeron) 7.5 mg QHS PO 10/22/20 21:00 10/26/20 19:28 DC 10/25/20 20:19 Multivitamins/ Calcium (Thera-M Plus) 1 tab DAILY PO 10/22/20 09:00 11/29/20 12:52 DC 11/29/20 07:38 Nortriptyline HCl (Pamelor) 75 mg QHS PO 10/22/20 21:00 10/29/20 19:51 DC 10/28/20 20:22 Polyethylene Glycol (miraLAX) 17 gm PRN DAILY PRN PO CONSTIPATION, 1ST CHOICE 10/22/20 04:30 11/29/20 12:52 DC 11/17/20 20:41 Psyllium Hydrophilic Mucilloid (Metamucil) 1 pkt DAILY PO 10/22/20 09:00 11/29/20 12:52 DC 11/29/20 07:37 Simethicone (Gas-X) 80 mg PRN BID PRN PO GAS / BLOATING 10/22/20 04:30 11/29/20 12:52 DC 11/04/20 19:56 Zolpidem Tartrate (Ambien) 2.5 mg QHS PO 10/22/20 21:00 11/29/20 12:52 DC 11/28/20 20:31 Non-Formulary Medication (Budesonide (Pulmicort Flexhaler)) 2 puff BID IH 10/22/20 09:00 UNV Lactobacillus Rhamnosus (Culturelle) 1 cap TID PO 10/22/20 09:00 10/30/20 11:59 DC 10/29/20 14:00 Pantoprazole Sodium (Protonix) 40 mg DAILYAC PO 10/22/20 07:30 11/29/20 12:52 DC 11/29/20 07:38 Multi-Ingredient Ointment (Analgesic [place]) 1 sherice PRN QID PRN TP MUSCLE PAIN 10/22/20 04:45 11/29/20 12:52 DC Multi-Ingredient Ointment (Analgesic [place]) 1 sherice DAILY TP 10/22/20 09:00 11/29/20 12:52 DC 11/29/20 07:41 Budesonide (Pulmicort) 0.5 mg RTBID NEB 10/22/20 08:00 10/22/20 20:14 DC 10/22/20 08:00 Fluticasone Furoate (ARNUITY 100mcg ELLIPTA) 2 puff BID INH 10/22/20 21:00 10/24/20 13:23 DC 10/24/20 08:27 Docusate Sodium (Colace) 100 mg BID PO 10/24/20 21:00 11/29/20 12:52 DC 11/29/20 07:38 Olanzapine (ZyPREXA) 5 mg QHS PO 10/25/20 21:30 10/26/20 18:43 DC 10/25/20 21:34 Trazodone HCl (Desyrel) 100 mg PRN QHS PRN PO INSOMNIA, MAY REPEAT X1 10/26/20 00:45 10/26/20 00:44 DC Trazodone HCl (Desyrel) 100 mg PRN QHS PRN PO INSOMNIA, MAY REPEAT X1 10/26/20 00:45 UNV Trazodone HCl (Desyrel) 100 mg PRN QHS PRN PO INSOMNIA, MAY REPEAT X1 10/26/20 00:45 11/29/20 12:52 DC 11/23/20 01:02 Fluoxetine HCl (PROzac) 30 mg DAILY PO 10/27/20 09:00 10/27/20 09:09 DC Olanzapine (ZyPREXA) 7.5 mg QHS PO 10/26/20 21:00 10/27/20 18:19 DC 10/26/20 19:56 Mirtazapine (Remeron) 15 mg QHS PO 10/26/20 21:00 11/29/20 12:52 DC 11/28/20 20:31 Fluoxetine HCl (PROzac) 30 mg DAILY PO 10/27/20 09:15 11/05/20 18:17 DC 11/05/20 09:03 Risperidone (RisperDAL) 0.5 mg QHS PO 10/27/20 21:00 11/01/20 14:14 DC 10/31/20 19:49 Lamotrigine (LaMICtal) 25 mg QHS PO 10/27/20 21:00 10/29/20 23:00 DC 10/29/20 19:47 Lamotrigine (LaMICtal) 50 mg QHS PO 10/30/20 21:00 11/04/20 08:00 DC 11/03/20 20:13 Clonazepam (KlonoPIN) 0.25 mg DAILY@0900 PO 10/29/20 09:00 11/05/20 17:57 DC 11/05/20 09:04 Clonazepam (KlonoPIN) 0.75 mg PRN BID PRN PO ANXIETY / AGITATION 10/29/20 07:15 10/29/20 10:02 DC Clonazepam (KlonoPIN) 0.75 mg BID@1200,1700 PO 10/29/20 12:00 11/03/20 18:10 DC 11/03/20 17:45 Fluvoxamine Maleate (Luvox) 25 mg QHS PO 10/29/20 21:00 11/01/20 21:00 DC 10/31/20 19:49 Fluvoxamine Maleate (Luvox) 50 mg QHS PO 11/01/20 21:00 11/10/20 18:04 DC 11/09/20 19:50 Risperidone (RisperDAL) 0.5 mg 1X ONCE PO 10/31/20 11:30 10/31/20 11:31 DC 10/31/20 11:36 Risperidone (RisperDAL) 0.5 mg PRN 1X PRN PO AGITATION 10/31/20 11:30 11/23/20 14:08 DC 11/05/20 17:14 Lorazepam (Ativan) 0.5 mg PRN Q2HR PRN PO ANXIETY / AGITATION 10/31/20 11:15 11/29/20 12:52 DC 11/24/20 15:55 Risperidone (RisperDAL) 0.75 mg QHS PO 11/01/20 21:00 11/04/20 09:00 DC 11/03/20 20:11 Lamotrigine (LaMICtal) 75 mg QHS PO 11/04/20 21:00 11/09/20 05:00 DC 11/08/20 19:58 Clonazepam (KlonoPIN) 0.5 mg 1200 PO 11/04/20 12:00 11/05/20 17:57 DC 11/05/20 11:53 Risperidone (RisperDAL) 1 mg QHS PO 11/04/20 21:00 11/05/20 17:57 DC 11/04/20 20:11 Clonazepam (KlonoPIN) 0.75 mg 1700 PO 11/04/20 17:00 11/06/20 21:00 DC 11/06/20 17:37 Clonazepam (KlonoPIN) 0.5 mg 1700 PO 11/07/20 17:00 11/29/20 12:52 DC 11/28/20 17:24 Clonazepam (KlonoPIN) 0.5 mg BID PO 11/06/20 09:00 11/29/20 12:52 DC 11/29/20 07:41 Risperidone (RisperDAL) 1.5 mg QHS PO 11/06/20 21:00 11/08/20 12:30 DC 11/07/20 20:29 Olanzapine (ZyPREXA ZYDIS) 5 mg QHS PO 11/07/20 21:00 11/29/20 12:52 DC 11/28/20 20:31 Risperidone (RisperDAL) 2 mg QHS PO 11/09/20 21:00 11/10/20 09:00 DC 11/09/20 19:50 Risperidone (RisperDAL) 1 mg BID PO 11/08/20 12:30 11/08/20 22:30 DC 11/08/20 19:58 Lamotrigine (LaMICtal) 100 mg QHS PO 11/09/20 21:00 11/18/20 18:27 DC 11/17/20 19:54 Ciprofloxacin 2 drop Q4H OS 11/09/20 17:00 11/16/20 21:00 DC 11/16/20 20:47 Risperidone (RisperDAL) 2.5 mg QHS PO 11/10/20 21:00 11/12/20 08:00 DC 11/11/20 19:57 Fluvoxamine Maleate (Luvox) 75 mg QHS PO 11/10/20 21:00 11/12/20 23:01 DC 11/12/20 20:13 Fluvoxamine Maleate (Luvox) 100 mg QHS PO 11/13/20 21:00 11/24/20 18:40 DC 11/23/20 21:01 Risperidone (RisperDAL) 1 mg DAILY PO 11/12/20 09:00 11/24/20 17:21 DC 11/24/20 08:12 Risperidone (RisperDAL) 2 mg QHS PO 11/11/20 21:00 11/11/20 19:21 DC Risperidone (RisperDAL) 2 mg QHS PO 11/12/20 21:00 11/14/20 17:32 DC 11/13/20 19:47 Risperidone (RisperDAL) 2.5 mg QHS PO 11/14/20 21:00 11/29/20 12:52 DC 11/28/20 20:32 Levofloxacin (Levaquin) 250 mg DAILY PO 11/15/20 15:00 11/21/20 14:59 Cancel Lactobacillus Rhamnosus (Culturelle) 1 cap BID PO 11/15/20 21:00 11/29/20 12:52 DC 11/29/20 07:38 Cephalexin HCl (Keflex) 250 mg TID PO 11/15/20 15:30 11/23/20 16:11 DC 11/23/20 14:06 Lamotrigine (LaMICtal) 150 mg QHS PO 11/18/20 21:00 11/22/20 18:00 DC 11/21/20 20:03 Lamotrigine (LaMICtal) 175 mg QHS PO 11/22/20 21:00 11/25/20 09:00 DC 11/24/20 21:10 Lamotrigine (LaMICtal) 200 mg QHS PO 11/25/20 21:00 11/29/20 12:52 DC 11/28/20 20:33 Risperidone (RisperDAL) 1.5 mg DAILY PO 11/25/20 09:00 11/29/20 12:52 DC 11/29/20 07:38 Fluvoxamine Maleate (Luvox) 100 mg QHS PO 11/24/20 21:00 11/29/20 12:52 DC 11/28/20 20:32 Fluvoxamine Maleate (Luvox) 25 mg HS PO 11/24/20 21:00 11/29/20 12:52 DC 11/28/20 20:30 I have reviewed the current psychotropics carefully including drug interactions. Risk benefit ratio favors no change other than as noted in my dictated progress note. Diagnosis: Problems: (1) Bipolar disorder, current episode depressed, severe, with psychotic features (2) OCD (obsessive compulsive disorder) (3) Anxiety disorder, unspecified (4) Major depressive disorder, recurrent episode DEL GO MD Nov 29, 2020 21:07
--- NOTE | 2020-12-01 09:18 | DS ---
DATE OF DISCHARGE: 11/29/2020 This late entry date of service 11/29/2020 covers elements not covered in my initial note. REASON FOR ADMISSION: Please refer to the admission history for details. Briefly, the patient is a 59-year-old female referred to us from [facility] on account of worsening symptoms of depression with suicidal ideation with intent to strangle herself with a cord. This was within the context of her long history of bipolar disorder with increased 2 episodes of ECT treatment in the past, multiple psychotropic medication failures. She had been stable for some time, but recently getting more depressed, hopeless, helpless, worthless with sleep and appetite changes, refusing to eat, paranoid about food and actively suicidal, resulting in this referral. SIGNIFICANT FINDINGS AND CLINICAL COURSE: Following admission, the patient was seen daily individually by myself from a psychiatric standpoint, medical followup per Dr. Schneider/Dr. Zaldivar. The patient was extremely depressed, withdrawn, refusing to eat, paranoid, suspicious. Multiple changes were made in her psychotropics and she finally seemed to respond to a combination of Risperdal 1.5 mg a.m., 2.5 mg at bedtime, Ambien 2.5 mg at bedtime, Lamictal 200 mg a day, Klonopin 0.5 mg b.i.d. and 0.5 mg at 1700. We made an attempt to taper the Klonopin, but she has failed this and further taper was deferred to outpatient. She was also on Remeron 15 mg at bedtime, trazodone 100 mg at bedtime p.r.n., may repeat x 1, Ativan p.r.n. and Zyprexa 5 mg at bedtime. The Zyprexa should be stopped at approximately 30 days post-discharge if she is still stable. She is also on Luvox 125 mg a day for her marked OCD, repetitive, ruminative symptoms within the context of mood symptoms. She also had a UTI, which was treated during this hospitalization. Prior to discharge on 11/29/2020, no CV, , pulmonary, eye system symptoms on review. She still said she felt depressed, but no suicidal ideation whatsoever. We had at one point during this hospitalization, consider referring her for ECT treatment again, but then she seemed to respond positively to the treatment that this was deferred. MENTAL STATUS EXAM AT DISCHARGE: The patient is awake, alert, oriented. Speech coherent. Thought processes goal directed. Intellect average. Insight good. Judgment intact. Speech does have some latency, often responses monosyllabic, but much more forthcoming than she was at admission. Paranoia seemed to have stabilized. Again, no suicidal ideation at discharge. FINAL DIAGNOSES: Bipolar 1 disorder, depressed with psychotic features, in partial remission; anxiety disorder, unspecified; impulse control disorder, unspecified; status post urinary tract infection. Rest unchanged from admission. DISCHARGE MEDICATIONS: Please refer to the MRAD. DISCHARGE INSTRUCTIONS: Outpatient psychiatric and medical followup at the [facility]. Time for discharge day management greater than 30 minutes. MAN Charlie GO MD DR: JOSHUA/wil JOB#: [id number] / [id number]
== END 2020-11-29 12:15 | DRG 885 ==
LOC: GEROPSY 02:55
PROVIDERS: ADMIT Psychiatry & Neurology Psychiatry; ATTEND Psychiatry & Neurology Psychiatry
DX: F31.75 Bipolar disorder, in partial remission, most recent episode depressed (principal); F50.00 Anorexia nervosa, unspecified; N39.0 Urinary tract infection, site not specified; R45.851 Suicidal ideations; E03.9 Hypothyroidism, unspecified; E86.0 Dehydration; F41.1 Generalized anxiety disorder; F42.9 Obsessive-compulsive disorder, unspecified; F51.04 Psychophysiologic insomnia; G20 Parkinson's disease; I10 Essential (primary) hypertension; K21.9 Gastro-esophageal reflux disease without esophagitis; Z20.822 Contact with and (suspected) exposure to COVID-19; K59.00 Constipation, unspecified; M20.40 Other hammer toe(s) (acquired), unspecified foot; Z87.440 Personal history of urinary (tract) infections; Z86.59 Personal history of other mental and behavioral disorders; Z81.8 Family history of other mental and behavioral disorders
CPT/HCPCS: 36415; 80053; 81001; 85007; 85025; 85027; 87077; 87086; 87186; 93005; U0003; 97110; 97116; 97530